=== PATIENT | female | born 1940 | race Caucasian/White ===

== ENCOUNTER 2022-04-24 11:23 | Outpatient (CLI) | payer MEDICARE, OTHER, SELFPAY ==
[2022-04-24 11:30] VITALS: BP 161/64; PULSE 61; RESP 16; O2SAT 99
[2022-04-24] MEDS: TETRACAINE 0.5% OPHTH 1 DROP EYE-RIGHT ×3 (11:34→12:15)
[2022-04-24] MEDS: BRIMONIDINE TARTRATE 0.2% OPHTH 1 DROP EYE-RIGHT ×2 (11:35→12:22)
--- NOTE | 2022-04-24 13:02 | W.PM.OPTPROC ---
Procedure Note Date of procedure: 04/24/22 Will [facility] bill your pro fee for this procedure?: Yes Procedure Description: SURGEON: Kimberly Macario MD PREOPERATIVE DIAGNOSIS: Posterior capsular opacity, right eye POSTOPERATIVE DIAGNOSIS: Posterior capsular opacity, right eye PROCEDURE: YAG laser capsulotomy, right eye ANESTHESIA: Topical. ESTIMATED BLOOD LOSS: None PATHOLOGY SPECIMEN: None COMPLICATIONS: None INDICATIONS: See consult note for details. The risks, benefits and alternatives of the procedure were explained to the patient, who elected to proceed and signed informed consent to do so. PROCEDURE: The patient was brought to the pre-holding area where the right eye was identified as the operative eye. I placed my initials above this eye. The patient received 2 sets of 1 drop of 0.5% tetracaine and 1 drop of 1% tropicamide. They also received 1 drop of 0.2% brimonidine. They received 1 drop of 0.5% tetracaine immediately prior to bringing them back for the procedure. The patient was then brought to the procedure room where the right eye was again identified as the operative eye. A YAG Sander capsulotomy lens was placed on the eye. The laser was administered using a total number of 12 shots with an energy of 2.4 mJ per shot for a total energy of 29 mJ. The patient tolerated the procedure well. DISPOSITION: The patient was taken back to the pre-holding area and given 1 drop of 0.2% brimonidine in the right eye. They were discharged to home in stable condition. The patient was instructed to call me or go to the emergency department with any sudden change, including dramatic loss of vision, severe pain in the eye or eyebrow region, nausea, or vomiting. The patient was instructed to use the 0.2% brimonidine 1 drop 2 times a day in the right eye for 1 week. The patient will follow up in the clinic in 1-2 weeks. Surgeon: Kimberly Macario MD
== END 2022-04-24 12:24 | disposition home or self-care (01) ==
LOC: EYE PRC 11:25
PROVIDERS: PCP Family Medicine; Visit Provider Ophthalmology
DX: H26.9 Unspecified cataract (principal)
CPT/HCPCS: 66821; A9270

== ENCOUNTER 2022-07-25 14:06 | Emergency (ER) | payer MEDICARE, OTHER, SELFPAY ==
[2022-07-25 14:18] VITALS: BP 145/67; PULSE 65; RESP 14; TEMP 37.1; O2SAT 97; BMI 19.9
--- NOTE | 2022-07-25 14:43 | ED_ITS ---
HPI - Weakness General Chief complaint: Weakness Stated complaint: Low NA Time Seen by Provider: 07/25/22 14:18 History of Present Illness HPI Narrative: Pt is an 82 year old woman who comes in with a 2 month history of fatigue. She has really no specific areas of weakness. She has had no chest pain, shortness of breath, abd pain, rashes, dysruia, fevers or chills. She has been following along with her primary physician and had a sodium of 120 two days ago. It is unclear to me why she was contacted today and asked to come to the emergency department with a low sodium 2 days later but she is here and really has no new complaints. She is overall weak but has no otherr complaints and is able to ambulate without difficulty and is saturating at 97% on room air. Related Data Home Medications Medication Instructions Recorded Confirmed alendronate 70 mg tablet mg PO 07/25/22 amlodipine 5 mg tablet mg 07/25/22 latanoprost 0.005 % eye drops drp 07/25/22 lisinopril 40 mg tablet mg 07/25/22 metoprolol succinate 50 mg mg PO 07/25/22 tablet,extended release 24 hr torsemide 5 mg tablet mg 07/25/22 Allergies Allergy/AdvReac Type Severity Reaction Status Date / Time No Known Drug Allergies Allergy Verified 07/25/22 14:17 Review of Systems Status of ROS: Reports: 10 or more systems reviewed and unremarkable except as noted in History and below [facility] Medical History (Updated 07/25/22 @ 16:16 by Jb Hoffman MD) Anemia Aortic insufficiency Back pain Eczema Hypertension SHERIF (obstructive sleep apnea) Osteoarthritis Osteoporosis Peripheral neuropathy Thyroid nodule Ventricular tachycardia Surgical History (Updated 07/25/22 @ 14:51 by Jb Hoffman MD) H/O ileostomy Social History Smoking Status: Never smoker How often do you have a drink containing alcohol: never AUDIT-C Alcohol total score: 0 Non-prescribed substance use: denies use service: No Exam Narrative: Exam Narrative: EXAM GENERAL: Patient appears comfortable and well. EYES: No scleral icterus. ENT: Tympanic membranes and oropharynx normal. THYROID: no thyroid nodules or thyromegaly. LYMPH: No supraclavicular or cervical lymphadenopathy. SKIN: Visible skin seen during exam normal or with benign process only. EXT: No dependent lower extremity pedal edema. HEART: Regular rate with distant heart tones LUNGS: Clear to auscultation bilaterally with no crackles or wheezes. ABD: Soft, non tender, non distended. PSYCH: Good eye contact, speech is not pressured. Const: Vital Signs, click to edit/add: Vital Signs - 24 hr 07/25/22 14:18 07/25/22 15:17 Temperature 98.8 F 98.4 F Pulse Rate [Right Pulse Oximeter] 65 67 Respiratory Rate 14 16 Blood Pressure [Ri ght Upper Arm] 145/67 H 140/60 H Pulse Oximetry 97 95 Oxygen Delivery Me thod Room Air Room Air Course Course Hospital Course: Pt seen and examined cbc, bmp ordered. Reevaluation(s) Reevaluation #1: Sodium up to 125. Vital Signs Vital signs: Initial Vital Signs Temperature 98.8 F 07/25/22 14:18 Temperature Source Temporal Artery Scan 07/25/22 14:18 Pulse Rate 65 07/25/22 14:18 Respiratory Rate 14 07/25/22 14:18 Blood Pressure 145/67 H 07/25/22 14:18 Blood Pressure Mean 93 07/25/22 14:18 Blood Pressure Position Sitting 07/25/22 14:18 Pulse Oximetry 97 07/25/22 14:18 Oxygen Delivery Method 07/25/22 14:18 Vital Signs Temperature 98.8 F 07/25/22 14:18 Pulse Rate 65 07/25/22 14:18 Respiratory Rate 14 07/25/22 14:18 Blood Pressure 145/67 H 07/25/22 14:18 Pulse Oximetry 97 07/25/22 14:18 Oxygen Delivery Method 07/25/22 14:18 Temperature 98.4 F 07/25/22 15:17 Pulse Rate 67 07/25/22 15:17 Respiratory Rate 16 07/25/22 15:17 Blood Pressure 140/60 H 07/25/22 15:17 Pulse Oximetry 95 07/25/22 15:17 Oxygen Delivery Method 07/25/22 15:17 MDM - Weakness MDM Narrative Medical decision making narrative: Pt presents with chronic weakness and a sodium of 120 two days ago. Today sodium 125. Normal exam. Normal vital signs. No findings today. Will treat with 1-1.5 liter fluid restriction at home with PCP follow up in 3-4 days with repeat BMP. Differential Diagnosis Differential diagnosis: Likely anemia, hypoglycemia, sepsis and dehydration Medical Records Attestation: I reviewed the patient's medical records. Lab Data Labs: Lab Results 07/25/22 07/25/22 Range/Units 14:57 14:57 WBC 3.39 L (4.50-11.00) K/uL RBC 3.98 L (4.00-5.20) m/uL Hgb 12.7 (12.0-16.0) gm/dL Hct 36.9 (33.0-51.0) % MCV 93 (80-100) fL MCH 32 (26-34) pg MCHC 34 (32-36) gm/dL RDW Coeff of Helio 11.9 (11.5-15.5) % Plt Count 242 (140-440) K/uL Neut % (Auto) 56.3 (42.0-72.0) % Lymph % (Auto) 19.5 L (20-44) % [place] % (Auto) 23.0 H (0.0-11.0) % Eos % (Auto) 0.3 (0.0-7.0) % Baso % (Auto) 0.6 (0.0-3.0) % Neut # (Auto) 1.90 (1.7-7.0) K/uL Lymph # (Auto) 0.70 L (0.90-2.90) K/uL [place] # (Auto) 0.80 (0.00-0.90) K/UL Eos # (Auto) 0.00 (0.00-0.50) K/uL Baso # (Auto) 0.00 (0.00-0.30) K/uL Sodium 125 L (135-149) mmol/L Potassium 3.9 (3.6-5.1) mmol/L Chloride 88 L (96-114) mmol/L Carbon Dioxide 30 (20-32) mmol/L BUN 21 (7-30) mg/dL Creatinine 0.7 (0.5-1.5) mg/dL Estimated Creat Clear 36.03 Estimated GFR 86 ml/min Glucose 102 (60-115) mg/dL Calcium 8.6 (8.4-10.6) mg/dL Discharge Plan Discharge Clinical Impression: Chronic hyponatremia Condition: Stable Instructions: Hyponatremia (ED) Additional Instructions: 1-1.5 liter fluid restriction Repeat sodium in 3-4 days Activity Level: Other Discharge Diet: Other Prescriptions: No Action latanoprost 0.005 % drops Label Comments: INSTILL 1 DROP INTO LEFT EYE AT BEDTIME metoprolol succinate 50 mg tablet extended release 24 hr PO Label Comments: TAKE ONE TABLET BY MOUTH ONCE DAILY alendronate 70 mg tablet PO Label Comments: TAKE 1 TABLET (70 MG) BY MOUTH ONCE A WEEK IN THE MORNING. TAKE ON EMPTY STOMACH WITH FULL GLASS OF WATER. DO NOT LIE DOWN FOR 1 HOUR. amlodipine 5 mg tablet Label Comments: TAKE ONE TABLET BY MOUTH (5MG) ONCE DAILY torsemide 5 mg tablet Label Comments: TAKE ONE-HALF TABLET (2.5 MG) BY MOUTH ONCE DAILY. lisinopril 40 mg tablet Label Comments: TAKE 1 TABLET BY MOUTH ONCE DAILY. Follow Up/Referrals: Scout Allan MD [Primary Care Provider] - Stand Alone Forms: [facility] Info Instructions
[2022-07-25 15:17] VITALS: BP 140/60; PULSE 67; RESP 16; TEMP 36.9; O2SAT 95
[2022-07-25 15:35] LABS: Basophils Percent Auto 0.6 % (0.0-3.0); Eosinophils Percent Auto 0.3 % (0.0-7.0); Hematocrit 36.9 % (33.0-51.0); Hemoglobin* 12.7 gm/dL (12.0-16.0); Immature Granulocytes Pct Auto 0.3 %; Lymphocytes Percent Auto 19.5 % (20-44); Mean Corpuscular HGB Conc 34 gm/dL (32-36); Mean Corpuscular Hemoglobin 32 pg (26-34); Mean Corpuscular Volume 93 fL (80-100); Neutrophils Percent Auto 56.3 % (42.0-72.0); Platelet Count* 242 K/uL (140-440); RDW Coefficient of Variation % 11.9 % (11.5-15.5); Red Blood Count 3.98 m/uL (4.00-5.20); White Blood Count* 3.39 K/uL (4.50-11.00)
[2022-07-25 15:46] LABS: Slide Review Reflex No
[2022-07-25 15:50] LABS: Chloride* 88 mmol/L (96-114); Sodium* 125 mmol/L (135-149)
[2022-07-25 15:51] LABS: Potassium* 3.9 mmol/L (3.6-5.1)
[2022-07-25 15:53] LABS: Creatinine* 0.7 mg/dL (0.5-1.5); Est. Creatinine Clearance* 36.03; Estimated Glomerular Filt Rate 86 ml/min
[2022-07-25 15:54] LABS: Blood Urea Nitrogen* 21 mg/dL (7-30); Calcium* 8.6 mg/dL (8.4-10.6); Carbon Dioxide* 30 mmol/L (20-32); Glucose* 102 mg/dL (60-115)
[2022-07-25 16:28] VITALS: BP 159/80; PULSE 73; RESP 18; O2SAT 97
== END 2022-07-25 17:32 | disposition other institution (70) ==
PROVIDERS: Emergency Provider Internal Medicine; PCP Family Medicine
DX: U07.1 COVID-19 (principal)
CPT/HCPCS: 36415; 80048; 85025; 99283

== ENCOUNTER 2022-07-25 18:52 | Outpatient (CLI) | payer MEDICARE, OTHER, SELFPAY | END 2022-07-25 18:53 | disposition home or self-care (01) | LOC: AMB 07-28 02:35 | PROVIDERS: PCP Family Medicine; Visit Provider Family Medicine | DX: R55 Syncope and collapse (principal) | CPT/HCPCS: A0425; A0427 ==

== ENCOUNTER 2022-07-25 19:17 | Observation (INO) | payer MEDICARE, OTHER, SELFPAY ==
[2022-07-25] VITALS (8 sets, daily range): BP systolic 136–161; BP diastolic 63–76; PULSE 61–85; RESP 16–18; TEMP 36.7; O2SAT 97–100; BMI 18.0
[2022-07-25] MEDS: 0.9 % SODIUM CHLORIDE 1000 ml 1,000 ML 500 ML IV (19:42)
[2022-07-25 19:43] LABS: Basophils Absolute Auto 0.03 K/uL (0.00-0.30); Basophils Percent Auto 0.6 % (0.0-3.0); Eosinophils Absolute Auto 0.02 K/uL (0.00-0.50); Eosinophils Percent Auto 0.4 % (0.0-7.0); HCO3 VBG 29 mmol/L (21-28); Hematocrit 35.2 % (33.0-51.0); Hemoglobin* 12.1 gm/dL (12.0-16.0); Immature Granulocytes Abs Auto 0.02 K/uL (0.00-0.30); Immature Granulocytes Pct Auto 0.4 %; Lactate* 1.2 mmol/L (0.5-1.9); Lymphocytes Absolute Auto 1.31 K/uL (0.90-2.90); Lymphocytes Percent Auto 27.6 % (20-44); Mean Corpuscular HGB Conc 34 gm/dL (32-36); Mean Corpuscular Hemoglobin 32 pg (26-34); Mean Corpuscular Volume 93 fL (80-100); Monocytes Percent Auto 17.5 % (0.0-11.0); Neutrophils Absolute Auto 2.53 K/uL (1.7-7.0); Neutrophils Percent Auto 53.5 % (42.0-72.0); PCO2 VBG 47 mmHG (40-50); PO2 VBG 34.1 mmHG (25-47); Platelet Count* 238 K/uL (140-440); RDW Coefficient of Variation % 11.9 % (11.5-15.5); Red Blood Count 3.78 m/uL (4.00-5.20); White Blood Count* 4.74 K/uL (4.50-11.00); pH VBG 7.398 (7.32-7.43)
[2022-07-25 19:45] LABS: Slide Review Reflex No
--- NOTE | 2022-07-25 19:54 | ED.GENADULT ---
HPI - General Adult General Time Seen by Provider: 19:54 Date Seen: 07/25/22 Chief complaint: Syncope/Fainted Stated complaint: Syncope Time Seen by Provider: 07/25/22 19:25 Source: patient, family ( comes in to see her when I am in with her.), EMS, RN notes reviewed and old records reviewed Mode of arrival: EMS Limitations: no limitations History of Present Illness HPI narrative: This 82-year-old female was brought in from home reportedly for syncopal episode. She had been recently discharged out of the ER earlier a few hours ago, was sent in for hyponatremia. Her hyponatremia was reportedly at 1:22 a.m. a few days ago, today it was at 1:25 a.m.. In review of previous sodium value she has ran in the mid to upper 120s. She tells me that Dr. Allan is thinking that it is stemming from a excessive water drinking. I do see on her medication reconciliation that she is on lisinopril and torsemide. She states when she got home she went to go to the bathroom and had a diarrheal episode. She states the next thing she remembers is waking up in the ambulance. Her stated she did not fall off the toilet she was just slumped over towards the counter and the sink, no trauma happen. He states she was just limp. He noted nothing that was concerning for seizure-type activity. On arrival here she states she just felt jumpy. Nursing staff noted that she was moving her arms around in her legs around. They demonstrated jerky type limit activity. Due to the high volume and acuity in the ER, I did order normal saline 1 L over 2 hours but was not able to see her immediately. By the time I see her, her jerking is has resolved, she states she is feeling better. She is having no acute symptoms at this time. She is requesting a warm blanket. Per nursing staff, EMS did report that they obtained an initial blood pressure on scene at 60, this did rebound with out reported intervention. Related Data Home Medications Medication Instructions Recorded Confirmed alendronate 70 mg tablet mg PO 07/25/22 amlodipine 5 mg tablet mg 07/25/22 latanoprost 0.005 % eye drops drp 07/25/22 lisinopril 40 mg tablet mg 01/26/23 metoprolol succinate 50 mg mg PO 07/25/22 tablet,extended release 24 hr torsemide 5 mg tablet mg 07/25/22 Allergies Allergy/AdvReac Type Severity Reaction Status Date / Time No Known Drug Allergies Allergy Verified 07/25/22 14:17 Review of Systems Status of ROS: Reports: 10 or more systems reviewed and unremarkable except as noted in History and below [facility] Medical History Anemia Aortic insufficiency Back pain Eczema Hypertension SHERIF (obstructive sleep apnea) Osteoarthritis Osteoporosis Peripheral neuropathy Thyroid nodule Ventricular tachycardia Surgical History H/O ileostomy Social History Smoking Status: Never smoker How often do you have a drink containing alcohol: never AUDIT-C Alcohol total score: 0 Non-prescribed substance use: denies use service: No Exam Const: Vital Signs, click to edit/add: Vital Signs - 24 hr 07/25/22 19:39 Temperature 98.1 F Pulse Rate [Right] 61 Respiratory Rate 16 Blood Pressure [Le ft Upper Arm] 161/72 H Pulse Oximetry 100 Oxygen Delivery Me thod Room Air Documenting provider has reviewed patient's vital signs: yes Common normals: no apparent distress, oriented x3, no limitations, healthy appearing and alert General appearance: cooperative, comfortable, well kempt and well developed HENMT: Common normals: normocephalic, head/scalp atraumatic, hearing grossly normal bilaterally, external ears normal, external nose normal, nasal mucous membranes and turbinates normal, moist oral mucous membranes, oropharynx normal, dentition normal and gingiva normal Head and scalp: normocephalic and atraumatic Nose: external nose normal and nasal mucous membranes and turbinates normal External ear: external ears normal Eye: Common normals: PERRL, EOMs intact bilaterally, conjunctivae normal and no scleral icterus Conjunctiva: conjunctiva(e) normal Pupil: PERRL Neck & C-Spine: Common normals: full ROM, no lymphadenopathy, supple, no meningeal signs, no JVD and thyroid normal Thyroid: thyroid normal Chest: Common normals: inspection of chest normal and palpation of chest normal Resp: Common normals: normal respiratory effort, no retractions, no use of accessory muscles and clear to auscultation bilaterally Auscultation: clear to auscultation bilaterally Cardio: Common normals: no JVD, regular rate, regular rhythm, S1 normal heart sound, S2 normal heart sound, no gallops, no clicks and no murmurs Rate: regular rate Rhythm: regular rhythm Heart sounds: S1 normal and S2 normal GI: Common normals: Normal to inspection, nondistended, normoactive bowel sounds present, soft to palpation, non-tender, no hepatosplenomegaly and no masses Palpation: soft and no hepatosplenomegaly Extremity: Other: No lower extremity edema noted, calves nontender. Neuro: Common normals: oriented x3, CN's II-XII intact bilaterally, moves all extremities, no focal motor deficits and no sensory deficits noted Sensorium/orientation: alert Meningeal signs: no meningeal signs Speech: speech normal Motor exam: no tremor noted, no asterixis and no fasciculations Psych: Appearance: well kempt Course Course Hospital Course: IV fluids with a L of normal saline over 2 hours was initiated on arrival, did order full complement of labs and requested that she be on cardiac monitoring and pulse oximetry. Up to this point, she show no arrhythmia, no hypoxia. She is feeling better. She is currently receiving her IV fluids. Will await lab results. Given that she is completely feeling better back to baseline, no seizure activity, no trauma, feel a head CT noncontrast is really to be minimally beneficial. Will continue to observe here. Will have EKG done and again monitored on cardiac monitoring while here, consider arrhythmia but does not sound consistent with that either. The jerky type movements that she was experiencing that nursing demonstrated to me does make me consider psychogenic possibilities as well. Will consider metabolic derangements and am certainly giving her a mild but slow correction of her sodium at this time. Reevaluation(s) Reevaluation #1: Reviewed with patient that her COVID is positive. She is up-to-date on all of her immunizations. She and her reside independently, are not aware of any ill contacts but we did review that the current viruses are very contagious. It is possible the diarrhea is a finding of initial COVID for her, it is very difficult to say for sure. We have seen no arrhythmia, do not think that this was neurologic that would require a head CT as she is completely back to baseline without any focal deficits. I a have subsequently called her hospitalists, he does agree with admission for observation. Time: 21:14 Vital Signs Vital signs: Initial Vital Signs Temperature 98.1 F 07/25/22 19:39 Temperature Source Temporal Artery Scan 07/25/22 19:39 Pulse Rate 61 07/25/22 19:39 Respiratory Rate 16 07/25/22 19:39 Blood Pressure 161/72 H 07/25/22 19:39 Blood Pressure Mean 101 07/25/22 19:39 Blood Pressure Position Sitting 07/25/22 19:39 Pulse Oximetry 100 07/25/22 19:39 Oxygen Delivery Method 07/25/22 19:39 Vital Signs Temperature 98.1 F 07/25/22 19:39 Pulse Rate 61 07/25/22 19:39 Respiratory Rate 16 07/25/22 19:39 Blood Pressure 161/72 H 07/25/22 19:39 Pulse Oximetry 100 07/25/22 19:39 Oxygen Delivery Method 07/25/22 19:39 Temperature 98.1 F 07/25/22 19:39 Pulse Rate 61 07/25/22 19:39 Respiratory Rate 16 07/25/22 19:39 Blood Pressure 161/72 H 07/25/22 19:39 Pulse Oximetry 100 07/25/22 19:39 Oxygen Delivery Method 07/25/22 19:39 Medical Decision Making Lab Data Lab results reviewed: Yes I reviewed the patient's lab results Labs: Lab Results 07/25/22 07/25/22 07/25/22 Range/Units 19:26 19:36 19:36 WBC 4.74 (4.50-11.00) K/uL RBC 3.78 L (4.00-5.20) m/uL Hgb 12.1 (12.0-16.0) gm/dL Hct 35.2 (33.0-51.0) % MCV 93 (80-100) fL MCH 32 (26-34) pg MCHC 34 (32-36) gm/dL RDW Coeff of Helio 11.9 (11.5-15.5) % Plt Count 238 (140-440) K/uL Neut % (Auto) 53.5 (42.0-72.0) % Lymph % (Auto) 27.6 (20-44) % [place] % (Auto) 17.5 H (0.0-11.0) % Eos % (Auto) 0.4 (0.0-7.0) % Baso % (Auto) 0.6 (0.0-3.0) % Neut # (Auto) 2.53 (1.7-7.0) K/uL Lymph # (Auto) 1.31 (0.90-2.90) K/uL [place] # (Auto) 0.80 (0.00-0.90) K/UL Eos # (Auto) 0.02 (0.00-0.50) K/uL Baso # (Auto) 0.03 (0.00-0.30) K/uL VBG pH (7.32-7.43) VBG pCO2 (40-50) mmHG VBG pO2 (25-47) mmHG VBG HCO3 (21-28) mmol/L Sodium 125 L (135-149) mmol/L Potassium 3.8 (3.6-5.1) mmol/L Chloride 91 L (96-114) mmol/L Carbon Dioxide 26 (20-32) mmol/L BUN 22 (7-30) mg/dL Creatinine 0.9 (0.5-1.5) mg/dL Estimated GFR 64 ml/min Glucose 158 H (60-115) mg/dL Lactate (0.5-1.9) mmol/L Calcium 8.5 (8.4-10.6) mg/dL Magnesium 1.9 (1.5-2.6) mg/dL NT-Pro-B Natriuret Pep 1180 pg/mL SARS-CoV-2 (PCR) (Negative) Influenza Type A (PCR) (Negative) Influenza Type B (PCR) (Negative) RSV (PCR) (Negative) POC Troponin I 0.01 (0.01-0.04) ng/ml 07/25/22 07/25/22 Range/Units 19:36 19:36 WBC (4.50-11.00) K/uL RBC (4.00-5.20) m/uL Hgb (12.0-16.0) gm/dL Hct (33.0-51.0) % MCV (80-100) fL MCH (26-34) pg MCHC (32-36) gm/dL RDW Coeff of Helio (11.5-15.5) % Plt Count (140-440) K/uL Neut % (Auto) (42.0-72.0) % Lymph % (Auto) (20-44) % [place] % (Auto) (0.0-11.0) % Eos % (Auto) (0.0-7.0) % Baso % (Auto) (0.0-3.0) % Neut # (Auto) (1.7-7.0) K/uL Lymph # (Auto) (0.90-2.90) K/uL [place] # (Auto) (0.00-0.90) K/UL Eos # (Auto) (0.00-0.50) K/uL Baso # (Auto) (0.00-0.30) K/uL VBG pH 7.398 (7.32-7.43) VBG pCO2 47 (40-50) mmHG VBG pO2 34.1 (25-47) mmHG VBG HCO3 29 H (21-28) mmol/L Sodium (135-149) mmol/L Potassium (3.6-5.1) mmol/L Chloride (96-114) mmol/L Carbon Dioxide (20-32) mmol/L BUN (7-30) mg/dL Creatinine (0.5-1.5) mg/dL Estimated GFR ml/min Glucose (60-115) mg/dL Lactate 1.2 (0.5-1.9) mmol/L Calcium (8.4-10.6) mg/dL Magnesium (1.5-2.6) mg/dL NT-Pro-B Natriuret Pep pg/mL SARS-CoV-2 (PCR) POSITIVE SARS-CoV-2 A (Negative) Influenza Type A (PCR) Negative PCR FLU A (Negative) Influenza Type B (PCR) Negative PCR FLU B (Negative) RSV (PCR) Negative PCR RSV (Negative) POC Troponin I (0.01-0.04) ng/ml ECG Data Attestation: I personally reviewed and interpreted this ECG as follows: (Normal sinus rhythm, 61 beats per minute. Voltage criteria for LVH met. QT corrected 448 milliseconds.) Critical Care Time Critical Care Time Critical Care Time: No Discharge Plan Discharge Clinical Impression: COVID-19, Hyponatremia, Syncope Patient Disposition: Admitted As Inpatient Condition: Improved Prescriptions: No Action latanoprost 0.005 % drops Label Comments: INSTILL 1 DROP INTO LEFT EYE AT BEDTIME metoprolol succinate 50 mg tablet extended release 24 hr PO Label Comments: TAKE ONE TABLET BY MOUTH ONCE DAILY alendronate 70 mg tablet PO Label Comments: TAKE 1 TABLET (70 MG) BY MOUTH ONCE A WEEK IN THE MORNING. TAKE ON EMPTY STOMACH WITH FULL GLASS OF WATER. DO NOT LIE DOWN FOR 1 HOUR. amlodipine 5 mg tablet Label Comments: TAKE ONE TABLET BY MOUTH (5MG) ONCE DAILY torsemide 5 mg tablet Label Comments: TAKE ONE-HALF TABLET (2.5 MG) BY MOUTH ONCE DAILY. lisinopril 40 mg tablet Label Comments: TAKE 1 TABLET BY MOUTH ONCE DAILY. Follow Up/Referrals: Scout Allan MD [Primary Care Provider] -
[2022-07-25 20:17] LABS: Troponin, Point-of-Care* 0.01 ng/ml (0.01-0.04)
[2022-07-25 20:21] LABS: NT Pro B Type NatriureticPept* 1180 pg/mL
[2022-07-25 20:23] LABS: Blood Urea Nitrogen* 22 mg/dL (7-30); Calcium* 8.5 mg/dL (8.4-10.6); Carbon Dioxide* 26 mmol/L (20-32); Chloride* 91 mmol/L (96-114); Creatinine* 0.9 mg/dL (0.5-1.5); Estimated Glomerular Filt Rate 64 ml/min; Glucose* 158 mg/dL (60-115); Magnesium* 1.9 mg/dL (1.5-2.6); Potassium* 3.8 mmol/L (3.6-5.1); Sodium* 125 mmol/L (135-149)
[2022-07-25 20:34] LABS: PCR FLU A Negative PCR FLU A (Negative); PCR FLU B Negative PCR FLU B (Negative); PCR RSV Negative PCR RSV (Negative)
[2022-07-25 20:36] LABS: SARS PCR* POSITIVE SARS-CoV-2 (Negative)
--- NOTE | 2022-07-25 23:39 | CRLHL7_ITS ---
For Patients: As a result of the Century Cures Act, medical imaging exams and procedure reports are released immediately into your electronic medical record. You may view this report before your referring provider. If you have questions, please contact your health care provider. INDICATION: COVID-19 positive TECHNIQUE: Chest radiograph 1 view COMPARISON: 10/22/2019 FINDINGS: Mediastinum: The mediastinum is normal in appearance. Mild cardiomegaly is noted without interval change. Lung: Both lungs are unremarkable in appearance. No sign of pleural effusion seen. No pneumothorax is identified. Bone and Soft tissue: Severe diffuse osteopenia is present. IMPRESSION: 1. Mild cardiomegaly is noted without interval change. Dictated by Nitish Banks MD @ 07/26/2022 12:44:59 AM Dictated by: Nitish Banks MD @ 07/26/2022 00:45:02 (Electronically Signed)
--- NOTE | 2022-07-25 23:49 | PM.IMCN1 ---
Date of Consult Consult date: 07/25/22 Primary Care Provider: Scout Allan MD Consult Narrative Narrative: Claudia Benitez is a 82 year old female [facility] Medical History Anemia Aortic insufficiency Back pain Eczema Hypertension SHERIF (obstructive sleep apnea) Osteoarthritis Osteoporosis Peripheral neuropathy Thyroid nodule Ventricular tachycardia Surgical History H/O ileostomy Social History Highest level of school completed/degree received: Bachelor's degree Smoking Status: Never smoker Do you use any of these nicotine containing products: None Second hand tobacco smoke exposure: No How often do you have a drink containing alcohol: never How often do you have six or more drinks on one occasion: Never AUDIT-C Alcohol total score: 0 Non-prescribed substance use: denies use Caffeine: Yes service: No Meds Home Medications and Allergies Home Medications Medication Instructions Recorded Confirmed Type alendronate 70 mg tablet mg PO 07/25/22 History amlodipine 5 mg tablet mg 07/25/22 History latanoprost 0.005 % eye drops drp 07/25/22 History lisinopril 40 mg tablet mg 07/25/22 History metoprolol succinate 50 mg mg PO 07/25/22 History tablet,extended release 24 hr torsemide 5 mg tablet mg 07/25/22 History Allergies Allergy/AdvReac Type Severity Reaction Status Date / Time No Known Drug Allergies Allergy Verified 07/25/22 14:17 Exam Const: Vital Signs, click to edit/add: Vital Signs - 24 hr 07/25/22 19:39 07/25/22 19:25 07/25/22 21:00 Temperature 98.1 F Pulse Rate [Pulse Oximeter] Pulse Rate [Right] 61 63 Respiratory Rate 16 16 Blood Pressure [Le ft Arm] Blood Pressure [Le ft Upper Arm] 161/72 H 136/63 Pulse Oximetry 100 100 100 Oxygen Delivery Me thod Room Air Room Air 07/25/22 22:00 07/25/22 20:00 07/25/22 19:45 Temperature Pulse Rate [Pulse Oximeter] Pulse Rate [Right] 67 70 63 Respiratory Rate 16 16 16 Blood Pressure [Le ft Arm] Blood Pressure [Le ft Upper Arm] 141/71 H 151/72 H 148/76 H Pulse Oximetry 100 99 99 Oxygen Delivery Me thod Room Air Room Air Room Air 07/25/22 22:33 07/25/22 22:33 Temperature 98.1 F Pulse Rate [Pulse Oximeter] 85 Pulse Rate [Right] Respiratory Rate 18 Blood Pressure [Le ft Arm] 150/69 H Blood Pressure [Le ft Upper Arm] Pulse Oximetry 97 Oxygen Delivery Me thod Room Air Room Air Labs Labs: Short CBC 07/25/22 Range/Units 19:36 WBC 4.74 (4.50-11.00) K/uL Hgb 12.1 (12.0-16.0) gm/dL Hct 35.2 (33.0-51.0) % Plt Count 238 (140-440) K/uL BMP 07/25/22 19:36 Sodium 125 L Potassium 3.8 Chloride 91 L Carbon Dioxide 26 BUN 22 Creatinine 0.9 Glucose 158 H Calcium 8.5 Assessment and Plan Assessment and plan (1) Chronic hyponatremia: Status: Acute (2) Syncope: Status: Acute (3) COVID-19: Status: Acute Plan [facility] Hospitalist CONSULTATION NOTE: Reason for consult: COVID infection HPI: Patient is a pleasant 82-year-old female who had a syncopal episode while having bowel movement earlier this evening. She was brought in by her when found unconscious. Likely out the toilet is set up she did not fall but just leaned against the cabinet. EMS reportedly noted patient to be hypotensive on arrival. In the ER she is found to be COVID-positive. Patient has been dealing with fatigue, general malaise, and some orthopnea for several months. She does report this has been worse over the last several days. She does not have a headache and has not felt lightheaded. She was not feeling symptomatic. For her syncopal episode she just had to go the bathroom. She denies any recent chest pains. He has not been short of breath but she does have to sleep with 2-3 pillows as she is unable to sleep flat from shortness of breath. She denies abdominal pain, nausea, vomiting. She has had some loose stools over the last several days. She denies any fevers or chills. Patient is a non-smoker. She does not drink alcohol. She does not use recreational drugs. We did discuss CODE STATUS and she wishes to be full code. Exam (performed via interactive video with assistance of bedside nurse): General: Alert, cooperative, no acute distress HEENT: Pupils reported ERRL, oral mucosa pink and moist without erythema Lungs: Clear to auscultation bilaterally without crackle or wheeze CV: Regular rate and rhythm without loud murmur rub or gallop Abd: Denies tenderness and does not exhibit signs of pain with palpation done by bedside nurse Ext: No pitting edema noted Skin: No rashes, bruises or lesions appreciated on gross visualization of exposed skin Past medical, surgical and social history reviewd in EMR. Assessment and Plan: 1. COVID infection 2. Orthopnea, concern for heart failure Patient is a pleasant 82-year-old female admitted for COVID infection. She is not requiring oxygen so will not initiate any COVID-specific therapies. She is vaccinated which should also help her clinical course. For her orthopnea she should have an echocardiogram if available. She was scheduled to have one in August as she gets them yearly for some valvular disease. She denies any diagnosis of heart failure at this point in time, but her orthopnea is concerning. Her proBNP also appears mildly elevated which would fit with heart failure. We will get a chest x-ray this evening to evaluate for any pulmonary edema. Patient's chronic outpatient medications will need to be continued as appropriate when fully verified. PRNs have been placed for pain and nausea. Enoxaparin is ordered for DVT prophylaxis. Patient is a full code. Thank you for including Flo John in the patients care. This service is available for further assistance as requested by your care team by calling [phone].
[2022-07-26] MEDS: ENOXAPARIN 30 MG/0.3ML INJ SUBCUT (01:38)
--- NOTE | 2022-07-26 07:33 | PC.NURSE ---
VSS on RA. Patient is alert and oriented x3, able to make needs known to staff. Pt denies pain on assessment. Independent with transfers, continent bowel, urostomy in place and draining adequately. Pt on precaution for Covid-19, no s/s of SOB noted. Patient appears stable, call light within reach.
[2022-07-26 07:54] LABS: Chloride* 95 mmol/L (96-114); Sodium* 130 mmol/L (135-149)
[2022-07-26 07:55] LABS: Potassium* 3.6 mmol/L (3.6-5.1)
[2022-07-26 07:57] LABS: Creatinine* 0.5 mg/dL (0.5-1.5); Est. Creatinine Clearance* 32.55; Estimated Glomerular Filt Rate 94 ml/min
[2022-07-26 07:58] LABS: Blood Urea Nitrogen* 14 mg/dL (7-30); Calcium* 8.2 mg/dL (8.4-10.6); Carbon Dioxide* 29 mmol/L (20-32); Glucose* 91 mg/dL (60-115)
[2022-07-26] MEDS: SODIUM CHLORIDE 0.9 % (FLUSH) 10 ML SYRINGE 5 ML IVF ×2 (08:40→21:31)
[2022-07-26 11:35] VITALS: BP 141/90; PULSE 91; RESP 18; TEMP 36.8; O2SAT 100
--- NOTE | 2022-07-26 14:19 | PC.NURSE ---
Pt stable through out shift. Pt on 1500cc fluid restriction.
[2022-07-26] MEDS: METOPROLOL SUCCINATE (XL) 50 MG TAB PO (14:31)
[2022-07-26 15:00] VITALS: BP 181/78; PULSE 80; RESP 18; TEMP 36.8; O2SAT 100
[2022-07-26 15:42] LABS: Chloride* 96 mmol/L (96-114); Sodium* 130 mmol/L (135-149)
[2022-07-26 15:43] LABS: Potassium* 3.6 mmol/L (3.6-5.1)
[2022-07-26 15:45] LABS: Creatinine* 0.6 mg/dL (0.5-1.5); Est. Creatinine Clearance* 32.55; Estimated Glomerular Filt Rate 90 ml/min
[2022-07-26 15:46] LABS: Blood Urea Nitrogen* 26 mg/dL (7-30); Calcium* 8.4 mg/dL (8.4-10.6); Carbon Dioxide* 27 mmol/L (20-32); Glucose* 117 mg/dL (60-115)
[2022-07-26 15:54] LABS: C Reactive Protein* < 0.5 mg/dL (0.5-1.0)
--- NOTE | 2022-07-26 16:35 | PM.IMHP1 ---
Hospitalist- H&P: HANNA History of Present Illness Date Seen: 07/26/22 Chief complaint: Syncope Narrative: Claudia Benitez is a 82 year old female admitted to the hospital after syncopal episode at home. She was sitting on the toilet having a bowel movement when she called out to her that she was feeling dizzy. He came to check on her and found her unresponsive sitting on the toilet. She was falling over so he held her up. He was able to call 911. Paramedics came. When they arrive she was still unresponsive sitting on the toilet. She awoke when they were transfer her on the gurney into the ambulance. She reports no history of syncope. She does not recall feeling lightheaded beforehand but her recalls hearing her call out saying she was feeling dizzy and calling for his help before she became unconscious. There was no seizure activity noted. She does not have any significant heart disease. She reports no obvious illness though she does note that she has had some recent loose stools. There has been no blood in her stool and no melena. She has not had a fever or cough, chest pain or shortness of breath. No cold symptoms. She tested positive for COVID in the emergency department but was unaware of her having any obvious COVID symptoms though she notes her chronic weakness is much worse this week. Patient has multiple concerns she would like me to address as follows: She has reported longstanding weakness, myalgias, fatigue for at least the last couple years. She reports feeling quite a bit worse especially with weakness this week. I see in the clinic that she has had some evaluation for this with thyroid testing and electrolyte testing. I do see that she has chronic hyponatremia with sodiums commonly in the upper 120s. Three days ago in clinic her sodium was 120. She reports she has been eating food in a normal way. She does acknowledge that she drinks a lot of water. She has problems with sleeping. She has trouble falling asleep at night and even more importantly she wakes up in the middle on a night and can not fall asleep again. She does wear CPAP but often takes it off in the middle of the night because she feels like it is choking her. During the day she reports that she gets sleepy and recently almost fell asleep while eating dinner. She reports generalized aching. She is not aware of inflamed red or tender joints but more generalized muscle aching. This is been going on for a couple years as well. She does have arthritis with joint deformities in her fingers particularly at the D IP joints. She has never been diagnosed with and other inflammatory arthritic conditions such as rheumatoid arthritis. She reports on off chronic problems with loose stools. She has taken herself off of gluten and dairy hoping that this would help. Unsure if she is benefiting from that. She has had no formal diagnosis of this as a gluten enteropathy or a formal diagnosis of lactose intolerance. She has not had blood in her stool. Review of Systems Narrative: See above [facility] Medical History (Updated 07/26/22 @ 16:54 by Salvador Tony MD) Anemia Aortic insufficiency Back pain Breast cancer, BRCA1 positive Daytime sleepiness Eczema Fatigue Hypertension Insomnia Myalgia SHERIF (obstructive sleep apnea) Osteoarthritis Osteoporosis Peripheral neuropathy Thyroid nodule Ventricular tachycardia Weakness generalized Surgical History (Updated 07/26/22 @ 16:46 by Salvador Tony MD) H/O ileostomy History of arthroplasty of right hip History of bilateral mastectomy History of cataract surgery History of hysterectomy Family History (Updated 07/26/22 @ 16:47 by Salvador Tony MD) Mother Ovarian cancer High blood pressure Sister Ovarian cancer High blood pressure Father Heart disease High blood pressure Social History (Updated 07/26/22 @ 16:48 by Salvador Tony MD) Narrative: She is and here with her . They live independently. They see Dr. Allan for primary care. She does not smoke. She does not drink alcohol. She has had her COVID vaccines. Code status is full. 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 Highest level of school completed/degree received: Bachelor's degree Smoking Status: Never smoker Do you use any of these nicotine containing products: None Second hand tobacco smoke exposure: No How often do you have a drink containing alcohol: never How often do you have six or more drinks on one occasion: Never AUDIT-C Alcohol total score: 0 Non-prescribed substance use: denies use Caffeine: Yes service: No Meds Home Medications and Allergies Home Medications Medication Instructions Recorded Confirmed Type alendronate 70 mg tablet 70 mg PO QWEEK 07/25/22 07/26/22 History amlodipine 5 mg tablet 5 mg PO DAILY 07/25/22 07/26/22 History latanoprost 0.005 % eye drops 1 drp ophthalmic (eye) HS 07/25/22 07/26/22 History lisinopril 40 mg tablet 40 mg PO DAILY 07/25/22 07/26/22 History metoprolol succinate 50 mg 50 mg PO DAILY 07/25/22 07/26/22 History tablet,extended release 24 hr torsemide 5 mg tablet 2.5 mg PO DAILY 07/25/22 07/26/22 History Allergies Allergy/AdvReac Type Severity Reaction Status Date / Time No Known Drug Allergies Allergy Verified 07/25/22 14:17 Exam Narrative: Exam Narrative: She is alert and appears in no distress. She is somewhat anxious. Eyes are normal. Oropharynx normal. Neck is supple without mass or adenopathy. Respirations are clear to auscultation. Cardiovascular: S1, S2, regular rate and rhythm. No murmur gallop or rub. Abdomen: Bowel sounds active. Abdomen is soft without tenderness or mass. Extremities without edema. She moves all 4 extremities well. There is no rash. Good peripheral pulses. Inspection of her joints shows some deformity primarily of the D IP but to a lesser extent her right MCP joints no obvious of joint effusion no erythema or warmth. Hips, ankles, elbows, shoulders and knees without obvious inflammatory changes Const: Vital Signs, click to edit/add: Vital Signs - 24 hr 07/25/22 19:39 07/25/22 19:25 07/25/22 21:00 Temperature 98.1 F Pulse Rate [Pulse Oximeter] Pulse Rate [Right] 61 63 Respiratory Rate 16 16 Blood Pressure [Le ft Arm] Blood Pressure [Le ft Upper Arm] 161/72 H 136/63 Pulse Oximetry 100 100 100 Oxygen Delivery Me thod Room Air Room Air 07/25/22 22:00 07/25/22 20:00 07/25/22 19:45 Temperature Pulse Rate [Pulse Oximeter] Pulse Rate [Right] 67 70 63 Respiratory Rate 16 16 16 Blood Pressure [Le ft Arm] Blood Pressure [Le ft Upper Arm] 141/71 H 151/72 H 148/76 H Pulse Oximetry 100 99 99 Oxygen Delivery Me thod Room Air Room Air Room Air 07/25/22 22:33 07/25/22 22:33 07/25/22 23:00 Temperature 98.1 F Pulse Rate [Pulse Oximeter] 85 85 Pulse Rate [Right] Respiratory Rate 18 18 Blood Pressure [Le ft Arm] 150/69 H Blood Pressure [Le ft Upper Arm] Pulse Oximetry 97 Oxygen Delivery Me thod Room Air Room Air 07/26/22 11:35 Temperature 98.2 F Pulse Rate [Pulse Oximeter] 91 Pulse Rate [Right] Respiratory Rate 18 Blood Pressure [Le ft Arm] 141/90 H Blood Pressure [Le ft Upper Arm] Pulse Oximetry 100 Oxygen Delivery Me thod Room Air Documenting provider has reviewed patient's vital signs: yes Hospitalist - H&P: Result Labs Labs: Short CBC 07/25/22 Range/Units 19:36 WBC 4.74 (4.50-11.00) K/uL Hgb 12.1 (12.0-16.0) gm/dL Hct 35.2 (33.0-51.0) % Plt Count 238 (140-440) K/uL BMP 07/25/22 07/25/22 07/26/22 06:52 19:36 15:20 Sodium 130 L 125 L 130 L Potassium 3.6 3.8 3.6 Chloride 95 L 91 L 96 Carbon Dioxide 29 26 27 BUN 14 22 26 Creatinine 0.5 0.9 0.6 Glucose 91 158 H 117 H Calcium 8.2 L 8.5 8.4 Assessment and Plan Assessment and plan (1) Syncope: Problem comment: Likely vasovagal. Likely combination of factors. She was identified with low blood pressure by the paramedics. May be getting too much antihypertensive medicines. She has had some recent increase in diarrhea which may be contributing. Her COVID illness may also be contributing. Will monitor her vital signs here. Hold on some blood pressure medicines and consider further outpatient evaluation if symptomatic after her COVID illness resolves Status: Acute (2) Hyponatremia: Problem comment: Chronic, improved just with being placed on a fluid restriction and holding blood pressure medicines. I did obtain urine and serum sodium and osmolality. Results pending Status: Acute (3) COVID-19: Problem comment: The only obvious acute change in her symptoms is that her weakness is much worse this week, probably COVID weakness. Status: Acute (4) Weakness generalized: Problem comment: Chronic Status: Acute (5) Myalgia: Problem comment: Chronic. Cause is not obvious. Will check a sed rate with screening for polymyalgia rheumatica. With her COVID infection this may be difficult to assess Status: Acute (6) Fatigue: Problem comment: Chronic Status: Acute (7) Insomnia: Problem comment: Chronic problem. Not sleeping well at night but sleepy during the day. Uncertain whether her sleep apnea and CPAP or playing a role Status: Acute (8) Daytime sleepiness: Problem comment: Likely due to poor sleep at night. Status: Acute (9) Chronic hyponatremia: Problem comment: Uncertain cause. For now fluid restriction seems to work. Status: Acute Plan Monitor in hospital for recurrent syncope, COVID symptoms, hyponatremia. Probably discharge to home tomorrow if clinically improved. She has a number of concerns that would be best evaluated in the outpatient setting Total time spent today is 80 minutes, 60 minutes in coordinate of care and discussing with patient and ongoing evaluation and management of her multiple concerns noted above
[2022-07-26 16:37] VITALS: BP 180/82; BP 188/93; BP 189/78; PULSE 76; PULSE 82; PULSE 94
[2022-07-26 17:07] LABS: Erythrocyte SedimentationRate* 12 mm/hr (2-20)
[2022-07-26 17:56] VITALS: O2SAT 100
--- NOTE | 2022-07-26 18:22 | PC.NURSE ---
Shift note: Pt alert and oriented. Ambulate with A1 with walker and GB. Pt was angry for her food was cold before it get to her room. No SOB, pain, n/v.
[2022-07-26 19:00] VITALS: BP 174/73; PULSE 70; RESP 16; TEMP 36.8; O2SAT 100
[2022-07-26] MEDS: lisinopriL 20 MG TABLET PO (21:30)
[2022-07-26] MEDS: LATANOPROST 0.005% OPHTH 1 DROP EYE-BOTH (21:30)
[2022-07-26 23:00] VITALS: BP 193/88; PULSE 70; PULSE 73; RESP 16; TEMP 36.8; O2SAT 100
[2022-07-27] MEDS: ENOXAPARIN 30 MG/0.3ML INJ SUBCUT (00:04)
[2022-07-27 03:00] VITALS: BP 178/85; PULSE 68; RESP 16; TEMP 36.9; O2SAT 100
--- NOTE | 2022-07-27 06:32 | PC.NURSE ---
Systolic PB is slightly elevated, all other vitals are stable. Patient is alert and oriented x3. Pt denies pain, n/v, and SOB related to Covid-19. Pt continues on isolation precautions. Continent of bowel and bladder, assist of one with transfers. Pt appears stable, call light within reach. Will call appropriately.
[2022-07-27 06:52] LABS: Chloride* 96 mmol/L (96-114); Sodium* 130 mmol/L (135-149)
[2022-07-27 06:55] LABS: Carbon Dioxide* 29 mmol/L (20-32); Creatinine* 0.6 mg/dL (0.5-1.5); Est. Creatinine Clearance* 32.55; Estimated Glomerular Filt Rate 90 ml/min
[2022-07-27 06:56] LABS: Blood Urea Nitrogen* 23 mg/dL (7-30); Calcium* 8.4 mg/dL (8.4-10.6); Glucose* 97 mg/dL (60-115)
[2022-07-27 08:17] VITALS: BP 185/87; PULSE 80; RESP 18; TEMP 36.6; O2SAT 100
[2022-07-27] MEDS: SODIUM CHLORIDE 0.9 % (FLUSH) 10 ML SYRINGE 5 ML IVF (08:37)
[2022-07-27] MEDS: lisinopriL 20 MG TABLET PO (08:37)
[2022-07-27] MEDS: METOPROLOL SUCCINATE (XL) 50 MG TAB PO (08:37)
--- NOTE | 2022-07-27 09:10 | PM.DS1 ---
DS: Providers Provider Date Seen: 07/27/22 Date of admission: 07/25/22 22:17 Primary care physician: Scout Allan MD Admitting Clinician: Adrian Riley MD Attending Physician on discharge: Adrian Riley MD Date of Discharge: 07/27/22 DS: Diagnosis Discharge Diagnosis (1) Syncope: Status: Acute Problem details: Likely vasovagal. Likely combination of factors. She was identified with low blood pressure by the paramedics. May be getting too much antihypertensive medicines. She has had some recent increase in diarrhea which may be contributing. Her COVID illness may also be contributing. Will monitor her vital signs here. Hold on some blood pressure medicines and consider further outpatient evaluation if symptomatic after her COVID illness resolves. (2) Hyponatremia: Status: Acute Problem details: Chronic, improved just with being placed on a fluid restriction and holding blood pressure medicines. I did obtain urine and serum sodium and osmolality. Results pending. Patient reports she has frequent episodes where she feels weak and manages at home by drinking lots of water. I have put her on a modest fluid restriction of 64 oz or 8 cups per day of fluid. (3) COVID-19: Status: Acute Problem details: The only obvious acute change in her symptoms is that her weakness is much worse this week, probably COVID weakness. Her lymphocytes and inflammatory markers are normal today so she is likely recovered from her recent COVID infection. (4) Chronic hyponatremia: Status: Acute Problem details: Excessive free water intake is a big contributor. Probably some other underlying issues. Urine sodium and osmolality and serum osmolality are pending (5) Weakness generalized: Status: Acute Problem details: Chronic. Patient interprets her generalized weakness as being dehydration and drinks water to treat it. I am concerned that anxiety may be a important contribute to her feeling of weakness. (6) Myalgia: Status: Acute Problem details: Chronic. Cause is not obvious. She has a normal sed rate and CRP suggesting she does not have polymyalgia rheumatica or any inflammatory rheumatologic condition (7) Fatigue: Status: Acute Problem details: Chronic. Likely related to the multiple other issues noted on this admission (8) Insomnia: Status: Acute Problem details: Chronic problem. Not sleeping well at night but sleepy during the day. Uncertain whether her sleep apnea and CPAP or playing a role. (9) Daytime sleepiness: Status: Acute Problem details: Likely due to poor sleep at night. (10) Anxiety: Status: Acute Problem details: During this hospital stay the patient was noted to be quite anxious. I think this may be contributing significantly to many of her other constitutional symptoms. With her hyponatremia she may not be a good candidate for SSRI treatment (11) Bowel trouble: Status: Acute Problem details: Patient has concerns about her bowel both loose stools and constipation. She has not had a bowel movement in a day and a half. I recommend use of stool softeners or laxatives cautiously as she also has a tendency towards loose stools. (12) Dizziness: Status: Acute Problem details: Possibly related to anxiety. If this continues, reassess vital signs and initiate further cardiovascular workup if abnormal vitals or recurrent syncope. (13) Polydipsia: Status: Acute Problem details: Self treatment for feeling of weakness. She was worried that I was prohibiting her from treating her weakness with fluids. I do not think her weakness is due to dehydration and did allow that she could have some fluid if she was feeling weak but it she be limited to 64 oz or 8 cups of fluid total per day (14) Edema: Status: Acute Problem details: Patient has intermittent ankle edema for which he takes torsemide. I have recommended that she stop using torsemide for this and use compression stockings if she sees some swelling in her ankles. DS: Summary Hospital Course Hospital Course: 82-year-old female admitted to the hospital after a syncopal episode at home. This occurred while she was on the toilet having a loose stool. noted that she was unconscious when he found her. He kept her upright on the stool. No seizure activity. Reportedly paramedics found her to be unresponsive with low blood pressure. She awoke when she was lying on the gurney being loaded into the ambulance. On admission evaluation showed no significant abnormality except she had a positive COVID test and low sodium. Initial cardiovascular assessment showed no other significant problems. She was monitored in the hospital for approximately 1 and half days. During that time her torsemide and amlodipine were held. Her blood pressure was mostly elevated through her hospital stay. Her sodium improved from 120 in the clinic to 125 on admission to 130 today. This was on a fluid restriction of 1500 mL per day. Patient continued to report episodes of feeling dizzy and weak with normal vitals. No recurrent syncope. Status at Discharge Cognitive/behavioral status at discharge: Back to baseline Functional status at discharge: independent ambulation Overall status at discharge: patient is back to baseline Time Spent with Patient Time attestation: Total time spent providing and/or coordinating discharge services: Time spent: Greater than 30 minutes Exam Narrative: Exam Narrative: She is alert and appears in no distress. Speech is normal. She is anxious. Respirations are unlabored. Clear to auscultation. Cardiovascular: S1, S2, regular rate and rhythm without tenderness. No ankle edema. Good peripheral perfusion.. No gallop or rub. Abdomen is soft Const: Vital Signs, click to edit/add: Vital Signs - 24 hr 07/26/22 11:35 07/26/22 15:00 07/26/22 17:56 Temperature 98.2 F 98.3 F Pulse Rate [Pulse Oximeter] 91 80 Pulse Rate [orthos tatic lying Pulse Oximeter] Pulse Rate [orthos tatic sitting Righ t Pulse Oximeter] Pulse Rate [orthos tatic standing Rig ht Pulse Oximeter] Respiratory Rate 18 18 Blood Pressure [Le ft Arm] 141/90 H 181/78 H Blood Pressure [or thostatic lying Ri ght Arm] Blood Pressure [or thostatic sitting Right Arm] Blood Pressure [or thostatic standing Right Arm] Pulse Oximetry 100 100 100 Oxygen Delivery Me thod Room Air Room Air 07/26/22 16:37 07/26/22 19:00 07/26/22 23:00 Temperature 98.3 F Pulse Rate [Pulse Oximeter] 70 70 Pulse Rate [orthos tatic lying Pulse Oximeter] 76 Pulse Rate [orthos tatic sitting Righ t Pulse Oximeter] 82 Pulse Rate [orthos tatic standing Rig ht Pulse Oximeter] 94 Respiratory Rate 16 16 Blood Pressure [Le ft Arm] 174/73 H Blood Pressure [or thostatic lying Ri ght Arm] 189/78 H Blood Pressure [or thostatic sitting Right Arm] 180/82 H Blood Pressure [or thostatic standing Right Arm] 188/93 H Pulse Oximetry 100 Oxygen Delivery Me thod Room Air 07/26/22 23:00 07/27/22 03:00 07/27/22 08:17 Temperature 98.2 F 98.4 F 97.9 F Pulse Rate [Pulse Oximeter] 73 68 80 Pulse Rate [orthos tatic lying Pulse Oximeter] Pulse Rate [orthos tatic sitting Righ t Pulse Oximeter] Pulse Rate [orthos tatic standing Rig ht Pulse Oximeter] Respiratory Rate 16 16 18 Blood Pressure [Le ft Arm] 193/88 H 178/85 H 185/87 H Blood Pressure [or thostatic lying Ri ght Arm] Blood Pressure [or thostatic sitting Right Arm] Blood Pressure [or thostatic standing Right Arm] Pulse Oximetry 100 100 100 Oxygen Delivery Me thod Room Air Room Air Room Air Documenting provider has reviewed patient's vital signs: yes DS: Data Data Completed and Pending Labs on day of discharge: Labs from last 24 hours 07/27/22 07/26/22 07/26/22 05:50 15:20 15:20 ESR Sodium 130 L 130 L Potassium 4.0 3.6 Chloride 96 96 Carbon Dioxide 29 27 BUN 23 26 Creatinine 0.6 0.6 Estimated Creat Clear 32.55 32.55 Estimated GFR 90 90 Glucose 97 117 H Serum Osmolality Calcium 8.4 8.4 C-Reactive Protein < 0.5 L Ur Random Osmolality Ur Creatinine per Vol Ur Creatinine 24 Hour U Collection Duration Urine Total Volume Ur Sodium per Vol Ur Sodium mmol/Day 07/26/22 07/26/22 07/26/22 15:20 15:04 15:04 ESR 12 Sodium Potassium Chloride Carbon Dioxide BUN Creatinine Estimated Creat Clear Estimated GFR Glucose Serum Osmolality Pending Calcium C-Reactive Protein Ur Random Osmolality Pending Ur Creatinine per Vol Pending Ur Creatinine 24 Hour Pending U Collection Duration Pending Urine Total Volume Pending Ur Sodium per Vol Pending Ur Sodium mmol/Day Pending Discharge Plan Discharge Disposition: Home, Self-Care Date of Admission: 07/25/22 22:17 Attending Provider on Discharge: Salvador Tony Primary Care Provider: Scout Allan Condition: Improved Anticipated Discharge Date/Time: 07/27/22 09:30 Discharge Medications: Continued latanoprost 0.005 % drops 1 drp ophthalmic (eye) HS Label Comments: INSTILL 1 DROP INTO LEFT EYE AT BEDTIME metoprolol succinate 50 mg tablet extended release 24 hr 50 mg PO DAILY Label Comments: TAKE ONE TABLET BY MOUTH ONCE DAILY alendronate 70 mg tablet 70 mg PO QWEEK Label Comments: TAKE 1 TABLET (70 MG) BY MOUTH ONCE A WEEK IN THE MORNING. TAKE ON EMPTY STOMACH WITH FULL GLASS OF WATER. DO NOT LIE DOWN FOR 1 HOUR. amlodipine 5 mg tablet 5 mg PO DAILY Label Comments: TAKE ONE TABLET BY MOUTH (5MG) ONCE DAILY lisinopril 40 mg tablet 40 mg PO DAILY Label Comments: TAKE 1 TABLET BY MOUTH ONCE DAILY. Discontinued torsemide 5 mg tablet 2.5 mg PO DAILY Label Comments: TAKE ONE-HALF TABLET (2.5 MG) BY MOUTH ONCE DAILY. Discharge Orders: Discharge Order (Routine); Ordered 07/27/22 Ordered By: Salvador Tony Activity Level: No Restrictions Discharge Diet: Regular Follow Up Appointments: Scout Allan MD [Primary Care Provider] - (1-2 weeks. Check basic metabolic panel in 1-2 weeks) Forms: [employer] Info Instructions
[2022-07-27 11:06] VITALS: RESP 18; TEMP 36.6
--- NOTE | 2022-07-27 11:07 | PC.NURSE ---
Discharge: Patient ambulating well, SBA with walker, able to ambulate well even without walker. IV removed from left wrist. o2 sats >90% on RA. Denies pain or SOB. Able to manage ADLs per self. Discharge instructions and follow up reviewed. Discharged from 274 via wheelchair @ 1050.
[2022-07-28 18:33] LABS: Hours Collected Not Provided hr; Total Volume Not Provided mL
[2022-07-28 19:55] LABS: Urine Osmolality 414 mOsm/kg (50-800)
== END 2022-07-27 10:50 | disposition home or self-care (01) ==
LOC: ED 21:18 → MEDSURG 22:18
PROVIDERS: Family Medicine; Hospitalist; Admitting Provider Internal Medicine; Emergency Provider Family Medicine; PCP Family Medicine; Visit Provider Internal Medicine
DX: U07.1 COVID-19 (principal); E87.1 Hypo-osmolality and hyponatremia; M79.10 Myalgia, unspecified site; R53.1 Weakness; R53.83 Other fatigue; G47.00 Insomnia, unspecified; R40.0 Somnolence; F41.9 Anxiety disorder, unspecified; K63.9 Disease of intestine, unspecified; R42 Dizziness and giddiness; R63.1 Polydipsia; R60.9 Edema, unspecified; G47.30 Sleep apnea, unspecified; Z99.89 Dependence on other enabling machines and devices; K59.00 Constipation, unspecified; R60.0 Localized edema; R19.7 Diarrhea, unspecified; I10 Essential (primary) hypertension; I95.9 Hypotension, unspecified; R06.01 Orthopnea; R79.89 Other specified abnormal findings of blood chemistry; R52 Pain, unspecified; M19.049 Primary osteoarthritis, unspecified hand; M81.0 Age-related osteoporosis without current pathological fracture; Z98.49 Cataract extraction status, unspecified eye; Z90.710 Acquired absence of both cervix and uterus; Z90.10 Acquired absence of unspecified breast and nipple; Z98.890 Other specified postprocedural states; R55 Syncope and collapse
CPT/HCPCS: 36415; 71045; 80048; 81001; 82803; 83605; 83735; 83880; 83930; 83935; 84300; 84484; 85025; 85651; 86140; 87502; 87634; 87635; 93005; 94761; 96360; 96361; 96372; 97116; 97162; 97165; 97530; 97535; 99283; 99284; 99285; A9270; G0378; J1650; J7030

== ENCOUNTER 2023-04-29 17:27 | Emergency (ER) | payer MEDICARE, OTHER, SELFPAY ==
[2023-04-29 17:38] VITALS: BP 157/93; BP 202/90; PULSE 88; RESP 20; TEMP 36.9; O2SAT 99
--- NOTE | 2023-04-29 18:14 | ED_ITS ---
HPI - General Adult General Chief complaint: Hypertension Stated complaint: High BP Time Seen by Provider: 04/29/23 17:40 History of Present Illness HPI narrative: This 82-year-old female comes in with concern that her blood pressure is elevated. She does take 3 antihypertensive medicines, amlodipine, metoprolol, and lisinopril, at night before bed. Today she states that she felt a little bit unsteady earlier but no longer feels this way. She does not report any lightheadedness or vertigo symptoms. She states that she checks her blood pressure at home and has noted that often it is around 170 for systolic value. Today it was at 200 so she comes in stating that she feels normal but has concern about her blood pressure. She does not report any chest pain, nausea, vomiting, lightheadedness, short of breath, or diaphoresis. She has good exercise tolerance. Related Data Home Medications Medication Instructions Recorded Confirmed alendronate 70 mg tablet 70 mg PO QWEEK 07/25/22 11/29/22 amlodipine 5 mg tablet 5 mg PO DAILY 07/25/22 04/29/23 latanoprost 0.005 % eye drops 1 drp ophthalmic (eye) HS 07/25/22 11/29/22 lisinopril 40 mg tablet 40 mg PO DAILY 07/25/22 04/29/23 labetalol 300 mg tablet mg PO BID 11/29/22 11/29/22 Allergies Allergy/AdvReac Type Severity Reaction Status Date / Time chlorthalidone Allergy Verified 11/29/22 10:17 hydrochlorothiazide Allergy Verified 11/29/22 10:17 nifedipine Allergy Verified 11/29/22 10:17 simvastatin Allergy Verified 11/29/22 10:17 Review of Systems Status of ROS: Reports: 10 or more systems reviewed and unremarkable except as noted in History and below Narrative: Constitutional: No fevers, no weight gain or loss. Eyes: No discharge. No vision changes. HENT: No congestion, no sore throat, no ear pain. Cardiovascular: No chest pain, no palpitations. Respiratory: No shortness of breath, no wheezes, no cough. Gastrointestinal: No abdominal pain, no vomiting, no diarrhea. Genitourinary: No dysuria, no hematuria. Musculoskeletal: Normal range of motion. Skin: No rashes, no pruritis. Neurological: No dizziness, weakness, sensory change, speech change. Endo/Heme/Allergies: No bruising or bleeding. No polydipsia. Pysch: no suicidality, no anxiety, no insomnia. All other systems reviewed and are negative. [facility] Medical History (Updated 04/29/23 @ 19:29 by Diego Campbell MD) Bladder cancer ?C67.9 - Malignant neoplasm of bladder, unspecified (ICD-10) Rotator cuff tear, left ?M75.102 - Unspecified rotator cuff tear or rupture of left shoulder, not specified as traumatic (ICD-10) Edema ?R60.9 - Edema, unspecified (ICD-10) Polydipsia ?R63.1 - Polydipsia (ICD-10) Dizziness ?R42 - Dizziness and giddiness (ICD-10) Bowel trouble ?K63.9 - Disease of intestine, unspecified (ICD-10) Anxiety ?F41.9 - Anxiety disorder, unspecified (ICD-10) Breast cancer, BRCA1 positive ?C50.919 - Malignant neoplasm of unspecified site of unspecified female breast (ICD-10) ?Z15.01 - Genetic susceptibility to malignant neoplasm of breast (ICD-10) Daytime sleepiness ?R40.0 - Somnolence (ICD-10) Insomnia ?G47.00 - Insomnia, unspecified (ICD-10) Fatigue ?R53.83 - Other fatigue (ICD-10) Myalgia ?M79.10 - Myalgia, unspecified site (ICD-10) Weakness generalized ?R53.1 - Weakness (ICD-10) Hypertension ?I10 - Essential (primary) hypertension (ICD-10) Aortic insufficiency ?I35.1 - Nonrheumatic aortic (valve) insufficiency (ICD-10) Osteoarthritis ?M19.90 - Unspecified osteoarthritis, unspecified site (ICD-10) Anemia ?D64.9 - Anemia, unspecified (ICD-10) Back pain ?M54.9 - Dorsalgia, unspecified (ICD-10) Thyroid nodule ?E04.1 - Nontoxic single thyroid nodule (ICD-10) Eczema ?L30.9 - Dermatitis, unspecified (ICD-10) SHERIF (obstructive sleep apnea) ?G47.33 - Obstructive sleep apnea (adult) (pediatric) (ICD-10) Ventricular tachycardia ?I47.20 - Ventricular tachycardia, unspecified (ICD-10) Osteoporosis ?M81.0 - Age-related osteoporosis without current pathological fracture (ICD- 10) Peripheral neuropathy ?G62.9 - Polyneuropathy, unspecified (ICD-10) Surgical History 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/19) ?Z96.641 - Presence of right artificial hip joint (ICD-10) History of bilateral mastectomy ?Z90.13 - Acquired absence of bilateral breasts and nipples (ICD-10) History of cataract surgery ?Z98.49 - Cataract extraction status, unspecified eye (ICD-10) History of hysterectomy ?Z90.710 - Acquired absence of both cervix and uterus (ICD-10) H/O ileostomy ?Z98.890 - Other specified postprocedural states (ICD-10) Family History (Updated 07/26/22 @ 16:47 by Salvador Tony MD) Mother Ovarian cancer High blood pressure Sister Ovarian cancer High blood pressure Father Heart disease High blood pressure Social History (Updated 07/26/22 @ 16:48 by Salvador Tony MD) Narrative: She is and here with her . They live independently. They see Dr. Allan for primary care. She does not smoke. She does not drink alcohol. She has had her COVID vaccines. Code status is full. 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 Highest level of school completed/degree received: Bachelor's degree Smoking Status: Never smoker Do you use any of these nicotine containing products: None Second hand tobacco smoke exposure: No How often do you have a drink containing alcohol: never How often do you have six or more drinks on one occasion: Never AUDIT-C Alcohol total score: 0 Non-prescribed substance use: denies use Caffeine: Yes service: No Exam Narrative: Exam Narrative: Constitutional: Well-developed, well-nourished, no acute distress. HEENT: Normocephalic, atraumatic. Neck: Normal range of motion. Nontender. Supple. Heart: Intact distal pulses. Lungs: No chest discomfort. No wheezes, rhonchi, or rales. Abdomen: Nontender. Back: Normal range of motion. Extremities: Normal range of motion. No injury. Skin: Intact. No rash. Warm. No erythema or pallor. Neurologic: No altered sensation. No weakness. Alert and oriented. Psychiatric: No suicidality. No anxiety or depression. No insomnia. Nursing notes and vitals signs are reviewed. Const: Vital Signs, click to edit/add: Vital Signs - 24 hr 04/29/23 17:38 04/29/23 19:10 Temperature 98.5 F Pulse Rate [Pulse Oximeter] 88 69 Respiratory Rate 20 20 Blood Pressure [Le ft Upper Arm] 157/93 H Blood Pressure [Ri ght Upper Arm] 202/90 H 176/84 H Pulse Oximetry 99 97 Oxygen Delivery Me thod Room Air Room Air Course Vital Signs Vital signs: Initial Vital Signs Temperature 98.5 F 04/29/23 17:38 Temperature Source Temporal Artery Scan 04/29/23 17:38 Pulse Rate 88 04/29/23 17:38 Pulse Rhythm Regular 04/29/23 17:38 Pulse Strength 3+ Normal 04/29/23 17:38 Respiratory Rate 20 04/29/23 17:38 Blood Pressure 157/93 H 04/29/23 17:38 Blood Pressure Mean 114 H 04/29/23 17:38 Pulse Oximetry 99 04/29/23 17:38 Oxygen Delivery Method Room Air 04/29/23 17:38 Vital Signs Temperature 98.5 F 04/29/23 17:38 Pulse Rate 88 04/29/23 17:38 Respiratory Rate 20 04/29/23 17:38 Blood Pressure 157/93 H 04/29/23 17:38 Pulse Oximetry 99 04/29/23 17:38 Oxygen Delivery Method Room Air 04/29/23 17:38 Temperature 98.5 F 04/29/23 17:38 Pulse Rate 69 04/29/23 19:10 Respiratory Rate 20 04/29/23 19:10 Blood Pressure 176/84 H 04/29/23 19:10 Pulse Oximetry 97 04/29/23 19:10 Oxygen Delivery Method Room Air 04/29/23 19:10 Medical Decision Making MDM Narrative Medical decision making narrative: This patient comes in with concern that her blood pressure is elevated. She felt unsteady earlier today and then measured her blood pressure and like many people believe that she was feeling her blood pressure. She is on 3 antihypertensive medications and takes all 3 of these at bedtime. Her blood pressure here was checked several times and is however ring around a systolic value of 170. She states that this is what she often measures at home. She may need to have an adjustment in her medications and I advised her to follow-up with her primary physician regarding this. She did request that I check her blood and this returns with essentially normal findings except for her sodium is a bit low at 131. She states that her sodium has been low in the past and believes that this may be due to drinking too much water. She is not on any diuretic type medication. At the time of discharge the patient appears safe for outpatient management. The treatment plan is reviewed along with written and verbal return precautions. Reasons to return and the importance of close followup were also reviewed. Lab Data Labs: Lab Results 04/29/23 Range/Units 18:28 WBC 6.89 (4.50-11.00) K/uL RBC 3.79 L (4.00-5.20) m/uL Hgb 12.1 (12.0-16.0) gm/dL Hct 36.4 (33.0-51.0) % MCV 96 (80-100) fL MCH 32 (26-34) pg MCHC 33 (32-36) gm/dL RDW Coeff of Helio 11.7 (11.5-15.5) % Plt Count 278 (140-440) K/uL Neut % (Auto) 73.7 H (42.0-72.0) % Lymph % (Auto) 14.7 L (20-44) % [place] % (Auto) 7.8 (0.0-11.0) % Eos % (Auto) 3.0 (0.0-7.0) % Baso % (Auto) 0.7 (0.0-3.0) % Neut # (Auto) 5.10 (1.7-7.0) K/uL Lymph # (Auto) 1.00 (0.90-2.90) K/uL [place] # (Auto) 0.50 (0.00-0.90) K/UL Eos # (Auto) 0.21 (0.00-0.50) K/uL Baso # (Auto) 0.05 (0.00-0.30) K/uL Abs Immat Gran (auto) 0.01 (0.00-0.30) K/uL Imm/Tot Granulo (auto) 0.1 % Sodium 131 L (135-149) mmol/L Potassium 3.8 (3.6-5.1) mmol/L Chloride 90 L (96-114) mmol/L Carbon Dioxide 27 (20-32) mmol/L Anion Gap 14 (7-15) mEq/L BUN 21 (7-30) mg/dL Creatinine 0.6 (0.5-1.5) mg/dL Estimated GFR 90 ml/min Glucose 100 (60-115) mg/dL Calcium 8.9 (8.4-10.6) mg/dL Discharge Plan Discharge Clinical Impression: Elevated blood pressure reading Additional Instructions: Follow-up with primary physician to review medications. Is helpful if you record blood pressures and bring these readings in. Return if worsening. Prescriptions: No Action labetalol 300 mg tablet PO BID latanoprost 0.005 % drops 1 drp ophthalmic (eye) HS Patient Comments: INSTILL 1 DROP INTO LEFT EYE AT BEDTIME alendronate 70 mg tablet 70 mg PO QWEEK Patient Comments: TAKE 1 TABLET (70 MG) BY MOUTH ONCE A WEEK IN THE MORNING. TAKE ON EMPTY STOMACH WITH FULL GLASS OF WATER. DO NOT LIE DOWN FOR 1 HOUR. amlodipine 5 mg tablet 5 mg PO DAILY Patient Comments: TAKE ONE TABLET BY MOUTH (5MG) ONCE DAILY lisinopril 40 mg tablet 40 mg PO DAILY Patient Comments: TAKE 1 TABLET BY MOUTH ONCE DAILY. Follow Up/Referrals: Scout Allan MD [Primary Care Provider] -
[2023-04-29 18:35] LABS: Basophils Absolute Auto 0.05 K/uL (0.00-0.30); Basophils Percent Auto 0.7 % (0.0-3.0); Eosinophils Absolute Auto 0.21 K/uL (0.00-0.50); Hematocrit 36.4 % (33.0-51.0); Hemoglobin* 12.1 gm/dL (12.0-16.0); Immature Granulocytes Abs Auto 0.01 K/uL (0.00-0.30); Immature Granulocytes Pct Auto 0.1 %; Lymphocytes Percent Auto 14.7 % (20-44); Mean Corpuscular HGB Conc 33 gm/dL (32-36); Mean Corpuscular Hemoglobin 32 pg (26-34); Mean Corpuscular Volume 96 fL (80-100); Monocytes Percent Auto 7.8 % (0.0-11.0); Neutrophils Percent Auto 73.7 % (42.0-72.0); Platelet Count* 278 K/uL (140-440); RDW Coefficient of Variation % 11.7 % (11.5-15.5); Red Blood Count 3.79 m/uL (4.00-5.20); White Blood Count* 6.89 K/uL (4.50-11.00)
[2023-04-29 18:46] LABS: Chloride* 90 mmol/L (96-114); Slide Review Reflex No
[2023-04-29 18:47] LABS: Potassium* 3.8 mmol/L (3.6-5.1); Sodium* 131 mmol/L (135-149)
[2023-04-29 18:49] LABS: Creatinine* 0.6 mg/dL (0.5-1.5); Estimated Glomerular Filt Rate 90 ml/min
[2023-04-29 18:50] LABS: Anion Gap 14 mEq/L (7-15); Blood Urea Nitrogen* 21 mg/dL (7-30); Calcium* 8.9 mg/dL (8.4-10.6); Carbon Dioxide* 27 mmol/L (20-32); Glucose* 100 mg/dL (60-115)
[2023-04-29 19:10] VITALS: BP 176/84; PULSE 69; RESP 20; O2SAT 97
== END 2023-04-29 19:36 | disposition home or self-care (01) ==
LOC: ED 18:33
PROVIDERS: Emergency Provider Emergency Medicine Emergency Medical Services; PCP Family Medicine
DX: I10 Essential (primary) hypertension (principal)
CPT/HCPCS: 36415; 80048; 85025; 99283; 99284

== ENCOUNTER 2023-09-25 09:40 | Emergency (ER) | payer MEDICARE, OTHER, SELFPAY ==
[2023-09-25 09:43] VITALS: BP 183/85; PULSE 81; RESP 16; TEMP 36.7; O2SAT 99; BMI 19.0
--- NOTE | 2023-09-25 09:47 | ED_ITS ---
HPI - General Adult General Date Seen: 09/25/23 Chief complaint: Urogenital Problems, Female Stated complaint: blood in urine Time Seen by Provider: 09/25/23 09:46 History of Present Illness HPI narrative: Pleasant 83-year-old female with a past medical history of bladder cancer with cystectomy and ileal conduit, breast cancer with mastectomies, hypertension, arthritis, dizziness, aortic insufficiency, history of nonsustained V-tach, repeat AP bilateral mastectomy, right hip replacement, hysterectomy. She presents to the ER today with her from home for evaluation of hematuria. She has been noticing intermittent episodes of sometimes pink tinged and sometimes frankly bloody urine off and on since last Friday, 6 days ago. She saw her primary care doctor (at [facility]) on the day of the blood started and was diagnosed with a UTI. She is on cephalexin for that. She has been noticing intermittent blood ever since then really is not getting better. No other symptoms. No fever or chills. No weakness. No new or unusual body aches (she does have chronic arthritis so has joint aches every day). No nausea or vomiting. No abdominal pain. No flank pain or back pain. No clots in her urine or urinary obstruction. Bowel movements normal. No abdominal pain. She is not feeling weak or dizzy. Because the blood was not going away she called the [facility] triage line a couple of days ago and was told to come straight to the ER. She was not feeling that sick so did not come in. Her urine overnight was clear but this morning it became frankly bloody again so she decided to come to the ER. She says that her doctor called her up, possibly on Friday, and said that there was bacteria in her urine and that she should stay on the antibiotics. Labs from [facility] through [facility] 09/23 Sodium 133, potassium 4.5, chloride 94, bicarb 29, glucose 98, BUN 20, creatinine 0.61 09/18 urinalysis 11-25 RBC, 11-25 WBC, many bacteria, positive nitrite Urine culture resulted back > 100,000 CFU/mL Klebsiella pneumonia [id number] CFU/mL Pseudomonas aeruginosa > 100,000 CFU/mL aerococcus urinae No sensitivity analysis was done because with multiple isolates, labs thought the specimen was contaminated Related Data Home Medications Medication Instructions Recorded Confirmed alendronate 70 mg tablet 70 mg PO QWEEK 07/25/22 09/25/23 amlodipine 5 mg tablet 5 mg PO DAILY 07/25/22 09/25/23 latanoprost 0.005 % eye drops 1 drp ophthalmic (eye) HS 07/25/22 09/25/23 lisinopril 40 mg tablet 40 mg PO DAILY 07/25/22 09/25/23 labetalol 300 mg tablet mg PO BID 11/29/22 11/29/22 carvedilol 12.5 mg tablet 12.5 mg PO BID 09/25/23 09/25/23 cephalexin 500 mg capsule 500 mg PO BID 09/25/23 09/25/23 Previous Rx's Medication Instructions Recorded levofloxacin 500 mg tablet 500 mg PO DAILY #5 tabs 09/25/23 Allergies Allergy/AdvReac Type Severity Reaction Status Date / Time chlorthalidone Allergy Verified 09/25/23 09:51 hydrochlorothiazide Allergy Verified 09/25/23 09:51 nifedipine Allergy Verified 09/25/23 09:51 simvastatin Allergy Verified 09/25/23 09:51 [facility] Medical History (Updated 09/25/23 @ 12:11 by Petros Reagan MD) Bladder cancer ?C67.9 - Malignant neoplasm of bladder, unspecified (ICD-10) Rotator cuff tear, left ?M75.102 - Unspecified rotator cuff tear or rupture of left shoulder, not specified as traumatic (ICD-10) Edema ?R60.9 - Edema, unspecified (ICD-10) Polydipsia ?R63.1 - Polydipsia (ICD-10) Dizziness ?R42 - Dizziness and giddiness (ICD-10) Bowel trouble ?K63.9 - Disease of intestine, unspecified (ICD-10) Anxiety ?F41.9 - Anxiety disorder, unspecified (ICD-10) Breast cancer, BRCA1 positive ?C50.919 - Malignant neoplasm of unspecified site of unspecified female breast (ICD-10) ?Z15.01 - Genetic susceptibility to malignant neoplasm of breast (ICD-10) Daytime sleepiness ?R40.0 - Somnolence (ICD-10) Insomnia ?G47.00 - Insomnia, unspecified (ICD-10) Fatigue ?R53.83 - Other fatigue (ICD-10) Myalgia ?M79.10 - Myalgia, unspecified site (ICD-10) Weakness generalized ?R53.1 - Weakness (ICD-10) Hypertension ?I10 - Essential (primary) hypertension (ICD-10) Aortic insufficiency ?I35.1 - Nonrheumatic aortic (valve) insufficiency (ICD-10) Osteoarthritis ?M19.90 - Unspecified osteoarthritis, unspecified site (ICD-10) Anemia ?D64.9 - Anemia, unspecified (ICD-10) Back pain ?M54.9 - Dorsalgia, unspecified (ICD-10) Thyroid nodule ?E04.1 - Nontoxic single thyroid nodule (ICD-10) Eczema ?L30.9 - Dermatitis, unspecified (ICD-10) SHERIF (obstructive sleep apnea) ?G47.33 - Obstructive sleep apnea (adult) (pediatric) (ICD-10) Ventricular tachycardia ?I47.20 - Ventricular tachycardia, unspecified (ICD-10) Osteoporosis ?M81.0 - Age-related osteoporosis without current pathological fracture (ICD- 10) Peripheral neuropathy ?G62.9 - Polyneuropathy, unspecified (ICD-10) Surgical History 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/19) ?Z96.641 - Presence of right artificial hip joint (ICD-10) History of bilateral mastectomy ?Z90.13 - Acquired absence of bilateral breasts and nipples (ICD-10) History of cataract surgery ?Z98.49 - Cataract extraction status, unspecified eye (ICD-10) History of hysterectomy ?Z90.710 - Acquired absence of both cervix and uterus (ICD-10) H/O ileostomy ?Z98.890 - Other specified postprocedural states (ICD-10) Family History (Updated 07/26/22 @ 16:47 by Salvador Tony MD) Mother Ovarian cancer High blood pressure Sister Ovarian cancer High blood pressure Father Heart disease High blood pressure Social History (Updated 07/26/22 @ 16:48 by Salvaodr Tony MD) Narrative: She is and here with her . They live independently. They see Dr. Allan for primary care. She does not smoke. She does not drink alcohol. She has had her COVID vaccines. Code status is full. is healthcare power of estate attorney. Highest level of school completed/degree received: Bachelor's degree Smoking Status: Never smoker Do you use any of these nicotine containing products: None Second hand tobacco smoke exposure: No How often do you have a drink containing alcohol: never How often do you have six or more drinks on one occasion: Never AUDIT-C Alcohol total score: 0 Non-prescribed substance use: denies use Caffeine: Yes service: No Exam Const: Vital Signs, click to edit/add: Vital Signs - 24 hr 09/25/23 09:43 09/25/23 12:20 09/25/23 12:21 Temperature 98.1 F 98.1 F Pulse Rate 84 Pulse Rate [Pulse Oximeter] 81 84 Respiratory Rate 16 16 16 Blood Pressure 169/74 H Blood Pressure [Ri ght Upper Arm] 183/85 H 169/74 H Pulse Oximetry 99 98 Oxygen Delivery Me thod Room Air Course Vital Signs Vital signs: Initial Vital Signs Temperature 98.1 F 09/25/23 09:43 Temperature Source Temporal Artery Scan 09/25/23 09:43 Pulse Rate 81 09/25/23 09:43 Respiratory Rate 16 09/25/23 09:43 Blood Pressure 183/85 H 09/25/23 09:43 Blood Pressure Mean 117 H 09/25/23 09:43 Blood Pressure Position Sitting 09/25/23 09:43 Pulse Oximetry 99 09/25/23 09:43 Oxygen Delivery Method Room Air 09/25/23 09:43 Vital Signs Temperature 98.1 F 09/25/23 09:43 Pulse Rate 81 09/25/23 09:43 Respiratory Rate 16 09/25/23 09:43 Blood Pressure 183/85 H 09/25/23 09:43 Pulse Oximetry 99 09/25/23 09:43 Oxygen Delivery Method Room Air 09/25/23 09:43 Temperature 98.1 F 09/25/23 12:20 Pulse Rate 84 09/25/23 12:21 Respiratory Rate 16 09/25/23 12:21 Blood Pressure 169/74 H 09/25/23 12:21 Pulse Oximetry 98 09/25/23 12:21 Oxygen Delivery Method Room Air 09/25/23 09:43 Medical Decision Making MDM Narrative Medical decision making narrative: This is a very pleasant 83-year-old female with a distant history of bladder cancer and cystectomy with ileal conduit formation. She has been draining urine through her ileostomy for years. She developed intermittent episodes of visible hematuria beginning last Friday and persisting through until today. No other symptoms such as abdominal pain, flank pain, fever or chills, nausea vomiting, weakness, or systemic illness. She already saw her primary care provider last [place] was put on empiric course of cephalexin for probable UTI. Urine culture from [facility] grew 3 isolates including Pseudomonas, Klebsiella, aerococcus. No sensitivity analysis was done on these because they were thought to represent a contaminated specimen. She came to the ER today simply because she has had ongoing hematuria. Symptoms are not worse. She is hemodynamically stable. No other symptoms of systemic illness or pyelonephritis. Laboratory workup is reassuring today. White count normal. Hemoglobin mildly anemic. Kidney function normal. At this point she is not displaying sepsis physiology. No symptoms to suggest pyelonephritis or kidney stone. Would hold off on advanced imaging. We were able to get results from her urine culture from [facility]. Since there is Pseudomonas on the culture, I am concerned that she may have a complex UTI that is resistant to cephalexin, which she is already on. Discussed with pharmacy. At this point they would recommend addition of level floxacillin which would cover Pseudomonas. Level floxacillin would also cover Klebsiella, if it is resistant to cephalexin. Pharmacy believes that the aerococcus would be sensitive to cephalexin Discussed with the patient and her . They are in agreement. She does have a history of biceps tendon rupture and there is definitely a risk of tendinopathy with fluoroquinolones. However at this point the benefit to cover her Pseudomonas in her urine would outweigh the risk. Weak all an alternative to discharged on levofloxacin would be to do daily IV antibiotics such as imipenem once daily for 5 days. However the risk of hospitalization and or daily outpatient IV antibiotics would be greater than the risk of tendinopathy with level floxacillin. Therefore will put her on 5 days of Levaquin. Discussed precautions for return to the ER and need for follow-up with her primary care. If hematuria not resolved within 2-3 days of this additional antibiotic would need further workup with CT imaging and or cystoscopy. Lab Data Labs: Lab Results 09/25/23 09/25/23 Range/Units 10:40 10:45 WBC 6.19 (4.50-11.00) K/uL RBC 3.73 L (4.00-5.20) m/uL Hgb 11.7 L (12.0-16.0) gm/dL Hct 35.3 (33.0-51.0) % MCV 95 (80-100) fL MCH 31 (26-34) pg MCHC 33 (32-36) gm/dL RDW Coeff of Helio 12.9 (11.5-15.5) % Plt Count 263 (140-440) K/uL Neut % (Auto) 80.4 H (42.0-72.0) % Lymph % (Auto) 11.5 L (20-44) % [place] % (Auto) 6.3 (0.0-11.0) % Eos % (Auto) 1.5 (0.0-7.0) % Baso % (Auto) 0.3 (0.0-3.0) % Neut # (Auto) 5.00 (1.7-7.0) K/uL Lymph # (Auto) 0.70 L (0.90-2.90) K/uL [place] # (Auto) 0.40 (0.00-0.90) K/UL Eos # (Auto) 0.09 (0.00-0.50) K/uL Baso # (Auto) 0.02 (0.00-0.30) K/uL Abs Immat Gran (auto) 0.00 (0.00-0.30) K/uL Imm/Tot Granulo (auto) 0.0 % Sodium 129 L (135-149) mmol/L Potassium 3.7 (3.6-5.1) mmol/L Chloride 96 (96-114) mmol/L Carbon Dioxide 29 (20-32) mmol/L Anion Gap 4 L (7-15) mEq/L BUN 22 (7-30) mg/dL Creatinine 0.5 (0.5-1.5) mg/dL Estimated Creat Clear 32.66 Estimated GFR 93 ml/min Glucose 103 (60-115) mg/dL Calcium 9.1 (8.4-10.6) mg/dL Urine Color [place] A (Yellow) Urine Appearance Cloudy A (Clear) Urine pH 8.0 (5.0-8.5) Ur Specific [place] 1.015 (1.000-1.030) Urine Protein Trace A (Negative) Urine Glucose (UA) Negative (Negative) Urine Ketones Negative (Negative) Urine Blood 3+ A (Negative) Urine Nitrite Positive A (Negative) Urine Bilirubin Negative (Negative) Urine Urobilinogen 0.2 (0.2-1.0) Ur Leukocyte Esterase Trace A (Negative) Urine RBC 50-100 A (0-2) Urine WBC 2-5 (0-5) Ur Squamous Epith Cells Few (None-Few) Urine Bacteria Few A (None) Discharge Plan Discharge Clinical Impression: Hematuria, Acute UTI Patient Disposition: Home, Self-Care Condition: Stable Instructions: Urinary Tract Infection in Women (DC), Hematuria (ED) Additional Instructions: Please keep your appointment for your checkup this afternoon with your doctor at the [facility]. You can let them know that your in the ER today and that we put you on extra antibiotics-levofloxacin. At this point we suspect that the bloody been noticing urine is probably due to an ongoing infection. Urine culture grew 3 different kinds of bacteria and it is impossible to know for sure which of these 3 is causing your infection. One of the bacteria from your urine culture, Pseudomonas, is resistant to your current antibiotic. We can treat Pseudomonas with the extra antibiotic (levofloxacin). Come back to the ER right away if you have any worsening symptoms such as fever, chills, vomiting, weakness, flank pain, abdominal pain, or if you have any concerns. We suspect that the blood in your urine should resolve within the next 2-3 days. If you have blood in the urine beyond that, please see your doctor or come back to the ER for a recheck. Prescriptions: New levofloxacin 500 mg tablet 500 mg PO DAILY Qty: 5 0RF No Action labetalol 300 mg tablet PO BID latanoprost 0.005 % drops 1 drp ophthalmic (eye) HS Patient Comments: INSTILL 1 DROP INTO LEFT EYE AT BEDTIME alendronate 70 mg tablet 70 mg PO QWEEK Patient Comments: TAKE 1 TABLET (70 MG) BY MOUTH ONCE A WEEK IN THE MORNING. TAKE ON EMPTY STOMACH WITH FULL GLASS OF WATER. DO NOT LIE DOWN FOR 1 HOUR. amlodipine 5 mg tablet 5 mg PO DAILY Patient Comments: TAKE ONE TABLET BY MOUTH (5MG) ONCE DAILY lisinopril 40 mg tablet 40 mg PO DAILY Patient Comments: TAKE 1 TABLET BY MOUTH ONCE DAILY. carvedilol 12.5 mg tablet 12.5 mg PO BID cephalexin 500 mg capsule 500 mg PO BID Follow Up/Referrals: Scout Allan MD [Primary Care Provider] - Stand Alone Forms: [employer] Info Instructions
[2023-09-25 10:46] LABS: Basophils Absolute Auto 0.02 K/uL (0.00-0.30); Basophils Percent Auto 0.3 % (0.0-3.0); Eosinophils Absolute Auto 0.09 K/uL (0.00-0.50); Eosinophils Percent Auto 1.5 % (0.0-7.0); Hematocrit 35.3 % (33.0-51.0); Hemoglobin* 11.7 gm/dL (12.0-16.0); Lymphocytes Percent Auto 11.5 % (20-44); Mean Corpuscular HGB Conc 33 gm/dL (32-36); Mean Corpuscular Hemoglobin 31 pg (26-34); Mean Corpuscular Volume 95 fL (80-100); Monocytes Percent Auto 6.3 % (0.0-11.0); Neutrophils Percent Auto 80.4 % (42.0-72.0); Platelet Count* 263 K/uL (140-440); RDW Coefficient of Variation % 12.9 % (11.5-15.5); Red Blood Count 3.73 m/uL (4.00-5.20); White Blood Count* 6.19 K/uL (4.50-11.00)
[2023-09-25 10:49] LABS: Appearance Urine Cloudy (Clear); Bilirubin Urine Negative (Negative); Blood Urine 3+ (Negative); Color Urine Orange (Yellow); Glucose Urine Negative (Negative); Ketones Urine Negative (Negative); Leukocyte Esterase Urine Trace (Negative); Nitrite Urine Positive (Negative); Protein Urine Trace (Negative); Specific Gravity Urine 1.015 (1.000-1.030); Urobilinogen Urine 0.2 (0.2-1.0)
[2023-09-25 10:51] LABS: Slide Review Reflex No
[2023-09-25 11:01] LABS: Chloride* 96 mmol/L (96-114); Sodium* 129 mmol/L (135-149)
[2023-09-25 11:02] LABS: Potassium* 3.7 mmol/L (3.6-5.1)
[2023-09-25 11:04] LABS: Anion Gap 4 mEq/L (7-15); Carbon Dioxide* 29 mmol/L (20-32); Creatinine* 0.5 mg/dL (0.5-1.5); Est. Creatinine Clearance* 32.66; Estimated Glomerular Filt Rate 93 ml/min
[2023-09-25 11:05] LABS: Blood Urea Nitrogen* 22 mg/dL (7-30); Calcium* 9.1 mg/dL (8.4-10.6); Glucose* 103 mg/dL (60-115)
[2023-09-25 11:13] LABS: Bacteria Urine Few; RBC Urine 50-100 (0-2); Squamous Epithelial Cell Urine Few (None-Few)
[2023-09-25 12:20] VITALS: BP 169/74; PULSE 84; RESP 16; TEMP 36.7
[2023-09-25 12:21] VITALS: BP 169/74; PULSE 84; RESP 16; O2SAT 98
--- NOTE | 2023-10-01 00:52 | ED.GENADULT ---
HPI - General Adult General Chief complaint: Urogenital Problems, Female Stated complaint: blood in urine Time Seen by Provider: 09/25/23 09:46 History of Present Illness HPI narrative: Patient was in the ER on 09/24 for hematuria with UTI. Was already on cephalexin for a few days prescribed by PCP Discharged home on Levaquin Culture grew pansensitive Pseudomonas. Sensitive to Levaquin. No change in antibiotics indicated. Related Data Home Medications Medication Instructions Recorded Confirmed alendronate 70 mg tablet 70 mg PO QWEEK 07/25/22 09/26/23 latanoprost 0.005 % eye drops 1 drp ophthalmic (eye) HS 07/25/22 09/26/23 lisinopril 40 mg tablet 40 mg PO DAILY 07/25/22 09/26/23 carvedilol 12.5 mg tablet 12.5 mg PO BID 09/25/23 09/26/23 acetaminophen 500 mg tablet 1,000 mg PO TID 09/26/23 09/26/23 amlodipine 2.5 mg tablet 2.5 mg PO DAILY 09/26/23 09/26/23 ascorbic acid (vitamin C) 1,000 mg 1 g PO DAILY 09/26/23 09/26/23 tablet (Vitamin C) calcium carbonate 500 mg calcium 500 mg PO BID 09/26/23 09/26/23 (1,250 mg) tablet (Oyster Shell Calcium) cholecalciferol (vitamin D3) 25 25 mcg PO DAILY 09/26/23 09/26/23 mcg (1,000 unit) capsule mirtazapine 7.5 mg tablet 3.75 - 7.5 mg PO HS PRN 09/26/23 09/26/23 multivitamin (Daily Multi-Vitamin 1 tab PO DAILY 09/26/23 09/26/23 tablet) triamcinolone acetonide 0.1 % 1 applic topical BID PRN 09/26/23 09/26/23 topical cream Previous Rx's Medication Instructions Recorded levofloxacin 500 mg tablet 250 mg (1/2 x 500 mg) PO DAILY #5 09/27/23 tabs sodium chloride 1,000 mg soluble 1,000 mg PO TIDWM #100 tabs 09/27/23 tablet Allergies Allergy/AdvReac Type Severity Reaction Status Date / Time chlorthalidone Allergy Verified 09/26/23 14:15 hydrochlorothiazide Allergy Verified 09/26/23 14:15 nifedipine Allergy Verified 09/26/23 14:15 simvastatin Allergy Verified 09/26/23 14:15 [facility] Medical History Bladder cancer ?C67.9 - Malignant neoplasm of bladder, unspecified (ICD-10) Rotator cuff tear, left ?M75.102 - Unspecified rotator cuff tear or rupture of left shoulder, not specified as traumatic (ICD-10) Edema ?R60.9 - Edema, unspecified (ICD-10) Polydipsia ?R63.1 - Polydipsia (ICD-10) Dizziness ?R42 - Dizziness and giddiness (ICD-10) Bowel trouble ?K63.9 - Disease of intestine, unspecified (ICD-10) Anxiety ?F41.9 - Anxiety disorder, unspecified (ICD-10) Breast cancer, BRCA1 positive ?C50.919 - Malignant neoplasm of unspecified site of unspecified female breast (ICD-10) ?Z15.01 - Genetic susceptibility to malignant neoplasm of breast (ICD-10) Daytime sleepiness ?R40.0 - Somnolence (ICD-10) Insomnia ?G47.00 - Insomnia, unspecified (ICD-10) Fatigue ?R53.83 - Other fatigue (ICD-10) Myalgia ?M79.10 - Myalgia, unspecified site (ICD-10) Weakness generalized ?R53.1 - Weakness (ICD-10) Hypertension ?I10 - Essential (primary) hypertension (ICD-10) Aortic insufficiency ?I35.1 - Nonrheumatic aortic (valve) insufficiency (ICD-10) Osteoarthritis ?M19.90 - Unspecified osteoarthritis, unspecified site (ICD-10) Anemia ?D64.9 - Anemia, unspecified (ICD-10) Back pain ?M54.9 - Dorsalgia, unspecified (ICD-10) Thyroid nodule ?E04.1 - Nontoxic single thyroid nodule (ICD-10) Eczema ?L30.9 - Dermatitis, unspecified (ICD-10) SHERIF (obstructive sleep apnea) ?G47.33 - Obstructive sleep apnea (adult) (pediatric) (ICD-10) Ventricular tachycardia ?I47.20 - Ventricular tachycardia, unspecified (ICD-10) Osteoporosis ?M81.0 - Age-related osteoporosis without current pathological fracture (ICD-10) Peripheral neuropathy ?G62.9 - Polyneuropathy, unspecified (ICD-10) Surgical History 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/19) ?Z96.641 - Presence of right artificial hip joint (ICD-10) History of bilateral mastectomy ?Z90.13 - Acquired absence of bilateral breasts and nipples (ICD-10) History of cataract surgery ?Z98.49 - Cataract extraction status, unspecified eye (ICD-10) History of hysterectomy ?Z90.710 - Acquired absence of both cervix and uterus (ICD-10) H/O ileostomy ?Z98.890 - Other specified postprocedural states (ICD-10) Family History Mother Ovarian cancer High blood pressure Sister Ovarian cancer High blood pressure Father Heart disease High blood pressure Social History Narrative: She is and here with her . They live independently. They see Dr. Allan for primary care. She does not smoke. She does not drink alcohol. She has had her COVID vaccines. Code status is full. is healthcare power of employment law attorney. What is your current living situation?: I presently have a place to live Problems where you live: no known problems Problems where you live details: N/A In the past 12 months, utilities in danger of being shut off: no In past 12 months, lack of transportation kept you from medical appts, meetings, work, or getting things needed for daily living: no In the past 12 mos, have been you worried that your food would run out before you had money to buy more?: never true In the past 12 mos, the food you bought just didn't last and you didn't have money to buy more?: never true Highest level of school completed/degree received: Bachelor's degree Smoking Status: Never smoker Do you use any of these nicotine containing products: None Second hand tobacco smoke exposure: No How often do you have a drink containing alcohol: never How often do you have six or more drinks on one occasion: Never AUDIT-C Alcohol total score: 0 Non-prescribed substance use: denies use Caffeine: Yes (1-2 cups daily) How often does anyone, including family, friends and others, physically hurt you: never How often does anyone, including family, friends and others, insult or talk down to you: never How often does anyone, including family, friends and others, threaten you with harm: never How often does anyone, including family, friends and others, scream or curse at you: never service: No Course Vital Signs Vital signs: Initial Vital Signs Temperature 98.1 F 09/25/23 09:43 Temperature Source Temporal Artery Scan 09/25/23 09:43 Pulse Rate 81 09/25/23 09:43 Respiratory Rate 16 09/25/23 09:43 Blood Pressure 183/85 H 09/25/23 09:43 Blood Pressure Mean 117 H 09/25/23 09:43 Blood Pressure Position Sitting 09/25/23 09:43 Pulse Oximetry 99 09/25/23 09:43 Oxygen Delivery Method Room Air 09/25/23 09:43 Vital Signs Temperature 98.1 F 09/25/23 09:43 Pulse Rate 81 09/25/23 09:43 Respiratory Rate 16 09/25/23 09:43 Blood Pressure 183/85 H 09/25/23 09:43 Pulse Oximetry 99 09/25/23 09:43 Oxygen Delivery Method Room Air 09/25/23 09:43 Temperature 98.1 F 09/25/23 12:20 Pulse Rate 84 09/25/23 12:21 Respiratory Rate 16 09/25/23 12:21 Blood Pressure 169/74 H 09/25/23 12:21 Pulse Oximetry 98 09/25/23 12:21 Oxygen Delivery Method Room Air 09/25/23 09:43 Medical Decision Making Lab Data Labs: Lab Results 09/25/23 09/25/23 Range/Units 10:40 10:45 WBC 6.19 (4.50-11.00) K/uL RBC 3.73 L (4.00-5.20) m/uL Hgb 11.7 L (12.0-16.0) gm/dL Hct 35.3 (33.0-51.0) % MCV 95 (80-100) fL MCH 31 (26-34) pg MCHC 33 (32-36) gm/dL RDW Coeff of Helio 12.9 (11.5-15.5) % Plt Count 263 (140-440) K/uL Neut % (Auto) 80.4 H (42.0-72.0) % Lymph % (Auto) 11.5 L (20-44) % [place] % (Auto) 6.3 (0.0-11.0) % Eos % (Auto) 1.5 (0.0-7.0) % Baso % (Auto) 0.3 (0.0-3.0) % Neut # (Auto) 5.00 (1.7-7.0) K/uL Lymph # (Auto) 0.70 L (0.90-2.90) K/uL [place] # (Auto) 0.40 (0.00-0.90) K/UL Eos # (Auto) 0.09 (0.00-0.50) K/uL Baso # (Auto) 0.02 (0.00-0.30) K/uL Abs Immat Gran (auto) 0.00 (0.00-0.30) K/uL Imm/Tot Granulo (auto) 0.0 % Sodium 129 L (135-149) mmol/L Potassium 3.7 (3.6-5.1) mmol/L Chloride 96 (96-114) mmol/L Carbon Dioxide 29 (20-32) mmol/L Anion Gap 4 L (7-15) mEq/L BUN 22 (7-30) mg/dL Creatinine 0.5 (0.5-1.5) mg/dL Estimated Creat Clear 32.66 Estimated GFR 93 ml/min Glucose 103 (60-115) mg/dL Calcium 9.1 (8.4-10.6) mg/dL Urine Color [place] A (Yellow) Urine Appearance Cloudy A (Clear) Urine pH 8.0 (5.0-8.5) Ur Specific [place] 1.015 (1.000-1.030) Urine Protein Trace A (Negative) Urine Glucose (UA) Negative (Negative) Urine Ketones Negative (Negative) Urine Blood 3+ A (Negative) Urine Nitrite Positive A (Negative) Urine Bilirubin Negative (Negative) Urine Urobilinogen 0.2 (0.2-1.0) Ur Leukocyte Esterase Trace A (Negative) Urine RBC 50-100 A (0-2) Urine WBC 2-5 (0-5) Ur Squamous Epith Cells Few (None-Few) Urine Bacteria Few A (None) Discharge Plan Discharge Clinical Impression: Hematuria, Acute UTI Patient Disposition: Home, Self-Care Condition: Stable Instructions: Urinary Tract Infection in Women (DC), Hematuria (ED) Additional Instructions: Please keep your appointment for your checkup this afternoon with your doctor at the [facility]. You can let them know that your in the ER today and that we put you on extra antibiotics-levofloxacin. At this point we suspect that the bloody been noticing urine is probably due to an ongoing infection. Urine culture grew 3 different kinds of bacteria and it is impossible to know for sure which of these 3 is causing your infection. One of the bacteria from your urine culture, Pseudomonas, is resistant to your current antibiotic. We can treat Pseudomonas with the extra antibiotic (levofloxacin). Come back to the ER right away if you have any worsening symptoms such as fever, chills, vomiting, weakness, flank pain, abdominal pain, or if you have any concerns. We suspect that the blood in your urine should resolve within the next 2-3 days. If you have blood in the urine beyond that, please see your doctor or come back to the ER for a recheck. Prescriptions: No Action latanoprost 0.005 % drops 1 drp ophthalmic (eye) HS Patient Comments: left eye alendronate 70 mg tablet 70 mg PO QWEEK Patient Comments: friday lisinopril 40 mg tablet 40 mg PO DAILY amlodipine 2.5 mg tablet 2.5 mg PO DAILY mirtazapine 7.5 mg tablet 3.75 - 7.5 mg PO HS PRN calcium carbonate [Oyster Shell Calcium] 500 mg calcium (1,250 mg) tablet 500 mg PO BID ascorbic acid (vitamin C) [Vitamin C] 1,000 mg tablet 1 g PO DAILY triamcinolone acetonide 0.1 % cream 1 applic topical BID PRN acetaminophen 500 mg tablet 1,000 mg PO TID multivitamin [Daily Multi-Vitamin] Tablet 1 tab PO DAILY cholecalciferol (vitamin D3) 25 mcg (1,000 unit) capsule 25 mcg PO DAILY levofloxacin 500 mg tablet 250 mg PO DAILY Qty: 5 0RF sodium chloride 1,000 mg Tablet,Soluble 1,000 mg PO TIDWM Qty: 100 0RF carvedilol 12.5 mg tablet 12.5 mg PO BID Follow Up/Referrals: Scout Allan MD [Primary Care Provider] - Stand Alone Forms: [employer] Info Instructions
== END 2023-09-25 12:21 | disposition home or self-care (01) ==
PROVIDERS: Emergency Provider Emergency Medicine; PCP Family Medicine
DX: N39.0 Urinary tract infection, site not specified (principal); R31.9 Hematuria, unspecified
CPT/HCPCS: 36415; 80048; 81001; 85025; 87086; 87186; 99283; 99284

== ENCOUNTER 2023-09-26 13:43 | Observation (INO) | payer MEDICARE, OTHER, SELFPAY ==
[2023-09-26] VITALS (27 sets, daily range): BP systolic 136–193; BP diastolic 64–108; PULSE 78–102; RESP 18–20; TEMP 36.9–37.2; O2SAT 95–99; BMI 19.0; BMI 19.7
--- NOTE | 2023-09-26 15:21 | ED_ITS ---
HPI - General Adult General Chief complaint: Weakness Stated complaint: abdominal pain, weak Time Seen by Provider: 09/26/23 14:18 Source: patient Mode of arrival: ambulatory Limitations: no limitations History of Present Illness HPI narrative: 83-year-old female coming in today concerned about decreased urine output. Please see yesterday's note for full detail. Patient states that she has had 2 doses of Levaquin, 1 last night and 1 early this afternoon. She has not had any bleeding into her bag this morning. But she is concerned because she feels that her urine output is not adequate. She has not measured it but states that it is less than usual. She denies any nausea or vomiting. No fevers or chills. She does feel weaker than normal. She states that the weakness started yesterday and got worse today. She is able to ambulate but she states that she has had to lean on her to walk around today. She denies any chest pain or abdominal pain. Related Data Home Medications Medication Instructions Recorded Confirmed alendronate 70 mg tablet 70 mg PO QWEEK 07/25/22 09/26/23 amlodipine 5 mg tablet 5 mg PO DAILY 07/25/22 09/26/23 latanoprost 0.005 % eye drops 1 drp ophthalmic (eye) HS 07/25/22 09/26/23 lisinopril 40 mg tablet 40 mg PO DAILY 07/25/22 09/26/23 labetalol 300 mg tablet mg PO BID 11/29/22 11/29/22 carvedilol 12.5 mg tablet 12.5 mg PO BID 09/25/23 09/26/23 Previous Rx's Medication Instructions Recorded levofloxacin 500 mg tablet 500 mg PO DAILY #5 tabs 09/25/23 Allergies Allergy/AdvReac Type Severity Reaction Status Date / Time chlorthalidone Allergy Verified 09/26/23 14:15 hydrochlorothiazide Allergy Verified 09/26/23 14:15 nifedipine Allergy Verified 09/26/23 14:15 simvastatin Allergy Verified 09/26/23 14:15 Review of Systems Status of ROS: Reports: 10 or more systems reviewed and unremarkable except as noted in History and below [facility] Medical History Bladder cancer ?C67.9 - Malignant neoplasm of bladder, unspecified (ICD-10) Rotator cuff tear, left ?M75.102 - Unspecified rotator cuff tear or rupture of left shoulder, not specified as traumatic (ICD-10) Edema ?R60.9 - Edema, unspecified (ICD-10) Polydipsia ?R63.1 - Polydipsia (ICD-10) Dizziness ?R42 - Dizziness and giddiness (ICD-10) Bowel trouble ?K63.9 - Disease of intestine, unspecified (ICD-10) Anxiety ?F41.9 - Anxiety disorder, unspecified (ICD-10) Breast cancer, BRCA1 positive ?C50.919 - Malignant neoplasm of unspecified site of unspecified female breast (ICD-10) ?Z15.01 - Genetic susceptibility to malignant neoplasm of breast (ICD-10) Daytime sleepiness ?R40.0 - Somnolence (ICD-10) Insomnia ?G47.00 - Insomnia, unspecified (ICD-10) Fatigue ?R53.83 - Other fatigue (ICD-10) Myalgia ?M79.10 - Myalgia, unspecified site (ICD-10) Weakness generalized ?R53.1 - Weakness (ICD-10) Hypertension ?I10 - Essential (primary) hypertension (ICD-10) Aortic insufficiency ?I35.1 - Nonrheumatic aortic (valve) insufficiency (ICD-10) Osteoarthritis ?M19.90 - Unspecified osteoarthritis, unspecified site (ICD-10) Anemia ?D64.9 - Anemia, unspecified (ICD-10) Back pain ?M54.9 - Dorsalgia, unspecified (ICD-10) Thyroid nodule ?E04.1 - Nontoxic single thyroid nodule (ICD-10) Eczema ?L30.9 - Dermatitis, unspecified (ICD-10) SHERIF (obstructive sleep apnea) ?G47.33 - Obstructive sleep apnea (adult) (pediatric) (ICD-10) Ventricular tachycardia ?I47.20 - Ventricular tachycardia, unspecified (ICD-10) Osteoporosis ?M81.0 - Age-related osteoporosis without current pathological fracture (ICD- 10) Peripheral neuropathy ?G62.9 - Polyneuropathy, unspecified (ICD-10) Surgical History 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/19) ?Z96.641 - Presence of right artificial hip joint (ICD-10) History of bilateral mastectomy ?Z90.13 - Acquired absence of bilateral breasts and nipples (ICD-10) History of cataract surgery ?Z98.49 - Cataract extraction status, unspecified eye (ICD-10) History of hysterectomy ?Z90.710 - Acquired absence of both cervix and uterus (ICD-10) H/O ileostomy ?Z98.890 - Other specified postprocedural states (ICD-10) Family History Mother Ovarian cancer High blood pressure Sister Ovarian cancer High blood pressure Father Heart disease High blood pressure Social History Narrative: She is and here with her . They live independently. They see Dr. Allan for primary care. She does not smoke. She does not drink alcohol. She has had her COVID vaccines. Code status is full. 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 Highest level of school completed/degree received: Bachelor's degree Smoking Status: Never smoker Do you use any of these nicotine containing products: None Second hand tobacco smoke exposure: No How often do you have a drink containing alcohol: never How often do you have six or more drinks on one occasion: Never AUDIT-C Alcohol total score: 0 Non-prescribed substance use: denies use Caffeine: Yes service: No Exam Narrative: Exam Narrative: Elderly, thin patient in no acute distress. Alert and oriented. Answers questions appropriately. Mood and affect are appropriate. Thoughts are goal oriented and rational. No tangential or magical thinking noted. Patient speaks in full sentences without needing to catch her breath. HEENT: Normocephalic atraumatic. Pupils are equally round reactive to light. Extraocular muscles are intact. Conjunctivae are moist without any icterus not ed. Moist mucous membranes. Neck is soft. Cardiovascular: Heart is regular rate and rhythm S1 and S2 are present without any murmurs. Lungs: Clear to auscultation bilaterally no wheezes rhonchi or rales are appreciated. Patient takes deep breaths without any discomfort. Abdomen: Soft and nontender nondistended with normal bowel sounds. No guarding or rebound. Ileal conduit open and draining. Bag is in place with clear light jero colored urine, no blood noted. Bag is almost full. Extremities: Bilateral lower extremities are without edema. Skin: Well perfused without any obvious rashes. Const: Vital Signs, click to edit/add: Vital Signs - 24 hr 09/26/23 14:08 Temperature 98.7 F Pulse Rate [Pulse Oximeter] 93 Respiratory Rate 20 Blood Pressure [Ri ght Upper Arm] 174/73 H Pulse Oximetry 98 Oxygen Delivery Me thod Room Air Course Course ED Course: We discussed that the patient's ileal conduit bag it is almost fall, she states that this has just been recently filling up and that she has emptied her bag twice earlier in the day but with significantly last urine. At this time we established an IV patient received 500 mL of normal saline. Blood work was done: CBC shows mild anemia with a hemoglobin today of 11, it was 11.7 yesterday. Patient does have a history of chronic hyponatremia, however, her sodium had a low today at 121. Went to discuss results with the patient. Her bag had been drained and was almost full again with clear yellow urine. Patient will be admitted for further management. Vital Signs Vital signs: Initial Vital Signs Temperature 98.7 F 09/26/23 14:08 Temperature Source Temporal Artery Scan 09/26/23 14:08 Pulse Rate 93 09/26/23 14:08 Pulse Strength 0+ Absent 09/26/23 14:08 Respiratory Rate 20 09/26/23 14:08 Blood Pressure 174/73 H 09/26/23 14:08 Blood Pressure Mean 106 H 09/26/23 14:08 Blood Pressure Position Sitting 09/26/23 14:08 Pulse Oximetry 98 09/26/23 14:08 Oxygen Delivery Method Room Air 09/26/23 14:08 Vital Signs Temperature 98.7 F 09/26/23 14:08 Pulse Rate 93 09/26/23 14:08 Respiratory Rate 20 09/26/23 14:08 Blood Pressure 174/73 H 09/26/23 14:08 Pulse Oximetry 98 09/26/23 14:08 Oxygen Delivery Method Room Air 09/26/23 14:08 Temperature 98.7 F 09/26/23 14:08 Pulse Rate 93 09/26/23 14:08 Respiratory Rate 20 09/26/23 14:08 Blood Pressure 174/73 H 09/26/23 14:08 Pulse Oximetry 98 09/26/23 14:08 Oxygen Delivery Method Room Air 09/26/23 14:08 Medications Administered Medications: Discontinued Medications Generic Name Dose Route Start Last Admin Trade Name Laura PRN Reason Stop Dose Admin Sodium Chloride 500 mls @ 500 mls/hr 09/26/23 14:51 09/26/23 15:38 0.9 % Sodium Chloride 500 Ml IV 09/26/23 15:50 500 mls/hr .Q1H ONE Administration Medical Decision Making MDM Narrative Medical decision making narrative: 83-year-old female with chronic hyponatremia, presenting with increased weakness and hyponatremia lower than her baseline. Patient will be admitted for further management. Lab Data Lab results reviewed: Yes I reviewed the patient's lab results Labs: Lab Results 09/26/23 Range/Units 15:25 WBC 7.68 (4.50-11.00) K/uL RBC 3.47 L (4.00-5.20) m/uL Hgb 11.0 L (12.0-16.0) gm/dL Hct 32.3 L (33.0-51.0) % MCV 93 (80-100) fL MCH 32 (26-34) pg MCHC 34 (32-36) gm/dL RDW Coeff of Helio 12.6 (11.5-15.5) % Plt Count 251 (140-440) K/uL Neut % (Auto) 82.0 H (42.0-72.0) % Lymph % (Auto) 9.1 L (20-44) % [place] % (Auto) 8.2 (0.0-11.0) % Eos % (Auto) 0.3 (0.0-7.0) % Baso % (Auto) 0.3 (0.0-3.0) % Neut # (Auto) 6.30 (1.7-7.0) K/uL Lymph # (Auto) 0.70 L (0.90-2.90) K/uL [place] # (Auto) 0.60 (0.00-0.90) K/UL Eos # (Auto) 0.02 (0.00-0.50) K/uL Baso # (Auto) 0.02 (0.00-0.30) K/uL Abs Immat Gran (auto) 0.01 (0.00-0.30) K/uL Imm/Tot Granulo (auto) 0.1 % Sodium 121 L* (135-149) mmol/L Potassium 3.8 (3.6-5.1) mmol/L Chloride 88 L (96-114) mmol/L Carbon Dioxide 25 (20-32) mmol/L Anion Gap 8 (7-15) mEq/L BUN 19 (7-30) mg/dL Creatinine 0.6 (0.5-1.5) mg/dL Estimated Creat Clear 32.66 Estimated GFR 89 ml/min Glucose 100 (60-115) mg/dL Calcium 8.7 (8.4-10.6) mg/dL Discharge Plan Discharge Clinical Impression: Hyponatremia Patient Disposition: Admitted As Observation Condition: Stable Prescriptions: No Action labetalol 300 mg tablet PO BID latanoprost 0.005 % drops 1 drp ophthalmic (eye) HS Patient Comments: INSTILL 1 DROP INTO LEFT EYE AT BEDTIME alendronate 70 mg tablet 70 mg PO QWEEK Patient Comments: TAKE 1 TABLET (70 MG) BY MOUTH ONCE A WEEK IN THE MORNING. TAKE ON EMPTY STOMACH WITH FULL GLASS OF WATER. DO NOT LIE DOWN FOR 1 HOUR. amlodipine 5 mg tablet 5 mg PO DAILY Patient Comments: TAKE ONE TABLET BY MOUTH (5MG) ONCE DAILY lisinopril 40 mg tablet 40 mg PO DAILY Patient Comments: TAKE 1 TABLET BY MOUTH ONCE DAILY. carvedilol 12.5 mg tablet 12.5 mg PO BID levofloxacin 500 mg tablet 500 mg PO DAILY Qty: 5 0RF Follow Up/Referrals: Scout Allan MD [Primary Care Provider] -
[2023-09-26 15:33] LABS: Basophils Absolute Auto 0.02 K/uL (0.00-0.30); Basophils Percent Auto 0.3 % (0.0-3.0); Eosinophils Absolute Auto 0.02 K/uL (0.00-0.50); Eosinophils Percent Auto 0.3 % (0.0-7.0); Hematocrit 32.3 % (33.0-51.0); Immature Granulocytes Abs Auto 0.01 K/uL (0.00-0.30); Immature Granulocytes Pct Auto 0.1 %; Lymphocytes Percent Auto 9.1 % (20-44); Mean Corpuscular HGB Conc 34 gm/dL (32-36); Mean Corpuscular Hemoglobin 32 pg (26-34); Mean Corpuscular Volume 93 fL (80-100); Monocytes Percent Auto 8.2 % (0.0-11.0); Platelet Count* 251 K/uL (140-440); RDW Coefficient of Variation % 12.6 % (11.5-15.5); Red Blood Count 3.47 m/uL (4.00-5.20); White Blood Count* 7.68 K/uL (4.50-11.00)
[2023-09-26] MEDS: 0.9 % SODIUM CHLORIDE 500 ML 500 ML IV (15:38)
[2023-09-26 15:39] LABS: Slide Review Reflex No
[2023-09-26 15:45] LABS: Chloride* 88 mmol/L (96-114); Potassium* 3.8 mmol/L (3.6-5.1)
[2023-09-26 15:48] LABS: Anion Gap 8 mEq/L (7-15); Blood Urea Nitrogen* 19 mg/dL (7-30); Carbon Dioxide* 25 mmol/L (20-32); Creatinine* 0.6 mg/dL (0.5-1.5); Est. Creatinine Clearance* 32.66; Estimated Glomerular Filt Rate 89 ml/min
[2023-09-26 15:49] LABS: Calcium* 8.7 mg/dL (8.4-10.6); Glucose* 100 mg/dL (60-115)
[2023-09-26 15:56] LABS: Sodium* 121 mmol/L (135-149)
--- NOTE | 2023-09-26 17:41 | P.IMHP_ITS ---
Hospitalist- H&P: HPI History of Present Illness Date Seen: 09/26/23 Chief complaint: abdominal pain Narrative: Claudia Benitez is a 83 year old female with remote history of bladder cancer leading to a ileal loop diversion and ileostomy presents with 1 week history of hematuria. She was seen in clinic for this 1 week ago. At that time she was having gross hematuria. She was otherwise well. She had a urine culture obtained and was started on cephalexin 500 mg twice daily. She had a follow-up visit yesterday in clinic where she was still having some hematuria. Cultures from that original evaluation 1 week ago grew greater than 100,000 colonies of Klebsiella pneumonia, [phone] colonies of Pseudomonas aeruginosa and greater than 100,000 colonies of aerococcus urinae. She was started on Levaquin 500 mg twice daily yesterday. Today she is feeling shaky and weak and presents to the emergency room for evaluation. She is not having abdominal pain, fever ,, back pain, nausea, vomiting, diarrhea. She does note that she has been drinking more fluid in the last day because she thought it was necessary for her antibiotic. In the emergency room now she is found to have a sodium of 121. Notably she has had longstanding history of hyponatremia. Her sodium 2 days ago in clinic was 133. Longstanding history of problems with hyponatremia previously attributed to chlorthalidone and hydrochlorothiazide. She has been off of those for a long time. She is hospitalized here June of 2022 with hyponatremia. At that time she had a serum osmolality of 274 and a urine sodium of 58. As an outpatient her sodium levels have been 132 and 133 since that time. Other than her gross hematuria in her urostomy bag she reports feeling shaky and weak today. She is not having any pain. No shortness of breath. She has had no cough. No recent illness. She has had a normal diet. Other than the last day she has not had an unusual amount of fluid intake. She does not avoid sodium in her diet Review of Systems Narrative: She reports doing well other than the issues above. 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 and some possible peripheral neuropathy [facility] Medical History Bladder cancer ?C67.9 - Malignant neoplasm of bladder, unspecified (ICD-10) Rotator cuff tear, left ?M75.102 - Unspecified rotator cuff tear or rupture of left shoulder, not specified as traumatic (ICD-10) Edema ?R60.9 - Edema, unspecified (ICD-10) Polydipsia ?R63.1 - Polydipsia (ICD-10) Dizziness ?R42 - Dizziness and giddiness (ICD-10) Bowel trouble ?K63.9 - Disease of intestine, unspecified (ICD-10) Anxiety ?F41.9 - Anxiety disorder, unspecified (ICD-10) Breast cancer, BRCA1 positive ?C50.919 - Malignant neoplasm of unspecified site of unspecified female jas st (ICD-10) ?Z15.01 - Genetic susceptibility to malignant neoplasm of breast (ICD-10) Daytime sleepiness ?R40.0 - Somnolence (ICD-10) Insomnia ?G47.00 - Insomnia, unspecified (ICD-10) Fatigue ?R53.83 - Other fatigue (ICD-10) Myalgia ?M79.10 - Myalgia, unspecified site (ICD-10) Weakness generalized ?R53.1 - Weakness (ICD-10) Hypertension ?I10 - Essential (primary) hypertension (ICD-10) Aortic insufficiency ?I35.1 - Nonrheumatic aortic (valve) insufficiency (ICD-10) Osteoarthritis ?M19.90 - Unspecified osteoarthritis, unspecified site (ICD-10) Anemia ?D64.9 - Anemia, unspecified (ICD-10) Back pain ?M54.9 - Dorsalgia, unspecified (ICD-10) Thyroid nodule ?E04.1 - Nontoxic single thyroid nodule (ICD-10) Eczema ?L30.9 - Dermatitis, unspecified (ICD-10) SHERIF (obstructive sleep apnea) ?G47.33 - Obstructive sleep apnea (adult) (pediatric) (ICD-10) Ventricular tachycardia ?I47.20 - Ventricular tachycardia, unspecified (ICD-10) Osteoporosis ?M81.0 - Age-related osteoporosis without current pathological fracture (ICD- 10) Peripheral neuropathy ?G62.9 - Polyneuropathy, unspecified (ICD-10) Surgical History 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/19) ?Z96.641 - Presence of right artificial hip joint (ICD-10) History of bilateral mastectomy ?Z90.13 - Acquired absence of bilateral breasts and nipples (ICD-10) History of cataract surgery ?Z98.49 - Cataract extraction status, unspecified eye (ICD-10) History of hysterectomy ?Z90.710 - Acquired absence of both cervix and uterus (ICD-10) H/O ileostomy ?Z98.890 - Other specified postprocedural states (ICD-10) Family History Mother Ovarian cancer High blood pressure Sister Ovarian cancer High blood pressure Father Heart disease High blood pressure Social History Narrative: She is and here with her . They live independently. They see Dr. Allan for primary care. She does not smoke. She does not drink alcohol. She has had her COVID vaccines. Code status is full. 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 Highest level of school completed/degree received: Bachelor's degree Smoking Status: Never smoker Do you use any of these nicotine containing products: None Second hand tobacco smoke exposure: No How often do you have a drink containing alcohol: never How often do you have six or more drinks on one occasion: Never AUDIT-C Alcohol total score: 0 Non-prescribed substance use: denies use Caffeine: Yes service: No Meds Home Medications and Allergies Home Medications Medication Instructions Recorded Confirmed Type alendronate 70 mg tablet 70 mg PO QWEEK 07/25/22 09/26/23 History latanoprost 0.005 % eye drops 1 drp ophthalmic (eye) HS 07/25/22 09/26/23 History lisinopril 40 mg tablet 40 mg PO DAILY 07/25/22 09/26/23 History carvedilol 12.5 mg tablet 12.5 mg PO BID 09/25/23 09/26/23 History acetaminophen 500 mg tablet 1,000 mg PO TID 09/26/23 09/26/23 History amlodipine 2.5 mg tablet 2.5 mg PO DAILY 09/26/23 09/26/23 History ascorbic acid (vitamin C) 1,000 mg 1 g PO DAILY 09/26/23 09/26/23 History tablet (Vitamin C) calcium carbonate 500 mg calcium 500 mg PO BID 09/26/23 09/26/23 History (1,250 mg) tablet (Oyster Shell Calcium) cholecalciferol (vitamin D3) 25 25 mcg PO DAILY 09/26/23 09/26/23 History mcg (1,000 unit) capsule mirtazapine 7.5 mg tablet 3.75 - 7.5 mg PO HS PRN 09/26/23 09/26/23 History multivitamin (Daily Multi-Vitamin 1 tab PO DAILY 09/26/23 09/26/23 History tablet) triamcinolone acetonide 0.1 % 1 applic topical BID PRN 09/26/23 09/26/23 History topical cream Allergies Allergy/AdvReac Type Severity Reaction Status Date / Time chlorthalidone Allergy Verified 09/26/23 14:15 hydrochlorothiazide Allergy Verified 09/26/23 14:15 nifedipine Allergy Verified 09/26/23 14:15 simvastatin Allergy Verified 09/26/23 14:15 Exam Narrative: Exam Narrative: She is alert and appears in no distress. Head is without trauma. Eyes are normal. Extraocular movements are full. Pupils are equal round reactive to light. No facial asymmetry. Oropharynx is normal. Moist mucous membranes. Neck is supple without mass or adenopathy. Respirations are clear to auscultation. Cardiovascular: S1, S2, 1/6 systolic murmur. Regular rate and rhythm. No gallop or rub. Abdomen: Bowel sounds active. Abdomen is soft without tenderness or mass. She has a right lower quadrant urostomy bag which has pimentel colored urine. Trace edema in her right lower extremity. None in her left. She moves all 4 extremities well. No rash. Const: Vital Signs, click to edit/add: Vital Signs - 24 hr 09/26/23 14:08 09/26/23 14:22 09/26/23 14:24 Temperature 98.7 F Pulse Rate 102 H 90 Pulse Rate [Pulse Oximeter] 93 Respiratory Rate 20 Blood Pressure 181/108 H Blood Pressure [Ri ght Upper Arm] 174/73 H Pulse Oximetry 98 97 97 Oxygen Delivery Me thod Room Air 09/26/23 14:27 09/26/23 14:30 09/26/23 14:32 Temperature Pulse Rate 90 93 88 Pulse Rate [Pulse Oximeter] Respiratory Rate Blood Pressure 168/82 H 185/85 H Blood Pressure [Ri ght Upper Arm] Pulse Oximetry 97 97 97 Oxygen Delivery Me thod 09/26/23 14:45 09/26/23 15:00 09/26/23 15:02 Temperature Pulse Rate 86 84 84 Pulse Rate [Pulse Oximeter] Respiratory Rate Blood Pressure 157/78 H Blood Pressure [Ri ght Upper Arm] Pulse Oximetry 97 97 96 Oxygen Delivery Me thod 09/26/23 15:15 09/26/23 15:30 09/26/23 15:31 Temperature Pulse Rate 82 88 85 Pulse Rate [Pulse Oximeter] Respiratory Rate Blood Pressure 167/82 H Blood Pressure [Ri ght Upper Arm] Pulse Oximetry 98 97 97 Oxygen Delivery Me thod 09/26/23 15:45 09/26/23 16:00 09/26/23 16:02 Temperature Pulse Rate 84 91 93 Pulse Rate [Pulse Oximeter] Respiratory Rate Blood Pressure 193/96 H Blood Pressure [Ri ght Upper Arm] Pulse Oximetry 97 97 97 Oxygen Delivery Me thod 09/26/23 16:28 09/26/23 16:30 09/26/23 16:32 Temperature Pulse Rate 87 86 93 Pulse Rate [Pulse Oximeter] Respiratory Rate Blood Pressure 184/92 H Blood Pressure [Ri ght Upper Arm] Pulse Oximetry 98 96 99 Oxygen Delivery Me thod 09/26/23 16:33 09/26/23 17:02 09/26/23 17:15 Temperature Pulse Rate 94 93 Pulse Rate [Pulse Oximeter] Respiratory Rate Blood Pressure 184/90 H Blood Pressure [Ri ght Upper Arm] Pulse Oximetry 99 96 Oxygen Delivery Me thod 09/26/23 17:30 09/26/23 17:31 Temperature Pulse Rate 85 82 Pulse Rate [Pulse Oximeter] Respiratory Rate Blood Pressure 168/82 H Blood Pressure [Ri ght Upper Arm] Pulse Oximetry 96 95 Oxygen Delivery Me thod Documenting provider has reviewed patient's vital signs: yes Hospitalist - H&P: Result Labs Labs: Short CBC 09/26/23 Range/Units 15:25 WBC 7.68 (4.50-11.00) K/uL Hgb 11.0 L (12.0-16.0) gm/dL Hct 32.3 L (33.0-51.0) % Plt Count 251 (140-440) K/uL BMP 09/26/23 15:25 Sodium 121 L* Potassium 3.8 Chloride 88 L Carbon Dioxide 25 BUN 19 Creatinine 0.6 Glucose 100 Calcium 8.7 Assessment and Plan Assessment and plan (1) Hyponatremia: Problem comment: Chronic recurrent problem. I did obtain urine and serum sodium and osmolality again. Check adrenal function and thyroid function. Fluid restriction and oral sodium. Results pending. Status: Acute (2) Acute UTI: Problem comment: Continue Levaquin at a lower dose. Culture and sensitivities not available from previous urinalysis. She has had 6 day treatment with Keflex so 5 more days of low-dose Levaquin. Possibly the Levaquin is contributing to her hyponatremia so will cut the dose down since she is clinically not particularly ill Status: Acute (3) Hematuria: Problem comment: Probably due to UTI. If persistent after appropriate treatment for UTI may need urology follow-up Status: Acute Plan 83-year-old female admitted to the hospital with gross hematuria, UTI, hyponatremia with sodium of 121 and feeling weak and shaky. At this point will address the hyponatremia as the more likely cause of her symptoms but also treat her UTI. Continue to evaluate causes for hyponatremia. Total time spent today is 60 minutes, 45 minutes in coordination of care and discussing with patient, and other providers ongoing plan of care
[2023-09-26] MEDS: SODIUM CHLORIDE 1 GM TABLET PO (18:40)
--- NOTE | 2023-09-26 19:21 | PC.NURSE ---
Admission-- Pleasant and cooperative, alert and oriented patient was admitted to Med-surg from ED via wheelchair. at bedside. Hypertensive wth B/P 190s/80 and pt is afebrile. SPO2 >94% on RA and pt denied any pain. Report to oncoming shift and all questions were answered.
[2023-09-26] MEDS: carvediloL 6.25 MG TABLET 12.5 MG PO (21:22)
[2023-09-26] MEDS: ACETAMINOPHEN 500 MG TABLET 1000 MG PO (21:22)
[2023-09-26 22:46] LABS: Sodium* 125 mmol/L (135-149)
[2023-09-26] MEDS: ZOLPIDEM 5 MG TABLET 2.5 MG PO (22:46)
[2023-09-27 02:00] VITALS: BP 158/74; PULSE 83; RESP 20; TEMP 36.8; O2SAT 96
[2023-09-27] MEDS: COSYNTROPIN 0.25 MG VIAL IVP (06:59)
[2023-09-27 07:20] LABS: Chloride* 93 mmol/L (96-114); Sodium* 127 mmol/L (135-149)
[2023-09-27 07:21] LABS: Potassium* 3.9 mmol/L (3.6-5.1)
[2023-09-27 07:23] LABS: Anion Gap 7 mEq/L (7-15); Carbon Dioxide* 27 mmol/L (20-32); Creatinine* 0.5 mg/dL (0.5-1.5); Est. Creatinine Clearance* 32.66; Estimated Glomerular Filt Rate 93 ml/min
[2023-09-27 07:24] LABS: Blood Urea Nitrogen* 15 mg/dL (7-30); Calcium* 8.7 mg/dL (8.4-10.6); Glucose* 103 mg/dL (60-115)
--- NOTE | 2023-09-27 07:36 | PC.NURSE ---
Patient pleasant, alert and oriented. Stand by assist with walker. Continues on a 1500mL fluid restriction. Urostomy bag patent with good output. Urine clear yellow with scattered sediment. Denies discomfort.?
[2023-09-27 08:00] VITALS: BP 140/67; RESP 18; TEMP 37.1; O2SAT 95
[2023-09-27] MEDS: SODIUM CHLORIDE 1 GM TABLET PO ×2 (08:41→13:50)
[2023-09-27] MEDS: ACETAMINOPHEN 500 MG TABLET 1000 MG PO ×2 (08:42→13:53)
[2023-09-27] MEDS: ASCORBIC ACID 500 MG TABLET 1000 MG PO (08:42)
[2023-09-27] MEDS: carvediloL 6.25 MG TABLET 12.5 MG PO (08:42)
[2023-09-27] MEDS: lisinopriL 20 MG TABLET 40 MG PO (08:42)
[2023-09-27] MEDS: AMLODIPINE 5 MG TABLET 2.5 MG PO (08:42)
[2023-09-27] MEDS: levoFLOXacin 250 MG TABLET PO (08:43)
[2023-09-27 11:00] VITALS: BP 153/77; PULSE 79; RESP 16; TEMP 36.8; O2SAT 97
[2023-09-27] MEDS: CALCIUM CARBONATE 500 MG TABLET PO (13:50)
[2023-09-27] MEDS: MULTIVITAMIN/MINERALS 1 TABLET 1 TAB PO (13:50)
[2023-09-27 14:54] LABS: Sodium* 128 mmol/L (135-149)
--- NOTE | 2023-09-27 15:11 | P.DS_ITS ---
DS: Providers Provider Date Seen: 09/27/23 Date of admission: 09/26/23 17:37 Primary care physician: Scout Allan MD Attending Physician on discharge: Lewis Tony MD Date of Discharge: 09/27/23 DS: Diagnosis Discharge Diagnosis (1) Hematuria: Status: Acute Problem details: Probably due to UTI. If persistent after appropriate treatment for UTI may need urology follow-up (2) Acute UTI: Status: Acute Problem details: Continue Levaquin at a lower dose. Culture and sensitivities not available from previous urinalysis. She has had 6 day treatment with Keflex so 5 more days of low-dose Levaquin. Possibly the Levaquin is contributing to her hyponatremia so will cut the dose down since she is clinically not particularly ill (3) Hyponatremia: Status: Acute Problem details: Chronic recurrent problem. I did obtain urine and serum sodium and osmolality again. Check adrenal function and thyroid function. Fluid restriction and oral sodium. Results pending. DS: Summary Hospital Course Hospital Course: Patient was treated with oral sodium chloride and fluid restriction. Hers sodium level went from 121 prior to admission to 128 at the time of admission. She returned to baseline functioning. Patient be discharged on sodium chloride tablets and a reduced dose of levofloxacin 250 mg daily for her UTI. If ongoing hematuria may need further urology evaluation. If ongoing problems with hyponatremia consider Nephrology evaluation. If having problems with volume control or edema consider adding a loop diuretic with potassium. Status at Discharge Overall status at discharge: patient is progressing back to baseline Time Spent with Patient Time attestation: Total time spent providing and/or coordinating discharge services: Time spent: Greater than 30 minutes Exam Narrative: Exam Narrative: She is alert and appears in no distress. Speech is normal. Respirations are clear to auscultation. Cardiovascular: S1, S2, regular rate and rhythm. Abdomen is soft without tenderness. Urostomy bag without blood. Const: Vital Signs, click to edit/add: Vital Signs - 24 hr 09/26/23 15:15 09/26/23 15:30 09/26/23 15:31 Temperature Pulse Rate 82 88 85 Pulse Rate [Pulse Oximeter] Respiratory Rate Blood Pressure 167/82 H Blood Pressure [Ri ght Arm] Pulse Oximetry 98 97 97 Oxygen Delivery La thod 09/26/23 15:45 09/26/23 16:00 09/26/23 16:02 Temperature Pulse Rate 84 91 93 Pulse Rate [Pulse Oximeter] Respiratory Rate Blood Pressure 193/96 H Blood Pressure [Ri ght Arm] Pulse Oximetry 97 97 97 Oxygen Delivery Me thod 09/26/23 16:28 09/26/23 16:30 09/26/23 16:32 Temperature Pulse Rate 87 86 93 Pulse Rate [Pulse Oximeter] Respiratory Rate Blood Pressure 184/92 H Blood Pressure [Ri ght Arm] Pulse Oximetry 98 96 99 Oxygen Delivery Me thod 09/26/23 16:33 09/26/23 17:02 09/26/23 17:15 Temperature Pulse Rate 94 93 Pulse Rate [Pulse Oximeter] Respiratory Rate Blood Pressure 184/90 H Blood Pressure [Ri ght Arm] Pulse Oximetry 99 96 Oxygen Delivery Me thod 09/26/23 17:30 09/26/23 17:31 09/26/23 17:51 Temperature 98.9 F Pulse Rate 85 82 Pulse Rate [Pulse Oximeter] 89 Respiratory Rate 20 Blood Pressure 168/82 H Blood Pressure [Ri ght Arm] 192/87 H Pulse Oximetry 96 95 96 Oxygen Delivery Me thod Room Air 09/26/23 19:41 09/26/23 22:04 09/26/23 23:30 Temperature 98.7 F 98.5 F Pulse Rate Pulse Rate [Pulse Oximeter] 85 78 Respiratory Rate 18 18 20 Blood Pressure Blood Pressure [Ri ght Arm] 136/64 147/70 H Pulse Oximetry 95 95 Oxygen Delivery Me thod Room Air Room Air 09/27/23 02:00 09/27/23 08:00 09/27/23 11:00 Temperature 98.3 F 98.8 F 98.3 F Pulse Rate Pulse Rate [Pulse Oximeter] 83 79 Respiratory Rate 20 18 16 Blood Pressure Blood Pressure [Ri ght Arm] 158/74 H 140/67 H 153/77 H Pulse Oximetry 96 95 97 Oxygen Delivery Me thod Room Air Room Air Room Air Documenting provider has reviewed patient's vital signs: yes DS: Data Data Completed and Pending Labs on day of discharge: Labs from last 24 hours 09/27/23 09/27/23 09/27/23 14:22 08:50 08:06 WBC RBC Hgb Hct MCV MCH MCHC RDW Coeff of Helio Plt Count Neut % (Auto) Lymph % (Auto) [place] % (Auto) Eos % (Auto) Baso % (Auto) Neut # (Auto) Lymph # (Auto) [place] # (Auto) Eos # (Auto) Baso # (Auto) Abs Immat Gran (auto) Imm/Tot Granulo (auto) Sodium 128 L Potassium Chloride Carbon Dioxide Anion Gap BUN Creatinine Estimated Creat Clear Estimated GFR Glucose Serum Osmolality Calcium TSH Cortisol Cortisol 30 Minute Cortisol 60 Minute Pending Ur Random Osmolality Pending Ur Creatinine per Vol Pending Ur Creatinine 24 Hour Pending U Collection Duration Pending Urine Total Volume Pending Ur Sodium per Vol Pending Ur Sodium mmol/Day Pending 09/27/23 09/27/23 09/26/23 07:35 06:48 21:28 WBC RBC Hgb Hct MCV MCH MCHC RDW Coeff of Helio Plt Count Neut % (Auto) Lymph % (Auto) [place] % (Auto) Eos % (Auto) Baso % (Auto) Neut # (Auto) Lymph # (Auto) [place] # (Auto) Eos # (Auto) Baso # (Auto) Abs Immat Gran (auto) Imm/Tot Granulo (auto) Sodium 127 L 125 L Potassium 3.9 Chloride 93 L Carbon Dioxide 27 Anion Gap 7 BUN 15 Creatinine 0.5 Estimated Creat Clear 32.66 Estimated GFR 93 Glucose 103 Serum Osmolality Pending Calcium 8.7 TSH 1.600 Cortisol Pending Cortisol 30 Minute Pending Cortisol 60 Minute Ur Random Osmolality Ur Creatinine per Vol Ur Creatinine 24 Hour U Collection Duration Urine Total Volume Ur Sodium per Vol Ur Sodium mmol/Day 09/26/23 15:25 WBC 7.68 RBC 3.47 L Hgb 11.0 L Hct 32.3 L MCV 93 MCH 32 MCHC 34 RDW Coeff of Helio 12.6 Plt Count 251 Neut % (Auto) 82.0 H Lymph % (Auto) 9.1 L [place] % (Auto) 8.2 Eos % (Auto) 0.3 Baso % (Auto) 0.3 Neut # (Auto) 6.30 Lymph # (Auto) 0.70 L [place] # (Auto) 0.60 Eos # (Auto) 0.02 Baso # (Auto) 0.02 Abs Immat Gran (auto) 0.01 Imm/Tot Granulo (auto) 0.1 Sodium 121 L* Potassium 3.8 Chloride 88 L Carbon Dioxide 25 Anion Gap 8 BUN 19 Creatinine 0.6 Estimated Creat Clear 32.66 Estimated GFR 89 Glucose 100 Serum Osmolality Calcium 8.7 TSH Cortisol Cortisol 30 Minute Cortisol 60 Minute Ur Random Osmolality Ur Creatinine per Vol Ur Creatinine 24 Hour U Collection Duration Urine Total Volume Ur Sodium per Vol Ur Sodium mmol/Day Discharge Plan Discharge Disposition: Home, Self-Care Date of Admission: 09/26/23 17:37 Attending Provider on Discharge: Salvador Tony Primary Care Provider: Scout Allan Condition: Stable Anticipated Discharge Date/Time: 09/27/23 15:16 Discharge Medications: New sodium chloride 1,000 mg Tablet,Soluble 1,000 mg PO TIDWM Qty: 100 0RF Continued latanoprost 0.005 % drops 1 drp ophthalmic (eye) HS Patient Comments: left eye alendronate 70 mg tablet 70 mg PO QWEEK Patient Comments: friday lisinopril 40 mg tablet 40 mg PO DAILY amlodipine 2.5 mg tablet 2.5 mg PO DAILY mirtazapine 7.5 mg tablet 3.75 - 7.5 mg PO HS PRN calcium carbonate [Oyster Shell Calcium] 500 mg calcium (1,250 mg) tablet 500 mg PO BID ascorbic acid (vitamin C) [Vitamin C] 1,000 mg tablet 1 g PO DAILY triamcinolone acetonide 0.1 % cream 1 applic topical BID PRN acetaminophen 500 mg tablet 1,000 mg PO TID multivitamin [Daily Multi-Vitamin] Tablet 1 tab PO DAILY cholecalciferol (vitamin D3) 25 mcg (1,000 unit) capsule 25 mcg PO DAILY carvedilol 12.5 mg tablet 12.5 mg PO BID Changed levofloxacin 500 mg tablet 250 mg PO DAILY Qty: 5 0RF Discharge Orders: Discharge Order (Routine); Ordered 09/27/23 Ordered By: Salvador Tony Additional Instructions: Drink enough fluid to quench your thirst. Activity Level: No Restrictions Discharge Diet: Regular Follow Up Appointments: Scout Allan MD [Primary Care Provider] - (Follow-up in 1 week. Check basic metabolic panel in 1 week) Forms: [employer] Info Instructions
[2023-09-27 15:27] VITALS: BP 138/71; PULSE 77; RESP 16; TEMP 36.6; O2SAT 95
--- NOTE | 2023-09-27 17:22 | PC.NURSE ---
Discharge: Patient pleasant and cooperative. Up walking in halls frequently. Had small BM prior to discharge. Vitals stable and WNL. Denies pain or SOB. IV removed. Discharge instructions given, reviewed new medication orders, Discussed follow up and need for lab check at different clinic prior to appointment with primary. Questions answered. Patient ambulated to car with . Discharged @ 1500.
--- NOTE | 2023-09-27 17:48 | PC.NURSE ---
Patient's pharmacy was closed, voicemail left to cancel Rx for sodium chloride. RX called to [facility] in [place] per patient request.
[2023-09-28 09:43] LABS: Urine Osmolality 268 mOsm/kg (50-800)
[2023-09-28 21:03] LABS: Cortisol 0 Min 19.1 ug/dL
[2023-09-29 04:06] LABS: Hours Collected Not Provided hr; Total Volume Not Provided mL
== END 2023-09-27 17:00 | disposition home or self-care (01) ==
LOC: ED 16:55 → MEDSURG 17:37
PROVIDERS: Family Medicine; Admitting Provider Orthopaedic Surgery; Emergency Provider Family Medicine; PCP Family Medicine; Visit Provider Orthopaedic Surgery
DX: E87.1 Hypo-osmolality and hyponatremia (principal); N39.0 Urinary tract infection, site not specified; R31.9 Hematuria, unspecified; R53.1 Weakness; D64.9 Anemia, unspecified; I10 Essential (primary) hypertension; R60.0 Localized edema; G47.33 Obstructive sleep apnea (adult) (pediatric); F41.9 Anxiety disorder, unspecified; G47.00 Insomnia, unspecified; M81.0 Age-related osteoporosis without current pathological fracture; Z15.01 Genetic susceptibility to malignant neoplasm of breast; Z85.51 Personal history of malignant neoplasm of bladder; Z96.641 Presence of right artificial hip joint; Z98.49 Cataract extraction status, unspecified eye; Z90.13 Acquired absence of bilateral breasts and nipples; Z90.710 Acquired absence of both cervix and uterus; Z98.890 Other specified postprocedural states
CPT/HCPCS: 36415; 80048; 82533; 83930; 83935; 84295; 84300; 84443; 85025; 96361; 96374; 99284; 99285; A9153; A9270; G0378; J0834; J7030

== ENCOUNTER 2024-01-20 04:04 | Outpatient (CLI) | payer MEDICARE, OTHER, SELFPAY | END 2024-01-20 04:05 | disposition home or self-care (01) | LOC: AMB 01-21 04:10 | PROVIDERS: PCP Family Medicine; Visit Provider Family Medicine | DX: R06.09 Other forms of dyspnea (principal) | CPT/HCPCS: A0425; A0429 ==

== ENCOUNTER 2024-01-20 04:30 | Emergency (ER) | payer MEDICARE, OTHER, SELFPAY ==
[2024-01-20] VITALS (10 sets, daily range): BP systolic 194–198; BP diastolic 76–90; PULSE 59–79; RESP 16–18; TEMP 36.1; O2SAT 96–100; BMI 17.7
--- NOTE | 2024-01-20 04:43 | ED_ITS ---
HPI - SOB/Dyspnea General Time Seen by Provider: 04:44 Date Seen: 01/20/24 Chief Complaint: Shortness of Breath/Dyspnea Stated Complaint: shortness of breath Time Seen by Provider: 01/20/24 04:43 Source: patient, EMS, RN notes reviewed and old records reviewed Mode of arrival: EMS Limitations: no limitations History of Present Illness HPI Narrative: 83-year-old female who presents today with shortness of breath that woke up from sleep tonight. Denies fever, chills, cough . Spouse is recovering from COVID. Patient denies palpitations, says that she sits with multiple pillows that she has difficulty lying down flat sleep and that is not a longstanding problem for years. Related Data Home Medications ?Medication ?Instructions ?Recorded ?Confirmed alendronate 70 mg tablet 70 mg PO QWEEK 07/25/22 09/26/23 latanoprost 0.005 % eye drops 1 drp ophthalmic (eye) HS 07/25/22 09/26/23 lisinopril 40 mg tablet 40 mg PO DAILY 07/25/22 09/26/23 carvedilol 12.5 mg tablet 12.5 mg PO BID 09/25/23 09/26/23 acetaminophen 500 mg tablet 1,000 mg PO TID 09/26/23 09/26/23 amlodipine 2.5 mg tablet 2.5 mg PO DAILY 09/26/23 09/26/23 ascorbic acid (vitamin C) 1,000 mg 1 g PO DAILY 09/26/23 09/26/23 tablet (Vitamin C) calcium carbonate (Oyster Shell 500 mg PO BID 09/26/23 09/26/23 Calcium) cholecalciferol (vitamin D3) 25 25 mcg PO DAILY 09/26/23 09/26/23 mcg (1,000 unit) capsule mirtazapine 7.5 mg tablet 3.75 - 7.5 mg PO HS PRN 09/26/23 09/26/23 multivitamin (Daily Multi-Vitamin 1 tab PO DAILY 09/26/23 09/26/23 tablet) triamcinolone acetonide 0.1 % 1 applic topical BID PRN 09/26/23 09/26/23 topical cream Previous Rx's ?Medication ?Instructions ?Recorded levofloxacin 500 mg tablet 250 mg (1/2 x 500 mg) PO DAILY #5 09/27/23 tabs sodium chloride 1,000 mg soluble 1,000 mg PO TIDWM #100 tabs 09/27/23 tablet Allergies Allergy/AdvReac Type Severity Reaction Status Date / Time chlorthalidone Allergy Verified 09/26/23 14:15 hydrochlorothiazide Allergy Verified 09/26/23 14:15 nifedipine Allergy Verified 09/26/23 14:15 simvastatin Allergy Verified 09/26/23 14:15 PFSH PFS Medical History Bladder cancer ?C67.9 - Malignant neoplasm of bladder, unspecified (ICD-10) Rotator cuff tear, left ?M75.102 - Unspecified rotator cuff tear or rupture of left shoulder, not specified as traumatic (ICD-10) Edema ?R60.9 - Edema, unspecified (ICD-10) Polydipsia ?R63.1 - Polydipsia (ICD-10) Dizziness ?R42 - Dizziness and giddiness (ICD-10) Bowel trouble ?K63.9 - Disease of intestine, unspecified (ICD-10) Anxiety ?F41.9 - Anxiety disorder, unspecified (ICD-10) Breast cancer, BRCA1 positive ?C50.919 - Malignant neoplasm of unspecified site of unspecified female breast (ICD-10) ?Z15.01 - Genetic susceptibility to malignant neoplasm of breast (ICD-10) Daytime sleepiness ?R40.0 - Somnolence (ICD-10) Insomnia ?G47.00 - Insomnia, unspecified (ICD-10) Fatigue ?R53.83 - Other fatigue (ICD-10) Myalgia ?M79.10 - Myalgia, unspecified site (ICD-10) Weakness generalized ?R53.1 - Weakness (ICD-10) Hypertension ?I10 - Essential (primary) hypertension (ICD-10) Aortic insufficiency ?I35.1 - Nonrheumatic aortic (valve) insufficiency (ICD-10) Osteoarthritis ?M19.90 - Unspecified osteoarthritis, unspecified site (ICD-10) Anemia ?D64.9 - Anemia, unspecified (ICD-10) Back pain ?M54.9 - Dorsalgia, unspecified (ICD-10) Thyroid nodule ?E04.1 - Nontoxic single thyroid nodule (ICD-10) Eczema ?L30.9 - Dermatitis, unspecified (ICD-10) SHERIF (obstructive sleep apnea) ?G47.33 - Obstructive sleep apnea (adult) (pediatric) (ICD-10) Ventricular tachycardia ?I47.20 - Ventricular tachycardia, unspecified (ICD-10) Osteoporosis ?M81.0 - Age-related osteoporosis without current pathological fracture (ICD- 10) Peripheral neuropathy ?G62.9 - Polyneuropathy, unspecified (ICD-10) Surgical History 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/19) ?Z96.641 - Presence of right artificial hip joint (ICD-10) History of bilateral mastectomy ?Z90.13 - Acquired absence of bilateral breasts and nipples (ICD-10) History of cataract surgery ?Z98.49 - Cataract extraction status, unspecified eye (ICD-10) History of hysterectomy ?Z90.710 - Acquired absence of both cervix and uterus (ICD-10) H/O ileostomy ?Z98.890 - Other specified postprocedural states (ICD-10) Family History Mother Ovarian cancer High blood pressure Sister Ovarian cancer High blood pressure Father Heart disease High blood pressure Social History Narrative: She is and here with her . They live independently. They see Dr. Allan for primary care. She does not smoke. She does not drink alcohol. She has had her COVID vaccines. Code status is full. is healthcare power of erisa attorney. What is your current living situation?: I presently have a place to live Problems where you live: no known problems Problems where you live details: N/A In the past 12 months, utilities in danger of being shut off: no In past 12 months, lack of transportation kept you from medical appts, meetings, work, or getting things needed for daily living: no In the past 12 mos, have been you worried that your food would run out before you had money to buy more?: never true In the past 12 mos, the food you bought just didn't last and you didn't have money to buy more?: never true Highest level of school completed/degree received: Bachelor's degree Smoking Status: Never smoker Do you use any of these nicotine containing products: None Second hand tobacco smoke exposure: No How often do you have a drink containing alcohol: never How often do you have six or more drinks on one occasion: Never AUDIT-C Alcohol total score: 0 Non-prescribed substance use: denies use Caffeine: Yes (1-2 cups daily) How often does anyone, including family, friends and others, physically hurt you : never How often does anyone, including family, friends and others, insult or talk down to you: never How often does anyone, including family, friends and others, threaten you with harm: never How often does anyone, including family, friends and others, scream or curse at you: never service: No Exam Narrative: Exam Narrative: General: Well-developed and well-nourished, no acute distress Head: Atraumatic and normocephalic Eyes: Pupils are equal reactive, extraocular motions intact, conjunctiva clear ENT: External nose and ears are normal, posterior pharynx without erythema or exudate Neck: No midline cervical tenderness, full spontaneous range of motion the neck, trachea midline, no adenopathy Heart: Regular rate and rhythm no murmurs or thrills Lungs: Clear to auscultation bilaterally without wheezes or crackles Abdomen: Soft, nontender, nondistended with active bowel sounds Musculoskeletal: No tenderness, deformity, or edema Neurologic: Awake, alert, and oriented x3, no gross focal neurologic deficits, cranial nerves intact as tested Psych: Mood and affect are appropriate Skin: No rashes Const: Vital Signs, click to edit/add: Vital Signs - 24 hr 01/20/24 04:39 01/20/24 06:02 Temperature 97.0 F L Pulse Rate [Pulse Oximeter] 78 66 Respiratory Rate 18 16 Blood Pressure [Le ft Upper Arm] 198/90 H 194/80 H Pulse Oximetry 99 99 Oxygen Delivery Me thod Room Air Room Air Course Course ED Course: Patient seen and examined, reviewed prior admission from August 2023 when patient is seen with hyponatremia and urinary tract infection, patient does have history of sleep apnea. Exam here, no tachycardia, hypoxia, or dyspnea, no respiratory distress. Lungs are clear, oxygen saturation 100% on room air, no tachycardia. Labs are ordered along with chest x-ray. EKG independently interpreted by me performed at 4:41 a.m. demonstrates sinus rhythm rate 70, no acute ST elevations or depressions, normal intervals, normal axis, KS 196, QTC 453, no prior for comparison. Reevaluation(s) Time of Reevaluation #1: 05:41 Reevaluation #1: Chest x-ray ordered and independently interpreted by me negative for acute findings. Labs ordered and independently interpreted by me with slightly low hemoglobin 11.3 which is stable with the patient, sodium 129 which is about usual for the patient, negative respiratory panel, normal troponin. No evidence for acute pulmonary disease this time, no findings for heart failure, electrolyte disturbance, pneumonia, COPD. Patient remained stable in the emergency department, and is being discharged with outpatient follow-up. Patient has known history of orthopnea and it may be that this is got a little worse although no evidence for heart failure on imaging. Time of Reevaluation #2: 06:56 Reevaluation #2: Labs ordered and independently interpreted by me of the elevated D-dimer, CT scan of chest independently interpreted by me does not demonstrate any pulmonary embolism, no acute infiltrate or effusion. Radiology interpretation is pending Time of Reevaluation #3: 07:10 Reevaluation #3: Radiology interpretation agrees with my initial interpretation, negative CT scan. No definite etiology for patient's transient shortness of breath found, she remained stable in the emergency department and feels better. So she can be discharged with outpatient follow-up with primary care. Vital Signs Vital signs: Initial Vital Signs Temperature 97.0 F L 01/20/24 04:39 Temperature Source Temporal Artery Scan 01/20/24 04:39 Pulse Rate 78 01/20/24 04:39 Pulse Rhythm Regular 01/20/24 04:39 Respiratory Rate 18 01/20/24 04:39 Blood Pressure 198/90 H 01/20/24 04:39 Blood Pressure Mean 126 H 01/20/24 04:39 Blood Pressure Position Supine 01/20/24 04:39 Pulse Oximetry 99 01/20/24 04:39 Oxygen Delivery Method Room Air 01/20/24 04:39 Vital Signs Temperature 97.0 F L 01/20/24 04:39 Pulse Rate 78 01/20/24 04:39 Respiratory Rate 18 01/20/24 04:39 Blood Pressure 198/90 H 01/20/24 04:39 Pulse Oximetry 99 01/20/24 04:39 Oxygen Delivery Method Room Air 01/20/24 04:39 Temperature 97.0 F L 01/20/24 04:39 Pulse Rate 66 01/20/24 06:02 Respiratory Rate 16 01/20/24 06:02 Blood Pressure 194/80 H 01/20/24 06:02 Pulse Oximetry 99 01/20/24 06:02 Oxygen Delivery Method Room Air 01/20/24 06:02 MDM - SOB/Dyspnea Lab Data Labs: Lab Results 01/20/24 01/20/24 01/20/24 Range/Units 04:40 05:01 05:09 WBC 7.56 (4.50-11.00) K/uL RBC 3.55 L (4.00-5.20) m/uL Hgb 11.3 L (12.0-16.0) gm/dL Hct 34.0 (33.0-51.0) % MCV 96 (80-100) fL MCH 32 (26-34) pg MCHC 33 (32-36) gm/dL RDW Coeff of Helio 12.5 (11.5-15.5) % Plt Count 256 (140-440) K/uL Neut % (Auto) 73.8 H (42.0-72.0) % Lymph % (Auto) 13.0 L (20-44) % [place] % (Auto) 8.7 (0.0-11.0) % Eos % (Auto) 2.8 (0.0-7.0) % Baso % (Auto) 0.8 (0.0-3.0) % Neut # (Auto) 5.60 (1.7-7.0) K/uL Lymph # (Auto) 1.00 (0.90-2.90) K/uL [place] # (Auto) 0.70 (0.00-0.90) K/UL Eos # (Auto) 0.21 (0.00-0.50) K/uL Baso # (Auto) 0.06 (0.00-0.30) K/uL Abs Immat Gran (auto) 0.07 (0.00-0.30) K/uL Imm/Tot Granulo (auto) 0.9 % D-Dimer Quant (PE/DVT) 2.34 H (0.00-0.50) ug/ml Sodium 129 L (135-149) mmol/L Potassium 4.2 (3.6-5.1) mmol/L Chloride 94 L (96-114) mmol/L Carbon Dioxide 30 (20-32) mmol/L Anion Gap 5 L (7-15) mEq/L BUN 21 (7-30) mg/dL Creatinine 0.5 (0.5-1.5) mg/dL Estimated Creat Clear 30.52 Estimated GFR 93 ml/min Glucose 99 (60-115) mg/dL Calcium 8.7 (8.4-10.6) mg/dL Magnesium 2.1 (1.5-2.6) mg/dL NT-Pro-B Natriuret Pep 1540 pg/mL SARS-CoV-2 (PCR) Negative SARS-CoV-2 (Negative) Influenza Type A (PCR) Negative PCR FLU A (Negative) Influenza Type B (PCR) Negative PCR FLU B (Negative) RSV (PCR) Negative PCR RSV (Negative) POC Troponin I 0.00 L (0.01-0.04) ng/ml Discharge Plan Discharge Clinical Impression: Acute dyspnea Patient Disposition: Home, Self-Care Condition: Stable Instructions: Dyspnea (ED) Additional Instructions: No definite cause for your shortness of breath was found today. This could be from a plug of mucus in one of the airways, or temporary fast heart rate. No new medications today, follow-up with your regular doctor. Activity Level: No Restrictions Discharge Diet: Regular Prescriptions: No Action latanoprost 0.005 % drops 1 drp ophthalmic (eye) HS Patient Comments: left eye alendronate 70 mg tablet 70 mg PO QWEEK Patient Comments: friday lisinopril 40 mg tablet 40 mg PO DAILY amlodipine 2.5 mg tablet 2.5 mg PO DAILY mirtazapine 7.5 mg tablet 3.75 - 7.5 mg PO HS PRN calcium carbonate [Oyster Shell Calcium] 500 mg calcium (1,250 mg) tablet 500 mg PO BID ascorbic acid (vitamin C) [Vitamin C] 1,000 mg tablet 1 g PO DAILY triamcinolone acetonide 0.1 % cream 1 applic topical BID PRN acetaminophen 500 mg tablet 1,000 mg PO TID multivitamin [Daily Multi-Vitamin] Tablet 1 tab PO DAILY cholecalciferol (vitamin D3) 25 mcg (1,000 unit) capsule 25 mcg PO DAILY levofloxacin 500 mg tablet 250 mg PO DAILY Qty: 5 0RF sodium chloride 1,000 mg Tablet,Soluble 1,000 mg PO TIDWM Qty: 100 0RF carvedilol 12.5 mg tablet 12.5 mg PO BID Follow Up/Referrals: Scout Allan MD [Primary Care Provider] - Stand Alone Forms: [employer] Info Instructions
--- NOTE | 2024-01-20 04:53 | CRLHL7_ITS ---
For Patients: As a result of the Cures Act, medical imaging exams and procedure reports are released immediately into your electronic medical record. You may view this report before your referring provider. If you have questions, please contact your health care provider. INDICATION: Dyspnea COMPARISON: None TECHNIQUE: Single-view study as an AP portable exam FINDINGS: TUBES AND LINES: None. HEART AND MEDIASTINUM: The heart size is normal. The mediastinal contour appears normal for patient age. LUNGS AND PLEURAL SPACES: The lungs appear normal.The pleural spaces are unremarkable. OSSEOUS STRUCTURES: Age-appropriate appearance. No acute focal finding. IMPRESSION: No evidence of active pulmonary disease. Dictated by Abdi Cisse MD @ 01/20/2024 5:15:22 AM (Electronically Signed)
[2024-01-20 05:23] LABS: Basophils Absolute Auto 0.06 K/uL (0.00-0.30); Basophils Percent Auto 0.8 % (0.0-3.0); Eosinophils Absolute Auto 0.21 K/uL (0.00-0.50); Eosinophils Percent Auto 2.8 % (0.0-7.0); Hemoglobin* 11.3 gm/dL (12.0-16.0); Immature Granulocytes Abs Auto 0.07 K/uL (0.00-0.30); Immature Granulocytes Pct Auto 0.9 %; Mean Corpuscular HGB Conc 33 gm/dL (32-36); Mean Corpuscular Hemoglobin 32 pg (26-34); Mean Corpuscular Volume 96 fL (80-100); Monocytes Percent Auto 8.7 % (0.0-11.0); Neutrophils Percent Auto 73.8 % (42.0-72.0); Platelet Count* 256 K/uL (140-440); RDW Coefficient of Variation % 12.5 % (11.5-15.5); Red Blood Count 3.55 m/uL (4.00-5.20); White Blood Count* 7.56 K/uL (4.50-11.00)
[2024-01-20 05:25] LABS: Slide Review Reflex No
[2024-01-20 05:26] LABS: PCR FLU A Negative PCR FLU A (Negative); PCR FLU B Negative PCR FLU B (Negative); PCR RSV Negative PCR RSV (Negative); SARS PCR* Negative SARS-CoV-2 (Negative)
[2024-01-20 05:33] LABS: Chloride* 94 mmol/L (96-114); Potassium* 4.2 mmol/L (3.6-5.1); Sodium* 129 mmol/L (135-149)
[2024-01-20 05:35] LABS: Creatinine* 0.5 mg/dL (0.5-1.5); Est. Creatinine Clearance* 30.52; Estimated Glomerular Filt Rate 93 ml/min
[2024-01-20 05:36] LABS: Anion Gap 5 mEq/L (7-15); Blood Urea Nitrogen* 21 mg/dL (7-30); Calcium* 8.7 mg/dL (8.4-10.6); Carbon Dioxide* 30 mmol/L (20-32); Glucose* 99 mg/dL (60-115); Magnesium* 2.1 mg/dL (1.5-2.6)
[2024-01-20 05:46] LABS: NT Pro B Type NatriureticPept* 1540 pg/mL
[2024-01-20 05:47] LABS: D Dimer Quantitative* 2.34 ug/ml (0.00-0.50)
--- NOTE | 2024-01-20 06:13 | CRLHL7_ITS ---
For Patients: As a result of the Century Cures Act, medical imaging exams and procedure reports are released immediately into your electronic medical record. You may view this report before your referring provider. If you have questions, please contact your health care provider. INDICATION: Dyspnea and elevated D-dimer. COMPARISON: CT chest 01/12/2024 TECHNIQUE: CT angiogram chest with contrast, pulmonary embolism protocol. Multiplanar axial, coronal, and sagittal reformats are included. MIP images to improve detection of pulmonary emboli are included. Intravenous contrast: 95 mL Isovue 370. FINDINGS: PE: Well-timed contrast bolus. No pulmonary emboli. Normal caliber main pulmonary artery. Normal sized right heart chambers. No reflux of contrast below the diaphragm. Airway: Normal tracheobronchial tree. Lungs: Good lung volumes. No worrisome nodules or masses. No consolidations. Normal appearance of the pulmonary interstitium. Pleura: No pleural effusion. No pneumothorax. Lymph nodes: No thoracic adenopathy. Mediastinum: No pneumomediastinum. Small right thyroid nodule. Heart and great vessels: No pericardial effusion. Dilated left atrium and left ventricle. Scattered atherosclerotic plaques. No aortic aneurysm. Chest wall: Normal. No masses. Upper abdomen: Mildly dilated left renal collecting system. There is some hyperdense contrast excreted into the collecting systems. The appearance is similar to the previous exam. Bones: Healing left 8th rib fracture. T6 superior endplate compression fracture with about 30 percent loss of height. No acute fractures. Bilateral shoulder osteoarthritis. There is a moderate right glenohumeral joint effusion. No focal bone lesions. IMPRESSION: 1. No pulmonary embolism. 2. No acute pulmonary findings. Please note that all CT scans at this facility use dose modulation, iterative reconstruction, and/or weight-based dosing when appropriate to reduce radiation dose to as low as reasonably achievable. Dictated by Kandice Bragg MD @ 01/20/2024 7:07:01 AM (Electronically Signed)
== END 2024-01-20 08:22 | disposition home or self-care (01) ==
PROVIDERS: Emergency Provider Family Medicine; PCP Family Medicine
DX: R06.00 Dyspnea, unspecified (principal)
CPT/HCPCS: 36415; 71045; 71275; 80048; 83735; 83880; 84484; 85025; 85379; 87631; 93005; 99284; 99285; Q9967

== ENCOUNTER 2024-02-16 13:00 | Outpatient (RCR) | payer MEDICARE, OTHER, SELFPAY | END 2024-06-15 23:59 | disposition home or self-care (01) | PROVIDERS: PCP Family Medicine; Visit Provider Family Medicine | DX: M51.36 Other intervertebral disc degeneration, lumbar region (principal); M54.16 Radiculopathy, lumbar region; G60.8 Other hereditary and idiopathic neuropathies; R26.81 Unsteadiness on feet; R53.1 Weakness; M19.011 Primary osteoarthritis, right shoulder; M19.012 Primary osteoarthritis, left shoulder; M17.11 Unilateral primary osteoarthritis, right knee; M71.21 Synovial cyst of popliteal space [Baker], right knee; R29.3 Abnormal posture; R26.9 Unspecified abnormalities of gait and mobility; M25.69 Stiffness of other specified joint, not elsewhere classified; Z51.89 Encounter for other specified aftercare | CPT/HCPCS: 97110; 97140; 97162; 97164; 97535 ==

== ENCOUNTER 2024-04-09 12:47 | Outpatient (CLI) | payer MEDICARE, OTHER, SELFPAY ==
--- NOTE | 2024-04-09 12:51 | W.ANESCHARGE ---
Anesthesia Charges Start Date/Time Anesthesia Start Date: 04/09/24 Anesthesia Start Time: 13:40 Stop Date/Time Anesthesia Stop Date: 04/09/24 Anesthesia Stop Time: 14:00 Summary Extremes of Age - Over 70 or under 1: MDA
--- NOTE | 2024-04-09 14:02 | W.ANESCHARGE ---
Anesthesia Charges Start Date/Time Anesthesia Start Date: 04/09/24 Anesthesia Start Time: 13:40 Stop Date/Time Anesthesia Stop Date: 04/09/24 Anesthesia Stop Time: 14:00
== END 2024-04-09 12:48 | disposition home or self-care (01) ==
LOC: OP CLINIC 12:49
PROVIDERS: PCP Family Medicine; Visit Provider Internal Medicine Gastroenterology
DX: R19.8 Other specified symptoms and signs involving the digestive system and abdomen (principal); K31.89 Other diseases of stomach and duodenum; R63.4 Abnormal weight loss
CPT/HCPCS: 00731; 43239; 88305; 99100; J2704

== ENCOUNTER 2024-04-20 06:58 | Day surgery (SDC) | payer MEDICARE, OTHER, SELFPAY ==
[2024-04-20] VITALS (21 sets, daily range): BP systolic 87–184; BP diastolic 48–91; PULSE 52–81; RESP 12–18; TEMP 35.9–36.8; O2SAT 93–99; BMI 19.0
[2024-04-20] MEDS: ACETAMINOPHEN 500 MG TABLET 1000 MG PO ×3 (08:15→20:51)
[2024-04-20] MEDS: OXYCODONE (CR) 10 MG TAB.ER.12H PO (08:15)
[2024-04-20] MEDS: CELECOXIB 200 MG CAPSULE PO (08:15)
[2024-04-20] MEDS: SODIUM CHLORIDE 0.9 % (FLUSH) 10 ML SYRINGE IVF (08:36)
[2024-04-20] MEDS: LACTATED RINGERS 1000 ML 1,000 ML 100 ML IV (08:37)
[2024-04-20] MEDS: MIDAZOLAM HCL 1 MG/ML inj IVP (08:49)
[2024-04-20] MEDS: fentaNYL 100 MCG/2 ML inj IVP (08:49)
--- NOTE | 2024-04-20 09:44 | SUR.PREOP ---
TIME?OUT:?0849 PT/RN/MDA?VERIFICATION?OF?SURGICAL?SITE,?PROCEDURE,?AND?CONSENT OBTAINED?PRIOR?TO?INVASIVE?PROCEDURE.
--- NOTE | 2024-04-20 10:03 | P.NB_ITS ---
Nerve Block Nerve Block Time Seen by Provider: 08:53 Date Seen: 04/20/24 Type of block requested by surgeon for post-operative analgesia: femoral Side: right Time out performed: Yes Verification of patient name: Yes Verification of date of : Yes Site marking: site marked Name of person performing procedure: Casey Continuous monitoring Was continuous monitoring of O2 sat, B/P, airfield operations specialist, recorded every 15 minutes?: Yes Procedure Checklist: sterile prep, needles and gloves Ultrasound guided. Images saved: Yes Medications given in 5ml increments after negative aspiration: Marcaine %: 0.25 mL: 15 Needle gauge: 20 Precedex (mcg): 25 Patient tolerated procedure well: Yes Block Charges Block Charge (with Pro Fee): Femoral Nerve Use of Ultrasound Machine for Block: Yes- US Guidance/pain block
--- NOTE | 2024-04-20 10:03 | P.NB_ITS ---
Nerve Block Nerve Block Time Seen by Provider: 08:53 Date Seen: 04/20/24 Type of block requested by surgeon for post-operative analgesia: geniculars Side: right Time out performed: Yes Verification of patient name: Yes Verification of date of : Yes Site marking: site marked Name of person performing procedure: Casey Continuous monitoring Was continuous monitoring of O2 sat, B/P, cardiac monitor technician, recorded every 15 minutes?: Yes Procedure Checklist: sterile prep, needles and gloves Ultrasound guided. Images saved: Yes Medications given in 5ml increments after negative aspiration: Marcaine %: 0.25 mL: 9 Needle gauge: 25 Patient tolerated procedure well: Yes Block Charges Block Charge (with Pro Fee): Genicular Nerve Block
--- NOTE | 2024-04-20 10:04 | W.ANESCHARGE ---
Anesthesia Charges Start Date/Time Anesthesia Start Date: 04/20/24 Anesthesia Start Time: 08:59 Stop Date/Time Anesthesia Stop Date: 04/20/24 Anesthesia Stop Time: 11:03 Summary Extremes of Age - Over 70 or under 1: MDA
--- NOTE | 2024-04-20 10:26 | CRLHL7_ITS ---
For Patients: As a result of the Cures Act, medical imaging exams and procedure reports are released immediately into your electronic medical record. You may view this report before your referring provider. If you have questions, please contact your health care provider. Indication: Postop knee replacement Technique: Two views right knee Findings/Impression: Hardware from a right total knee arthroplasty is in satisfactory position. Bone alignment is normal. No sign of acute fracture. Postop changes are within normal limits. Dictated by Isaac Bello MD @ 04/20/2024 1:08:58 PM (Electronically Signed)
--- NOTE | 2024-04-20 10:30 | P.ORPRC_ITS ---
Procedure Note Date of procedure: 04/20/24 Procedure: PREOPERATIVE DIAGNOSIS: Right knee osteoarthritis POSTOPERATIVE DIAGNOSIS: Right knee osteoarthritis NAME OF OPERATION: Right total knee arthroplasty SURGEON: Kun Macario MD SWEEPING COMPOUND BLENDER: LUIS FERNANDO Pierre ANESTHESIA: Spinal ESTIMATED BLOOD LOSS: 0 mL COMPLICATIONS: None SPECIMENS: None DRAINS: None PREOPERATIVE ANTIBIOTICS: Ancef 1 g IMPLANTS: 1. J[employer]J Attune revision CRS # 5 posterior stabilized femur, 14 mm x 50 mm cemented stem 2. # 5 revision CRS fixed-bearing tibia, 14 mm x 50 mm cemented stem 3. # 5 posterior stabilized, 6 mm fixed-bearing polyethylene 4. 35 patella INDICATIONS: The patient is a 83-year-old with a longstanding history of severe, unrelenting right knee pain secondary to end-stage (grade IV) right knee osteoarthritis. Despite appropriate nonoperative management, including activity modification, anti-inflammatories, [id number] pain medication, bracing, physical therapy, and injections they continue to have pain and disability. Operative intervention was offered. The risks, benefits and expected outcomes were discussed in detail. These included but were not limited to: Infection, bleeding, injury to blood vessel or nerve, venous thromboembolism. All questions were answered to their satisfaction. Use of an accounting assistant was necessary throughout the case for patient positioning and safety, soft tissue retraction, and closure. A modifier 22 should be added to this case. With the extreme valgus deformity, stemmed and constrained components were used to restore stability. This added time and cost to complete the case. PROCEDURE: Spinal anesthesia was administered. The patient was placed supine on the operating table. The accounting assistant made sure the patient was positioned appropriately. The lower extremity was prepped and draped in the usual sterile fashion. The limb was exsanguinated with the Juan bandage. The pneumatic tourniquet was inflated to 300 mmHg. A standard anterior incision was made with the knee in flexion. Subcutaneous dissection was sharply taken through fascial layer #1. Full-thickness medial and lateral flaps were elevated. The accounting assistant retracted the soft tissues and protected them throughout the case. A standard subvastus approach was made. The patella was subluxed. The infrapatellar fat pad was debrided. The menisci and cruciate ligaments were sharply d?brided. Marginal osteophytes were d?brided with the rongeur. The drill was used to penetrate the femoral canal. The canal was aspirated and irrigated with pulse lavage. The intramedullary femoral guide was placed for a 5-degree valgus cut, removing 10 mm off the distal femur. The saw was used to make the cut. Whitesides line and the trans epicondylar axis were marked. The femoral sizing guide was pinned onto the distal femur. Three degrees of e xternal rotation nicely parallels the transepicondylar axis. Pins were placed for posterior referencing. The four-in-one cutting guide was pinned onto the distal femur. The anterior, posterior, and chamfer cuts were made. The accounting assistant protected the collateral ligaments. The revision trial was placed. The box cuts were made. The drill was used x2. The stemmed, boxed trial was placed and was an excellent fit. Attention was then turned to the proximal tibia. The extramedullary tibial guide was placed for a neutral varus/valgus cut with 5 degrees of posterior slope, removing 2 mm based off the medial tibial surface. The accounting assistant protected the collateral ligaments and the neurovascular bundle. The saw was used to make the cut. Trial components were placed. The knee was nicely ba lanced in both flexion and extension. The trial components were removed. The tray was placed in appropriate rotation, parallel to our tibial cutting pins. It was pinned by the accounting assistant and the d rill x2 was used. The stemmed tibial trial was placed. The punch was used. The tray was removed. The punch was used again. Attention was then turned to the patella. Koi patellar thickness was 21 mm. The lobster claw resection guide was used with the 7.5 mm adeline. The saw was used to make the cut. Drill holes were made by the accounting assistant. The trial was placed and was an excellent fit. Cancellous surfaces were irrigated with pulse lavage and thoroughly dried by the accounting assistant. We cemented the tibial component, then the femoral component. We impacted the 6 mm polyethylene onto the tibial tray. The knee was brought into full extension. We then cemented the patellar component. Excessive cement was removed. The cement was allowed to harden. The knee was taken through a range of motion and was found to be nicely balanced in both flexion and extension. The patella tracks centrally. The accounting assistant did a three minute dilute Betadine solution soak. The accounting assistant irrigated the wound with 3 liters of normal saline via pulse lavage. The accounting assistant reapproximated the extensor mechanism with #1 Vicryl in an interrupted [id number] fashion. The accounting assistant then ran the extensor mechanism with a #1 PDO Stratafix. The accounting assistant closed the subcutaneous tissues with a 3-0 Stratafix and the skin with a running 3-0 Stratafix in a subcuticular fashion. Glue was used to seal the skin. The accounting assistant placed a dry dressing. Sponge and needle counts were correct x2. The patient tolerated the procedure well. There were no apparent complications. They were carefully transferred to the hospital bed and taken to the postanesthesia care unit in satisfactory condition. PLAN: The patient will be mobilized with physical therapy. Aspirin will be used for DVT prophylaxis. They will be discharged to home once medically appropriate.
--- NOTE | 2024-04-20 11:03 | W.ANESCHARGE ---
Anesthesia Charges Start Date/Time Anesthesia Start Date: 04/20/24 Anesthesia Start Time: 08:59 Stop Date/Time Anesthesia Stop Date: 04/20/24 Anesthesia Stop Time: 11:03
--- NOTE | 2024-04-20 11:21 | SUR.PHASEI ---
Patient awake and removed her oral airway. She then went back to sleep and her oxygen concentration drop to 85. Oxygen applied per mask until more awake.
--- NOTE | 2024-04-20 11:39 | SUR.PHASEI ---
Patient given warm blankets, HOB elevated after x-ray of knee completed. Oxygen removed and O2 sat at 96%. Patient awake and no pain. Slight movement and thinks she can feel touch to her toes now. Patient meets anesthesia discharge criteria from PACU
[2024-04-20] MEDS: LACTATED RINGERS 1000 ML 1,000 ML 75 ML IV ×2 (11:49→13:04)
--- NOTE | 2024-04-20 14:50 | P.IMCN_ITS ---
Date of Consult Consult date: 04/20/24 Requesting Physician: Orthopedics Primary Care Provider: Scout Allan MD Consult Narrative Narrative: HOSPITALIST CONSULT Procedure: Right total knee arthroplasty SURGEON: Kun Macario MD ANESTHESIA: Spinal ESTIMATED BLOOD LOSS: 0 mL COMPLICATIONS: None The hospital medicine team was asked by the orthopedic surgery team to manage the patient's hypertension, chronic hyponatremia, anxiety. There have been no perioperative complications. I have updated and reviewed the active medical problems, past medical history, past surgical history, social history, allergies and medications in our electronic EMR. This includes a cross reference to care everywhere in [facility] and with [facility] databases. PHYSICAL EXAM: CODE STATUS: FULL CODE CONSTITUTIONAL: Conversive, good historian. A/O. Knows setting and context. VITAL SIGNS: see record. HEENT: Normocephalic, atraumatic. PERRL, EOMI, conjunctivae pink, no scleral icterus. Ears and nose externally normal. Pharynx normal. NECK: No JVD. No carotid bruit, no thyromegaly, no adenopathy. CHEST: Clear to auscultation bilaterally HEART: S1 and S2 normal. ABDOMEN: Flat, soft, nontender. Normal bowel sounds. Moderately obese. EXTREMITIES: No edema. MUSCULOSKELETAL: Right knee, surgical dressing intact. No seepage. No obvious hematoma. NEURO: Cranial nerves intact. Mentation normal. Normal affect. SKIN: No rashes, petechiae, concerning changes PSYCHIATRIC: Mentation normal. INVESTIGATIONS: EMR Reviewed; Pre-OP Reviewed DISPOSITION: DVT: Agree with Ortho team decision (asp 81mg BID) GI: PO intake PFSH PFS Medical History (Updated 04/20/24 @ 14:54 by Kimberly Birch MD) Chronic hyponatremia ?E87.1 - Hypo-osmolality and hyponatremia (ICD-10) Osteoarthritis of right knee ?M17.11 - Unilateral primary osteoarthritis, right knee (ICD-10) Hx of breast cancer ?Z85.3 - Personal history of malignant neoplasm of breast (ICD-10) COVID-19 ?U07.1 - COVID-19 (ICD-10) Hyponatremia ?E87.1 - Hypo-osmolality and hyponatremia (ICD-10) Osteoarthritis of left shoulder ?M19.012 - Primary osteoarthritis, left shoulder (ICD-10) Rotator cuff tear, right ?M75.101 - Unspecified rotator cuff tear or rupture of right shoulder, not specified as traumatic (ICD-10) Osteoarthritis of right shoulder ?M19.011 - Primary osteoarthritis, right shoulder (ICD-10) Rupture of right biceps tendon ?S46.211A - Strain of muscle, fascia and tendon of other parts of biceps, right arm, initial encounter (ICD-10) Acute UTI ?N39.0 - Urinary tract infection, site not specified (ICD-10) Bladder cancer ?C67.9 - Malignant neoplasm of bladder, unspecified (ICD-10) Rotator cuff tear, left ?M75.102 - Unspecified rotator cuff tear or rupture of left shoulder, not specified as traumatic (ICD-10) Edema ?R60.9 - Edema, unspecified (ICD-10) Polydipsia ?R63.1 - Polydipsia (ICD-10) Dizziness ?R42 - Dizziness and giddiness (ICD-10) Anxiety ?F41.9 - Anxiety disorder, unspecified (ICD-10) Breast cancer, BRCA1 positive ?C50.919 - Malignant neoplasm of unspecified site of unspecified female breast (ICD-10) ?Z15.01 - Genetic susceptibility to malignant neoplasm of breast (ICD-10) Daytime sleepiness ?R40.0 - Somnolence (ICD-10) Insomnia ?G47.00 - Insomnia, unspecified (ICD-10) Fatigue ?R53.83 - Other fatigue (ICD-10) Myalgia ?M79.10 - Myalgia, unspecified site (ICD-10) Weakness generalized ?R53.1 - Weakness (ICD-10) Hypertension ?I10 - Essential (primary) hypertension (ICD-10) Aortic insufficiency ?I35.1 - Nonrheumatic aortic (valve) insufficiency (ICD-10) Osteoarthritis ?M19.90 - Unspecified osteoarthritis, unspecified site (ICD-10) Anemia ?D64.9 - Anemia, unspecified (ICD-10) Back pain ?M54.9 - Dorsalgia, unspecified (ICD-10) Thyroid nodule ?E04.1 - Nontoxic single thyroid nodule (ICD-10) Eczema ?L30.9 - Dermatitis, unspecified (ICD-10) SHERIF (obstructive sleep apnea) ?G47.33 - Obstructive sleep apnea (adult) (pediatric) (ICD-10) Ventricular tachycardia ?I47.20 - Ventricular tachycardia, unspecified (ICD-10) Osteoporosis ?M81.0 - Age-related osteoporosis without current pathological fracture (ICD- 10) Peripheral neuropathy ?G62.9 - Polyneuropathy, unspecified (ICD-10) Surgical History (Updated 04/20/24 @ 18:47 by Kimberly Birch MD) S/P total knee arthroplasty ?Z96.659 - Presence of unspecified artificial knee joint (ICD-10) 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/19) ?Z96.641 - Presence of right artificial hip joint (ICD-10) History of bilateral mastectomy ?Z90.13 - Acquired absence of bilateral breasts and nipples (ICD-10) History of cataract surgery ?Z98.49 - Cataract extraction status, unspecified eye (ICD-10) History of hysterectomy ?Z90.710 - Acquired absence of both cervix and uterus (ICD-10) H/O ileostomy ?Z98.890 - Other specified postprocedural states (ICD-10) Family History Mother Ovarian cancer High blood pressure Sister Ovarian cancer High blood pressure Father Heart disease High blood pressure Social History Narrative: She is and here with her . They live independently. They see Dr. Allan for primary care. She does not smoke. She does not drink alcohol. She has had her COVID vaccines. Code status is full. 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 What is your current living situation?: I presently have a place to live Problems where you live: no known problems Problems where you live details: N/A In the past 12 months, utilities in danger of being shut off: no In past 12 months, lack of transportation kept you from medical appts, meetings, work, or getting things needed for daily living: no In the past 12 mos, have been you worried that your food would run out before you had money to buy more?: never true In the past 12 mos, the food you bought just didn't last and you didn't have money to buy more?: never true Highest level of school completed/degree received: Bachelor's degree Smoking Status: Never smoker Do you use any of these nicotine containing products: None Second hand tobacco smoke exposure: No How often do you have a drink containing alcohol: never How often do you have six or more drinks on one occasion: Never AUDIT-C Alcohol total score: 0 Non-prescribed substance use: denies use Caffeine: Yes (COFFEE) How often does anyone, including family, friends and others, physically hurt you : never How often does anyone, including family, friends and others, insult or talk down to you: never How often does anyone, including family, friends and others, threaten you with harm: never How often does anyone, including family, friends and others, scream or curse at you: never service: No Meds Home Medications and Allergies Home Medications ?Medication ?Instructions ?Recorded ?Confirmed ?Type alendronate 70 mg tablet 70 mg PO QWEEK 07/25/22 04/20/24 History latanoprost 0.005 % eye drops 1 drp ophthalmic (eye) HS 07/25/22 04/20/24 History lisinopril 40 mg tablet 40 mg PO DAILY 07/25/22 04/20/24 History carvedilol 12.5 mg tablet 12.5 mg PO BID 09/25/23 04/20/24 History acetaminophen 500 mg tablet 1,000 mg PO TID 09/26/23 04/20/24 History amlodipine 2.5 mg tablet 2.5 mg PO DAILY 09/26/23 04/20/24 History ascorbic acid (vitamin C) 1,000 mg 1 g PO DAILY 09/26/23 04/20/24 History tablet (Vitamin C) calcium carbonate (Oyster Shell 500 mg PO BID 09/26/23 04/20/24 History Calcium) cholecalciferol (vitamin D3) 25 25 mcg PO DAILY 09/26/23 04/20/24 History mcg (1,000 unit) capsule mirtazapine 7.5 mg tablet 7.5 mg PO HS 09/26/23 04/20/24 History multivitamin (Daily Multi-Vitamin 1 tab PO DAILY 09/26/23 04/20/24 History tablet) triamcinolone acetonide 0.1 % 1 applic topical BID PRN 09/26/23 04/20/24 History topical cream torsemide 10 mg tablet 10 mg PO DAILY 03/03/24 04/20/24 History Allergies Allergy/AdvReac Type Severity Reaction Status Date / Time chlorthalidone Allergy Verified 04/20/24 08:46 hydrochlorothiazide Allergy Verified 04/20/24 08:46 nifedipine Allergy Verified 04/20/24 08:46 simvastatin Allergy Verified 04/20/24 08:46 Exam Const: Vital Signs, click to edit/add: Vital Signs - 24 hr 04/20/24 08:39 04/20/24 08:49 04/20/24 10:59 Temperature 98.2 F 97.0 F L Pulse Rate 75 67 52 L Respiratory Rate 16 16 12 Blood Pressure 184/81 H 149/62 H 87/49 L Pulse Oximetry 97 99 95 Oxygen Delivery Me thod Room Air Nasal Cannula Room Air Oxygen Flow Rate 2 04/20/24 11:05 04/20/24 11:10 04/20/24 11:15 Temperature Pulse Rate 52 L 61 63 Respiratory Rate 16 12 12 Blood Pressure 94/48 L 107/56 L 137/78 Pulse Oximetry 93 95 97 Oxygen Delivery Me thod Room Air Room Air Aerosol Mask Oxygen Flow Rate 6 04/20/24 11:20 04/20/24 11:25 04/20/24 11:30 Temperature 97.2 F L Pulse Rate 61 63 55 L Respiratory Rate 12 12 14 Blood Pressure 161/81 H 167/79 H 167/86 H Pulse Oximetry 99 99 98 Oxygen Delivery Me thod Aerosol Mask Aerosol Mask Room Air Oxygen Flow Rate 6 6 04/20/24 11:50 04/20/24 11:50 04/20/24 12:00 Temperature 97.0 F L 97.0 F L 96.8 F L Pulse Rate 63 63 65 Respiratory Rate 14 14 14 Blood Pressure 126/83 126/83 163/73 H Pulse Oximetry 97 97 96 Oxygen Delivery Me thod Room Air Room Air Room Air Oxygen Flow Rate Assessment and Plan Assessment and plan (1) S/P total knee arthroplasty: Problem comment: 04/20/24, Dr. Macario [facility] medicine team is happy to follow this patient through to discharge. Agree with aspirin b.i.d. for DVT/VTE prophylaxis. Status: Acute (2) Hypertension: Problem comment: amlodipine; coreg, lisinopril, torsemide. Will cautiously add back home medications tonight and tomorrow to keep her normotensive. Status: Acute (3) Chronic hyponatremia: Problem comment: 135 last check which was 04/02/2024. On salt tabs. Will continue to follow. Status: Acute (4) Anxiety: Problem comment: -continue to monitor Status: Acute (5) SHERIF (obstructive sleep apnea): Problem comment: -home CPAP Status: Acute
--- NOTE | 2024-04-20 15:30 | PC.NURSE ---
End of Shift: Patient pleasant and cooperative, A&O. VSS, afebrile. Patient worked with PT this shift and is up in the chair currently. Patient denies pain. Reports feeling queezy but says it is not nausea, and does not want any medication for it. Dressing on knee C/D/I. Tolerating fluid and ice chips, was not ready to try to eat anything. Patient has a urostomy.
[2024-04-20] MEDS: CEFAZOLIN 1 GM in 0.9 % SODIUM CHLORIDE Mini-bag 100 ML IVPB ×2 (16:15→23:52)
[2024-04-20] MEDS: SODIUM CHLORIDE 1 GM TABLET PO (19:09)
[2024-04-20] MEDS: carvediloL 6.25 MG TABLET 12.5 MG PO (20:51)
[2024-04-20] MEDS: MIRTAZAPINE 15 MG TABLET 7.5 MG PO (20:52)
[2024-04-20] MEDS: ASPIRIN 81 MG TABLET EC PO (20:53)
[2024-04-20] MEDS: SENNOSIDES 1 TAB TABLET 2 TAB PO (20:53)
[2024-04-20] MEDS: OXYCODONE 5 MG TABLET PO (23:43)
[2024-04-21 01:30] VITALS: BP 169/62; PULSE 78; RESP 16; TEMP 37.1; O2SAT 96
[2024-04-21] MEDS: ACETAMINOPHEN 500 MG TABLET 1000 MG PO ×2 (01:35→08:26)
--- NOTE | 2024-04-21 06:35 | PC.NURSE ---
Addendum entered by Gaviota Navarro 04/21/24 06:44: Scheduled Expanse down time from 0025-2210 during shift ([id number]) Original Note: Pt alert and oriented x3, with some forgetfulness. Pt rates pain 2-8/10 pain in right knee, pain managed with scheduled and PRN medications. Pt's right knee dressing is CDI. Pt is up SBA with walker and gait belt and tolerating a regular diet. Pt's urostomy is patent and draining into weston.
[2024-04-21 07:01] LABS: Basophils Absolute Auto 0.01 K/uL (0.00-0.30); Basophils Percent Auto 0.1 % (0.0-3.0); Eosinophils Absolute Auto 0.01 K/uL (0.00-0.50); Eosinophils Percent Auto 0.1 % (0.0-7.0); Hematocrit 30.4 % (33.0-51.0); Immature Granulocytes Abs Auto 0.01 K/uL (0.00-0.30); Immature Granulocytes Pct Auto 0.1 %; Lymphocytes Percent Auto 11.1 % (20-44); Mean Corpuscular HGB Conc 33 gm/dL (32-36); Mean Corpuscular Hemoglobin 32 pg (26-34); Mean Corpuscular Volume 96 fL (80-100); Monocytes Percent Auto 11.1 % (0.0-11.0); Neutrophils Percent Auto 77.5 % (42.0-72.0); Platelet Count* 254 K/uL (140-440); RDW Coefficient of Variation % 12.4 % (11.5-15.5); Red Blood Count 3.17 m/uL (4.00-5.20); White Blood Count* 8.26 K/uL (4.50-11.00)
[2024-04-21 07:05] LABS: Slide Review Reflex No
[2024-04-21 07:20] LABS: Sodium* 129 mmol/L (135-149)
[2024-04-21 07:23] LABS: Blood Urea Nitrogen* 27 mg/dL (7-30); Creatinine* 0.8 mg/dL (0.5-1.5); Est. Creatinine Clearance* 30.69; Estimated Glomerular Filt Rate 73 ml/min
[2024-04-21 07:24] LABS: INR 1.01 (0.91-1.10); Prothrombin Time 13.9 Seconds
[2024-04-21 07:41] VITALS: BP 186/86; PULSE 93; RESP 18; TEMP 36.7; O2SAT 98
[2024-04-21] MEDS: SODIUM CHLORIDE 1 GM TABLET PO (08:26)
[2024-04-21] MEDS: AMLODIPINE 5 MG TABLET 2.5 MG PO (08:26)
[2024-04-21] MEDS: OXYCODONE 5 MG TABLET PO (08:26)
[2024-04-21] MEDS: carvediloL 6.25 MG TABLET 12.5 MG PO (08:27)
[2024-04-21] MEDS: SENNOSIDES 1 TAB TABLET 2 TAB PO (08:27)
[2024-04-21] MEDS: ASPIRIN 81 MG TABLET EC PO (08:27)
--- NOTE | 2024-04-21 09:03 | PM.ORPN ---
Subjective Subjective Time Seen by Provider: 08:00 Date Seen: 04/21/24 Principal diagnosis: Status post right total knee arthroplasty Interval history: Claudia is comfortable. She ambulated well from the restroom to her recliner. She has a good support system at home including her children and . Ortho Exam Narrative Exam Narrative: Alert and oriented x3. Patient is in no acute distress. Converses without labored breathing. Hearing is grossly intact. Ambulates with a walker. Examination of the right knee shows the dressing is in place. Mild subcutaneous hematoma anteriorly. Mild soft tissue edema. No edema of the lower extremities. Calves are soft and nontender. No erythema or warmth or sign of infection. CMS intact right lower extremity. She is able to straight leg raise. Const Vital Signs, click to edit/add: Vital Signs - 24 hr 04/20/24 10:59 04/20/24 11:05 04/20/24 11:10 Temperature 97.0 F L Pulse Rate 52 L 52 L 61 Pulse Rate [Right Pulse Oximeter] Respiratory Rate 12 16 12 Blood Pressure 87/49 L 94/48 L 107/56 L Blood Pressure [Right Arm] Pulse Oximetry 95 93 95 Oxygen Delivery Method Room Air Room Air Room Air Oxygen Flow Rate 04/20/24 11:15 04/20/24 11:20 04/20/24 11:25 Temperature Pulse Rate 63 61 63 Pulse Rate [Right Pulse Oximeter] Respiratory Rate 12 12 12 Blood Pressure 137/78 161/81 H 167/79 H Blood Pressure [Right Arm] Pulse Oximetry 97 99 99 Oxygen Delivery Method Aerosol Mask Aerosol Mask Aerosol Mask Oxygen Flow Rate 6 6 6 04/20/24 11:30 04/20/24 11:49 04/20/24 11:50 Temperature 97.2 F L 97.0 F L 97.0 F L Pulse Rate 55 L 63 Pulse Rate [Right Pulse Oximeter] 63 Respiratory Rate 14 14 14 Blood Pressure 167/86 H 126/83 Blood Pressure [Right Arm] 126/83 Pulse Oximetry 98 97 97 Oxygen Delivery Method Room Air Room Air Room Air Oxygen Flow Rate 04/20/24 11:50 04/20/24 12:00 04/20/24 12:15 Temperature 97.0 F L 96.8 F L 96.6 F L Pulse Rate 63 65 63 Pulse Rate [Right Pulse Oximeter] Respiratory Rate 14 14 14 Blood Pressure 126/83 163/73 H 178/68 H Blood Pressure [Right Arm] Pulse Oximetry 97 96 96 Oxygen Delivery Method Room Air Room Air Room Air Oxygen Flow Rate 04/20/24 12:30 04/20/24 12:45 04/20/24 13:15 Temperature 97.0 F L Pulse Rate 64 65 80 Pulse Rate [Right Pulse Oximeter] Respiratory Rate 16 16 Blood Pressure 177/77 H 169/67 H 175/75 H Blood Pressure [Right Arm] Pulse Oximetry 96 95 96 Oxygen Delivery Method Room Air Room Air Room Air Oxygen Flow Rate 04/20/24 13:45 04/20/24 14:45 04/20/24 15:00 Temperature 97.9 F Pulse Rate 77 75 Pulse Rate [Right Pulse Oximeter] Respiratory Rate 16 Blood Pressure 178/74 H 181/83 H Blood Pressure [Right Arm] Pulse Oximetry 95 97 Oxygen Delivery Method Room Air Room Air Room Air Oxygen Flow Rate 04/20/24 15:00 04/20/24 19:00 04/20/24 23:00 Temperature 97.8 F 97.9 F Pulse Rate Pulse Rate [Right Pulse Oximeter] 81 80 Respiratory Rate 18 16 Blood Pressure Blood Pressure [Right Arm] 161/91 H 123/74 Pulse Oximetry 97 97 98 Oxygen Delivery Method Room Air Room Air Room Air Oxygen Flow Rate 04/20/24 23:00 04/21/24 01:30 04/21/24 07:41 Temperature 98.7 F 98.0 F Pulse Rate Pulse Rate [Right Pulse Oximeter] 79 78 93 Respiratory Rate 16 16 18 Blood Pressure Blood Pressure [Right Arm] 162/82 H 169/62 H 186/86 H Pulse Oximetry 98 96 98 Oxygen Delivery Method Room Air Room Air Room Air Oxygen Flow Rate Assessment and Plan Assessment and plan (1) S/P total knee arthroplasty: Problem details: 04/20/24, Dr. Macario [facility] medicine team is happy to follow this patient through to discharge. Agree with aspirin b.i.d. for DVT/VTE prophylaxis. Status: Acute Assessment and Plan: Plan for discharge is today to home if they meet discharge criteria. DVT prophylaxis includes aspirin 81 mg twice daily x1 month, Compression stockings as needed for swelling. Frequent ambulation, every hour throughout the day. Remove dressing in 1 week. Observe wound and phone Orthopedics with any questions or concerns Return to clinic in 1 week for a wound check Return to clinic in 6 weeks with surgeon Minimize narcotic use. Wean off and discontinue soon as possible. Activities as tolerated. No strenuous activity. Outpatient physical therapy as scheduled. Ice and elevate the operative extremity. No restriction on ice.
[2024-04-21 11:06] VITALS: BP 137/106; PULSE 64; RESP 16; TEMP 36.5; O2SAT 96
--- NOTE | 2024-04-21 11:44 | PC.NURSE ---
Pt alert and oriented. Pt had complaints of pain ranging 0-4; see EMAR for intervention. Pt is a SBA with walker and gait belt. Pt's dressing is dry and intact. Pt's IV removed; catheter intact.Pt discharged home with and daughter.
== END 2024-04-21 11:45 | disposition home or self-care (01) ==
LOC: OR 07:03 → MEDSURG 07:07
PROVIDERS: PCP Family Medicine; Visit Provider Orthopaedic Surgery
PROC: (CPT 27447; principal; 2024-04-20 09:15)
DX: M17.11 Unilateral primary osteoarthritis, right knee (principal); G89.18 Other acute postprocedural pain; M21.061 Valgus deformity, not elsewhere classified, right knee; E87.1 Hypo-osmolality and hyponatremia; I10 Essential (primary) hypertension; F41.9 Anxiety disorder, unspecified; Z85.3 Personal history of malignant neoplasm of breast; G47.33 Obstructive sleep apnea (adult) (pediatric); G62.9 Polyneuropathy, unspecified; I35.1 Nonrheumatic aortic (valve) insufficiency
CPT/HCPCS: 27447; 01402; 36415; 64447; 64454; 73560; 76942; 82565; 84132; 84295; 84520; 85025; 85610; 97110; 97116; 97162; 97165; 97530; 97535; 99100; A9270; C1776; J0665; J0690; J1100; J2250; J2405; J2704; J3010; J7120

== ENCOUNTER 2024-04-20 08:39 | Outpatient (RCR) | payer SELFPAY | END 2025-03-30 08:14 | disposition home or self-care (01) | LOC: MOW 08:39 | PROVIDERS: PCP Family Medicine; Visit Provider Orthopaedic Surgery | DX: Z76.0 Encounter for issue of repeat prescription (principal) | CPT/HCPCS: S5170 ==

== ENCOUNTER 2024-04-24 09:00 | Observation (INO) | payer MEDICARE, OTHER, SELFPAY ==
[2024-04-24 09:12] VITALS: BP 187/79; PULSE 91; RESP 18; TEMP 36.8; O2SAT 98; BMI 18.9
--- NOTE | 2024-04-24 09:25 | CRLHL7_ITS ---
For Patients: As a result of the Century Cures Act, medical imaging exams and procedure reports are released immediately into your electronic medical record. You may view this report before your referring provider. If you have questions, please contact your health care provider. Indication: COUGH, SOB, HX BREAST CANCER Technique: CT Chest Angio PE PROTOCOL W/95CC ISOVUE 370 Please note that all CT scans at this facility use dose modulation, iterative reconstruction, and/or weight-based dosing when appropriate to reduce radiation dose to as low as reasonably achievable. Comparison: 01/20/2024, 01/12/2024 Findings: In the chest, stable morphology and size of low-density right thyroid lobe nodule. No pulmonary embolism is present. Prominent right hilar lymph node is present measuring 1.2 cm. Soft tissue density within several of the right lower lobe bronchi noted along with patchy consolidative densities within the right lower lobe. Mild scarring present elsewhere. No pneumothorax or pleural effusion. Degenerative changes are present in both shoulders. Mildly displaced fractures of the left lower ribcage, some of which are new since the prior study. Multilevel degenerative changes. Similar mild compression deformity midthoracic spine. Impression: No pulmonary embolism in the main, lobar or segmental pulmonary arteries. Interval development patchy consolidative densities within the right lower lobe with associated soft tissue densities in the right lower lobe airways most consistent with mucous plugging with associated infiltrates. Mildly prominent right hilar lymph node, probably reactive. Left-sided rib fractures, some of which are old and some of which are new, including new fractures of the left 12th, 11th and 10th ribs. Please note that all CT scans at this facility use dose modulation, iterative reconstruction, and/or weight-based dosing when appropriate to reduce radiation dose to as low as reasonably achievable. Dictated by Isaac Bello MD @ 04/24/2024 10:57:23 AM (Electronically Signed)
--- NOTE | 2024-04-24 09:26 | ED_ITS ---
HPI - General Adult General Chief complaint: Cough Stated complaint: Deep cough Time Seen by Provider: 04/24/24 09:19 History of Present Illness HPI narrative: Patient is an 83-year-old woman who had a right total knee arthroplasty 4 days ago. She recovered well is on aspirin for DVT prophylaxis. She was discharged home the following day after surgery and is been doing reasonably well with exception of inability to take a deep breath and a nonproductive cough. She has had no hemoptysis no overt chest pain. She has bruising and swelling around the right knee but no calf tenderness or swelling. She has been able to do her home activities of rehabilitation but no other recent increased activity. She describes no hemoptysis. She has had no history of any clotting disorder a pulmonary emboli in the past. No fevers no chills. Related Data Home Medications ?Medication ?Instructions ?Recorded ?Confirmed alendronate 70 mg tablet 70 mg PO QWEEK 07/25/22 04/24/24 latanoprost 0.005 % eye drops 1 drp ophthalmic (eye) HS 07/25/22 04/24/24 lisinopril 40 mg tablet 40 mg PO DAILY 07/25/22 04/24/24 carvedilol 12.5 mg tablet 12.5 mg PO BID 09/25/23 04/24/24 acetaminophen 500 mg tablet 1,000 mg PO TID 09/26/23 04/20/24 amlodipine 2.5 mg tablet 2.5 mg PO DAILY 09/26/23 04/24/24 ascorbic acid (vitamin C) 1,000 mg 1 g PO DAILY 09/26/23 04/24/24 tablet (Vitamin C) calcium carbonate (Oyster Shell 500 mg PO BID 09/26/23 04/24/24 Calcium) cholecalciferol (vitamin D3) 25 25 mcg PO DAILY 09/26/23 04/24/24 mcg (1,000 unit) capsule mirtazapine 7.5 mg tablet 7.5 mg PO HS 09/26/23 04/24/24 multivitamin (Daily Multi-Vitamin 1 tab PO DAILY 09/26/23 04/24/24 tablet) triamcinolone acetonide 0.1 % 1 applic topical BID PRN 09/26/23 04/24/24 topical cream torsemide 10 mg tablet 10 mg PO DAILY 03/03/24 04/20/24 Previous Rx's ?Medication ?Instructions ?Recorded sodium chloride 1,000 mg soluble 1,000 mg PO TIDWM #100 tabs 09/27/23 tablet aspirin 81 mg chewable tablet 81 mg PO BID for DVT prophylaxis 04/20/24 (Aspirin Childrens) 30 days #60 tabs oxycodone 5 mg tablet 2.5 - 5 mg (0.5 - 1 x 5 mg) PO 04/20/24 Q4-6H PRN Pain #42 tabs sennosides 8.6 mg tablet (Senna 17.2 mg (2 x 8.6 mg) PO BID PRN 04/20/24 Lax) constipation #100 tabs Allergies Allergy/AdvReac Type Severity Reaction Status Date / Time carvedilol Allergy Unknown Verified 04/24/24 10:27 nifedipine Allergy Verified 04/24/24 10:27 simvastatin Allergy Target Verified 04/24/24 10:27 lesions arms/trunk amlodipine AdvReac Severe edema Verified 04/24/24 10:27 chlorthalidone AdvReac hyponatremi Verified 04/24/24 10:27 a hydrochlorothiazide AdvReac hyponatremi Verified 04/24/24 10:27 a Review of Systems Status of ROS: Reports: 10 or more systems reviewed and unremarkable except as noted in History and below [facility] Medical History Chronic hyponatremia ?E87.1 - Hypo-osmolality and hyponatremia (ICD-10) Osteoarthritis of right knee ?M17.11 - Unilateral primary osteoarthritis, right knee (ICD-10) Hx of breast cancer ?Z85.3 - Personal history of malignant neoplasm of breast (ICD-10) COVID-19 ?U07.1 - COVID-19 (ICD-10) Hyponatremia ?E87.1 - Hypo-osmolality and hyponatremia (ICD-10) Osteoarthritis of left shoulder ?M19.012 - Primary osteoarthritis, left shoulder (ICD-10) Rotator cuff tear, right ?M75.101 - Unspecified rotator cuff tear or rupture of right shoulder, not specified as traumatic (ICD-10) Osteoarthritis of right shoulder ?M19.011 - Primary osteoarthritis, right shoulder (ICD-10) Rupture of right biceps tendon ?S46.211A - Strain of muscle, fascia and tendon of other parts of biceps, right arm, initial encounter (ICD-10) Acute UTI ?N39.0 - Urinary tract infection, site not specified (ICD-10) Bladder cancer ?C67.9 - Malignant neoplasm of bladder, unspecified (ICD-10) Rotator cuff tear, left ?M75.102 - Unspecified rotator cuff tear or rupture of left shoulder, not specified as traumatic (ICD-10) Edema ?R60.9 - Edema, unspecified (ICD-10) Polydipsia ?R63.1 - Polydipsia (ICD-10) Dizziness ?R42 - Dizziness and giddiness (ICD-10) Anxiety ?F41.9 - Anxiety disorder, unspecified (ICD-10) Breast cancer, BRCA1 positive ?C50.919 - Malignant neoplasm of unspecified site of unspecified female breast (ICD-10) ?Z15.01 - Genetic susceptibility to malignant neoplasm of breast (ICD-10) Daytime sleepiness ?R40.0 - Somnolence (ICD-10) Insomnia ?G47.00 - Insomnia, unspecified (ICD-10) Fatigue ?R53.83 - Other fatigue (ICD-10) Myalgia ?M79.10 - Myalgia, unspecified site (ICD-10) Weakness generalized ?R53.1 - Weakness (ICD-10) Hypertension ?I10 - Essential (primary) hypertension (ICD-10) Aortic insufficiency ?I35.1 - Nonrheumatic aortic (valve) insufficiency (ICD-10) Osteoarthritis ?M19.90 - Unspecified osteoarthritis, unspecified site (ICD-10) Anemia ?D64.9 - Anemia, unspecified (ICD-10) Back pain ?M54.9 - Dorsalgia, unspecified (ICD-10) Thyroid nodule ?E04.1 - Nontoxic single thyroid nodule (ICD-10) Eczema ?L30.9 - Dermatitis, unspecified (ICD-10) SHERIF (obstructive sleep apnea) ?G47.33 - Obstructive sleep apnea (adult) (pediatric) (ICD-10) Ventricular tachycardia ?I47.20 - Ventricular tachycardia, unspecified (ICD-10) Osteoporosis ?M81.0 - Age-related osteoporosis without current pathological fracture (ICD-10) Peripheral neuropathy ?G62.9 - Polyneuropathy, unspecified (ICD-10) Surgical History S/P total knee arthroplasty (04/20/24) ?Z96.659 - Presence of unspecified artificial knee joint (ICD-10) 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/19) ?Z96.641 - Presence of right artificial hip joint (ICD-10) History of bilateral mastectomy ?Z90.13 - Acquired absence of bilateral breasts and nipples (ICD-10) History of cataract surgery ?Z98.49 - Cataract extraction status, unspecified eye (ICD-10) History of hysterectomy ?Z90.710 - Acquired absence of both cervix and uterus (ICD-10) H/O ileostomy ?Z98.890 - Other specified postprocedural states (ICD-10) Family History Mother Ovarian cancer High blood pressure Sister Ovarian cancer High blood pressure Father Heart disease High blood pressure Social History Narrative: She is and here with her . They live independently. They see Dr. Allan for primary care. She does not smoke. She does not drink alcohol. She has had her COVID vaccines. Code status is full. is healthcare power of business attorney. What is your current living situation?: I presently have a place to live Problems where you live: no known problems Problems where you live details: N/A In the past 12 months, utilities in danger of being shut off: no In past 12 months, lack of transportation kept you from medical appts, meetings, work, or getting things needed for daily living: no In the past 12 mos, have been you worried that your food would run out before you had money to buy more?: never true In the past 12 mos, the food you bought just didn't last and you didn't have money to buy more?: never true Highest level of school completed/degree received: Bachelor's degree Smoking Status: Never smoker Do you use any of these nicotine containing products: None Second hand tobacco smoke exposure: No How often do you have a drink containing alcohol: never How often do you have six or more drinks on one occasion: Never AUDIT-C Alcohol total score: 0 Non-prescribed substance use: denies use Caffeine: Yes (COFFEE) How often does anyone, including family, friends and others, physically hurt you : never How often does anyone, including family, friends and others, insult or talk down to you: never How often does anyone, including family, friends and others, threaten you with harm: never How often does anyone, including family, friends and others, scream or curse at you: never service: No Exam Narrative: Exam Narrative: EXAM GENERAL: Patient appears comfortable and well. EYES: No scleral icterus. ENT: Tympanic membranes and oropharynx normal. THYROID: no thyroid nodules or thyromegaly. LYMPH: No supraclavicular or cervical lymphadenopathy. SKIN: Visible skin seen during exam normal or with benign process only. EXT: Typical postoperative bruising surrounding the right knee. HEART: Regular rate and rhythm with no murmurs, rubs, or gallops. LUNGS: Clear to auscultation bilaterally with no crackles or wheezes. ABD: Soft, non tender, non distended. PSYCH: Good eye contact, speech is not pressured. Const: Vital Signs, click to edit/add: Vital Signs - 24 hr 04/24/24 09:12 04/24/24 09:30 Temperature 98.3 F Pulse Rate [Pulse Oximeter] 91 84 Respiratory Rate 18 14 Blood Pressure [Ri ght Upper Arm] 187/79 H 148/82 H Pulse Oximetry 98 98 Oxygen Delivery Me thod Room Air Room Air Course Course ED Course: Patient seen examined. Will begin with a CT PE protocol CBC comprehensive metabolic panel EKG. Vital Signs Vital signs: Initial Vital Signs Temperature 98.3 F 04/24/24 09:12 Temperature Source Temporal Artery Scan 04/24/24 09:12 Pulse Rate 91 04/24/24 09:12 Respiratory Rate 18 04/24/24 09:12 Blood Pressure 187/79 H 04/24/24 09:12 Blood Pressure Mean 115 H 04/24/24 09:12 Blood Pressure Position Sitting 04/24/24 09:12 Pulse Oximetry 98 04/24/24 09:12 Oxygen Delivery Method Room Air 04/24/24 09:12 Vital Signs Temperature 98.3 F 04/24/24 09:12 Pulse Rate 91 04/24/24 09:12 Respiratory Rate 18 04/24/24 09:12 Blood Pressure 187/79 H 04/24/24 09:12 Pulse Oximetry 98 04/24/24 09:12 Oxygen Delivery Method Room Air 04/24/24 09:12 Temperature 98.3 F 04/24/24 09:12 Pulse Rate 84 04/24/24 09:30 Respiratory Rate 14 04/24/24 09:30 Blood Pressure 148/82 H 04/24/24 09:30 Pulse Oximetry 98 04/24/24 09:30 Oxygen Delivery Method Room Air 04/24/24 09:30 Medications Administered Medications: Discontinued Medications Generic Name Dose Route Start Last Admin Trade Name Laura PRN Reason Stop Dose Admin Acetaminophen 1,000 mg 04/24/24 10:42 04/24/24 10:54 Acetaminophen 500 Mg Tablet PO 04/24/24 10:43 1,000 mg ONCE ONE Administration Medical Decision Making MDM Narrative Medical decision making narrative: Patient presents with cough and malaise following total knee replacement 4 days ago. I was concerned about pulmonary embolism however there is no pulmonary embolism. With her is is a number of rib fractures and likely an early pneumonia. Patient is unable to care for herself at home due to the increased work of coughing and fatigue and will be admitted for further evaluation and treatment. I did obtain blood culture x1 and did start Rocephin and Zithromax. Case discussed with hospitalist patient will be admitted for further evaluation and treatment. Lab Data Labs: Lab Results 04/24/24 Range/Units 09:35 WBC 8.55 (4.50-11.00) K/uL RBC 2.87 L (4.00-5.20) m/uL Hgb 9.0 L (12.0-16.0) gm/dL Hct 27.9 L (33.0-51.0) % MCV 97 (80-100) fL MCH 31 (26-34) pg MCHC 32 (32-36) gm/dL RDW Coeff of Helio 12.8 (11.5-15.5) % Plt Count 253 (140-440) K/uL Neut % (Auto) 83.2 H (42.0-72.0) % Lymph % (Auto) 7.1 L (20-44) % [place] % (Auto) 7.4 (0.0-11.0) % Eos % (Auto) 1.4 (0.0-7.0) % Baso % (Auto) 0.5 (0.0-3.0) % Neut # (Auto) 7.10 H (1.7-7.0) K/uL Lymph # (Auto) 0.60 L (0.90-2.90) K/uL [place] # (Auto) 0.60 (0.00-0.90) K/UL Eos # (Auto) 0.12 (0.00-0.50) K/uL Baso # (Auto) 0.04 (0.00-0.30) K/uL Abs Immat Gran (auto) 0.03 (0.00-0.30) K/uL Imm/Tot Granulo (auto) 0.4 % Sodium 130 L (135-149) mmol/L Potassium 3.7 (3.6-5.1) mmol/L Chloride 94 L (96-114) mmol/L Carbon Dioxide 31 (20-32) mmol/L Anion Gap 5 L (7-15) mEq/L BUN 19 (7-30) mg/dL Creatinine 0.6 (0.5-1.5) mg/dL Estimated Creat Clear 30.52 Estimated GFR 89 ml/min Glucose 116 H (60-115) mg/dL Calcium 8.6 (8.4-10.6) mg/dL Total Bilirubin 0.6 (0.1-1.5) mg/dL AST 40 H (12-35) U/L ALT 20 (4-35) U/L Alkaline Phosphatase 75 (40-150) U/L Total Protein 6.9 (6.0-8.3) g/dL Albumin 3.8 (3.3-5.0) g/dL Discharge Plan Discharge Clinical Impression: Pneumonia, Fracture of rib Patient Disposition: Admitted As Observation Condition: Stable Activity Level: Other Discharge Diet: Other Prescriptions: No Action torsemide 10 mg tablet 10 mg PO DAILY latanoprost 0.005 % drops 1 drp ophthalmic (eye) HS Patient Comments: left eye alendronate 70 mg tablet 70 mg PO QWEEK Patient Comments: friday lisinopril 40 mg tablet 40 mg PO DAILY amlodipine 2.5 mg tablet 2.5 mg PO DAILY mirtazapine 7.5 mg tablet 7.5 mg PO HS calcium carbonate [Oyster Shell Calcium] 500 mg calcium (1,250 mg) tablet 500 mg PO BID ascorbic acid (vitamin C) [Vitamin C] 1,000 mg tablet 1 g PO DAILY triamcinolone acetonide 0.1 % cream 1 applic topical BID PRN acetaminophen 500 mg tablet 1,000 mg PO TID multivitamin [Daily Multi-Vitamin] Tablet 1 tab PO DAILY cholecalciferol (vitamin D3) 25 mcg (1,000 unit) capsule 25 mcg PO DAILY sodium chloride 1,000 mg Tablet,Soluble 1,000 mg PO TIDWM Qty: 100 0RF carvedilol 12.5 mg tablet 12.5 mg PO BID sennosides [Senna Lax] 8.6 mg Tablet 17.2 mg PO BID PRN (Reason: constipation) Qty: 100 0RF aspirin [Aspirin Childrens] 81 mg tablet,chewable 81 mg PO BID 30 Days Qty: 60 0RF oxycodone 5 mg Tablet 2.5 - 5 mg PO Q4-6H MDD 6 tabs per day PRN (Reason: Pain) Qty: 42 0RF Rx Instructions: Minimize. Discontinue as soon as possible Follow Up/Referrals: Scout Allan MD [Primary Care Provider] -
[2024-04-24 09:30] VITALS: BP 148/82; PULSE 84; RESP 14; O2SAT 98
[2024-04-24 09:45] LABS: Basophils Absolute Auto 0.04 K/uL (0.00-0.30); Basophils Percent Auto 0.5 % (0.0-3.0); Eosinophils Absolute Auto 0.12 K/uL (0.00-0.50); Eosinophils Percent Auto 1.4 % (0.0-7.0); Hematocrit 27.9 % (33.0-51.0); Immature Granulocytes Abs Auto 0.03 K/uL (0.00-0.30); Immature Granulocytes Pct Auto 0.4 %; Lymphocytes Percent Auto 7.1 % (20-44); Mean Corpuscular HGB Conc 32 gm/dL (32-36); Mean Corpuscular Hemoglobin 31 pg (26-34); Mean Corpuscular Volume 97 fL (80-100); Monocytes Percent Auto 7.4 % (0.0-11.0); Neutrophils Percent Auto 83.2 % (42.0-72.0); Platelet Count* 253 K/uL (140-440); RDW Coefficient of Variation % 12.8 % (11.5-15.5); Red Blood Count 2.87 m/uL (4.00-5.20); White Blood Count* 8.55 K/uL (4.50-11.00)
--- OUTSIDE RECORDS SUMMARY | 2024-04-24 09:49 | XMS_ITS | Encounter Summary ---
Author Organization [facility] Address [address] [facility] [address] [place] [address] Care Team Providers Care Copy Director Name Role Phone Scout Allan MD Primary Care Provider [phone] Encounter Details Date Type Department Care Team (Late st Contact Info) Description 02/28/2024 Documentation Only [facility] [address] [place] [address] Petros Aquino MD [address] [place] [address] Social History Tobacco Use Types Packs/Day Years Used Date Smoking Tobacco: Never Smokeless Tobacco: Never Alcohol Use Standard Drinks/Week Comments Never 0 (1 standard drink = 0.6 oz pur e alcohol) Comments Unknown Sex and Gender Information Value Date Recorded Sex Assigned at Not on file Legal Sex Female 4:58 PM EDT Gender Identity Not on file Sexual Orientation Not on file documented as of this encounter Progress Notes * Petros Aquino MD - 02/28/2024 2:32 PM CDT Patient called complaining of fatigue. States she talked to PCP and had sodium drawn 02/26 and it returned at 128[facility] reviewed, dx SIADH. She is on a fluid restriction. Has had edema with sodium tabs. He recommended sodium tabs + loop diuretic if sodium falls below 130. Plan: Rx sent to [facility] Torsemide 10 mg daily, #30 R0 NaCl 1 gm BID, #60 R0 BMP on 03/03/24 Decide whether to continue/adjust based on lab response Petros Aquino MD documented in this encounter Plan of Treatment Not on file documented as of this encounter Results * (ABNORMAL) Basic Metabolic Panel (03/05/2024) Sodium 134(L) mEq/L [facility] Potassium 4.4 mEq/L [facility] Chloride 95(L) [facility] Carbon Dioxide 28 mmol/L [facility] Calcium 8.9 mg/dL [facility] BUN 20 mg/dL [facility] Creatinine 0.75 mg/dL [facility] Glucose 103(H) mg/dL [facility] eGFR 79(L) [facility] Blood (Blood, Venous) 03/05/2024 us Petros Aquino MD LAB BLOOD ORDERABLES Final Res ult [facility] documented in this encounter Visit Diagnoses Diagnosis Hypo-osmolality and hyponatremia- Primary documented in this encounter Care Teams Copy Director Relationship Specialty Start Date End Date Scout Allan MD [address] [place] [address] PCP - General Family Medicine 10/07/23 documented as of this encounter
--- OUTSIDE RECORDS SUMMARY | 2024-04-24 09:49 | XMS_ITS | Encounter Summary ---
Author Organization [facility] Address [address] [facility] [address] [place] [address] Care Team Providers Care Dairy Farm Worker Name Role Phone Scout Allan MD Primary Care Provider [phone] Encounter Details Date Type Department Care Team (Late st Contact Info) Description 02/28/2024 Documentation Only [facility] [place] [address] [place] [id number] Irvin Stein MD [address] [place] [address] Social History Tobacco Use Types Packs/Day Years [...] as of this encounter Progress Notes * Irvin Stein MD - 02/28/2024 2:30 PM CDT I returned a page from the patient regarding her low sodium concentration. Unfortunately the patient did not answer the call. Her sodium value was 128 mmol/L on the most recent check yesterday. On mymessage I recommended continuing with a fluid restriction. She also asked for a refill of an unknown medication which I asked her to leave a message as to which medication she needs. documented in this encounter Plan of Treatment Not on file documented as of this encounter Visit Diagnoses Not on filedocumented in this encounter Care Teams Dairy Farm Worker Relationship Specialty Start Date End Date Scout Allan MD [address] [place] [address] PCP - General Family Medicine 10/07/23 documented as of this encounter
--- OUTSIDE RECORDS SUMMARY | 2024-04-24 09:49 | XMS_ITS | Encounter Summary ---
Author Organization [facility] Address [address] [place] [address] Care Team Providers Care Technician Chemical Cleaning Name Role Phone Scout Allan MD Primary Care Provider [phone] Encounter Details Date Type Department Care Team (Late st Contact Info) Description 04/06/2024 Telephone [facility] [place] [address] [place] [address] Ivanna Oliveira RN [address] [place] [address] Social History Tobacco Use Types Packs/Day Years [...] on file documented as of this encounter Miscellaneous Notes * Telephone Encounter - Ivanna Oliveira RN - 04/06/2024 10:59 AM CDT Pt notified and voiced understanding. * Telephone Encounter - Ivanna Oliveira RN - 04/06/2024 9:10 AM CDT ----- Message from Manish Palma sent at 04/06/2024 8:56 AM CDT ----- Please notify patient that her sodium level is in the normal and desired range. She should continuecurrent fluid restriction and medications. Let me know if she has any concerns. Thank you. -Darwin Palma MD documented in this encounter Plan of Treatment Not on file documented as of this encounter Visit Diagnoses Not on filedocumented in this encounter Care Teams Technician Chemical Cleaning Relationship Specialty Start Date End Date Scout Allan MD [address] [place] [address] PCP - General Family Medicine 10/07/23 documented as of this encounter
--- OUTSIDE RECORDS SUMMARY | 2024-04-24 09:49 | XMS_ITS | Clinical Summary ---
Author Organization [facility] [place] Address [address] [place] [address] Phone Care Team Providers Care Coordinator Hotels Name Role Phone Scout Allan MD Primary Care Provider [phone] Allergies Active Allergy Reactions Criticality Noted Date Comments Amlodipine Swelling 12/05/2023 Edema on 5mg, ok on 2.5mg Carvedilol Other (see comments) 12/11/2022 Chlorthalidone Other (see comments) 02/01/2014 Hyponatremia Hydrochlorothiazide Other (see comments) 2014 Low sodium. Nifedipine Swelling 10/18/2006 Simvastatin Rash Low 10/21/2007 [facility] alendronate (FOSAMAX) 70 MG tablet Take 70 mg by mouth 1 (one) time per week 09/25/2023 Active amLODIPine (NORVASC) 2.5 MG tablet Take 2.5 mg by mouth in the morning. 12/05/2023 Active carvedilol (COREG) 12.5 MG tablet Take 12.5 mg by mouth in the morning and 12.5 mg in the evening. Take with meals. Active lisinopril 40 MG tablet Take 40 mg by mouth in the morning. 09/25/2023 Active LYCOPENE PO Take 1 tablet by mouth in the morning. Active ascorbic acid (VITAMIN C) 1000 MG tablet Take 1,000 mg by mouth 1 (one) time each day Active mirtazapine (REMERON) 7.5 MG tablet Take 7.5 mg by mouth every night Varies, mostly 1 tablet at nightly every few days. Active torsemide (DEMADEX) 10 MG tablet Take 1 tablet (10 mg total) by mouth 1 (one) time each day 90 tablet 3 03/10/2024 Active sodium chloride 1 g tablet Take 1 tablet (1 g total) by mouth in the morning and 1 tablet (1 g total) in the evening. Take with meals. 180 tablet 3 03/10/2024 Active Active Problems Problem Noted Date Diagnosed Date History of malignant neoplasm of breast 01/06/20 Bilateral lower limb edema 12/05/2023 H/O: malignant neoplasm 09/19/2023 Hypo-osmolality and hyponatremia 11/11/2022 Peripheral sensory neuropathy 05/31/2022 Ileostomy present 11/02/2019 Obstructive sleep apnea syndrome 04/04/2019 Chronic eczema 10/30/2018 Multinodular goiter 08/07/2016 Overview (01/07/2024): Multinodular Goiter (Right 2.1, 0.6, left 1.3): Not otherwise specified, stable, benign imaging characteristics. Differential diagnosis includes: benign (95%) vs malignant (5%) Last FNA: None. Last US (05-27-16): Right 2.1, 0.6, left 1.3 (10-15-16): right 2.1, 0.6, left 1.3 (no change, no suspicious findings.) (03-14-16): TSH 2.43, tpo negative. Options discussed: monitoring vs other (surgery, FNA). Plan: periodic (q 3-5 year) monitoring in 76 y.o female., with a focal fna or surgery considered as needed. A) www.[email or web address].org B) next US: 2019 or later as needed. Prolapsed lumbar intervertebral disc 08/16/2015 BRCA1 gene mutation detected 08/23/2009 Overview (01/07/2024): At increased risk Breast and Ovarian Cancer - per Dr Astudillo 2009: Letter on file. Aortic valve regurgitation 03/08/2008 Overview (01/07/2024): Echo: 11/2007: Recheck Yearly Essential hypertension 11/21/2006 Encounters Date Type Department Care Team Description 04/06/2024 Telephone [facility] [id number] Ivanna Oliveira RN 04/02/2024 Orders Only [facility] [phone] Ivanna Oliveira RN Hypo-osmolality and hyponatremia 03/11/2024 Telephone [facility] [phone] Ivanna Oliveira RN 03/03/2024 Orders Only [facility] [phone] Petros Aquino MD Hypo-osmolality and hyponatremia 02/28/2024 Office Communication [facility] [place] [id number] Petros Aquino MD 02/28/2024 Documentation [place] [facility] [place] [phone] Petros Aquino MD 02/28/2024 Documentation Only [facility] Ezio [facility] [phone] Irvin Stein MD from Last 3 Months Immunizations Name Administration Dates Next Due Pfizer SARS-COV-2 08/29/2020,08/08/2020 Family History Medical History Relation Comments Heart failure Brother 1 Hypertension Brother 1 Depression Brother 2 Depression Father Heart disease Father Hypertension Father Cancer Mother Hypertension Mother Diabetes Other Mental illness Sibling Cancer Sister Relation Status Comments Brother 1 Alive Brother 2 Alive Brother 3 Alive Brother 4 Alive Father Mother Other Alive Sibling Alive Sister Social History Tobacco Use Types Packs/Day Years Used Date Smoking Tobacco: Never Smokeless Tobacco: Never Alcohol Use Standard Drinks/Week Comments Never 0 (1 standard drink = 0.6 oz pur e alcohol) Comments Unknown Sex and Gender Information Value Date Recorded Sex Assigned at Not on file Legal Sex Female 4:58 PM EDT Gender Identity Not on file Sexual Orientation Not on file Last Filed Vital Signs Vital Sign Reading Time Taken Comments Blood Pressure 142/62 01/07/2024 1:19 PM CDT Pulse 66 01/07/2024 1:19 PM CDT Temperature - - Respiratory Rate - - Oxygen Saturation - - Inhaled Oxygen Concentration - - Weight 47.6 kg (105 lb) 01/07/2024 1:19 PM CDT Height 157.5 cm (5' 2) 01/07/2024 1:19 PM CDT Body Mass Index 19.2 01/07/2024 1:19 PM CDT Plan of Treatment Health Maintenance Due Date Last Done Comments Influenza Vaccine (#1) 2024 , 03/21/2020, 03/29/2019, Additional history exists Pneumococcal Vaccine: 65+ Years Completed 03/21/2016, 03/10/2015 Hepatitis B Vaccine Aged Out No longe r eligible based on patient's age to complete this topic Procedures Procedure Name Priority Date/Time Associated Diagnosis Comments BASIC METABOLIC PANEL Routine 04/01/2024 Hypo-osmolality and hyponatremia BASIC METABOLIC PANEL Routine 03/05/2024 Hypo-osmolality and hyponatremia from Last 3 Months Results * (ABNORMAL) Basic Metabolic Panel (04/01/2024) Only the most recent of2 resultswithin the time period is included. Sodium 135 mEq/L [facility] Potassium 4.9 mEq/L [facility] Chloride 97(L) [facility] Carbon Dioxide 29 mmol/L [facility] Calcium 9.2 mg/dL [facility] BUN 23 mg/dL [facility] Creatinine 0.74 mg/dL [facility] Glucose 97 mg/dL [facility] eGFR 80 [facility] Anion Gap 9 [facility] Blood (Blood, Venous) 04/01/2024 us Manish Palma MD LAB BLOOD ORDERABLES Final Re sult [facility] from Last 3 Months Insurance MEDICARE HEALTH [employer] Care Teams Coordinator Hotels Relationship Specialty Start Date End Date Scout Allan MD [address] [place] [address] PCP - General Family Medicine 10/07/23
--- OUTSIDE RECORDS SUMMARY | 2024-04-24 09:49 | XMS_ITS | Encounter Summary ---
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 * Telephone Encounter - Manish Palma MD - 03/11/2024 5:18 PM CDT Yes, she should continue with fluid restriction. If she wants to keep it closer to 60 ounces this is ok. She can drink a little extra if she has any episodes like this. Thank you. -Darwin Palma MD * Telephone Encounter - Ivanna Oliveira RN - 03/11/2024 10:20 AM CDT Pt notified and voiced understanding. Lab order faxed to Pauline Webb. Pt questions if she needs to continue fluid restriction of 40-60 ounce? States she woke up last night with dry mouth and felt very weak. Improved with water and Gatorade. * Telephone Encounter - Ivanna Oliveira RN - 03/11/2024 10:20 AM CDT ----- Message from Manish Palma sent at 03/10/2024 3:08 PM CDT ----- Please notify patient that her sodium level is 134, which is at our goal of >130. She should continue the torsemide and NaCl tabs 1 gm bid. I have provided refills. She should continue monthly labs. Thank you. -Darwin Palma MD documented in this encounter Plan of Treatment Scheduled Orders Name Type Priority Associated Diagnoses Orde r Schedule Basic Metabolic Panel Lab Routine Hypo-osmolality and hyponatremia Every 4 Weeks for 6 Occurrences starting 03/11/2024 until 04/10/2025, 1 completed documented as of this encounter Results * (ABNORMAL) Basic Metabolic Panel (04/01/2024) Sodium 135 mEq/L [facility] Potassium 4.9 mEq/L [facility] Chloride 97(L) [facility] Carbon Dioxide 29 mmol/L [facility] Calcium 9.2 mg/dL [facility] BUN 23 mg/dL [facility] Creatinine 0.74 mg/dL [facility] Glucose 97 mg/dL [facility] eGFR 80 [facility] Anion Gap 9 [facility] Blood (Blood, Venous) 04/01/2024 us Manish Palma MD LAB BLOOD ORDERABLES Final Re sult [facility] documented in this encounter Visit Diagnoses Diagnosis Hypo-osmolality and hyponatremia- Primary documented in this encounter Care Teams Coordinate Measuring Machine Programmer Relationship Specialty Start Date End Date Scout Allan MD [address] [place] [address] PCP - General Family Medicine 10/07/23 documented as of this encounter
--- OUTSIDE RECORDS SUMMARY | 2024-04-24 09:49 | XMS_ITS | Clinical Summary ---
Author Organization [facility] Address [place], [place] [address] Care Team Providers Care Spa Experience Coordinator Name Role Phone Petros Triplett MD Unavailable Unavailable Scout Allan MD Primary Care Provider Allergies Active Allergy Reactions Criticality Noted Date Comments Amlodipine Edema 12/05/2023 Edema on 5mg, ok on 2.5mg Carvedilol Other - Describe In Comment Field 12/11/2022 Chlorthalidone Other - Describe In Comment Field 02/01/2014 Hyponatremia Hydrochlorothiazide Other - Describe In Comment Field 10/07/2014 Low sodium. Nifedipine Edema 10/18/2006 Simvastatin Rash 10/21/2007 [facility] Medications Medication Sig Dispensed Refills Start Date End Date Status VITAMIN C 1,000 MG TAB Once daily Active cholecalciferol (VITAMIN D) 1,000 unit tablet Take 1 tablet by mouth once daily. 0 01/05/2010 Active Blood Pressure Monitor For home use. Lifetime. Diagnosis is hypertension. 1 Device 0 08/22/2013 Active eucalyptus-peppermin t oil (PONARIS) solnIndications:Recu rrent epistaxis,Nonallergi c rhinitis Use 2-3 drops in each nostril in the morning and at bedtime. 15 mL 6 11/22/2015 Active DMEIndications:Ileos cheryle in place (HC) 2 Each. pink tape for ostomy supplies, dispense 2 Rolls per month. 2 Each 12 07/09/2017 Active triamcinolone (ARISTOCORT; KENALOG) 0.1 % cream APPLY TO AFFECTED AREA OF SKIN TWICE A DAY NEEDED FOR ITCH 2 09/01/2018 Active Post Mastectomy BraIndications:Statu s post mastectomy, bilateral Bilateral prosthesis and two bras. For personal use. 2 Packet 2 01/15/2022 Active Gaweowm-Jjximuwim-Qk nc tab Take 2 Tablets by mouth. Active latanoprost (XALATAN) 0.005 % ophthalmic solution INSTILL 1 DROP INTO LEFT EYE AT BEDTIME 03/12/2022 Active multivitamins-minera ls-lutein (CENTRUM SILVER) 0.4 mg-300 mcg- 250 mcg tab Take 1 Tablet by mouth once daily. Active medication order composerIndications: Ileostomy in place (HC) 1 bedside drain BTL w/wo tube 1 unit 1 09/02/2022 Active CPAPIndications:SHERIF on CPAP CPAP machine for home use at pressure 5 cmw, nasal mask x1/3month with nasal pillows x 2/mo 1 Each 11 03/20/2023 Active carvediloL (COREG) 12.5 mg tabletIndications:Es sential hypertension Take 1 Tablet (12.5 mg) by mouth two times daily. 180 Tablet 3 08/12/2023 Active alendronate (FOSAMAX) 70 mg tabletIndications:Os teoporosis, unspecified osteoporosis type, unspecified pathological fracture presence Take 1 Tablet (70 mg) by mouth once a week in the morning. Take on empty stomach with full glass of water. Do not lie down for 1 hr. 12 Tablet 3 09/25/2023 Active lisinopriL (PRINIVIL; ZESTRIL) 40 mg tabletIndications:Es sential hypertension Take 1 Tablet (40 mg) by mouth once daily. 90 Tablet 3 09/25/2023 Active mirtazapine (REMERON) 7.5 mg tabletIndications:In somnia, idiopathic Take 1 Tablet (7.5 mg) by mouth at bedtime. 90 Tablet 3 09/25/2023 Active amLODIPine (NORVASC) 2.5 mg tabletIndications:Be nign essential HTN TAKE 1 TABLET (2.5 MG) BY MOUTH ONCE DAILY. 90 Tablet 3 02/03/2024 Active Active Problems Problem Noted Date Diagnosed Date History of breast cancer 01/06/2024 Bilateral lower extremity edema 12/05/2023 History of bladder cancer: C ystectomy/ileal loop diversion 1998 09/19/2023 Insomnia, idiopathic 11/11/2022 Hyponatremia 11/11/2022 Peripheral sensory neuropathy 05/31/2022 Osteoporosis 10/09/2021 Nonsustained ventricular tachycardia 08/23/[address] 11/02/2019 SHERIF 03/16/2019 AHI-26 Pillows heated 04/04/2019 Chronic eczema 10/30/2018 Multiple thyroid nodules 08/07/2016 Overview (10/23/2016): Multinodular Goiter (Right 2.1, 0.6, left 1.3): [...] next US: 2019 or later as needed. Lumbar disc herniation 08/16/2015 Iron deficiency anemia 04/13/2015 ACP (advance care planning) 05/20/2011 Overview (08/20/2012): Discussed 05/20/2011 Referred 05/20/2011 Her plan submitted 08/19/2012 Osteoarthritis, knee 05/20/2011 Overview (05/20/2011): Right knee BRCA1 positive 08/23/2009 Overview (08/23/2009): At increased risk Breast and Ovarian Cancer - per Dr Astudillo 2009: Letter on file. Aortic Valve Insufficiency; moderate 03/08/2008 Overview (04/13/2008): Echo: 11/2007: Recheck Yearly Unspecified essential hypertension 11/21/2006 Mitral valve disorders 06/30/2003 Overview (04/13/2008): no need for antibiotics 06/10/2007 Echo: 11/2007: Recheck Yearly Resolved Problems Problem Noted Date Diagnosed Date Resolved Date Chronic arthralgias of knees and hips 09/24/2022 09/24/2022 Ganglion cyst of volar aspect of left wrist 10/30/2018 11/16/2020 Weight loss 08/07/2016 05/21/2019 Hyponatremia 03/15/2013 02/01/2014 Overview (03/15/2013): Due to Chlorthalidone; improved off medication for a week 03/15/2013 Eczema 08/21/2012 11/16/2020 Osteopenia 08/23/2009 10/09/2021 Overview (12/19/2011): Recommend Calcium 2000 mg and Vit D 1000 International Units per day. Bone mineral density stable 04/2011; recheck 2 yrs Routine general medical exam ination at a health care facility 04/13/2008 07/06/2020 Overview (04/09/2010): Bar Enema 11/28/2006: Diverticulosis, Redundannt Sig & Trans Colon. PLAN: repeat in 2011. 04/09/2010 Contact dermatitis and other eczema, due to unspecified cause 11/11/2007 11/16/2020 Mixed hyperlipidemia 11/21/2006 016 Diverticulitis of colon (wit hout mention of hemorrhage) 02/28/2002 11/16/2020 Malignant neoplasm of bladde r, part unspecified 07/31/1997 12/28/2019 Malignant neoplasm of breast (female), unspecified site 06/30/1979 05/31/[address] 07/06/2020 Encounters Date Type Department Care Team Description 04/20/2024 Orders Only [facility] Scanner 1 scan: (1-Ord) [facility], XR KNEE RT 2V, 04/20/2024 04/09/2024 1:00 PM CDT Office Visit [facility] [address] [facility] [place] [address] Juan Cunha MD 04/09/2024 Orders Only [facility] Scanner 1 scan: (1-Ord) [facility], UPPER GI ENDOSCOPY, 04/09/2024 04/09/2024 Lab Requisition [facility] [phone] Juan Cunha MD 04/02/2024 Telephone [facility] [address] [place] [address] Scout Allan MD Results (Lab) 04/01/2024 11:00 AM CDT Office Visit [facility] [address] [place] [address] Scout Allan MD Preoperative Exam (DOS: 04/09/2024, [facility], EGD, Dr. Cunha/DOS: 04/20/2024, [facility], right knee replacement, Dr. Macario) 04/01/2024 Travel 03/11/2024 Orders Only [facility] [address] [place] [address] Scout Allan MD Outside Order (Ordered by Manish Palma ) 03/08/2024 Telephone [facility] [address] [place] [address] Scout Allan MD Health Maintenance Update 03/05/2024 1:45 PM CDT Orders Only [facility] [address] [place] [address] Lab, [place] Outside Order (Ordered by Petros Aquino);... 03/05/2024 Travel 03/04/2024 Telephone [facility] [address] [place] [address] Juan Cunha MD Questions (on scheduling upper endoscopy) 02/27/2024 3:00 PM CDT Orders Only [facility] [address] [place] [address] Lab, [place] Lab 02/27/2024 Telephone [facility] [address] [place] [address] Scout Allan MD Appointment Request (Fatigue/Fall) 02/26/2024 2:00 PM CDT Office Visit [facility] [address] [place] [address] Juan Cunha MD Consult (Weight loss, fatigue) 02/26/2024 Travel 02/19/2024 Telephone [facility] [address] [place] [address] Moises Hargrove MD Appointment Request (Knee/) 02/11/2024 Orders Only [facility] [address] [place] [address] Manish Palma MD <No scans attached> 02/10/2024 Telephone [facility] [address] [place] [address] Manish Palma MD Appointment Request (LABS) 02/05/2024 10:30 AM CDT Orders Only [facility] [address] [place] [address] Lab, [place] Lab 02/05/2024 Travel 01/31/2024 Refill [facility] [address] [place] [address] Scout Allan MD Refill Request (Amlodipine) 01/28/2024 2:05 PM CDT Office Visit [facility] [address] [place] [address] Scout Allan MD ER Follow up ([facility], 01/20/2024, SOB) 01/27/2024 Telephone [facility] Providers [address] [phone] Manish Palma MD Questions 01/27/2024 Travel 01/26/2024 Orders Only [facility] [address] [place] [address] Manish Palma MD <No scans attached> 01/24/2024 10:00 AM CDT Orders Only [facility] [address] [place] [address] Lab[facility] [place] Lab 01/24/2024 Refill [facility] [address] [place] [address] Scout Allan MD Refill Request (Sodium Chloride) 01/23/2024 Telephone [facility] [address] [place] [address] Moises Hargrove MD Questions from Last 3 Months Immunizations Name Administration Dates Next Due AMB Influenza, IIV4 PF (=>6 mos Flulaval,Fluzone Fluarix)(Flu Clinic Only) 03/29/2019,04/18/2014 Amb Influenza, Inactivated A IIV4 (Age 65+ Years) Preserv Free 03/21/2020 COVID-19 VACCINE SPIKEVAX (M ODERNA 50MCG/0.5ML) 12YO+ PFS 09/25/2023 COVID-19 vaccine (mySchoolNotebook-Bio NTech 30mcg/0.3mL) 12YO+ BIVALENT PF, MDV 03/18/2022 COVID-19 vaccine (mySchoolNotebook-BioNTech 30mcg/0.3mL) P F, MDV 08/29/2020,08/08/2020 Influenza, High-dose Inactivated 03/21/2016,02/28 Influenza, High-dose Quadrivalent Inactivated ,04/02/2022 Influenza, IIV3 (Age >=3 years) 05/31/2003 Influenza, IIV4 04/18/2014 Influenza, Inactivated AIIV4 (Age 65+ Years) Preserv Free 04/11/2021 Influenza, Inactivated IIV3 (Age 65+ Years) Preserv Free 04/27/2018,05/01/2017 Pneumococcal Conj 20-valent (Prevnar 20) 023 Pneumococcal Poly,23-Valent (Pneumovax) 03/21/20 16 Pneumococcal conj 13-Valent (Prevnar 13) 015 RSV, Recombinant ADJ Reconst ituted (Arexvy 120MCG/0.5mL) 05/19/2023 Td (Age >=7 Years) 08/30/2004 Tdap 05/18/2015 Zoster (Shingrix-RZV, recombinant) 01/09/2021, Zoster (Zostavax-ZVL, live) 06/29/2015 Family History Medical History Relation Name Comments Hypertension Brother 1 Marlane CHF Psychiatric illness Brother 1 Marcayden Depressi on Heart Disease Father Lefty Hypertension Father Lefty Psychiatric illness Father Lefty depressi on Cancer Mother Luther ovarian Hypertension Mother Luther Psychiatric illness Other 1 sibling Diabetes Other 2 grandparent Cancer Sister Em ovarian/breast Anesthesia Problem No Family History Relation Name Status Comments Brother 1 Marlane Alive Brother 2 Jose Manuel Alive Brother 3 Pete Alive foster brother Father Lefty (Age 63) Mother Nancy (Age 83) Other 1 Other 2 Sister Em (Age 65) Social History Tobacco Use Types Packs/Day Years Used Date Smoking Tobacco: Never Smokeless Tobacco: Never Tobacco Cessation:Counseling Given: No Alcohol Use Standard Drinks/Week Comments No 0 (1 standard drink = 0.6 oz pur e alcohol) PHQ-2 Answer Date Recorded PHQ-2 TOTAL SCORE 0 09/25/2023 Social Connections Answer Date Recorded Frequency of Communication with Friends and Fami ly 0 12/05/2023 Financial Resource Strain Answer Date R ecorded Difficulty of Paying Living Expenses 3 12/05/2023 Difficulty of Paying Living Expenses Not on file 12/05/2023 Food Insecurity Answer Date Recorded Do you worry your food will run out before you are able to buy more? 1 12/05/2023 Transportation Needs Answer Date Record ed Lack of Transportation (Medical) 1 12/05/2023 Housing Stability Answer Date Recorded What is your housing situation today? 1 12/05/2023 Sex and Gender Information Value Date Recorded Sex Assigned at Not on file Gender Identity Not on file Sexual Orientation Not on file Obstetrics History Para Term AB IAB SAB Ectopic Multiple Livin g Live Births 2 2 2 Date Outcome GA Total Labor Labor/2nd/3rd Weight Sex Type Anes PTL Sade A1 A5 Name Clin Term Term Last Filed Vital Signs Vital Sign Reading Time Taken Comments Blood Pressure 155/66 04/01/2024 11:10 AM CDT Pulse 76 04/01/2024 11:10 AM CDT Temperature 36.8 ??C (98.2 ??F) 01/02/2024 11:30 AM C DT Respiratory Rate 14 05/13/2023 10:50 AM NEONATAL CRITICAL CARE NURSE Oxygen Saturation 97% 04/01/2024 11:10 AM CDT Inhaled Oxygen Concentration - - Weight 45.6 kg (100 lb 9.6 oz) 04/01/2024 11:10 AM CDT Height 154 cm (5' 0.63) 04/01/2024 11:10 AM CDT Body Mass Index 19.24 04/01/2024 11:10 AM CDT Plan of Treatment Upcoming Encounters Date Type Department Care Team (Late st Contact Info) Description 05/20/2024 11:00 AM NEONATAL CRITICAL CARE NURSE Office Visit [facility] [address] [place] [address] Moises Hargrove MD [address] [place] [address] Health Maintenance Due Date Last Done Comments COVID-19 vaccine series ( season) 2024 09/25/2023, 05/26/2023, 03/18/2022, Additional history exists Influenza for age 65+ 02/29/2024 03/18/2023 , 04/02/2022, 04/11/2021, Additional history exists Depression screening for age 12+ 09/24/2024 09/25/2023, 09/06/2022, 08/23/2021, Additional history exists Medicare Wellness for age 65+ 09/25/2024, 09/06/2022, 08/23/2021, Additional history exists BMI (ht and wt on same day) for age 18+ 04/01/2025 04/01/2024, 09/25/2023, 03/20/2023, Additional history exists Tetanus booster 05/18/2025 05/18/2015, 08/30/2004 Tdap Completed 05/18/2015 Zoster (shingles) series for age 50+ Completed 01/09/2021, 10/30/2020, 06/29/2015 DEXA/DXA scan for age 65+ Completed 2021, 05/14/2018, 04/04/2016, Additional history exists Pneumococcal series for age 65+ Completed 09/06/2022, 03/21/2016, 03/10/2015 RSV vaccine for adults or Completed 05/19/2023 Procedures Procedure Name Priority Date/Time Associated Diagnosis Comments SCAN-RADIOLOGY REPORT 04/20/2024 12:00 AM CDT LAB TRACKING EVENT Routine 04/09/2024 1:50 PM CDT PATH TISSUE EXAM Routine 04/09/2024 1:50 PM CDT SCAN-ENDOSCOPY 04/09/2024 12:00 AM CDT ESOPHAGOGASTRODUODENOSCOPY Routine 04/09 12:00 AM CDT Weight loss EKG 12 LEAD Routine 04/02/2024 10:21 AM CDT Screening for heart disease [place] READING EKG - NO CHARGE, COMP ONLY Routine 04/02/2024 10:20 AM CDT Screening for heart disease HEMOGLOBIN Routine 04/01/2024 11:59 AM CDT Preop examination BASIC METABOLIC PANEL Routine 04/01/2024 11:59 AM CDT Preop examination BASIC METABOLIC PANEL Routine 03/05/2024 1:56 PM CDT Hyposmolality syndrome HEMOGLOBIN Routine 02/27/2024 2:59 PM CDT Anemia of unknown etiology SODIUM Routine 02/27/2024 2:59 PM CDT Hyponatremia OSMOLALITY,URINE Routine 02/05/2024 1:00 PM CDT Hyponatremia SODIUM,RANDOM URINE Routine 02/05/2024 1:00 PM CDT Hyponatremia PRO-BNP Routine 02/05/2024 10:50 AM CDT Hyponatremia SODIUM Routine 02/05/2024 10:50 AM CDT Hyponatremia SODIUM,RANDOM URINE Routine 01/24/2024 12:30 PM CDT Hyponatremia OSMOLALITY,URINE Routine 01/24/2024 12:30 PM CDT Hyponatremia XR DXA BONE DENSITY 2 SITES AXIAL Routine 09/26/2021 11:42 AM CDT Asymptomatic postmenopausal state from Last 3 Months or Most Recently Relevant to Health Maintenance Results * SCAN-RADIOLOGY REPORT (04/20/2024 12:00 AM CDT) Anatomical Region Laterality Modality Other Scanner OTHER * LAB TRACKING EVENT (04/09/2024 1:50 PM CDT) Other (Other) Client Collect / Unknown 04/09/2024 1:50 PM CDT 04/09/2024 9:57 PM CDT Juan Cunha MD LAB BILL ONLY [facility] [address] [place] [address], * PATH TISSUE EXAM (04/09/2024 1:50 PM CDT) Case Report Pathology Report ?Case: [id number] ? Authorizing Provider: ??Juan Cunha MD ?? Collected: ? 04/09/2024 1350 ? Ordering Location: ? [facility] ?Received: ?04/10/2024 0549 ? Pathologist: ? Gino Gore MD ? Specimens: ?? A) - Duodenum Biopsy ? B) - Stomach ? 04/12/2024 10:28 AM [facility] Final Diagnosis A) DUODENUM, BIOPSY: 1. Normal duodenal mucosa 2. Negative for celiac disease and other enteropathy B) STOMACH, BIOPSY: 1. Normal gastric antral and body mucosae 2. Negative for Helicobacter 04/12/2024 10:28 AM [facility] Clinical Information Ms. Benitez is a 83 y.o. who undergoes upper GI endoscopy. 04/12/2024 10:28 AM [facility] Gross Description A) Received in formalin, labeled with the patient's name and duodenum, are 7 soft hunter tissues averaging 0.3 cm which are submitted toto in 1 cassette. B) Received in formalin, labeled with the patient's name and stomach, random, are 8 soft, friable hunter tissues ranging 0.3-0.6 cm which are submitted total in 1 cassette. LDW 04/10/2024 04/12/2024 10:28 AM [facility] Microscopic Description The final diagnosis is based on microscopic examination of appropriate sections of all specimens. 04/12/2024 10:28 AM [facility] Additional Information Interpreted at [facility], Central Laboratory - [address], [place] [address] 04/12/2024 10:28 AM CDT [facility] Other SPECIMEN FROM STOMACH / Unknown 04/09/2024 1:50 PM CDT 04/10/2024 5:49 AM CDT Specimen (specimen) SPECIMEN FROM STOMACH / Unknown 04/09/2024 1:50 PM CDT 04/10/2024 5:49 AM CDT Juan Cunha MD PATHOLOGY/CYTOLOG Y Performing Organization Address City/[facility]/ZIP Co de Phone Number [facility] [address] [place] [address], * SCAN-ENDOSCOPY (04/09/2024 12:00 AM CDT) Scanner OTHER * ESOPHAGOGASTRODUODENOSCOPY (04/09/2024 12:00 AM CDT) Juan Cunha MD GI PROCEDURE ORD * EKG 12 LEAD (04/02/2024 10:21 AM CDT) Scout Allan MD EKG ORD * [place] READING EKG - NO CHARGE, COMP ONLY (04/02/2024 10:20 AM CDT) Scout Allan MD PB - PROVIDER READINGS * HEMOGLOBIN (04/01/2024 11:59 AM CDT) Only the most recent of2 resultswithin the time period is included. HEMOGLOBIN 12.1 11.7 - 15.5 g/dL [facility] Blood BLOOD SPECIMEN / Unknown 04/01/2024 11:59 AM CDT 04/01/2024 11:59 AM CDT Scout Allan MD HEMATOLOGY [facility] [address], [place] [phone] [address] [place] [address] * (ABNORMAL) BASIC METABOLIC PANEL (04/01/2024 11:59 AM CDT) Only the most recent of2 resultswithin the time period is included. Pathologist [facility] GLUCOSE 97 65 - 99 mg/dL [facility] Comment: ? Fasting reference interval UREA NITROGEN (BUN) 23 7 - 25 mg/dL [facility] CREATININE 0.74 0.60 - 0.95 mg/dL [facility] EGFR 80 > OR = 60 mL/min/1. 73m2 [facility] BUN/CREATININE RATIO SEE NOTE: 6 - 22 (calc) [facility] Comment: ?? Not Reported: BUN and Creatinine are within ?? reference range. ? SODIUM 135 135 - 146 mmol/L [facility] POTASSIUM 4.9 3.5 - 5.3 mmol/L [facility] CHLORIDE 97(L) 98 - 110 mmol/L [facility] CARBON DIOXIDE 29 20 - 32 mmol/L [facility] ELECTROLYTE BALANCE 9 7 - 17 mmol/L (calc) [facility] CALCIUM 9.2 8.6 - 10.4 mg/dL [facility] Blood BLOOD SPECIMEN / Unknown 04/01/2024 11:59 AM CDT 04/01/2024 11:59 AM CDT Scout Allan MD CHEMISTRY [facility] [address] [place] [address], [place] [phone] [facility] [address] [place] [address] * (ABNORMAL) SODIUM (02/27/2024 2:59 PM CDT) Only the most recent of2 resultswithin the time period is included. Pathologist [facility] SODIUM 128(L) 136 - 145 mmol/L 02/27/2024 10:53 PM CDT [facility] Blood BLOOD SPECIMEN / Unknown Venipuncture / Unknown 02/27/2024 2:59 PM CDT 02/27/2024 3:00 PM CDT Manish Palma MD CHEMISTRY Performing Organization Address City/[facility]/ZIP Co de Phone Number [facility] [address] [address], [place] * SODIUM,RANDOM URINE (02/05/2024 1:00 PM CDT) Only the most recent of2 resultswithin the time period is included. SODIUM,RANDOM URINE 53 mmol/L 02/06/2024 2:37 AM CDT [facility] Comment:No Reference Range D efined. Urine URINE SPECIMEN / Unknown Non-Blood / Unknown 02/05/2024 1:00 PM CDT 02/05/2024 2:13 PM CDT Manish Palma MD URINE Performing Organization Address [facility] [[email or web address]] Co de Phone Number [facility] [address] [address], [place] * OSMOLALITY,URINE (02/05/2024 1:00 PM CDT) Only the most recent of2 resultswithin the time period is included. OSMOLALITY,URI NE 488 50 - 1,400 mOsmol/kg 02/06/2024 11:39 AM CDT [facility] Urine URINE SPECIMEN / Unknown Non-Blood / Unknown 02/05/2024 1:00 PM CDT 02/05/2024 2:13 PM CDT Manish Palma MD URINE [facility] INTERNAL ZIP [phone] [address] [place] [address] * (ABNORMAL) PRO-BNP (02/05/2024 10:50 AM CDT) [facility] PRO-BNP 1,416(H) <450 pg/mL 02/06/2024 1:16 AM CDT [facility] [place] [facility] Blood BLOOD SPECIMEN / Unknown Venipuncture / Unknown 02/05/2024 10:50 AM CDT 02/05/2024 10:50 AM CDT Narrative [facility] - 02/06/2024 1:16 AM CDT The following cut-points have been suggested for the use of proBNP for the diagnostic evaluation of heart failure (HF) in patient with acute dyspnea. Patients with eGFR >= 60 Diagnosis (rule in CHF) ? <50 Years Old ?450 pg/mL 50 - 75 Years Old ?900 pg/mL >75 Years Old ? 1800 pg/mL Exclusion (rule out CHF) Age Independent ?300 pg/mL A cutoff of 1200 pg/mL for patients with an eGFR <60 yields a diagnostic sensitivity of 89% and specificity of 72% for acute congestive heart failure. ? Manish Palma MD SEND OUTS [facility] [address] [place] [address], * (ABNORMAL) XR DXA BONE DENSITY 2 SITES AXIAL (09/26/2021 11:42 AM CDT) Anatomical Region Laterality Modality Spine, HIPS, HIPL, HIPR Other Impressions 10/04/2021 5:21 PM CDT Osteoporosis. RECOMMENDATIONS: The National Osteoporosis Foundation recommends pharmacologic treatment for patients with T-scores of -2.5 or less, patients with prior history of fragility fractures, or patients with 10-year probability of greater than 3% at hips or greater than 20% of suffering major osteoporotic fractures. Recommend continued optimization of calcium and vitamin D intake through dietary means and/or supplementation and regular exercise. Consider pharmacologic therapy for osteoporosis. Follow-up bone density reading in 2 years if therapy initiated to assess therapeutic efficacy. Daisha Payne PA-C [facility] 10/04/2021 Narrative 10/04/2021 5:21 PM CDT For Patients: Results are automatically released to your [facility] ([employer]) account once available, in compliance with federal regulations. This means that you may see your results before your provider has had a chance to review them. Please allow 2-3 business days for your provider to comment on the results. XR DXA Bone Mineral Density (BMD) EXAM LOCATION: [address] [address] PATIENT NAME: Claudia Benitez DATE OF : 1940 EXAM DATE: 09/26/2021 REQUESTING PROVIDER: Scout Allan MD GENDER AT : female HEIGHT: 5' 1.54 (08/23/2021) WEIGHT: ??119 lb 9.6 oz (08/23/2021) MENOPAUSAL STATUS: Postmenopausal RACE/ETHNICITY: White RISK FACTORS: Height Loss (2 inches or more), Weight < 127 lbs. and White Race CURRENT MEDICATION FOR BONE LOSS: NONE INDICATION: Post-Menopause COMPARISON DATE(S): 2017 DXA scans are compared to prior studies for a patient only when the two (or more) studies were performed on the same scanner. It is not possible to compare data generated on one scanner to data from another because there are not standards in DXA equipment. This applies even if the two scanners are made by the same dietary services director. PROCEDURE: Dual-energy x-ray absorptiometry performed with routine technique. Reporting is completed in the form of a T-score. The T-score represents the standard deviation from peak bone mass based on young healthy adult. A Z-score is used for diagnosis in premenopausal women, and for men under the age of 50. FINDINGS: RESULT LUMBAR SPINE L1 - L3 (L2) BMD: 0.861 g/cm2 T-Score: - 2.5 Z-Score: - 0.3 Change from prior in 2018: ??Decrease 17.5%. RESULTS FEMUR Left femoral neck BMD: 0.701 g/cm2 T-Score: - 2.4 Z-Score: + 0.0 Change from prior in 2018: Decrease 0.072 Left hip BMD: 0.701 g/cm2 T-Score: - 2.4 Z-Score: - 0.1 Change from prior in 2018: ??Decrease 8.2%. WHO criteria: Normal: T-score at or above -1 SD Osteopenia: T-score between -1.1 and -2.4 SD Osteoporosis: T-score at or below -2.5 SD Scout Allan MD DEXA from Last 3 Months or Most Recently Relevant to Health Maintenance Advance Directives Documents on File Type Date Recorded Patient Assistant Office Manager Expl anation Healthcare Directive 08/19/2012 1:53 PM NADYA ARZATE, 07/22/2012 Care Teams Spa Experience Coordinator Relationship Specialty Start Date End Date Scout Allan MD [address] [place] [address] LUDIN Rodriguez [id number] PCP - General Family Practice 03/15/13 Petros Triplett MD [address] [facility] [address] [place] [id number] Ophthalmology Surgery 08/19/12
--- OUTSIDE RECORDS SUMMARY | 2024-04-24 09:49 | XMS_ITS | Encounter Summary ---
Author Organization [facility] Address [address] [facility] [address] [place] [address] Care Team Providers Care Card Table Attendant Name Role Phone Scout Allan MD Primary Care Provider [phone] Encounter Details Date Type Department Care Team (Late st Contact Info) Description 02/28/2024 Office Communication [facility] [place] [address] [place] [address] Petros Aquino MD [address] [place] [address] Social History Tobacco Use Types [...] encounter Miscellaneous Notes * Telephone Encounter - Susan Calderon - 03/02/2024 12:06 PM CDT Pt. called back, reviewed information with her also * Telephone Encounter - Susan Calderon - 03/02/2024 11:35 AM CDT Kamryn/Daughter returned call. Reviewed information,states understanding. Lab order faxed to Pauline Webb. * Telephone Encounter - Sally Hackett - 03/02/2024 11:23 AM CDT Daughter, Kamryn, returned call to clinic. Routed to nursing. * Telephone Encounter - Manish Palma MD - 03/02/2024 10:29 AM CDT Thanks for taking care of this. -Darwin Palma * Telephone Encounter - Susan Calderon - 03/02/2024 10:18 AM CDT Patient called complaining of fatigue. States she talked to PCP and had sodium drawn 02/26 and [facility] at 128[facility] 12/2023 note reviewed, dx SIADH. She is on a fluid restriction. Has had edema with sodium tabs. He recommended sodium tabs + loop diuretic if sodium falls below 130. Plan: Rx sent to [facility] Torsemide 10 mg daily, #30 R0 NaCl 1 gm BID, #60 R0 BMP on 03/03/24 Decide whether to continue/adjust based on lab response Petros Aquino MD LM: LMTCB at pt.ph. and Daughter/Kamryn * Telephone Encounter - Petros Aquino MD - 02/28/2024 2:37 PM CDT Please see note and orders from 02/27 documented in this encounter Plan of Treatment Not on file documented as of this encounter Visit Diagnoses Not on filedocumented in this encounter Care Teams Card Table Attendant Relationship Specialty Start Date End Date Scout Allan MD [address] [place] [address] PCP - General Family Medicine 10/07/23 documented as of this encounter
--- OUTSIDE RECORDS SUMMARY | 2024-04-24 09:49 | XMS_ITS | Encounter Summary ---
Author Organization [facility] Address [address] [facility] [address] [place] [address] Care Team Providers Care Production Specialist Name Role Phone Scout Allan MD Primary Care Provider [phone] Encounter Details Date Type Department Care Team (Late st Contact Info) Description 03/03/2024 Orders Only [facility] [place] [address] [place] [address] Petros Aquino MD [address] [place] [address] Hypo-osmolality and hyponatremia Social History Tobacco Use Types Packs/Day Years [...] as of this encounter Progress Notes * Ivanna Oliveira RN - 03/03/2024 11:[address] Aquino started Torsemide 10 mg daily and NaCl 1 gm BID on 02/27 d/t 128 Na. She will need refills if you want to continue current doses. * Mainsh Palma MD - 03/03/2024 11:59 PM CDT Please notify patient that her sodium level is 134, which is at our goal of >130. She should continue the torsemide and NaCl tabs 1 gm bid. I have provided refills. She should continue monthly labs. Thank you. -Darwin Palma MD documented in this encounter Plan of Treatment Not on file documented as of this encounter Procedures Procedure Name Priority Date/Time Associated Diagnosis Comments BASIC METABOLIC PANEL Routine 03/05/2024 Hypo-osmolality and hyponatremia documented in this encounter Results * (ABNORMAL) Basic Metabolic [...] this encounter Visit Diagnoses Diagnosis Hypo-osmolality and hyponatremia documented in this encounter Care Teams Production Specialist Relationship Specialty Start Date End Date Scout Allan MD [address] [place] [address] PCP - General Family Medicine 10/07/23 documented as of this encounter
--- OUTSIDE RECORDS SUMMARY | 2024-04-24 09:49 | XMS_ITS | Encounter Summary ---
Author Organization [facility] Address [address] [place] [address] Care Team Providers Care Stove Tender Name Role Phone Scout Allan MD Primary Care Provider [phone] Encounter Details Date Type Department Care Team (Late st Contact Info) Description 04/02/2024 Orders Only [facility] [place] [address] [place] [address] Ivanna Oliveira RN [address] [place] [address] Hypo-osmolality and hyponatremia Social History Tobacco Use [...] as of this encounter Progress Notes * Manish Palma MD - 04/02/2024 2:14 AM CDT Please notify patient that her sodium [...] METABOLIC PANEL Routine 04/01/2024 Hypo-osmolality and hyponatremia documented in this encounter [...] hyponatremia documented in this encounter Care Teams Stove Tender Relationship Specialty Start Date End Date Scout Allan MD [address] [place] [address] PCP - General Family Medicine 10/07/23 documented as of this encounter
[2024-04-24 09:51] LABS: Slide Review Reflex No
[2024-04-24 09:58] LABS: Albumin* 3.8 g/dL (3.3-5.0); Chloride* 94 mmol/L (96-114); Sodium* 130 mmol/L (135-149)
[2024-04-24 09:59] LABS: Potassium* 3.7 mmol/L (3.6-5.1)
[2024-04-24 10:01] LABS: Alanine Aminotransferase* 20 U/L (4-35); Alkaline Phosphatase* 75 U/L (40-150); Anion Gap 5 mEq/L (7-15); Aspartate Amino Transferase* 40 U/L (12-35); Bilirubin Total* 0.6 mg/dL (0.1-1.5); Blood Urea Nitrogen* 19 mg/dL (7-30); Calcium* 8.6 mg/dL (8.4-10.6); Carbon Dioxide* 31 mmol/L (20-32); Creatinine* 0.6 mg/dL (0.5-1.5); Est. Creatinine Clearance* 30.52; Estimated Glomerular Filt Rate 89 ml/min; Glucose* 116 mg/dL (60-115); Total Protein* 6.9 g/dL (6.0-8.3)
[2024-04-24] MEDS: ACETAMINOPHEN 500 MG TABLET 1000 MG PO (10:54)
[2024-04-24 12:00] VITALS: BP 183/78; PULSE 79; RESP 16; TEMP 37.1; O2SAT 96; BMI 19.1
[2024-04-24 12:57] LABS: PCR FLU A Negative PCR FLU A (Negative); PCR FLU B Negative PCR FLU B (Negative); PCR RSV Negative PCR RSV (Negative); SARS PCR* Negative SARS-CoV-2 (Negative)
--- NOTE | 2024-04-24 13:23 | PM.IMHP1 ---
Hospitalist- H&P: HPI History of Present Illness Date Seen: 04/24/24 Chief complaint: Deep cough Narrative: Claudia Benitez is a 83 year old female status post right knee arthroplasty 4 days ago presents with a 4 day history of worsening cough. Patient reports she had right total knee arthroplasty done at this hospital 4 days ago. She thinks that she may have had a slight cough prior to her surgery. She was not otherwise significantly symptomatic over the next day or 2 before discharge. After she got home her cough got gradually worse. In the last day it is gotten quite severe and because that she came to the emergency room. She is not aware of a fever or chills. She is not dyspneic. She has not had upper respiratory symptoms. She does not have chest pain. No previous history of chronic lung disease, thromboembolism, heart disease. She reports she has been struggling at home with her current illness as well as recovering from her knee surgery. She still having knee pain but has been able to wean off opioids. Review of Systems Narrative: No new concerns. Symptoms as noted above [facility] Medical History (Updated 04/24/24 @ 13:35 by Salvador Tony MD) Chronic hyponatremia ?E87.1 - Hypo-osmolality and hyponatremia (ICD-10) Osteoarthritis of right knee ?M17.11 - Unilateral primary osteoarthritis, right knee (ICD-10) Hx of breast cancer ?Z85.3 - Personal history of malignant neoplasm of breast (ICD-10) COVID-19 ?U07.1 - COVID-19 (ICD-10) Hyponatremia ?E87.1 - Hypo-osmolality and hyponatremia (ICD-10) Osteoarthritis of left shoulder ?M19.012 - Primary osteoarthritis, left shoulder (ICD-10) Rotator cuff tear, right ?M75.101 - Unspecified rotator cuff tear or rupture of right shoulder, not specified as traumatic (ICD-10) Osteoarthritis of right shoulder ?M19.011 - Primary osteoarthritis, right shoulder (ICD-10) Rupture of right biceps tendon ?S46.211A - Strain of muscle, fascia and tendon of other parts of biceps, right arm, initial encounter (ICD-10) Acute UTI ?N39.0 - Urinary tract infection, site not specified (ICD-10) Bladder cancer ?C67.9 - Malignant neoplasm of bladder, unspecified (ICD-10) Rotator cuff tear, left ?M75.102 - Unspecified rotator cuff tear or rupture of left shoulder, not specified as traumatic (ICD-10) Edema ?R60.9 - Edema, unspecified (ICD-10) Polydipsia ?R63.1 - Polydipsia (ICD-10) Dizziness ?R42 - Dizziness and giddiness (ICD-10) Anxiety ?F41.9 - Anxiety disorder, unspecified (ICD-10) Breast cancer, BRCA1 positive ?C50.919 - Malignant neoplasm of unspecified site of unspecified female breast (ICD-10) ?Z15.01 - Genetic susceptibility to malignant neoplasm of breast (ICD-10) Daytime sleepiness ?R40.0 - Somnolence (ICD-10) Insomnia ?G47.00 - Insomnia, unspecified (ICD-10) Fatigue ?R53.83 - Other fatigue (ICD-10) Myalgia ?M79.10 - Myalgia, unspecified site (ICD-10) Weakness generalized ?R53.1 - Weakness (ICD-10) Hypertension ?I10 - Essential (primary) hypertension (ICD-10) Aortic insufficiency ?I35.1 - Nonrheumatic aortic (valve) insufficiency (ICD-10) Osteoarthritis ?M19.90 - Unspecified osteoarthritis, unspecified site (ICD-10) Anemia ?D64.9 - Anemia, unspecified (ICD-10) Back pain ?M54.9 - Dorsalgia, unspecified (ICD-10) Thyroid nodule ?E04.1 - Nontoxic single thyroid nodule (ICD-10) Eczema ?L30.9 - Dermatitis, unspecified (ICD-10) SHERIF (obstructive sleep apnea) ?G47.33 - Obstructive sleep apnea (adult) (pediatric) (ICD-10) Ventricular tachycardia ?I47.20 - Ventricular tachycardia, unspecified (ICD-10) Osteoporosis ?M81.0 - Age-related osteoporosis without current pathological fracture (ICD-10) Peripheral neuropathy ?G62.9 - Polyneuropathy, unspecified (ICD-10) Surgical History S/P total knee arthroplasty (04/20/24) ?Z96.659 - Presence of unspecified artificial knee joint (ICD-10) 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/19) ?Z96.641 - Presence of right artificial hip joint (ICD-10) History of bilateral mastectomy ?Z90.13 - Acquired absence of bilateral breasts and nipples (ICD-10) History of cataract surgery ?Z98.49 - Cataract extraction status, unspecified eye (ICD-10) History of hysterectomy ?Z90.710 - Acquired absence of both cervix and uterus (ICD-10) H/O ileostomy ?Z98.890 - Other specified postprocedural states (ICD-10) Family History Mother Ovarian cancer High blood pressure Sister Ovarian cancer High blood pressure Father Heart disease High blood pressure Social History Narrative: She is and here with her . They live independently. They see Dr. Allan for primary care. She does not smoke. She does not drink alcohol. She has had her COVID vaccines. Code status is full. 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 What is your current living situation?: I presently have a place to live Problems where you live: no known problems Problems where you live details: N/A In the past 12 months, utilities in danger of being shut off: no In past 12 months, lack of transportation kept you from medical appts, meetings, work, or getting things needed for daily living: no In the past 12 mos, have been you worried that your food would run out before you had money to buy more?: never true In the past 12 mos, the food you bought just didn't last and you didn't have money to buy more?: never true Highest level of school completed/degree received: Bachelor's degree Smoking Status: Never smoker Do you use any of these nicotine containing products: None Second hand tobacco smoke exposure: No How often do you have a drink containing alcohol: never How often do you have six or more drinks on one occasion: Never AUDIT-C Alcohol total score: 0 Non-prescribed substance use: denies use Caffeine: Yes (COFFEE) How often does anyone, including family, friends and others, physically hurt you: never How often does anyone, including family, friends and others, insult or talk down to you: never How often does anyone, including family, friends and others, threaten you with harm: never How often does anyone, including family, friends and others, scream or curse at you: never service: No Meds Home Medications and Allergies Home Medications ?Medication ?Instructions ?Recorded ?Confirmed ?Type alendronate 70 mg tablet 70 mg PO QWEEK 07/25/22 04/24/24 History latanoprost 0.005 % eye drops 1 drp ophthalmic (eye) HS 07/25/22 04/24/24 History lisinopril 40 mg tablet 40 mg PO DAILY 07/25/22 04/24/24 History carvedilol 12.5 mg tablet 12.5 mg PO BID 09/25/23 04/24/24 History acetaminophen 500 mg tablet 1,000 mg PO TID 09/26/23 04/20/24 History amlodipine 2.5 mg tablet 2.5 mg PO DAILY 09/26/23 04/24/24 History ascorbic acid (vitamin C) 1,000 mg 1 g PO DAILY 09/26/23 04/24/24 History tablet (Vitamin C) calcium carbonate (Oyster Shell 500 mg PO BID 09/26/23 04/24/24 History Calcium) cholecalciferol (vitamin D3) 25 25 mcg PO DAILY 09/26/23 04/24/24 History mcg (1,000 unit) capsule mirtazapine 7.5 mg tablet 7.5 mg PO HS 09/26/23 04/24/24 History multivitamin (Daily Multi-Vitamin 1 tab PO DAILY 09/26/23 04/24/24 History tablet) triamcinolone acetonide 0.1 % 1 applic topical BID PRN 09/26/23 04/24/24 History topical cream torsemide 10 mg tablet 10 mg PO DAILY 03/03/24 04/20/24 History Allergies Allergy/AdvReac Type Severity Reaction Status Date / Time carvedilol Allergy Unknown Verified 04/24/24 10:27 nifedipine Allergy Verified 04/24/24 10:27 simvastatin Allergy Target Verified 04/24/24 10:27 lesions arms/trunk amlodipine AdvReac Severe edema Verified 04/24/24 10:27 chlorthalidone AdvReac hyponatremi Verified 04/24/24 10:27 a hydrochlorothiazide AdvReac hyponatremi Verified 04/24/24 10:27 a Exam Narrative: Exam Narrative: She is alert and appears in no distress. She is breathing comfortably on room air. She gives her own history with good detail. Oropharynx is normal. Neck is supple out mass or adenopathy. Respirations are clear to auscultation without wheezing rales or rhonchi. No consolidation. Cardiovascular: S1, S2, regular rate and rhythm. Palpation over chest wall shows no tenderness on either side. There is no bruising. Abdomen: Bowel sounds active. Abdomen is soft she has any urostomy in her right lower quadrant. Draining clear yellow urine. Lower extremities notable for moderate bruising and swelling around the right knee consistent with her status post knee arthroplasty day 4. Feet and ankles without edema. Good pedal pulses and sensation and motion. Const: Vital Signs, click to edit/add: Vital Signs - 24 hr 04/24/24 09:12 04/24/24 09:30 Temperature 98.3 F Pulse Rate [Pulse Oximeter] 91 84 Respiratory Rate 18 14 Blood Pressure [Ri ght Upper Arm] 187/79 H 148/82 H Pulse Oximetry 98 98 Oxygen Delivery Me thod Room Air Room Air Documenting provider has reviewed patient's vital signs: yes Hospitalist - H&P: Result Labs Labs: Short CBC 04/24/24 Range/Units 09:35 WBC 8.55 (4.50-11.00) K/uL Hgb 9.0 L (12.0-16.0) gm/dL Hct 27.9 L (33.0-51.0) % Plt Count 253 (140-440) K/uL BMP 04/24/24 09:35 Sodium 130 L Potassium 3.7 Chloride 94 L Carbon Dioxide 31 BUN 19 Creatinine 0.6 Glucose 116 H Calcium 8.6 Liver Function 04/24/24 Range/Units 09:35 Total Bilirubin 0.6 (0.1-1.5) mg/dL AST 40 H (12-35) U/L ALT 20 (4-35) U/L Alkaline Phosphatase 75 (40-150) U/L Albumin 3.8 (3.3-5.0) g/dL Imaging CT scan - chest: Radiologist's impression: Indication: COUGH, SOB, HX BREAST CANCER Technique: CT Chest Angio PE PROTOCOL W/95CC ISOVUE 370 Please note that all CT scans at this facility use dose modulation, iterative reconstruction, and/or weight-based dosing when appropriate to reduce radiation dose to as low as reasonably achievable. Comparison: 01/20/2024, 01/12/2024 Findings: In the chest, stable morphology and size of low-density right thyroid lobe nodule. No pulmonary embolism is present. Prominent right hilar lymph node is present measuring 1.2 cm. Soft tissue density within several of the right lower lobe bronchi noted along with patchy consolidative densities within the right lower lobe. Mild scarring present elsewhere. No pneumothorax or pleural effusion. Degenerative changes are present in both shoulders. Mildly displaced fractures of the left lower ribcage, some of which are new since the prior study. Multilevel degenerative changes. Similar mild compression deformity midthoracic spine. Impression: No pulmonary embolism in the main, lobar or segmental pulmonary arteries. Interval development patchy consolidative densities within the right lower lobe with associated soft tissue densities in the right lower lobe airways most consistent with mucous plugging with associated infiltrates. Mildly prominent right hilar lymph node, probably reactive. Left-sided rib fractures, some of which are old and some of which are new, including new fractures of the left 12th, 11th and 10th ribs. Assessment and Plan Assessment and plan (1) Pneumonia: Problem comment: Right lower lobe. Treat with ceftriaxone and azithromycin as community-acquired pneumonia. Per patient symptoms may have begun before she was hospitalized for knee arthroplasty Status: Acute (2) S/P total knee arthroplasty: Problem comment: 04/20/24, Dr. Macario. Continue therapy and pain medication. No obvious operative complications Status: Acute (3) Chronic hyponatremia: Problem comment: Patient chronically has hyponatremia around 130. Continue to monitor. Chronically on sodium chloride tablets Status: Acute (4) Fracture of rib: Problem comment: Radiographically rib fractures possibly new but clinically with no pain or tenderness suggest a may be old Status: Acute Plan Patient is admitted to the hospital for IV antibiotics management of pain and assessment of recovery from surgery for disposition planning. Total Time Spent Total Time Spent: Total time spent today is 60 minutes in coordination of care and discussing with patient other providers management of postoperative care, pneumonia and rehab
[2024-04-24] MEDS: AZITHROMYCIN 250 MG TABLET 500 MG PO (14:01)
[2024-04-24] MEDS: ASPIRIN 81 MG TAB.CHEW PO ×2 (14:02→20:48)
[2024-04-24] MEDS: cefTRIAXone 1 GM in 0.9 % SODIUM CHLORIDE Mini-bag 100 ML IVPB (14:03)
[2024-04-24 15:00] VITALS: BP 133/67; PULSE 76; RESP 16; TEMP 36.9; O2SAT 96
[2024-04-24] MEDS: SODIUM CHLORIDE 1 GM TABLET PO (17:48)
[2024-04-24 19:00] VITALS: BP 197/98; PULSE 94; RESP 18; TEMP 36.5; O2SAT 95
[2024-04-24] MEDS: CALCIUM CARBONATE 500 MG TABLET PO (20:47)
[2024-04-24] MEDS: carvediloL 6.25 MG TABLET 12.5 MG PO (20:48)
[2024-04-24] MEDS: MIRTAZAPINE 15 MG TABLET 7.5 MG PO (20:48)
[2024-04-24] MEDS: ACETAMINOPHEN 325 MG TABLET 650 MG PO (20:48)
[2024-04-24] MEDS: SODIUM CHLORIDE 0.9 % (FLUSH) 10 ML SYRINGE 5 ML IVF (20:49)
[2024-04-24 23:00] VITALS: BP 173/80; PULSE 78; PULSE 94; RESP 16; RESP 18; TEMP 36.7; O2SAT 94
[2024-04-24] MEDS: OXYCODONE 5 MG TABLET PO (23:22)
[2024-04-25 03:00] VITALS: BP 186/85; PULSE 70; RESP 20; TEMP 36.8; O2SAT 95
--- NOTE | 2024-04-25 07:03 | PC.NURSE ---
End of shift report [id number]: Alert and oriented x 4. Pain to right knee well managed with current regimen. Denies any chest pain or dyspnea. Intermittent dry cough reported. Registered Dietetic Technician assisted patient with replacing urostomy bag. Bag to straight drainage into weston bag throughout the night, patient had clear, pale yellow urine. Ambulates and transfers with SBA with walker. Lung sounds clear but diminished in bases. Afebrile throughout the night and able to maintain O2 sats >92% on room air.
[2024-04-25 09:00] VITALS: BP 189/79; PULSE 90; RESP 20; TEMP 36.4; O2SAT 95
[2024-04-25] MEDS: lisinopriL 20 MG TABLET 40 MG PO (10:04)
[2024-04-25] MEDS: AMLODIPINE 5 MG TABLET 2.5 MG PO (10:04)
[2024-04-25] MEDS: ACETAMINOPHEN 325 MG TABLET 650 MG PO ×3 (10:04→21:04)
[2024-04-25] MEDS: CALCIUM CARBONATE 500 MG TABLET PO ×2 (10:04→21:05)
[2024-04-25] MEDS: SODIUM CHLORIDE 1 GM TABLET PO ×3 (10:04→17:51)
[2024-04-25] MEDS: MULTIVITAMIN/MINERALS 1 TABLET 1 TAB PO (10:04)
[2024-04-25] MEDS: ASCORBIC ACID 500 MG TABLET 1000 MG PO (10:05)
[2024-04-25] MEDS: ASPIRIN 81 MG TAB.CHEW PO ×2 (10:05→21:04)
[2024-04-25] MEDS: TORSEMIDE 5 MG TABLET 10 MG PO (10:05)
[2024-04-25] MEDS: carvediloL 6.25 MG TABLET 12.5 MG PO ×2 (10:05→21:04)
[2024-04-25] MEDS: SODIUM CHLORIDE 0.9 % (FLUSH) 10 ML SYRINGE 5 ML IVF ×2 (10:06→21:08)
[2024-04-25 11:00] VITALS: BP 167/76; PULSE 89; RESP 20; TEMP 36.7; O2SAT 98
[2024-04-25] MEDS: cefTRIAXone 1 GM in 0.9 % SODIUM CHLORIDE Mini-bag 100 ML IVPB (13:46)
[2024-04-25] MEDS: AZITHROMYCIN 250 MG TABLET 500 MG PO (13:46)
--- NOTE | 2024-04-25 14:55 | P.IMPN_ITS ---
Progress Note: A&P Assessment and plan (1) Pneumonia: Problem details: Right lower lobe. Treat with ceftriaxone and azithromycin as community-acquired pneumonia. Patient symptoms may have begun before she was hospitalized for knee arthroplasty Status: Acute (2) S/P total knee arthroplasty: Problem details: 04/20/24, Dr. Macario. Continue therapy and pain medication. No obvious operative complications Status: Acute (3) Chronic hyponatremia: Problem details: Patient chronically has hyponatremia around 130. Continue to monitor. Chronically on sodium chloride tablets Status: Acute (4) Fracture of rib: Problem details: Radiographically rib fractures possibly new but clinically with no pain or tenderness suggest a may be old Status: Acute (5) Unspecified arthropathy, shoulder region: Problem details: Bilateral shoulders with fairly severe synovitis with decreased range of motion Status: Acute Plan Continue in hospital for treatment of pneumonia and therapy. Possible discharge to [facility] facility for more therapy verses discharge to home tomorrow Time Spent With Patient Total time spent: Total time spent today is 40 minutes in evaluation management and discussing with patient her other providers ongoing plan of care for pneumonia and rehab for her knee surgery Subjective Date Seen: 04/25/24 Interval history: Claudia Benitez is a 83 year old female status post right knee arthroplasty 4 days ago presents with a 4 day history of worsening cough. Patient reports she had right total knee arthroplasty done at this hospital 4 days ago. She thinks that she may have had a slight cough prior to her surgery. She was not otherwise significantly symptomatic over the next day or 2 before discharge. After she got home her cough got gradually worse. In the last day it is gotten quite severe and because that she came to the emergency room. She is not aware of a fever or chills. She is not dyspneic. She has not had upper respiratory symptoms. She does not have chest pain. No previous history of chronic lung disease, thromboembolism, heart disease. She reports she has been struggling at home with her current illness as well as recovering from her knee surgery. She still having knee pain but has been able to wean off opioids. 04/25/2024: Reports generally doing well. Still having a significant cough. Not requiring oxygen. Did require oxycodone last night because her knee pain was keeping her awake. Otherwise has been managing. She has been up walking with therapy and a walker quite successfully. Exam Narrative: Exam Narrative: She is alert and appears in no distress. Breathing is unlabored. She is on room air. Respirations are clear to auscultation. Cardiovascular: S1, S2, regular rate and rhythm. Abdomen is soft without tenderness or mass. Right lower extremity as moderate amount of bruising consistent with recent knee surgery. Const: Vital Signs, click to edit/add: Vital Signs - 24 hr 04/24/24 15:00 04/24/24 19:00 04/24/24 23:00 Temperature 98.5 F 97.7 F Pulse Rate [Apical ] 76 94 94 Respiratory Rate 16 18 18 Blood Pressure [Le ft Arm] 133/67 197/98 H Pulse Oximetry 96 95 Oxygen Delivery Me thod Room Air Room Air 04/24/24 23:00 04/25/24 03:00 04/25/24 09:00 Temperature 98.0 F 98.2 F Pulse Rate [Apical ] 78 70 90 Respiratory Rate 16 20 20 Blood Pressure [Le ft Arm] 173/80 H 186/85 H Pulse Oximetry 94 95 Oxygen Delivery Me thod Room Air Room Air 04/25/24 09:00 04/25/24 11:00 Temperature 97.6 F 98.0 F Pulse Rate [Apical ] 90 89 Respiratory Rate 20 20 Blood Pressure [Le ft Arm] 189/79 H 167/76 H Pulse Oximetry 95 98 Oxygen Delivery Me thod Room Air Room Air Documenting provider has reviewed patient's vital signs: yes
[2024-04-25 15:00] VITALS: BP 160/69; PULSE 81; RESP 18; RESP 20; TEMP 36.1; O2SAT 97
--- NOTE | 2024-04-25 18:53 | PC.NURSE ---
End of shift [id number]: Pt has been A&O, afebrile and VSS this shift. Urostomy C/D/I and draining into Stuart bag- urine is clear & yellow. Pt denies pain overall but when asked about her right knee pain, she rates it at 6-7/10. PRN Tylenol given @ 1615 after her walk this afternoon. She is Ax1 with walker & gait belt. RLE is swollen & ecchymosis from surgery on 04/20 with the surgical dressing being C/D/I. PIV in right AC is SL and C/D/I. ?
[2024-04-25 19:00] VITALS: BP 157/72; PULSE 91; RESP 20; TEMP 36.2; O2SAT 96
[2024-04-25] MEDS: MIRTAZAPINE 15 MG TABLET 7.5 MG PO (21:04)
[2024-04-25 23:00] VITALS: PULSE 81; PULSE 91; RESP 18; RESP 20
[2024-04-26 03:00] VITALS: BP 167/78; PULSE 73; RESP 18; TEMP 35.8; O2SAT 96
--- NOTE | 2024-04-26 05:40 | PC.NURSE ---
End of shift report [id number]: Pleasant and cooperative with cares. Pain to right knee well managed with current regimen. Denies any shortness of breath or chest pain. Lung sounds clear, diminished in bases. O2 sats maintained >94% on room air. Urostomy pouch to RUQ drained to weston bag, urine clear and pale yellow in appearance. Ambulates with SBA with walker, ambulated x [address]
[2024-04-26 07:59] VITALS: BP 164/79; PULSE 84; RESP 18; TEMP 36; O2SAT 96
--- NOTE | 2024-04-26 09:23 | P.DS_ITS ---
DS: Providers Provider Date Seen: 04/26/24 Date of admission: 04/24/24 12:38 Primary care physician: Scout Allan MD Admitting Clinician: Salvador Tony MD Attending Physician on discharge: Salvador Tony MD Date of Discharge: 04/26/24 DS: Diagnosis Discharge Diagnosis (1) Discharge planning issues: Status: Acute Problem details: Patient is feeling a need for more assistance in the home. Will review options with psychiatric social worker supervisor. (2) Fracture of rib: Status: Acute Problem details: CT scan of the chest on admission suggested possibly new rib fractures but clinically patient is having no pain or tenderness suggesting these are likely old rib fractures. (3) Pneumonia: Status: Acute Problem details: Right lower lobe. Treat with ceftriaxone 1 g IV for 3 days and azithromycin 500 mg orally for 3 days as community-acquired pneumonia. Patient symptoms may have begun before she was hospitalized for knee arthroplasty. Has not required supplemental oxygen and is clinically improving (4) S/P total knee arthroplasty: Status: Acute Problem details: 04/20/24, Dr. Macario. Patient is doing well with physical therapy. Knee pain is well controlled. There were no apparent complications. (5) Unspecified arthropathy, shoulder region: Status: Acute Problem details: Bilateral shoulders with fairly severe synovitis with decreased range of motion DS: Summary Hospital Course Hospital Course: 83-year-old female admitted to the hospital for for worsening cough since knee arthroplasty performed 4 days prior to admission. She reports that the cough began prior to admission for knee arthroplasty but gradually got worse following surgery. On admission to the hospital she was found to have a right basilar pneumonia. She has not been hypoxic. At the time of admission CT scan of the chest showed no pulmonary embolism but did show possible rib fractures on the left. She had no pain or tenderness and these were clinically thought to be old rib fractures. She is admitted the hospital in treated with ceftriaxone and azithromycin. She received physical therapy. In therapy she was felt to be doing fairly well with mobility following her knee surgery. Daily discussions about need for more assistance in the home or possible assisted facility or assisted living facility was discussed as well. Patient elects to go home. Time Spent with Patient Time attestation: Total time spent providing and/or coordinating discharge services: 40 minutes Exam Narrative: Exam Narrative: She is alert and appears in no distress. She is observed to do therapy. She is walking well with a walker. Respirations are unlabored. Moderate bruising over her right lower extremity consistent with her status post knee arthroplasty day 6. Const: Vital Signs, click to edit/add: Vital Signs - 24 hr 04/25/24 11:00 04/25/24 15:00 04/25/24 15:00 Temperature 98.0 F 97 F L Pulse Rate [Apical ] 89 81 81 Pulse Rate [Pulse Oximeter] Respiratory Rate 20 20 18 Blood Pressure [Le ft Arm] 167/76 H 160/69 H Pulse Oximetry 98 97 Oxygen Delivery Me thod Room Air Room Air 04/25/24 19:00 04/25/24 23:00 04/25/24 23:00 Temperature 97.1 F L Pulse Rate [Apical ] 81 Pulse Rate [Pulse Oximeter] 91 91 Respiratory Rate 20 20 18 Blood Pressure [Le ft Arm] 157/72 H Pulse Oximetry 96 Oxygen Delivery Me thod Room Air 04/26/24 03:00 04/26/24 07:59 Temperature 96.4 F L 96.8 F L Pulse Rate [Apical ] Pulse Rate [Pulse Oximeter] 73 84 Respiratory Rate 18 18 Blood Pressure [Le ft Arm] 167/78 H 164/79 H Pulse Oximetry 96 96 Oxygen Delivery Me thod Room Air Room Air Documenting provider has reviewed patient's vital signs: yes DS: Data Data Completed and Pending Labs on day of discharge: Labs from last 24 hours 04/26/24 08:35 Stl C. diff Tox B Gene Pending Stl C. diff [id number] Pending Preliminary micro results at discharge 04/24/24 12:10 Blood Culture - Preliminary Blood NO GROWTH AFTER [address] scan - chest: Radiologist's impression: Indication: COUGH, SOB, HX BREAST CANCER Technique: CT Chest Angio PE PROTOCOL W/95CC ISOVUE 370 Please note that all CT scans at this facility use dose modulation, iterative reconstruction, and/or weight-based dosing when appropriate to reduce radiation dose to as low as reasonably achievable. Comparison: 01/20/2024, 01/12/2024 Findings: In the chest, stable morphology and size of low-density right thyroid lobe nodule. No pulmonary embolism is present. Prominent right hilar lymph node is present measuring 1.2 cm. Soft tissue density within several of the right lower lobe bronchi noted along with patchy consolidative densities within the right lower lobe. Mild scarring present elsewhere. No pneumothorax or pleural effusion. Degenerative changes are present in both shoulders. Mildly displaced fractures of the left lower ribcage, some of which are new since the prior study. Multilevel degenerative changes. Similar mild compression deformity midthoracic spine. Impression: No pulmonary embolism in the main, lobar or segmental pulmonary arteries. Interval development patchy consolidative densities within the right lower lobe with associated soft tissue densities in the right lower lobe airways most consistent with mucous plugging with associated infiltrates. Mildly prominent right hilar lymph node, probably reactive. Left-sided rib fractures, some of which are old and some of which are new, including new fractures of the left 12th, 11th and 10th ribs. Discharge Plan Discharge Disposition: Home, Self-Care Date of Admission: 04/24/24 12:38 Attending Provider on Discharge: Salvador Tony Primary Care Provider: Scout Allan Condition: Improved Anticipated Discharge Date/Time: 04/26/24 09:17 Discharge Medications: Continued torsemide 10 mg tablet 10 mg PO DAILY latanoprost 0.005 % drops 1 drp ophthalmic (eye) HS Patient Comments: left eye alendronate 70 mg tablet 70 mg PO QWEEK Patient Comments: friday lisinopril 40 mg tablet 40 mg PO DAILY amlodipine 2.5 mg tablet 2.5 mg PO DAILY mirtazapine 7.5 mg tablet 7.5 mg PO HS calcium carbonate [Oyster Shell Calcium] 500 mg calcium (1,250 mg) tablet 500 mg PO BID ascorbic acid (vitamin C) [Vitamin C] 1,000 mg tablet 1 g PO DAILY triamcinolone acetonide 0.1 % cream 1 applic topical BID PRN acetaminophen 500 mg tablet 1,000 mg PO TID multivitamin [Daily Multi-Vitamin] Tablet 1 tab PO DAILY cholecalciferol (vitamin D3) 25 mcg (1,000 unit) capsule 25 mcg PO DAILY carvedilol 12.5 mg tablet 12.5 mg PO BID sennosides [Senna Lax] 8.6 mg Tablet 17.2 mg PO BID PRN (Reason: constipation) Qty: 100 0RF aspirin [Aspirin Childrens] 81 mg tablet,chewable 81 mg PO BID 30 Days Qty: 60 0RF oxycodone 5 mg Tablet 2.5 - 5 mg PO Q4-6H MDD 6 tabs per day PRN (Reason: Pain) Qty: 42 0RF Rx Instructions: Minimize. Discontinue as soon as possible sodium chloride 1,000 mg Tablet,Soluble 1,000 mg PO BIDWM Discharge Orders: Discharge Order (Routine); Ordered 04/26/24 Ordered By: Salvador Tony Activity Level: Use Walker and Other Discharge Diet: Regular and Other Follow Up Appointments: Scout Allan MD [Primary Care Provider] - 04/30/24 11:20 am ([facility] for recheck pneumonia and reassess need for assistance.) Forms: [employer] Info Instructions
[2024-04-26 09:26] LABS: C.Difficile Negative (Negative); CDIFFEPI 027 PRESUMPTIVE NEGATIVE (Negative)
[2024-04-26] MEDS: AZITHROMYCIN 250 MG TABLET 500 MG PO (10:16)
[2024-04-26] MEDS: carvediloL 6.25 MG TABLET 12.5 MG PO (10:17)
[2024-04-26] MEDS: lisinopriL 20 MG TABLET 40 MG PO (10:20)
[2024-04-26] MEDS: TORSEMIDE 5 MG TABLET 10 MG PO (10:21)
[2024-04-26] MEDS: SODIUM CHLORIDE 1 GM TABLET PO (10:22)
[2024-04-26] MEDS: AMLODIPINE 5 MG TABLET 2.5 MG PO (10:22)
[2024-04-26] MEDS: cefTRIAXone 1 GM in 0.9 % SODIUM CHLORIDE Mini-bag 100 ML IVPB (10:23)
[2024-04-26] MEDS: ASPIRIN 81 MG TAB.CHEW PO (10:23)
[2024-04-26] MEDS: SODIUM CHLORIDE 0.9 % (FLUSH) 10 ML SYRINGE 5 ML IVF (10:24)
--- NOTE | 2024-04-26 12:04 | PC.SOCIAL ---
Discharge planning: home economics extension worker met with pt and her today in pt's hospital room. Pt reported over the weekend that she wanted a social secretary to meet with her before she discharged from the hospital. Pt stated that she has [id number] set-up through [facility] and they will be starting today. Pt and her live at [facility]. home economics extension worker offered pt a list of [facility] [employer] [facility] agencies. Pt stated that she already has someone hired and they will be coming to her apartment today after she returns home from the hospital; however, pt stated she may continue to look for additional [facility] [employer] Care agencies if the lady she has helping today does not work out. home economics extension worker also offered to put in a referral to [employer] [facility] for the pt, but she did not want this worker to do that and said that she would call [employer] [facility] on her own. Pt is aware of how to get a hold of the social work department if she has further questions after she returns home. Social work to follow-up as needed.
--- NOTE | 2024-04-26 13:15 | PC.NURSE ---
shift note: vss stable.pt afeb. IV dc'd intact RT FA. Instructed pt on IS. Reviewed dc instructions and copies sent with pt. Belongings reviewed and sent with pt at dc.
== END 2024-04-26 12:30 | disposition home or self-care (01) ==
LOC: ED 11:56 → MEDSURG 12:38
PROVIDERS: Admitting Provider Family Medicine; Emergency Provider Internal Medicine; PCP Family Medicine; Visit Provider Family Medicine
DX: J18.9 Pneumonia, unspecified organism (principal); S22.32XA Fracture of one rib, left side, initial encounter for closed fracture; Z75.8 Other problems related to medical facilities and other health care; M25.561 Pain in right knee; M65.812 Other synovitis and tenosynovitis, left shoulder; M65.811 Other synovitis and tenosynovitis, right shoulder; E87.1 Hypo-osmolality and hyponatremia; Z74.09 Other reduced mobility; M81.0 Age-related osteoporosis without current pathological fracture; F41.9 Anxiety disorder, unspecified; G47.33 Obstructive sleep apnea (adult) (pediatric); G47.00 Insomnia, unspecified; R53.83 Other fatigue; R60.9 Edema, unspecified; I10 Essential (primary) hypertension; M19.012 Primary osteoarthritis, left shoulder; M19.011 Primary osteoarthritis, right shoulder; Z79.82 Long term (current) use of aspirin; Z85.3 Personal history of malignant neoplasm of breast; Z96.651 Presence of right artificial knee joint; Z96.641 Presence of right artificial hip joint; Z90.13 Acquired absence of bilateral breasts and nipples; Z98.49 Cataract extraction status, unspecified eye; Z90.710 Acquired absence of both cervix and uterus; Z98.890 Other specified postprocedural states
CPT/HCPCS: 36415; 71275; 80053; 85025; 87040; 87493; 87631; 93005; 96365; 96366; 97110; 97116; 97161; 97165; 97530; 97535; 99283; 99285; A9153; A9270; G0378; J0696; Q9967

== ENCOUNTER 2024-06-03 14:30 | Outpatient (RCR) | payer MEDICARE, OTHER, SELFPAY ==
--- NOTE | 2024-04-13 17:44 | PT.OPEX ---
PT [place] Outpatient Eval PT [facility] Outpatient Eval Start: 04/13/24 09:31 Freq: Status: Active Protocol: Document 04/13/24 16:17 REYNA (Rec: 04/13/24 17:41 REYNA [id number]) E-signed By Gary Mcknight PT Physical Therapy Outpatient Evaluation Insurance Information Insurance Name [facility],Medicare B Medical Diagnosis Right knee OA Pre-op TKA Treating Diagnosis Right knee pain Decreased right knee ROM quad weakness Referring MD Macario Subjective Subjective Pt. reports having progressive right knee pain and dysfunction with increased valgus from worsening OA changes. She has been having a lot of difficulty walking and getting around as of late due to her knee pain, stiffness, instability and weakness. She lives with her at [facility] apartments. There is an elevator to their floor with everything on one level in apt. She has a walk in shower with grab bars and a bench, but she doesn't have a raised toilet seat or an external frame. PMH includes bladder and breast CA, shoulder/hand OA, rotator cuff tear, and knee OA. Pain Comments 10 Date of Surgery (If applicable) 04/20/24 Current Work Status Retired Objective Other/Pertinent Objective Posture: significant right knee valgus deformity ROM: 5-115 deg right knee ROM Strength; 3/5 right quad; 4/5 right hamstring and gluteals Gait: ambulation without assistive device with antalgic pattern and excessive valgus deformity with mod/high pain level noted. UE's: AROM WFL with limited mobility and cuff/scapular weakness Assessment Assessment/Impression Objectively, pt. demonstrates; significant right knee valgus with instability and high level pain during gait; 5-115 deg of right knee ROM; significant nava's cyst posterior right knee; moderate joint effusion right knee; right quad weakness; and core deconditioning. She would benefit from appropriate pre- op TKA exercise program leading to surgery with post- op therapy following surgery. Primary Functional Limitations walking, squatting, transfers Plan of Care Rehabilitation Potential Excellent Physical Therapy Goals 1. Pt. will be indep. with HEP for self maintenance in 8 weeks. 2. Pt. will be able to walk without assistive device with good stability in 8 weeks. 3. Pt. will demonstrate improved quad strength in 8 weeks. 4. Pt. will demonstrate functional knee AROM to allow regular ADL's in 8 weeks. Coordination/Communication With Referral Source Treatment Plan/Direct Interventions Joint Mobilization,Manual Therapy,Neuromuscular Re-ed, Self-Care/Home Management, Therapeutic Exercises Frequency/Duration Re-eval after surgery, then 2x /week for 8 weeks. Patient Will Be Discharged From Therapy Independent w/HEP, Independently Progressing Evaluation Billing Complexity Low Certification Information Initial Certification Date 04/13/24 Ending Certification Date 07/12/24 Provider Signature Required Yes Provider Signature Shows Agreement With POC & Medical Necessity Physician NPI Number Write NPI# Here Physician Comment/Change : Physician Signature & Date Requested Please Sign/Date Here
--- NOTE | 2024-04-27 11:38 | REH.OT ---
OT: Order for home safety assessment had been obtained for patient prior to discharge on 04/26/24 and patient in agreement at that time, it was scheduled for 04/28/24 at 1pm. This OT contacted the patient by phone today and she is declining to participate in OT assessment. She reports she and spouse have no concerns now that she is home and despite explaining rationale for home safety and cognitive assessments, the patient continues to decline. She agreed to call to reschedule this month and talk to PCP if she reconsiders.
== END 2024-10-01 23:59 | disposition home or self-care (01) ==
PROVIDERS: PCP Family Medicine; Visit Provider Orthopaedic Surgery
DX: M17.11 Unilateral primary osteoarthritis, right knee (principal); Z96.651 Presence of right artificial knee joint; M25.561 Pain in right knee; Z74.09 Other reduced mobility; R53.1 Weakness; Z51.89 Encounter for other specified aftercare
CPT/HCPCS: 97110; 97116; 97140; 97161; 97164

== ENCOUNTER 2024-06-17 20:45 | Day surgery (SDC) | payer MEDICARE, OTHER, SELFPAY ==
[2024-06-17 20:58] VITALS: BP 189/88; PULSE 88; RESP 18; TEMP 36.8; O2SAT 96
--- NOTE | 2024-06-17 21:45 | ED_ITS ---
HPI - Fall General Date Seen: 06/17/24 Chief Complaint: Fall/Minor Trauma Stated Complaint: scar on knee reopened Time Seen by Provider: 06/17/24 20:58 Source: patient Mode of arrival: ambulatory Limitations: no limitations History of Present Illness HPI Narrative: Patient is an 83-year-old female presenting to the emergency department after her surgical site open up. She had knee replacement surgery on 04/20/2024. States she tripped and fell and the area broke open. Denies any knee pain. Has not noticed any bleeding. No other concerns noted Related Data Home Medications ?Medication ?Instructions ?Recorded ?Confirmed alendronate 70 mg tablet 70 mg PO QWEEK 07/25/22 06/02/24 latanoprost 0.005 % eye drops 1 drp ophthalmic (eye) HS 07/25/22 06/02/24 lisinopril 40 mg tablet 40 mg PO DAILY 07/25/22 06/02/24 carvedilol 12.5 mg tablet 12.5 mg PO BID 09/25/23 06/02/24 acetaminophen 500 mg tablet 1,000 mg PO TID 09/26/23 06/02/24 amlodipine 2.5 mg tablet 2.5 mg PO DAILY 09/26/23 06/02/24 ascorbic acid (vitamin C) 1,000 mg 1 g PO DAILY 09/26/23 06/02/24 tablet (Vitamin C) calcium carbonate (Oyster Shell 500 mg PO BID 09/26/23 06/02/24 Calcium) cholecalciferol (vitamin D3) 25 25 mcg PO DAILY 09/26/23 06/02/24 mcg (1,000 unit) capsule mirtazapine 7.5 mg tablet 7.5 mg PO HS 09/26/23 06/02/24 multivitamin (Daily Multi-Vitamin 1 tab PO DAILY 09/26/23 06/02/24 tablet) triamcinolone acetonide 0.1 % 1 applic topical BID PRN 09/26/23 06/02/24 topical cream torsemide 10 mg tablet 10 mg PO DAILY 03/03/24 06/02/24 sodium chloride 1,000 mg soluble 1,000 mg PO BIDWM 04/26/24 06/02/24 tablet Allergies Allergy/AdvReac Type Severity Reaction Status Date / Time nifedipine Allergy Verified 04/28/24 10:16 simvastatin Allergy Target Verified 04/28/24 10:16 lesions arms/trunk amlodipine AdvReac Severe edema Verified 06/02/24 14:00 chlorthalidone AdvReac hyponatremi Verified 06/02/24 14:00 a hydrochlorothiazide AdvReac hyponatremi Verified 06/02/24 14:00 a Review of Systems Narrative: Pertinent systems reviewed and were negative unless stated in HPI PFSH PFS Medical History Aortic valve regurgitation (03/08/08) ?I35.1 - Nonrheumatic aortic (valve) insufficiency (ICD-10) Osteoarthritis, knee (05/20/11) ?M17.9 - Osteoarthritis of knee, unspecified (ICD-10) Multiple thyroid nodules (08/07/16) ?E04.2 - Nontoxic multinodular goiter (ICD-10) Multinodular goiter (08/07/16) ?E04.2 - Nontoxic multinodular goiter (ICD-10) Mitral valve disorder (06/30/03) ?I05.9 - Rheumatic mitral valve disease, unspecified (ICD-10) Lumbar disc herniation (08/16/15) ?M51.26 - Other intervertebral disc displacement, lumbar region (ICD-10) Ileostomy in place (11/02/19) ?Z93.2 - Ileostomy status (ICD-10) Hypo-osmolality and hyponatremia (11/11/22) ?E87.1 - Hypo-osmolality and hyponatremia (ICD-10) History of bladder cancer (09/19/23) ?Z85.51 - Personal history of malignant neoplasm of bladder (ICD-10) Chronic eczema (10/30/18) ?L30.9 - Dermatitis, unspecified (ICD-10) Bilateral lower extremity edema (12/05/23) ?R60.0 - Localized edema (ICD-10) ACP (advance care planning) (05/20/11) ?Z71.89 - Other specified counseling (ICD-10) Fracture of rib ?S22.39XA - Fracture of one rib, unspecified side, initial encounter for closed fracture (ICD-10) Discharge planning issues ?Z75.8 - Other problems related to medical facilities and other health care (ICD-10) Unspecified arthropathy, shoulder region ?M19.019 - Primary osteoarthritis, unspecified shoulder (ICD-10) Chronic hyponatremia ?E87.1 - Hypo-osmolality and hyponatremia (ICD-10) Hx of breast cancer ?Z85.3 - Personal history of malignant neoplasm of breast (ICD-10) COVID-19 ?U07.1 - COVID-19 (ICD-10) Hyponatremia ?E87.1 - Hypo-osmolality and hyponatremia (ICD-10) Osteoarthritis of left shoulder ?M19.012 - Primary osteoarthritis, left shoulder (ICD-10) Rotator cuff tear, right ?M75.101 - Unspecified rotator cuff tear or rupture of right shoulder, not specified as traumatic (ICD-10) Osteoarthritis of right shoulder ?M19.011 - Primary osteoarthritis, right shoulder (ICD-10) Rupture of right biceps tendon ?S46.211A - Strain of muscle, fascia and tendon of other parts of biceps, rig ht arm, initial encounter (ICD-10) Acute UTI ?N39.0 - Urinary tract infection, site not specified (ICD-10) Bladder cancer ?C67.9 - Malignant neoplasm of bladder, unspecified (ICD-10) Rotator cuff tear, left ?M75.102 - Unspecified rotator cuff tear or rupture of left shoulder, not specified as traumatic (ICD-10) Edema ?R60.9 - Edema, unspecified (ICD-10) Polydipsia ?R63.1 - Polydipsia (ICD-10) Dizziness ?R42 - Dizziness and giddiness (ICD-10) Anxiety ?F41.9 - Anxiety disorder, unspecified (ICD-10) Breast cancer, BRCA1 positive ?C50.919 - Malignant neoplasm of unspecified site of unspecified female breast (ICD-10) ?Z15.01 - Genetic susceptibility to malignant neoplasm of breast (ICD-10) Daytime sleepiness ?R40.0 - Somnolence (ICD-10) Insomnia ?G47.00 - Insomnia, unspecified (ICD-10) Fatigue ?R53.83 - Other fatigue (ICD-10) Myalgia ?M79.10 - Myalgia, unspecified site (ICD-10) Weakness generalized ?R53.1 - Weakness (ICD-10) Hypertension ?I10 - Essential (primary) hypertension (ICD-10) Aortic insufficiency ?I35.1 - Nonrheumatic aortic (valve) insufficiency (ICD-10) Osteoarthritis ?M19.90 - Unspecified osteoarthritis, unspecified site (ICD-10) Anemia ?D64.9 - Anemia, unspecified (ICD-10) Back pain ?M54.9 - Dorsalgia, unspecified (ICD-10) Eczema ?L30.9 - Dermatitis, unspecified (ICD-10) SHERIF (obstructive sleep apnea) ?G47.33 - Obstructive sleep apnea (adult) (pediatric) (ICD-10) Ventricular tachycardia ?I47.20 - Ventricular tachycardia, unspecified (ICD-10) Osteoporosis ?M81.0 - Age-related osteoporosis without current pathological fracture (ICD- 10) Peripheral neuropathy ?G62.9 - Polyneuropathy, unspecified (ICD-10) Surgical History 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) ?Z96.651 - Presence of right artificial knee joint (ICD-10) 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/19) ?Z96.641 - Presence of right artificial hip joint (ICD-10) History of bilateral mastectomy ?Z90.13 - Acquired absence of bilateral breasts and nipples (ICD-10) History of cataract surgery ?Z98.49 - Cataract extraction status, unspecified eye (ICD-10) History of hysterectomy ?Z90.710 - Acquired absence of both cervix and uterus (ICD-10) H/O ileostomy ?Z98.890 - Other specified postprocedural states (ICD-10) Family History Mother Ovarian cancer High blood pressure Sister Ovarian cancer High blood pressure Father Heart disease High blood pressure Social History Narrative: She is and here with her . They live independently. They see Dr. Allan for primary care. She does not smoke. She does not drink alcohol. She has had her COVID vaccines. Code status is full. is healthcare power of contract attorney. What is your current living situation?: I presently have a place to live Problems where you live: no known problems Problems where you live details: N/A In the past 12 months, utilities in danger of being shut off: no In past 12 months, lack of transportation kept you from medical appts, meetings, work, or getting things needed for daily living: no In the past 12 mos, have been you worried that your food would run out before you had money to buy more?: never true In the past 12 mos, the food you bought just didn't last and you didn't have money to buy more?: never true Highest level of school completed/degree received: Bachelor's degree Smoking Status: Never smoker Do you use any of these nicotine containing products: None Second hand tobacco smoke exposure: No How often do you have a drink containing alcohol: never How often do you have six or more drinks on one occasion: Never AUDIT-C Alcohol total score: 0 Non-prescribed substance use: denies use Caffeine: Yes How often does anyone, including family, friends and others, physically hurt you : never How often does anyone, including family, friends and others, insult or talk down to you: never How often does anyone, including family, friends and others, threaten you with harm: never How often does anyone, including family, friends and others, scream or curse at you: never service: No Exam Narrative: Exam Narrative: Const: Well-nourished, Well-developed, in mild distress Eyes: PERRL, no conjunctival injection, and symmetrical lids HENT: Atraumatic external nose and ears. Moist mucous membranes. MSK:Extremities w/o deformity, Normal Active ROM, surgical site incision open up. No bleeding. No signs of infection Skin: Warm, Dry. No rashes or lesions. Neuro: Normal Muscle tone, No focal neurological deficits. Psych: Awake, Alert, & Oriented x3. Appropriate mood and affect. Const: Vital Signs, click to edit/add: Vital Signs - 24 hr 06/17/24 20:58 Temperature 98.2 F Pulse Rate [Left P ulse Oximeter] 88 Respiratory Rate 18 Blood Pressure [Le ft Upper Arm] 189/88 H Pulse Oximetry 96 Oxygen Delivery Me thod Room Air Course Vital Signs Vital signs: Initial Vital Signs Temperature 98.2 F 06/17/24 20:58 Temperature Source Temporal Artery Scan 06/17/24 20:58 Pulse Rate 88 06/17/24 20:58 Pulse Rhythm Regular 06/17/24 20:58 Respiratory Rate 18 06/17/24 20:58 Blood Pressure 189/88 H 06/17/24 20:58 Blood Pressure Mean 121 H 06/17/24 20:58 Blood Pressure Position Sitting 06/17/24 20:58 Pulse Oximetry 96 06/17/24 20:58 Oxygen Delivery Method Room Air 06/17/24 20:58 Vital Signs Temperature 98.2 F 06/17/24 20:58 Pulse Rate 88 06/17/24 20:58 Respiratory Rate 18 06/17/24 20:58 Blood Pressure 189/88 H 06/17/24 20:58 Pulse Oximetry 96 06/17/24 20:58 Oxygen Delivery Method Room Air 06/17/24 20:58 Temperature 98.2 F 06/17/24 20:58 Pulse Rate 88 06/17/24 20:58 Respiratory Rate 18 06/17/24 20:58 Blood Pressure 189/88 H 06/17/24 20:58 Pulse Oximetry 96 06/17/24 20:58 Oxygen Delivery Method Room Air 06/17/24 20:58 MDM - Fall MDM Narrative Medical decision making narrative: Patient is an 83 a female presenting for opening up of her surgical site. I spoke to orthopedics who recommends admission for surgery tomorrow morning. Recommend cleaning out the wound and covering with bandages. Hospitalist will admit Discharge Plan Discharge Clinical Impression: Impaired skin integrity at surgical site Patient Disposition: Admitted As Observation Condition: Stable Prescriptions: No Action torsemide 10 mg tablet 10 mg PO DAILY latanoprost 0.005 % drops 1 drp ophthalmic (eye) HS Patient Comments: left eye alendronate 70 mg tablet 70 mg PO QWEEK Patient Comments: friday lisinopril 40 mg tablet 40 mg PO DAILY amlodipine 2.5 mg tablet 2.5 mg PO DAILY mirtazapine 7.5 mg tablet 7.5 mg PO HS calcium carbonate [Oyster Shell Calcium] 500 mg calcium (1,250 mg) tablet 500 mg PO BID ascorbic acid (vitamin C) [Vitamin C] 1,000 mg tablet 1 g PO DAILY triamcinolone acetonide 0.1 % cream 1 applic topical BID PRN acetaminophen 500 mg tablet 1,000 mg PO TID multivitamin [Daily Multi-Vitamin] Tablet 1 tab PO DAILY cholecalciferol (vitamin D3) 25 mcg (1,000 unit) capsule 25 mcg PO DAILY carvedilol 12.5 mg tablet 12.5 mg PO BID sodium chloride 1,000 mg Tablet,Soluble 1,000 mg PO BIDWM Follow Up/Referrals: Scout Allan MD [Primary Care Provider] -
--- NOTE | 2024-06-17 22:13 | P.IMHP_ITS ---
Hospitalist- H&P: HPI History of Present Illness Date Seen: 06/17/24 Chief complaint: scar on knee reopened Narrative: Claudia Benitez is a 83 year old female who presented to the emergency room this evening for a wound check. She had a mechanical fall this evening and fell onto her R knee, which was replaced here on 04/20/[address] Macario. The incision opened up (4-5cm), and she also has a small abrasion under her lip. No LOC or other injuries. XRay reassuring, Orthopedic Surgery consulted and requested admission for washout and closure tomorrow. No history of anesthetic or surgical complications in the past. Review of Systems Status of ROS: Reports: 10 or more systems reviewed and unremarkable except as noted in History and below [facility] Medical History (Updated 06/17/24 @ 23:09 by Jenna Cmapoverde MD) Aortic valve regurgitation (03/08/08) ?I35.1 - Nonrheumatic aortic (valve) insufficiency (ICD-10) Osteoarthritis, knee (05/20/11) ?M17.9 - Osteoarthritis of knee, unspecified (ICD-10) Multiple thyroid nodules (08/07/16) ?E04.2 - Nontoxic multinodular goiter (ICD-10) Multinodular goiter (08/07/16) ?E04.2 - Nontoxic multinodular goiter (ICD-10) Mitral valve disorder (06/30/03) ?I05.9 - Rheumatic mitral valve disease, unspecified (ICD-10) Lumbar disc herniation (08/16/15) ?M51.26 - Other intervertebral disc displacement, lumbar region (ICD-10) Ileostomy in place (11/02/19) ?Z93.2 - Ileostomy status (ICD-10) Hypo-osmolality and hyponatremia (11/11/22) ?E87.1 - Hypo-osmolality and hyponatremia (ICD-10) History of bladder cancer (09/19/23) ?Z85.51 - Personal history of malignant neoplasm of bladder (ICD-10) Chronic eczema (10/30/18) ?L30.9 - Dermatitis, unspecified (ICD-10) Bilateral lower extremity edema (12/05/23) ?R60.0 - Localized edema (ICD-10) ACP (advance care planning) (05/20/11) ?Z71.89 - Other specified counseling (ICD-10) Fracture of rib ?S22.39XA - Fracture of one rib, unspecified side, initial encounter for closed fracture (ICD-10) Unspecified arthropathy, shoulder region ?M19.019 - Primary osteoarthritis, unspecified shoulder (ICD-10) Chronic hyponatremia ?E87.1 - Hypo-osmolality and hyponatremia (ICD-10) Hx of breast cancer ?Z85.3 - Personal history of malignant neoplasm of breast (ICD-10) Hyponatremia ?E87.1 - Hypo-osmolality and hyponatremia (ICD-10) Osteoarthritis of left shoulder ?M19.012 - Primary osteoarthritis, left shoulder (ICD-10) Rotator cuff tear, right ?M75.101 - Unspecified rotator cuff tear or rupture of right shoulder, not specified as traumatic (ICD-10) Osteoarthritis of right shoulder ?M19.011 - Primary osteoarthritis, right shoulder (ICD-10) Rupture of right biceps tendon ?S46.211A - Strain of muscle, fascia and tendon of other parts of biceps, right arm, initial encounter (ICD-10) Bladder cancer ?C67.9 - Malignant neoplasm of bladder, unspecified (ICD-10) Rotator cuff tear, left ?M75.102 - Unspecified rotator cuff tear or rupture of left shoulder, not specified as traumatic (ICD-10) Edema ?R60.9 - Edema, unspecified (ICD-10) Polydipsia ?R63.1 - Polydipsia (ICD-10) Dizziness ?R42 - Dizziness and giddiness (ICD-10) Anxiety ?F41.9 - Anxiety disorder, unspecified (ICD-10) Breast cancer, BRCA1 positive ?C50.919 - Malignant neoplasm of unspecified site of unspecified female breast (ICD-10) ?Z15.01 - Genetic susceptibility to malignant neoplasm of breast (ICD-10) Daytime sleepiness ?R40.0 - Somnolence (ICD-10) Insomnia ?G47.00 - Insomnia, unspecified (ICD-10) Fatigue ?R53.83 - Other fatigue (ICD-10) Myalgia ?M79.10 - Myalgia, unspecified site (ICD-10) Weakness generalized ?R53.1 - Weakness (ICD-10) Hypertension ?I10 - Essential (primary) hypertension (ICD-10) Aortic insufficiency ?I35.1 - Nonrheumatic aortic (valve) insufficiency (ICD-10) Osteoarthritis ?M19.90 - Unspecified osteoarthritis, unspecified site (ICD-10) Anemia ?D64.9 - Anemia, unspecified (ICD-10) Back pain ?M54.9 - Dorsalgia, unspecified (ICD-10) Eczema ?L30.9 - Dermatitis, unspecified (ICD-10) SHERIF (obstructive sleep apnea) ?G47.33 - Obstructive sleep apnea (adult) (pediatric) (ICD-10) Ventricular tachycardia ?I47.20 - Ventricular tachycardia, unspecified (ICD-10) Osteoporosis ?M81.0 - Age-related osteoporosis without current pathological fracture (ICD- 10) Peripheral neuropathy ?G62.9 - Polyneuropathy, unspecified (ICD-10) Surgical History 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) ?Z96.651 - Presence of right artificial knee joint (ICD-10) 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/19) ?Z96.641 - Presence of right artificial hip joint (ICD-10) History of bilateral mastectomy ?Z90.13 - Acquired absence of bilateral breasts and nipples (ICD-10) History of cataract surgery ?Z98.49 - Cataract extraction status, unspecified eye (ICD-10) History of hysterectomy ?Z90.710 - Acquired absence of both cervix and uterus (ICD-10) H/O ileostomy ?Z98.890 - Other specified postprocedural states (ICD-10) Family History Mother Ovarian cancer High blood pressure Sister Ovarian cancer High blood pressure Father Heart disease High blood pressure Social History (Updated 06/17/24 @ 22:58 by Jenna Campoverde MD) Narrative: She is , lives with Rina in [facility]. They both see Dr. Allan for primary care. Nonsmoker, no ETOH. She has had her COVID vaccines. Code status is full. 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 What is your current living situation?: I presently have a place to live Problems where you live: no known problems Problems where you live details: N/A In the past 12 months, utilities in danger of being shut off: no In past 12 months, lack of transportation kept you from medical appts, meetings, work, or getting things needed for daily living: no In the past 12 mos, have been you worried that your food would run out before you had money to buy more?: never true In the past 12 mos, the food you bought just didn't last and you didn't have money to buy more?: never true Highest level of school completed/degree received: Bachelor's degree Smoking Status: Never smoker Do you use any of these nicotine containing products: None Second hand tobacco smoke exposure: No How often do you have a drink containing alcohol: never How often do you have six or more drinks on one occasion: Never AUDIT-C Alcohol total score: 0 Non-prescribed substance use: denies use Caffeine: Yes How often does anyone, including family, friends and others, physically hurt you : never How often does anyone, including family, friends and others, insult or talk down to you: never How often does anyone, including family, friends and others, threaten you with harm: never How often does anyone, including family, friends and others, scream or curse at you: never service: No Meds Home Medications and Allergies Home Medications ?Medication ?Instructions ?Recorded ?Confirmed ?Type alendronate 70 mg tablet 70 mg PO QWEEK 07/25/22 06/02/24 History latanoprost 0.005 % eye drops 1 drp ophthalmic (eye) HS 07/25/22 06/02/24 History lisinopril 40 mg tablet 40 mg PO DAILY 07/25/22 06/02/24 History carvedilol 12.5 mg tablet 12.5 mg PO BID 09/25/23 06/02/24 History acetaminophen 500 mg tablet 1,000 mg PO TID 09/26/23 06/02/24 History amlodipine 2.5 mg tablet 2.5 mg PO DAILY 09/26/23 06/02/24 History ascorbic acid (vitamin C) 1,000 mg 1 g PO DAILY 09/26/23 06/02/24 History tablet (Vitamin C) calcium carbonate (Oyster Shell 500 mg PO BID 09/26/23 06/02/24 History Calcium) cholecalciferol (vitamin D3) 25 25 mcg PO DAILY 09/26/23 06/02/24 History mcg (1,000 unit) capsule mirtazapine 7.5 mg tablet 7.5 mg PO HS 09/26/23 06/02/24 History multivitamin (Daily Multi-Vitamin 1 tab PO DAILY 09/26/23 06/02/24 History tablet) triamcinolone acetonide 0.1 % 1 applic topical BID PRN 09/26/23 06/02/24 History topical cream torsemide 10 mg tablet 10 mg PO DAILY 03/03/24 06/02/24 History sodium chloride 1,000 mg soluble 1,000 mg PO BIDWM 04/26/24 06/02/24 History tablet Allergies Allergy/AdvReac Type Severity Reaction Status Date / Time nifedipine Allergy Verified 04/28/24 10:16 simvastatin Allergy Target Verified 04/28/24 10:16 lesions arms/trunk amlodipine AdvReac Severe edema Verified 06/02/24 14:00 chlorthalidone AdvReac hyponatremi Verified 06/02/24 14:00 a hydrochlorothiazide AdvReac hyponatremi Verified 06/02/24 14:00 a Exam Narrative: Exam Narrative: GEN: Alert and oriented, sitting comfortably in bed HEENT: EOMIs bilaterally, no scleral icterus CV: RRR, No concerning murmurs R: LCTA bilaterally without concerning wheezing, air movement adequate Skin: Open skin over laceration, 5-6cm in length, no surrounding erythema, no drainage Neuro: Nonfocal Psych: Appropriate Const: Vital Signs, click to edit/add: Vital Signs - 24 hr 06/17/24 20:58 Temperature 98.2 F Pulse Rate [Left P ulse Oximeter] 88 Respiratory Rate 18 Blood Pressure [Le ft Upper Arm] 189/88 H Pulse Oximetry 96 Oxygen Delivery Me thod Room Air Assessment and Plan Assessment and plan (1) History of total right knee replacement: Problem comment: 04/20/2024, Dr. Macario. Status: Acute (2) Impaired skin integrity at surgical site: Status: Acute (3) Hypo-osmolality and hyponatremia: Problem comment: - chronic, baseline 128-130 per chart review - on supplemental sodium, sees Nephrology for management - will check BMP tomorrow morning given history Status: Acute (4) Hypertension: Problem comment: - on Amlodipine, Lisinopril, Torsemide, Carvedilol - will hold Lisinopril and Torsemide preoperatively, give Carvedilol and Amlodipine tomorrow morning Status: Acute Plan - per above
[2024-06-17 22:30] VITALS: BP 192/83; PULSE 83; RESP 18; TEMP 36.7; O2SAT 97
[2024-06-18] VITALS (15 sets, daily range): BP systolic 155–202; BP diastolic 73–99; PULSE 55–85; RESP 16–18; TEMP 36.4–36.9; O2SAT 95–100
[2024-06-18] MEDS: ACETAMINOPHEN 325 MG TABLET 650 MG PO (02:26)
--- NOTE | 2024-06-18 06:49 | PC.NURSE ---
Pt arrived to the floor at 2230, alert and oriented, hypertensive, otherwise vitally stable. Pt has no complaints of pain. Pt has dehiscence of a surgical scar on right knee from mid kneecap to the distal end of scar. Dessing placed onto wound consisting of saline irrigation, zeroform, telfa, abd pad and saul wrap. Pt tolerated well. Pt has urostomy bag, stoma red and beefy, draining appropriately. Pt appears to be resting, call light within reach?
[2024-06-18 06:56] LABS: Hemoglobin* 10.4 gm/dL (12.0-16.0)
[2024-06-18 07:17] LABS: Chloride* 104 mmol/L (96-114); Sodium* 135 mmol/L (135-149)
[2024-06-18 07:18] LABS: Potassium* 4.1 mmol/L (3.6-5.1)
[2024-06-18 07:20] LABS: Anion Gap 4 mEq/L (7-15); Blood Urea Nitrogen* 31 mg/dL (7-30); Carbon Dioxide* 27 mmol/L (20-32); Creatinine* 0.6 mg/dL (0.5-1.5); Est. Creatinine Clearance* 32.17; Estimated Glomerular Filt Rate 89 ml/min
[2024-06-18 07:21] LABS: Calcium* 8.5 mg/dL (8.4-10.6); Glucose* 96 mg/dL (60-115)
[2024-06-18] MEDS: SODIUM CHLORIDE 1 GM TABLET PO (07:43)
[2024-06-18] MEDS: AMLODIPINE 5 MG TABLET 2.5 MG PO (08:37)
[2024-06-18] MEDS: carvediloL 6.25 MG TABLET 12.5 MG PO (08:38)
--- NOTE | 2024-06-18 10:57 | PM.IMPN1 ---
Progress Note: A&P Assessment and plan (1) Impaired skin integrity at surgical site: Problem details: - planning washout (Renaldo) today at 1pm, probable discharge home afterward - ambulating well with KEVEN wrap. Anticipate she will be able to discharge home without need for PT/OT services Status: Acute (2) History of total right knee replacement: Problem details: 04/20/2024, Dr. Macario. Status: Inactive (3) Hypo-osmolality and hyponatremia: Problem details: - chronic, baseline 128-130 per chart review - on supplemental sodium, sees Nephrology for management - Na 135 today, f/u as outpatient per previous Nephrology recommendations Status: Acute (4) Hypertension: Problem details: - continue Amlodipine, Lisinopril, Carvedilol Status: Chronic (5) Anemia: Problem details: - Chronic known iron deficiency anemia, stable around Hgb 10 Status: Chronic Time Spent With Patient Total time spent: Today I spent 35 minutes seeing the patient, reviewing Expanse and EPIC notes/diagnostics, discussing the care plan with our care time that includes orthopedics, social work, PT/OT, pharmacy, half-way and documenting my impressions and plan in the medical record. Subjective Time Seen by Provider: 09:12 Date Seen: 06/18/24 Interval history: Claudia denies pain. She denies recent CP or SOB. She notes she fell onto her right knee yesterday at a constitution party and the wound from her TKA in March split open. Surgical washout and closer is planned for 1pm today. It is anticipated that she will be able to discharge home after that. Claudia's neurosurgery physician was visiting while I was in the room with Claudia, and Claudia gave permission for me to talk freely with her neurosurgery physician. Their questions were answered. Claudia noted that she has been able to ambulate to the bathroom and back today with SBA. She has not needed a walker. She feels steady on her feet. She feels comfortable with the plan of discharge after surgery today. We discussed that her had recently been here in the hospital and that he needs some help at home, which she has been providing. She feels able to continue to care for him. Their son is coming later today to visit. Her neurosurgery physician and I both encouraged her to utilize her extensive community support as well if needed. Exam Narrative: Exam Narrative: General: No acute distress. Awake, alert, oriented x3. No pallor. No jaundice. Oropharynx: Clear. Mucous membranes moist. Cardiovascular: Regular rate and rhythm. No murmurs, gallops, or rubs. Respiratory: Clear to auscultation bilaterally. No wheezes or crackles. Abdomen: Bowel sounds present. Soft, nondistended, nontender. Extremities: Left knee is bandaged with iodoform gauze, Telfa and an Keven wrap. I removed this enough to visualize the open surgical wound, approximately 5-6 cm in length. There is no surrounding erythema, no bleeding, no drainage, no purulence. No lower extremity edema. Const: Vital Signs, click to edit/add: Vital Signs - 24 hr 06/17/24 20:58 06/17/24 22:30 06/17/24 22:30 Temperature 98.2 F 98.1 F Pulse Rate [Left P ulse Oximeter] 88 Pulse Rate [Pulse Oximeter] 83 Respiratory Rate 18 18 18 Blood Pressure [Le ft Arm] 192/83 H Blood Pressure [Le ft Upper Arm] 189/88 H Pulse Oximetry 96 97 97 Oxygen Delivery Me thod Room Air Room Air Room Air 06/18/24 03:00 06/18/24 07:30 06/18/24 07:35 Temperature 97.6 F 98.2 F Pulse Rate [Left P ulse Oximeter] Pulse Rate [Pulse Oximeter] 83 69 69 Respiratory Rate 16 18 18 Blood Pressure [Le ft Arm] 183/75 H 169/77 H Blood Pressure [Le ft Upper Arm] Pulse Oximetry 95 96 Oxygen Delivery Me thod Room Air Room Air Labs Labs: Laboratory Results - last 24 hr 06/18/24 06:19 Hgb 10.4 L Sodium 135 Potassium 4.1 Chloride 104 Carbon Dioxide 27 Anion Gap 4 L BUN 31 H Creatinine 0.6 Estimated Creat Clear 32.17 Estimated GFR 89 Glucose 96 Calcium 8.5
[2024-06-18] MEDS: CEFAZOLIN 1 GM in 0.9 % SODIUM CHLORIDE Mini-bag 100 ML IVPB (13:42)
--- NOTE | 2024-06-18 14:13 | PM.ORCN ---
History of Present Illness HPI Date Seen: 06/18/24 Chief complaint: scar on knee reopened Narrative: Claudia fell yesterday onto the front of her right knee replacement. She split the skin open. She was admitted for treatment. Review of Systems Narrative: The patient denies: Fever, night sweats, shaking chills, nausea, vomiting, diarrhea, chest pain, chest pressure, shortness of breath, no rash, no change in hearing or vision, no issues with bleeding or clotting [facility] Medical History (Updated 06/18/24 @ 11:19 by Sangeetha Howard MD) Aortic valve regurgitation (03/08/08) ?I35.1 - Nonrheumatic aortic (valve) insufficiency (ICD-10) Osteoarthritis, knee (05/20/11) ?M17.9 - Osteoarthritis of knee, unspecified (ICD-10) Multiple thyroid nodules (08/07/16) ?E04.2 - Nontoxic multinodular goiter (ICD-10) Multinodular goiter (08/07/16) ?E04.2 - Nontoxic multinodular goiter (ICD-10) Mitral valve disorder (06/30/03) ?I05.9 - Rheumatic mitral valve disease, unspecified (ICD-10) Lumbar disc herniation (08/16/15) ?M51.26 - Other intervertebral disc displacement, lumbar region (ICD-10) Ileostomy in place (11/02/19) ?Z93.2 - Ileostomy status (ICD-10) Hypo-osmolality and hyponatremia (11/11/22) ?E87.1 - Hypo-osmolality and hyponatremia (ICD-10) History of bladder cancer (09/19/23) ?Z85.51 - Personal history of malignant neoplasm of bladder (ICD-10) Chronic eczema (10/30/18) ?L30.9 - Dermatitis, unspecified (ICD-10) Bilateral lower extremity edema (12/05/23) ?R60.0 - Localized edema (ICD-10) ACP (advance care planning) (05/20/11) ?Z71.89 - Other specified counseling (ICD-10) Fracture of rib ?S22.39XA - Fracture of one rib, unspecified side, initial encounter for closed fracture (ICD-10) Unspecified arthropathy, shoulder region ?M19.019 - Primary osteoarthritis, unspecified shoulder (ICD-10) Chronic hyponatremia ?E87.1 - Hypo-osmolality and hyponatremia (ICD-10) Hx of breast cancer ?Z85.3 - Personal history of malignant neoplasm of breast (ICD-10) Hyponatremia ?E87.1 - Hypo-osmolality and hyponatremia (ICD-10) Osteoarthritis of left shoulder ?M19.012 - Primary osteoarthritis, left shoulder (ICD-10) Rotator cuff tear, right ?M75.101 - Unspecified rotator cuff tear or rupture of right shoulder, not specified as traumatic (ICD-10) Osteoarthritis of right shoulder ?M19.011 - Primary osteoarthritis, right shoulder (ICD-10) Rupture of right biceps tendon ?S46.211A - Strain of muscle, fascia and tendon of other parts of biceps, right arm, initial encounter (ICD-10) Bladder cancer ?C67.9 - Malignant neoplasm of bladder, unspecified (ICD-10) Rotator cuff tear, left ?M75.102 - Unspecified rotator cuff tear or rupture of left shoulder, not specified as traumatic (ICD-10) Edema ?R60.9 - Edema, unspecified (ICD-10) Polydipsia ?R63.1 - Polydipsia (ICD-10) Dizziness ?R42 - Dizziness and giddiness (ICD-10) Anxiety ?F41.9 - Anxiety disorder, unspecified (ICD-10) Breast cancer, BRCA1 positive ?C50.919 - Malignant neoplasm of unspecified site of unspecified female breast (ICD-10) ?Z15.01 - Genetic susceptibility to malignant neoplasm of breast (ICD-10) Daytime sleepiness ?R40.0 - Somnolence (ICD-10) Insomnia ?G47.00 - Insomnia, unspecified (ICD-10) Fatigue ?R53.83 - Other fatigue (ICD-10) Myalgia ?M79.10 - Myalgia, unspecified site (ICD-10) Weakness generalized ?R53.1 - Weakness (ICD-10) Hypertension ?I10 - Essential (primary) hypertension (ICD-10) Aortic insufficiency ?I35.1 - Nonrheumatic aortic (valve) insufficiency (ICD-10) Osteoarthritis ?M19.90 - Unspecified osteoarthritis, unspecified site (ICD-10) Anemia ?D64.9 - Anemia, unspecified (ICD-10) Back pain ?M54.9 - Dorsalgia, unspecified (ICD-10) Eczema ?L30.9 - Dermatitis, unspecified (ICD-10) SHERIF (obstructive sleep apnea) ?G47.33 - Obstructive sleep apnea (adult) (pediatric) (ICD-10) Ventricular tachycardia ?I47.20 - Ventricular tachycardia, unspecified (ICD-10) Osteoporosis ?M81.0 - Age-related osteoporosis without current pathological fracture (ICD-10) Peripheral neuropathy ?G62.9 - Polyneuropathy, unspecified (ICD-10) Surgical History (Updated 06/18/24 @ 11:17 by Sangeetha Howard MD) 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) ?Z96.651 - Presence of right artificial knee joint (ICD-10) 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/19) ?Z96.641 - Presence of right artificial hip joint (ICD-10) History of bilateral mastectomy ?Z90.13 - Acquired absence of bilateral breasts and nipples (ICD-10) History of cataract surgery ?Z98.49 - Cataract extraction status, unspecified eye (ICD-10) History of hysterectomy ?Z90.710 - Acquired absence of both cervix and uterus (ICD-10) H/O ileostomy ?Z98.890 - Other specified postprocedural states (ICD-10) Family History Mother Ovarian cancer High blood pressure Sister Ovarian cancer High blood pressure Father Heart disease High blood pressure Social History (Updated 06/17/24 @ 22:58 by Jenna Campoverde MD) Narrative: She is , lives with Rina in [facility]. They both see Dr. Allan for primary care. Nonsmoker, no ETOH. She has had her COVID vaccines. Code status is full. is healthcare power of criminal attorney. What is your current living situation?: I presently have a place to live Problems where you live: no known problems Problems where you live details: N/A In the past 12 months, utilities in danger of being shut off: no In past 12 months, lack of transportation kept you from medical appts, meetings, work, or getting things needed for daily living: no In the past 12 mos, have been you worried that your food would run out before you had money to buy more?: never true In the past 12 mos, the food you bought just didn't last and you didn't have money to buy more?: never true Highest level of school completed/degree received: Bachelor's degree Smoking Status: Never smoker Do you use any of these nicotine containing products: None Second hand tobacco smoke exposure: No How often do you have a drink containing alcohol: never How often do you have six or more drinks on one occasion: Never AUDIT-C Alcohol total score: 0 Non-prescribed substance use: denies use Caffeine: Yes How often does anyone, including family, friends and others, physically hurt you: never How often does anyone, including family, friends and others, insult or talk down to you: never How often does anyone, including family, friends and others, threaten you with harm: never How often does anyone, including family, friends and others, scream or curse at you: never service: No Meds Home Medications and Allergies Home Medications ?Medication ?Instructions ?Recorded ?Confirmed ?Type alendronate 70 mg tablet 70 mg PO QWEEK 07/25/22 06/17/24 History latanoprost 0.005 % eye drops 1 drp ophthalmic (eye) HS 07/25/22 06/17/24 History lisinopril 40 mg tablet 40 mg PO DAILY 07/25/22 06/17/24 History carvedilol 12.5 mg tablet 12.5 mg PO BID 09/25/23 06/17/24 History acetaminophen 500 mg tablet 1,000 mg PO TID 09/26/23 06/17/24 History amlodipine 2.5 mg tablet 2.5 mg PO DAILY 09/26/23 06/17/24 History ascorbic acid (vitamin C) 1,000 mg 1 g PO DAILY 09/26/23 06/17/24 History tablet (Vitamin C) calcium carbonate (Oyster Shell 500 mg PO BID 09/26/23 06/17/24 History Calcium) cholecalciferol (vitamin D3) 25 25 mcg PO DAILY 09/26/23 06/17/24 History mcg (1,000 unit) capsule mirtazapine 7.5 mg tablet 7.5 mg PO HS 09/26/23 06/17/24 History multivitamin (Daily Multi-Vitamin 1 tab PO DAILY 09/26/23 06/17/24 History tablet) triamcinolone acetonide 0.1 % 1 applic topical BID PRN 09/26/23 06/17/24 History topical cream sodium chloride 1,000 mg soluble 1,000 mg PO BIDWM 04/26/24 06/17/24 History tablet Allergies Allergy/AdvReac Type Severity Reaction Status Date / Time nifedipine Allergy Verified 04/28/24 10:16 simvastatin Allergy Target Verified 04/28/24 10:16 lesions arms/trunk amlodipine AdvReac Severe edema Verified 06/02/24 14:00 chlorthalidone AdvReac hyponatremi Verified 06/02/24 14:00 a hydrochlorothiazide AdvReac hyponatremi Verified 06/02/24 14:00 a Ortho Exam Narrative Exam Narrative: The patient is alert and oriented x3, in no acute distress, they are able to converse in a normal speaking voice without obvious hearing loss and with nonlabored breathing. The right total knee arthroplasty incision is split open at and just distal to the distal pole of the patella over a length of approximately 50 mm. There is no effusion, no obvious defect in the quads tendon. She is able to straight leg raise without a lag. CMS is normal. Const Vital Signs, click to edit/add: Vital Signs - 24 hr 06/17/24 20:58 06/17/24 22:30 06/17/24 22:30 Temperature 98.2 F 98.1 F Pulse Rate [Left Pulse Oximeter] 88 Pulse Rate [Pulse Oximeter] 83 Respiratory Rate 18 18 18 Blood Pressure [Left Arm] 192/83 H Blood Pressure [Left Upper Arm] 189/88 H Pulse Oximetry 96 97 97 Oxygen Delivery Method Room Air Room Air Room Air 06/18/24 03:00 06/18/24 07:30 06/18/24 07:35 Temperature 97.6 F 98.2 F Pulse Rate [Left Pulse Oximeter] Pulse Rate [Pulse Oximeter] 83 69 69 Respiratory Rate 16 18 18 Blood Pressure [Left Arm] 183/75 H 169/77 H Blood Pressure [Left Upper Arm] Pulse Oximetry 95 96 Oxygen Delivery Method Room Air Room Air 06/18/24 11:05 Temperature 98.4 F Pulse Rate [Left Pulse Oximeter] Pulse Rate [Pulse Oximeter] 78 Respiratory Rate 18 Blood Pressure [Left Arm] 155/77 H Blood Pressure [Left Upper Arm] Pulse Oximetry 97 Oxygen Delivery Method Room Air Results Labs Labs: Laboratory Results - last 48 hr 06/18/24 06:19 Hgb 10.4 L Sodium 135 Potassium 4.1 Chloride 104 Carbon Dioxide 27 Anion Gap 4 L BUN 31 H Creatinine 0.6 Estimated Creat Clear 32.17 Estimated GFR 89 Glucose 96 Calcium 8.5 Assessment and Plan Assessment and plan (1) Impaired skin integrity at surgical site: Problem comment: - planning washout (Renaldo) today at 1pm, probable discharge home afterward - ambulating well with DOMINIC wrap. Anticipate she will be able to discharge home without need for PT/OT services Status: Acute Total time spent: Total time spent is greater than 50% in coordination of care (as documented) at patient's floor/unit and/or counseling patient: (2) History of total right knee replacement: Problem comment: 04/20/2024, Dr. Macario. Status: Inactive Total time spent: Total time spent is greater than 50% in coordination of care (as documented) at patient's floor/unit and/or counseling patient: (3) Hypo-osmolality and hyponatremia: Problem comment: - chronic, baseline 128-130 per chart review - on supplemental sodium, sees Nephrology for management - Na 135 today, f/u as outpatient per previous Nephrology recommendations Status: Acute Total time spent: Total time spent is greater than 50% in coordination of care (as documented) at patient's floor/unit and/or counseling patient: (4) Hypertension: Problem comment: - continue Amlodipine, Lisinopril, Carvedilol Status: Chronic Total time spent: Total time spent is greater than 50% in coordination of care (as documented) at patient's floor/unit and/or counseling patient: (5) Anemia: Problem comment: - Chronic known iron deficiency anemia, stable around Hgb 10 Status: Chronic Total time spent: Total time spent is greater than 50% in coordination of care (as documented) at patient's floor/unit and/or counseling patient: Plan Assessment: Traumatic wound dehiscence right total knee arthroplasty Plan: We will take her to the operating room today for irrigation and debridement with primary closure.
--- NOTE | 2024-06-18 14:15 | P.ORPRC_ITS ---
Procedure Note Date of procedure: 06/18/24 Procedure: PREOPERATIVE DIAGNOSIS: Right total knee arthroplasty traumatic wound dehiscence POSTOPERATIVE DIAGNOSIS: Right total knee arthroplasty traumatic wound dehiscence NAME OF OPERATION: Irrigation and debridement of deep soft tissue, with primary closure SURGEON: Kun Macario MD DIRECTOR OF FOOD AND NUTRITION: Lois Peres PA-C ANESTHESIA: Spinal ESTIMATED BLOOD LOSS: 0 mL COMPLICATIONS: None SPECIMENS: None DRAINS: None PREOPERATIVE ANTIBIOTICS: Ancef 1 g INDICATIONS: The patient is a 83-year-old with a history of right knee replacement done in March. She was doing well until she fell onto the front of her knee yesterday opening a portion of her wound. Given how busy the operating room schedule is today, she was admitted overnight to have her ready for surgery at any point during today's schedule. The risks, benefits and expected outcomes were discussed in detail. These included but were not limited to: Infection, bleeding, injury to blood vessel or nerve, venous thromboembolism. All questions were answered to their satisfaction. PROCEDURE: Spinal anesthesia was administered. The patient was placed supine on the operating room table. The right lower extremity was prepped and draped in the usual sterile fashion. Tourniquet was not utilized The wound is dehisced at the distal pole of the patella and just distal over course of approximately 50 mm. The underlying soft tissues are entirely intact. The wound was irrigated with 2 L of normal saline via pulse lavage. The deep soft tissues were debrided with the curette and rongeur. The wound was closed with a 2-0 Vicryl deep and a 3-0 Monocryl in the skin. Glue was used to seal the skin. A dressing was applied. The patient tolerated the procedure well. There were no apparent complications. They were carefully transferred to the hospital bed and taken to the postanesthesia care unit in satisfactory condition. PLAN: The patient will be discharged to home. They may weightbear as tolerates. Range of motion will be unrestricted. They will follow up in the office in 2 weeks for a wound check.
[2024-06-18] MEDS: BUPIVACAINE 0.5% 30 ML INJECTION (14:18)
--- NOTE | 2024-06-18 14:32 | W.ANESCHARGE ---
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
[2024-06-18] MEDS: 0.9 % SODIUM CHLORIDE 500 ML 500 ML 100 ML IV (15:12)
== END 2024-06-18 16:13 | disposition home or self-care (01) ==
LOC: ED 21:48 → SS 22:27 → MEDSURG 22:29
PROVIDERS: Family Medicine; Emergency Provider Student in an Organized Health Care Education/Training Program; PCP Family Medicine; Visit Provider Orthopaedic Surgery
PROC: (CPT 13100; principal; 2024-06-18 13:30)
DX: T81.31XA Disruption of external operation (surgical) wound, not elsewhere classified, initial encounter (principal); W01.0XXA Fall on same level from slipping, tripping and stumbling without subsequent striking against object, initial encounter; E87.1 Hypo-osmolality and hyponatremia; E86.0 Dehydration; G47.33 Obstructive sleep apnea (adult) (pediatric); I10 Essential (primary) hypertension; F41.9 Anxiety disorder, unspecified; Z93.2 Ileostomy status; D50.9 Iron deficiency anemia, unspecified; G62.9 Polyneuropathy, unspecified; Z96.641 Presence of right artificial hip joint; Z96.651 Presence of right artificial knee joint
CPT/HCPCS: 13100; 00400; 36415; 80048; 85018; 99100; 99283; 99285; A9270; J0665; J0690; J2405; J2704; J3010; J7030

== ENCOUNTER 2024-07-30 11:15 | Outpatient (RCR) | payer MEDICARE, OTHER, SELFPAY | END 2024-10-07 11:35 | disposition home or self-care (01) | PROVIDERS: PCP Family Medicine; Visit Provider Family Medicine | DX: M19.011 Primary osteoarthritis, right shoulder (principal); M19.012 Primary osteoarthritis, left shoulder; Z51.89 Encounter for other specified aftercare | CPT/HCPCS: 97110; 97162 ==

== ENCOUNTER 2024-12-02 16:15 | Outpatient (RCR) | payer MEDICARE, OTHER, SELFPAY | END 2025-01-17 13:43 | disposition home or self-care (01) | PROVIDERS: PCP Family Medicine; Visit Provider Family Medicine | DX: M62.81 Muscle weakness (generalized) (principal); R26.89 Other abnormalities of gait and mobility; Z51.89 Encounter for other specified aftercare | CPT/HCPCS: 97110; 97161 ==

== ENCOUNTER 2024-12-09 02:28 | Emergency (ER) | payer MEDICARE, OTHER, SELFPAY ==
--- OUTSIDE RECORDS SUMMARY | 2024-12-09 02:30 | XMS_ITS | Clinical Summary ---
Author Organization [email or web address] [facility] Address [address] [place] [address] Care Team Providers Care Wire Stitcher Operator Name Role Phone Petros Triplett MD Unavailable [...] 10/21/2007 [facility] Medications VITAMIN C 1,000 MG TAB Once daily Active cholecalciferol (VITAMIN D) 1,000 unit tablet Take 1 tablet by mouth once daily. 0 0 Active Blood Pressure Monitor For home use. Lifetime. Diagnosis is hypertension. 1 Device 0 4 Active eucalyptus-peppe rmint oil (PONARIS) solnIndications: Recurrent epistaxis,Nonall ergic rhinitis Use 2-3 drops in each nostril in the morning and at bedtime. 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 pink tape for ostomy supplies, dispense 2 Rolls per month. 2 Each 12 8 Active Post Mastectomy BraIndications:S tatus post mastectomy, bilateral Bilateral prosthesis and two bras. For personal use. 2 Packet 2 2 Active Calcium-Magnesiu m-Zinc tab Take 2 Tablets by mouth. Active latanoprost (XALATAN) 0.005 % ophthalmic solution INSTILL 1 DROP INTO LEFT EYE AT BEDTIME 2 Active multivitamins-mi nerals-lutein (CENTRUM SILVER) 0.4 mg-300 mcg- 250 mcg tab Take 1 Tablet by mouth once daily. 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 Take on empty stomach with full glass of water. Do not lie down for 1 hr. 12 Tablet 3 4 Active mirtazapine (REMERON) 7.5 mg tabletIndication s:Insomnia, idiopathic Take 1 Tablet (7.5 mg) by mouth at bedtime. 90 Tablet 3 4 Active amLODIPine (NORVASC) 2.5 mg tabletIndication s:Benign essential HTN TAKE 1 TABLET (2.5 MG) BY MOUTH ONCE DAILY. 90 Tablet 3 4 Active sodium chloride 1,000 mg soluble tablet Take 1 Tablet (1,000 mg) by mouth once daily. 5 Active triamcinolone 0.1 % creamIndications :Chronic eczema Apply topically to affected area(s) two times daily. Not to exceed 14 days in same location without interruption. 45 g 5 Active lisinopriL 40 mg tabletIndication s:Essential hypertension Take 1 Tablet (40 mg) by mouth once daily. 90 Tablet 3 5 Active carvediloL 6.25 mg tabletIndication s:Essential hypertension Take 1 Tablet (6.25 mg) by mouth two times daily with meals. 180 Tablet 3 5 Active CPAPIndications: SHERIF (obstructive sleep apnea) RESMED CPAP (E0601) machine for home use at pressure: 6 cmw, Choice of mask (A7030 or A7034) w/full face cushion (A7031) x1/mo, nasal cushion (A7032) x2/mo, or nasal pillows (A7033) x 2/mo; Length of Need: 99 months; Frequency of use: Daily 1 Each 5 Active CPAPIndications: SHERIF on CPAP CPAP machine for home use at pressure 5 cmw, nasal mask x1/3month with nasal pillows x 2/mo 1 Each 3 025 Discontin ued(*Med complete/ Regimen complete/ Level of care change) Active Problems Problem Noted Date Diagnosed Date Status post right knee replacement 04/20/2406/2023 History of breast cancer 01/06/2024 Bilateral lower [...] and Ovarian Cancer - per Dr Astudillo 2008: Letter on file. Aortic Valve Insufficiency; moderate [...] Encounters Date Type Department Care Team Description 12/07/2024 3:19 PM CDT - 12/07/2024 11:59 PM CDT Hospital Encounter [facility] [address] [place] [address] Claudia Lemus PA Severe aortic insufficiency 12/07/2024 Travel 11/29/2024 1:30 PM CDT Office Visit [facility] [address] [place] [address] Pranay Parks MD Sleep Follow-up 11/29/2024 Travel 11/26/2024 Orders Only [facility] [address] [place] [address] Scout Allan MD <No scans attached> 11/25/2024 9:00 AM CDT Orders Only [facility] [address] [place] [address] [place] [place] [facility] 11/25/2024 Travel 11/18/2024 10:00 AM CDT Office Visit [address] [place] [address] Claudia Lemus PA Follow Up (STAT F/U- Severe aortic insufficiency, Echo EDWARD done 11/12, records in chart, last seen Dr Gonzalez 01/05- Ref by Scout Allan MD /Pt wondering if she still should take Fosamax. ) 11/18/2024 Travel 11/12/2024 9:00 AM CDT Ancillary Procedure [facility] [address] [facility] [place] [address] 11/12/2024 Telephone [facility] [address] [place] [address] Scout Allan MD Results 11/12/2024 Travel 11/10/2024 2:05 PM CDT Office Visit [facility] [address] [place] [address] Scout Allan MD Fatigue 11/10/2024 Travel 10/27/2024 Travel 10/20/2024 2:05 PM CDT Office Visit [facility] [address] [place] [address] Scout Allan MD Follow Up (Medication change) 10/20/2024 Travel 09/30/2024 Orders Only [facility] [address] [place] [address] Scout Allan MD <No scans attached> 09/29/2024 Orders Only [facility] [address] [place] [address] Scout Allan MD <No scans attached> 09/28/2024 2:05 PM CDT Office Visit [facility] [address] [place] [address] Scout Allan MD Medicare ANNUAL (subsequent) Visit (84 year old); Fall (DOI: 09/23/2024, hit face on cement, bruising, bruising on bilateral arm); Derm Problem (Spots on skin) 09/28/2024 Travel 09/21/2024 1:30 PM CDT Orders Only [facility] [address] [place] [address] Lab[facility] [place] [facility] 09/21/2024 Travel 09/18/2024 Refill [facility] [address] [place] [address] Scout Allan MD Refill Request (Carvedilol) from Last 3 Months Immunizations Immunization Administration Dates Next Due AMB Influenza, IIV4 PF (=>6 mos Flulaval,Fluzone Fluarix)(Flu Clinic Only) 03/29/2019,04/18/2014 Amb Influenza, Inactivated A IIV4 (Age 65+ Years) Preserv Free 03/21/2020 COVID-19 VACCINE SPIKEVAX (M ODERNA 50MCG/0.5ML) 12YO+ PFS 10/20/2024,09/25/2023 COVID-19 vaccine ([employer]-Bio NTech 30mcg/0.3mL) 12YO+ BIVALENT PF, MDV 03/18/2022 COVID-19 vaccine (Pfizer-Bio NTech 30mcg/0.3mL) PF, MDV 08/29/2020,08/08/2020 Influenza, High-dose Inactivated 04/05/2024,03/01,03/10/2015 Influenza, High-dose Quadriv alent Inactivated 03/18/2023,04/02/2022 Influenza, IIV3 (Age >=3 years) 05/31/2003 Influenza, IIV4 04/18/2014 Influenza, Inactivated AIIV4 (Age 65+ Years) Preserv Free 04/11/2021 Influenza, Inactivated IIV3 (Age 65+ Years) Preserv Free 04/27/2018,05/01/2017 Pneumococcal Conj 20-valent (Prevnar 20) 023 Pneumococcal Poly,23-Valent (Pneumovax) 03/21/20 16 Pneumococcal conj 13-Valent (Prevnar 13) 015 RSV, Recombinant ADJ Reconst ituted (Arexvy 120MCG/0.5mL) 05/19/2023 Td (Age >=7 Years) 08/30/2004 Tdap 10/06/2024,05/18/2015 Zoster (Shingrix-RZV, recombinant) 01/09/2021, Zoster (Zostavax-ZVL, live) 06/29/2015 Family History Medical History Relation Name Comments Hypertension Brother 1 Marlane CHF Psychiatric illness Brother 1 Marlane Depressi on Heart Disease Father Lefty Hypertension Father Lefty Psychiatric illness Father Lefty depressi on Cancer Mother Walnut ovarian Hypertension Mother [place] Psychiatric illness Other 1 sibling Diabetes Other [...] Answer Date Recorded PHQ-2 TOTAL SCORE 0 09/28/2024 Social Connections Answer Date Recorded Do you often feel lonely or isolated from those around you? 0 12/05/2023 Financial Resource Strain Answer Date R ecorded Difficulty of Paying Living Expenses 3 12/05/2023 Difficulty of Paying Living Expenses Not on file 12/05/2023 Food Insecurity Answer Date Recorded Do you worry your food will run out before you are able to buy more? 1 12/05/2023 Transportation Needs Answer Date Record ed Does lack of transportation keep you from medica l appointments? 1 12/05/2023 Does lack of transportation keep you from work, meetings or getting things that you need? 1 12/05/2023 Housing Stability Answer Date Recorded What is your housing situation today? 1 12/05/2023 Utilities Answer Date Recorded Do you have trouble paying f or utilities (for example, heat, electricity, water, phone)? 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 Gender Identity Not on file Sexual Orientation Not on file Occupation Industry Job Start Date Job End Date Retired Not on file Not on file Not on file Obstetrics History Para Term AB IAB SAB Ectopic Multiple Livin g Live Births 2 2 2 Date Outcome GA Total Labor Labor/2nd/3rd Weight Sex Type Anes PTL Sade A1 A5 Name Clin Term Term Last Filed Vital Signs Vital Sign Reading Time Taken Comments Blood Pressure 161/61 11/29/2024 1:35 PM CDT Pulse 82 11/29/2024 1:35 PM CDT Temperature 36.4 C (97.5 F) 07/22/2024 11:10 AM 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 Respiratory Rate 14 05/13/2023 10:50 AM 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 [address] [place] [address] [place] [address] [place] [address] 03/24/2025 1:00 PM CDT Office Visit [facility] [address] [place] [address] Pranay Parks MD [address] [place] [address] Health Maintenance Due Date Last Done Comments Medicare Wellness for age 65+ 09/29/2025 09/28/2024, 09/25/2023, 09/06/2022, Additional history exists Depression screening for age 12+ 09/30/2025 09/30/2024, 09/29/2024, 09/28/2024, Additional history exists BMI (ht and wt on same day) for age 18+ 11/29/2025 11/29/2024, 11/18/2024, 09/28/2024, Additional history exists Tetanus booster 10/06/2034 10/06/2024, 04/30, 08/30/2004 Zoster (shingles) series for age 50+ Completed 01/09/2021, 10/30/2020, 06/29/2015 DEXA/DXA scan for age 65+ Completed 2021, 05/14/2018, 04/04/2016, Additional history exists Pneumococcal series for age 50+ Completed 09/06/2022, 03/21/2016, 03/10/2015 RSV vaccine for adults or Completed 05/19/2023 Influenza Vaccine Completed 04/05/2024, , 03/21/2020, Additional history exists Tdap Completed 10/06/2024, 05/18/2015 COVID-19 vaccine series Completed 10/21/19, 04/05/2024, 09/25/2023, Additional history exists Hepatitis B series for 19+ Aged Out N o longer eligible based on patient's age to complete this topic Procedures Procedure Name Priority Date/Time Associated Diagnosis Comments MR CARDIAC WWO Routine 12/07/2024 4:51 PM CDT Severe aortic insufficiency ISTAT CHEM 8 Routine 12/07/2024 3:49 PM CDT BASIC METABOLIC PANEL Routine 11/25/2024 9:41 AM CDT Hyposmolality syndrome IRON PLUS IRON BINDING CAP Routine 11/25/2024 9:41 AM CDT Iron deficiency anemia, unspecified iron deficiency anemia type HEMOGLOBIN Routine 11/25/2024 9:41 AM CDT Iron deficiency anemia, unspecified iron deficiency anemia type ECHO TTE COMPLETE WO CONTRAST Routine 11/12/2024 9:36 AM CDT Nonrheumatic aortic valve insufficiency FERRITIN Add On 09/28/2024 3:25 PM CDT Anemia of unknown etiology IRON PLUS IRON BINDING CAP Add On 09/28/2024 3:25 PM CDT Anemia of unknown etiology CBC WITH AUTO DIFFERENTIAL Routine 09/28/2024 3:25 PM CDT Fatigue, unspecified type TSH WITH REFLEX Routine 09/28/2024 3:25 PM CDT Fatigue, unspecified type BASIC METABOLIC PANEL Routine 09/21/2024 1:31 PM CDT VITAMIN D 25 (DEFICIENCY) Routine 09/21/2024 1:31 PM CDT Vitamin D deficiency VITAMIN B12 Routine 09/21/2024 1:31 PM CDT Vitamin B12 deficiency XR DXA BONE DENSITY 2 SITES AXIAL Routine 09/26/2021 11:42 AM CDT Asymptomatic postmenopausal state from Last 3 Months or Most Recently Relevant to Health Maintenance Results * MR CARDIAC WWO (12/07/2024 4:51 PM CDT) Anatomical Region Laterality Modality HEART, THORAX Magnetic Resonan ce 12/07/2024 3:50 PM CDT Narrative 12/07/2024 5:10 PM CDT [facility] CMR Report Name: CLAUDIA BENITEZ : Scan Date: Accession Number: [id number] Status: Final Electronically signed by Shelton Ashley 17:10:00 VITALS ===== HEIGHT: 61 in (155 cm) WEIGHT: 110 lbs (50 kgs) BSA: 1.47 m^2 BASELINE HR: 80 BPM HEART RHYTHM: Normal Sinus Rhythm FINAL IMPRESSION ===== 1. Trileaflet aortic valve with mild regurgitation. Calculated regurgitant fraction is 16%. 2. Left ventricle exhibits normal cavity size, normal wall thickness, and low- normal systolic function. Calculated LVEF is 53%. 3. Normal right ventricular size and systolic function. Calculated RVEF is 56%. 4. Mild bileaflet mitral valve prolapse with mild regurgitation. 5. Normal thoracic aorta size and morphology. 6. No myocardial infarction or significant myocardial fibrosis. SUMMARY ===== LEFT VENTRICLE: Quantitative LVEF 53 %. LV wall thickness is normal. LV cavity size is normal. LV systolic function is normal. VIABILITY: Hyperenhancement is normal. RIGHT VENTRICLE: Quantitative RVEF 56 %. RV wall thickness is normal. RV cavity size is normal. RV systolic function is normal. LV/RV SEPTUM: The LV/RV septum is normal. LEFT ATRIUM: LA cavity size is normal. RIGHT ATRIUM: RA cavity size is normal. PERICARDIUM: There is a trivial pericardial effusion. AORTIC VALVE: Aortic valve is trileaflet. There is no aortic stenosis. There is mild aortic regurgitation. Aortic regurgitant fraction 16 %. MITRAL VALVE: Mitral valve leaflets are normal. There is no mitral stenosis. No significant disjunction. There is bileaflet mitral valve prolapse. There is mild mitral regurgitation. Mitral regurgitant fraction 15 %. TRICUSPID VALVE: Tricuspid valve leaflets are normal. There is no tricuspid stenosis. PULMONIC VALVE: Pulmonic valve leaflets are normal. There is no pulmonic stenosis. There is trivial pulmonic regurgitation. AORTIC ROOT: The aortic root is normal. OTHER FINDINGS: Thoracic aorta Left sided arch, bovine great artery branching pattern Sinuses 31 mm maximum cusp-cusp Ascending 29 x 28 mm Descending 22 x 22 mm CORE EXAM ===== MEASUREMENTS ----- --- VOLUMETRIC ANALYSIS . . LV Reference RV Reference +------+ +------+ +------+ + EDV ml 154 124 ml/m^2 105 85 ESV ml 73 55 ml/m^2 50 38 CO L/min 6.48 5.52 L/min/m^2 4.42 3.77 MASS g 109 g/m^2 74 SV ml 81 69 ml/m^2 55 47 EF % 53 56 '------+ +------+ +------+ ' LV DIMENSIONS WALL THICKNESS - ANTEROSEPTAL: 1.1 cm WALL THICKNESS - INFEROLATERAL: 0.7 cm LA DIMENSIONS (LV SYSTOLE) VOLUME: 53 ml VOLUME NORMALIZED: 36.2 ml/m^2 EXTRACELLULAR VOLUME MEASUREMENT PRE-CONTRAST T1 MYOCARDIUM: 1001 msec ECV: 28 % 17 SEGMENT ----- --- . ----- ------. Segments Wall Motion Hyperenhancement Stress Perfusion Interpretation + + + + +----- ----- ------+ Base Anterior Normal/Hyper None Base Anteroseptal Normal/Hyper None Base Inferoseptal Normal/Hyper None Base Inferior Normal/Hyper None Base Inferolateral Normal/Hyper None Base Anterolateral Normal/Hyper None Mid Anterior Normal/Hyper None Mid Anteroseptal Normal/Hyper None Mid Inferoseptal Normal/Hyper None Mid Inferior Normal/Hyper None Mid Inferolateral Normal/Hyper None Mid Anterolateral Normal/Hyper None Apical Anterior Normal/Hyper None Apical Septal Normal/Hyper None Apical Inferior Normal/Hyper None Apical Lateral Normal/Hyper None [place] Normal/Hyper None + + + + +----- ----- ------+ RV Segments Wall Motion Hyperenhancement Interpretation + + + + +----- ----- ------+ RV Basal Anterior RV Basal Inferior RV Mid RV Apical ' + + + +----- ----- ------' FINDINGS LV SCAR SIZE (17 SEGMENT): 0 % SCAN INFO ===== GENERAL ----- --- SCANNER CHIEF FINANCIAL OFFICER: SIEMENS MODEL: Aera CONTRAST AGENT TYPE: Gadavist GD CONCENTRATION: 1.0 M SETUP REASON(S) FOR SCAN: Eval [place] valve(s) REFERRING PHYSICIAN: CLAUDIA LEMUS ATTENDING PHYSICIAN: CLAUDIA LEMUS BILLING ===== Patient Account [id number] ICD10 Codes I35.1 Report generated by [employer], a product of [employer] Procedure Note Shelton Ashley MD - 12/07/2024 [facility] CMR Report Name: CLAUDIA BENITEZ : Scan Date: Accession Number: [id number] Status: Final Electronically signed by Shelton Ashley 17:10:00 VITALS ===== HEIGHT: 61 in (155 cm) WEIGHT: 110 lbs (50 kgs) BSA: 1.47 m^2 BASELINE HR: 80 BPM HEART RHYTHM: Normal Sinus Rhythm FINAL IMPRESSION ===== 1. Trileaflet aortic valve with mild regurgitation. Calculated regurgitantfraction is 16%. 2. Left ventricle exhibits normal cavity size, normal wall thickness, andlow- normal systolic function. Calculated LVEF is 53%. 3. Normal right ventricular size and systolic function. Calculated RVEF is56%. 4. Mild bileaflet mitral valve prolapse with mild regurgitation. 5. Normal thoracic aorta size and morphology. 6. No myocardial infarction or significant myocardial fibrosis. SUMMARY ===== LEFT VENTRICLE: Quantitative LVEF 53 %. LV wall thickness is normal. LVcavity size is normal. LV systolic function is normal. VIABILITY: Hyperenhancement is normal. RIGHT VENTRICLE: Quantitative RVEF 56 %. RV wall thickness is normal. RVcavity size is normal. RV systolic function is normal. LV/RV SEPTUM: The LV/RV septum is normal. LEFT ATRIUM: LA cavity size is normal. RIGHT ATRIUM: RA cavity size is normal. PERICARDIUM: There is a trivial pericardial effusion. AORTIC VALVE: Aortic valve is trileaflet. There is no aortic stenosis.There is mild aortic regurgitation. Aortic regurgitant fraction 16 %. MITRAL VALVE: Mitral valve leaflets are normal. There is no mitralstenosis. No significant disjunction. There is bileaflet mitral valve prolapse. There is mild mitral regurgitation.Mitral regurgitant fraction 15 %. TRICUSPID VALVE: Tricuspid valve leaflets are normal. There is notricuspid stenosis. PULMONIC VALVE: Pulmonic valve leaflets are normal. There is no pulmonicstenosis. There is trivial pulmonic regurgitation. AORTIC ROOT: The aortic root is normal. OTHER FINDINGS: Thoracic aorta Left sided arch, bovine great artery branching pattern Sinuses 31 mm maximum cusp-cusp Ascending 29 x 28 mm Descending 22 x 22 mm CORE EXAM ===== MEASUREMENTS ----- --- VOLUMETRIC ANALYSIS . . LV Reference RV Reference +------+ +------+ +------+ + EDV ml 154 124 ml/m^2 105 85 ESV ml 73 55 ml/m^2 50 38 CO L/min 6.48 5.52 L/min/m^2 4.42 3.77 MASS g 109 g/m^2 74 SV ml 81 69 ml/m^2 55 47 EF % 53 56 '------+ +------+ +------+ ' LV DIMENSIONS WALL THICKNESS - ANTEROSEPTAL: 1.1 cm WALL THICKNESS - INFEROLATERAL: 0.7 cm LA DIMENSIONS (LV SYSTOLE) VOLUME: 53 ml VOLUME NORMALIZED: 36.2 ml/m^2 EXTRACELLULAR VOLUME MEASUREMENT PRE-CONTRAST T1 MYOCARDIUM: 1001 msec ECV: 28 % 17 SEGMENT ----- --- . ----- ------. Segments Wall Motion Hyperenhancement Stress Perfusion Interpretation + + + + +----- ----- ------+ Base Anterior Normal/Hyper None Base Anteroseptal Normal/Hyper None Base Inferoseptal Normal/Hyper None Base Inferior Normal/Hyper None Base Inferolateral Normal/Hyper None Base Anterolateral Normal/Hyper None Mid Anterior Normal/Hyper None Mid Anteroseptal Normal/Hyper None Mid Inferoseptal Normal/Hyper None Mid Inferior Normal/Hyper None Mid Inferolateral Normal/Hyper None Mid Anterolateral Normal/Hyper None Apical Anterior Normal/Hyper None Apical Septal Normal/Hyper None Apical Inferior Normal/Hyper None Apical Lateral Normal/Hyper None [place] Normal/Hyper None + + + + +----- ----- ------+ RV Segments Wall Motion Hyperenhancement Interpretation + + + + +----- ----- ------+ RV Basal Anterior RV Basal Inferior RV Mid RV Apical ' + + + +----- ----- ------' FINDINGS LV SCAR SIZE (17 SEGMENT): 0 % SCAN INFO ===== GENERAL ----- --- SCANNER CHIEF FINANCIAL OFFICER: SIEMENS MODEL: Aera CONTRAST AGENT TYPE: Gadavist GD CONCENTRATION: 1.0 M SETUP REASON(S) FOR SCAN: Eval [place] valve(s) REFERRING PHYSICIAN: CLAUDIA LEMUS ATTENDING PHYSICIAN: CLAUDIA LEMUS BILLING ===== Patient Account [id number] ICD10 Codes I35.1 Report generated by [employer], a product of [employer] Claudia Lemus PA MR Final Res ult * ISTAT CHEM 8 (12/07/2024 3:49 PM CDT) SODIUM, POCT 12/07/2024 3:58 PM CDT [facility] Comment:Unable to determine. POTASSIUM, POCT 12/07/2024 3:58 PM CDT [facility] Comment:Unable to determine. CHLORIDE, POCT 12/07/2024 3:58 PM CDT [facility] Comment:Unable to determine. CO2,TOTAL, POCT 12/07/2024 3:58 PM CDT [facility] Comment:Unable to determine. ANION GAP, POCT 12/07/2024 3:58 PM CDT [facility] Comment:Unable to calculate. GLUCOSE, POCT 12/07/2024 3:58 PM CDT [facility] Comment:Unable to determine. IONIZED CALCIUM, POCT 12/07/2024 3:58 PM CDT [facility] Comment:Unable to determine. BUN, POCT 12/07/2024 3:58 PM CDT [facility] Comment:Unable to determine. CREATININE, POCT 12/07/2024 3:58 PM CDT [facility] Comment:Unable to determine. BUN/CREAT RATIO, POCT 12/07/2024 3:58 PM CDT [facility] Comment:Unable to calculate. eGFR 12/07/2024 3:58 PM CDT [facility] Comment:Unable to calculate. HEMATOCRIT, POCT 38.0 33.0 - 51.0 % 12/07/2024 3:58 PM CDT [facility] HEMOGLOBIN, POCT 12.9 12.0 - 16.0 g/dL 12/07/2024 3:58 PM CDT [facility] Blood BLOOD SPECIMEN / Unknown 12/07/2024 3:49 PM CDT 12/07/2024 3:58 PM CDT Claudia KEN CHEMISTRY Final Res ult Performing Organization Address [facility]/State/[facility] Co de Phone Number [facility] [address] [place] [address], * IRON PLUS IRON BINDING CAP (11/25/2024 9:41 AM CDT) Only the most recent of2 resultswithin the time period is included. IRON, TOTAL 132 45 - 160 mcg/dL [facility] IRON BINDING CAPACITY 348 250 - 450 mcg/dL (calc) [facility] % SATURATION 38 16 - 45 % (calc) [facility] Blood BLOOD SPECIMEN / Unknown 11/25/2024 9:41 AM CDT 11/25/2024 9:41 AM CDT Scout Allan MD CHEMISTRY Final Result [facility] [address] [place] [address], [facility] [address] [place] [address] * (ABNORMAL) HEMOGLOBIN (11/25/2024 9:41 AM CDT) [facility] HEMOGLOBIN 10.7(L) 11.7 - 15.5 g/dL [facility] [place] Blood BLOOD SPECIMEN / Unknown 11/25/2024 9:41 AM CDT 11/25/2024 9:41 AM CDT Scout Allan MD HEMATOLOGY Final Result Performing Organization Address City/[facility]/ZIP Co de Phone Number [facility] [address] [address], [employer] [address] * (ABNORMAL) BASIC METABOLIC PANEL (11/25/2024 9:41 AM CDT) Only the most recent of2 resultswithin the time period is included. [facility] GLUCOSE 98 65 - 99 mg/dL [facility] Comment: Fasting reference interval UREA NITROGEN (BUN) 23 7 - 25 mg/dL [facility] CREATININE 0.74 0.60 - 0.95 mg/dL [facility] EGFR 80 > OR = 60 mL/min/1. 73m2 [facility] BUN/CREATININE RATIO SEE NOTE: 6 - 22 (calc) [facility] Comment: Not Reported: BUN and Creatinine are within reference range. SODIUM 134(L) 135 - 146 mmol/L [facility] POTASSIUM 4.6 3.5 - 5.3 mmol/L [facility] CHLORIDE 98 98 - 110 mmol/L [facility] CARBON DIOXIDE 28 20 - 32 mmol/L [facility] [facility] ELECTROLYTE BALANCE 8 7 - 17 mmol/L (calc) [facility] CALCIUM 9.0 8.6 - 10.4 mg/dL [facility] Blood BLOOD SPECIMEN / Unknown 11/25/2024 9:41 AM CDT 11/25/2024 9:41 AM CDT us Scout Allan MD CHEMISTRY Final Result [facility] [address] [place] [address], [facility] [address] [place] [address] * ECHO TTE COMPLETE WO CONTRAST (11/12/2024 9:36 AM CDT) AORTIC VALVE MEAN PG 6 mmHg EJECTION FRACTION 56 % LVEDD 4.6 cm EJECTION FRACTION 55 - 60% Anatomical Region Laterality Modality Ultrasound 11/12/2024 9:04 AM CDT Narrative 11/12/2024 9:51 AM CDT ECHOCARDIOGRAM CLAUDIA BENITEZ : 1940 84 years Study Date: 11/12/2024 9:04:08 AM Gender: F BP: 122/75 mmHg Height: 155.00 cm BSA: 1.47 m Weight: 50.00 kg Tech: YANIRA Referring MD: SCOUT ALLAN Site: [facility], [place] Reading Location: Mobile-OP Patient Location: Outpatient. Procedure: 2D, Color Doppler and Spectral Doppler. Indication for study: Nonrheumatic aortic valve insufficiency Cardiac Rhythm: Regular.Study quality: Good. Final Impressions: 1. Severe AI with diastolic reversal in the abdominal and descending aorta. Recommend timely cardiology consultation. 2. LVEF estimate 55-60%. Normal LV size and wall thickness. 3. Normal RV size and global function. 4. Moderate AI. 5. Normal RAP estimate. Chamber Sizes and Function No resting regional wall motion abnormality visualized. Left atrial size is mildly enlarged. Left atrial pressure is normal. Right ventricular cavity size is normal, global systolic RV function is normal. The right atrium is mildly enlarged. Right atrial volume index is 39 ml/m . Right atrial area is 18 cm . The pulmonary artery is not well visualized. The sinus of Valsalva is normal sized. The ascending aorta is normal sized. Valves, RV Pressures and Diastolic Function The aortic valve is normal in structure, trileaflet, calcified and sclerotic, no stenosis and severe regurgitation. The mitral valve is normal in structure, trace mitral regurgitation. Indeterminate pattern of LV diastolic filling. The tricuspid valve is normal in structure, trace tricuspid regurgitation. The pulmonic valve is not well visualized. No pulmonary regurgitation. Masses, Effusion, Shunts There is no pericardial effusion. The inferior vena cava is normal sized, respiratory size variation greater than 50%. No left to right shunting was detected by limited color flow Doppler interrogation of the interatrial septum. MEASUREMENTS AND CALCULATIONS 2-D Measurements and LV Function: LVID (d) 4.6 cm LV FS% (2D) 33 % LVID (s) 3.1 cm LVOT diameter 2.0 cm IVS (d) 0.8 cm HR 74 bpm LVPW (d) 0.9 cm LA Vol index 33 ml/m2 Ao Sinus 3.1 cm RA Vol index 39 ml/m2 Ao Sinus ULN 3.6 cm * RA area 18 cm Asc Ao 3.0 cm RV Basal Diam 3.4 cm Asc Ao ULN 3.9 cm * LA 3.6 cm * Input age outside of range, reported values correspond to Age = 80 Diastology: Mitral Tissue Doppler E Peak 0.4 m/s e', Septum 0.04 m/s A Peak 0.7 m/s e', Lateral 0.04 m/s E/A 0.5 E/e' Average 10.50 DT 184 msec Aortic Valve: Vmax 1.4 m/s RACHELE (V) 2.94 cm VTI 0.34 m RACHELE (I) 2.84 cm LVOT V max 1.4 m/s Max PG 8 mmHg LVOT VTI 0.32 m Mean PG 6 mmHg SV 98 ml Dim Index 0.93 SV index 67 ml/m CO 7.3 l/min CI 5.0 l/min/m Mitral Valve: MVA 4.1 cm MV P 1/2 53 msec Tricuspid Valve and estimated PA pressures: TAPSE 2.0 cm . This study was interpreted by an [facility] accredited facility. Final Procedure Note Monty Rey MD - 11/12/2024 ECHOCARDIOGRAM CLAUDIA BENITEZ : 1940 84 years Study Date: 11/12/2024 9:04:08 AM Gender: F BP: 122/75 mmHg Height: 155.00 cm BSA: 1.47 m Weight: 50.00 kg Tech: YANIRA Referring MD: SCOUT ALLAN Site: [facility], [place] Reading Location: Mobile-OP Patient Location: Outpatient. Procedure: 2D, Color Doppler and Spectral Doppler. Indication for study: Nonrheumatic aortic valve insufficiency Cardiac Rhythm: Regular.Study quality: Good. Final Impressions: 1. 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 Recommend timely cardiology consultation. 2. LVEF estimate 55-60%. Normal LV size and wall thickness. 3. Normal RV size and global function. 4. Moderate AI. 5. Normal RAP estimate. Chamber Sizes and Function No resting regional wall motion abnormality visualized. Left atrial sizeis mildly enlarged. Left atrial pressure is normal. Right ventricularcavity size is normal, global systolic RV function is normal. The rightatrium is mildly enlarged. Right atrial volume index is 39 ml/m . Rightatrial area is 18 cm . The pulmonary artery is not well visualized. Thesinus of Valsalva is normal sized. The ascending aorta is normal sized. Valves, RV Pressures and Diastolic Function The aortic valve is normal in structure, trileaflet, calcified andsclerotic, no stenosis and severe regurgitation. The mitral valve isnormal in structure, trace mitral regurgitation. Indeterminate pattern ofLV diastolic filling. The tricuspid valve is normal in structure, tracetricuspid regurgitation. The pulmonic valve is not well visualized. Nopulmonary regurgitation. Masses, Effusion, Shunts There is no pericardial effusion. The inferior vena cava is normal sized,respiratory size variation greater than 50%. No left to right shunting wasdetected by limited color flow Doppler interrogation of the interatrialseptum. MEASUREMENTS AND CALCULATIONS 2-D Measurements and LV Function: LVID (d) 4.6 cm LV FS% (2D) 33% LVID (s) 3.1 cm LVOT diameter2.0 cm IVS (d) 0.8 cm HR 74bpm LVPW (d) 0.9 cm LA Vol index 33ml/m2 Ao Sinus 3.1 cm RA Vol index 39ml/m2 Ao Sinus ULN 3.6 cm * RA area 18cm Asc Ao 3.0 cm RV Basal Diam3.4 cm Asc Ao ULN 3.9 cm * LA 3.6 cm * Input age outside of range, reported values correspond to Age = 80 Diastology: Mitral Tissue Doppler E Peak 0.4 m/s e', Septum 0.04 m/s A Peak 0.7 m/s e', Lateral 0.04 m/s E/A 0.5 E/e' Average 10.50 DT 184 msec Aortic Valve: Vmax 1.4 m/s RACHELE (V) 2.94 cm VTI 0.34 m RACHELE (I) 2.84 cm LVOT V max 1.4 m/s Max PG 8 mmHg LVOT VTI 0.32 m Mean PG 6 mmHg SV 98 ml Dim Index 0.93 SV index 67 ml/m CO 7.3 l/min CI 5.0 l/min/m Mitral Valve: MVA 4.1 cm MV P 1/2 53 msec Tricuspid Valve and estimated PA pressures: TAPSE 2.0 cm . This study was interpreted by an [facility] accredited facility. Final us Scout Allan MD ECHO ORD Final Result * TSH WITH REFLEX (09/28/2024 3:25 PM CDT) TSH W/REFLEX TO FT4 1.42 0.40 - 4.50 mIU/L [facility] Blood BLOOD SPECIMEN / Unknown 09/28/2024 3:25 PM CDT 09/28/2024 3:26 PM CDT us Scout Allan MD CHEMISTRY Final Result [facility] [address] [place] [address], [facility] [address] [place] [address] * (ABNORMAL) CBC AND DIFFERENTIAL (09/28/2024 3:25 PM CDT) [facility] WHITE BLOOD CELL COUNT 7.5 3.8 - 10.8 Thousand/u L [facility] RED BLOOD CELL COUNT 3.61(L) 3.80 - 5.10 Million/uL [facility] HEMOGLOBIN 10.9(L) 11.7 - 15.5 g/dL [facility] HEMATOCRIT 34.3(L) 35.0 - 45.0 % [facility] MCV 95.0 80.0 - 100.0 fL [facility] MCH 30.2 27.0 - 33.0 pg [facility] MCHC 31.8(L) 32.0 - 36.0 g/dL [facility] Comment: For adults, a slight decrease in the calculated MCHC value (in the range of 30 to 32 g/dL) is most likely not clinically significant; however, it should be interpreted with caution in correlation with other red cell parameters and the patient's clinical condition. RDW 12.7 11.0 - 15.0 % [facility] PLATELET COUNT 323 140 - 400 Thousand/u L [facility] MPV 9.9 7.5 - 12.5 fL [facility] ABSOLUTE NEUTROPHILS 5,370 1,500 - 7,800 cells/uL [facility] ABSOLUTE LYMPHOCYTES 1,230 850 - 3,900 cells/uL [facility] ABSOLUTE MONOCYTES 600 200 - 950 cells/uL [facility] ABSOLUTE EOSINOPHILS 248 15 - 500 cells/uL [facility] ABSOLUTE BASOPHILS 53 0 - 200 cells/uL [facility] NEUTROPHILS 71.6 % [facility] LYMPHOCYTES 16.4 % [facility] MONOCYTES 8.0 % [facility] EOSINOPHILS 3.3 % [facility] BASOPHILS 0.7 % [facility] Blood BLOOD SPECIMEN / Unknown 09/28/2024 3:25 PM CDT 09/28/2024 3:26 PM CDT us Scout Allan MD HEMATOLOGY Final Result Performing Organization Address City[facility]/ZIP Co de Phone Number [facility] [address] [place] [address], [place] [phone] [facility] [address] [place] [address] * FERRITIN (09/28/2024 3:25 PM CDT) FERRITIN 75 16 - 288 ng/mL [facility] Blood BLOOD SPECIMEN / Unknown 09/28/2024 3:25 PM CDT 09/29/2024 10:48 AM CDT us Scout Allan MD CHEMISTRY Final Result Performing Organization Address [facility] Co de Phone Number [facility] [address] [address], [place] [phone] [facility] [address] [place] [address] * VITAMIN D 25 (DEFICIENCY) (09/21/2024 1:31 PM CDT) VITAMIN D,25-OH,TOTAL,IA 40 30 - 100 ng/mL [facility] Comment: Vitamin D Status 25-OH Vitamin D: Deficiency: <20 ng/mL Insufficiency: 20 - 29 ng/mL Optimal: > or = 30 ng/mL For 25-OH Vitamin D testing on patients on D2-supplementation and patients for whom quantitation of D2 and D3 fractions is required, the Quest[facility]ure[facility](TM) 25-OH VIT D, (D2,D3), LC/MS/MS is recommended: order code 30204 (patients >2yrs). See Note 1 Note 1 For additional information, please refer to http://education.True Office/faq/DIB875 (This link is being provided for informational/ educational purposes only.) Blood BLOOD SPECIMEN / Unknown 09/21/2024 1:31 PM CDT 09/21/2024 1:31 PM CDT Scout Allan MD SEND OUTS Final Result [facility] [address] [place] [address], [facility] [address] [place] [address] * VITAMIN B12 (09/21/2024 1:31 PM CDT) [facility] VITAMIN B12 399 200 - 1,100 pg/mL [facility] Comment: Please Note: Although the reference range for vitamin B12 is 200-1100 pg/mL, it has been reported that between 5 and 10% of patients with values between 200 and 400 pg/mL may experience neuropsychiatric and hematologic abnormalities due to occult B12 deficiency; less than 1% of patients with values above 400 pg/mL will have symptoms. Blood BLOOD SPECIMEN / Unknown 09/21/2024 1:31 PM CDT 09/21/2024 1:31 PM CDT Scout Allan MD CHEMISTRY Final Result [facility] [address] [place] [address], [facility] [address] [place] [address] * (ABNORMAL) XR DXA BONE DENSITY 2 [...] to assess therapeutic efficacy. Daisha Payne PA-C [facility] 10/04/2021 Narrative 10/04/2021 5:21 PM CDT For Patients: Results are automatically released to your [facility] ([employer]) account once available, in compliance with federal regulations. This means that you may see your results before your provider has had a chance to review them. Please allow 2-3 business days for your provider to comment on the results. XR DXA Bone Mineral Density (BMD) EXAM LOCATION: [address] [address] PATIENT NAME: Claudia Benitez DATE OF : 1940 EXAM DATE: 09/26/2021 REQUESTING PROVIDER: Scout Allan MD GENDER AT : female HEIGHT: 5' 1.54 (08/23/2021) WEIGHT: 119 lb 9.6 oz (08/23/2021) MENOPAUSAL STATUS: Postmenopausal [...] two scanners are made by the same telephone assembler. PROCEDURE: Dual-energy x-ray absorptiometry performed with routine [...] - 0.3 Change from prior in 2018: Decrease 17.5%. RESULTS FEMUR Left femoral neck BMD: 0.701 g/cm2 T-Score: - 2.4 Z-Score: + 0.0 Change from prior in 2018: Decrease 0.072 Left hip BMD: 0.701 g/cm2 T-Score: - 2.4 Z-Score: - 0.1 Change from prior in 2018: Decrease 8.2%. 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
[2024-12-09 02:37] VITALS: BP 154/89; PULSE 82; RESP 18; TEMP 36.8; O2SAT 98; BMI 19.4
--- NOTE | 2024-12-09 02:52 | CRLHL7_ITS ---
For Patients: As a result of the Century Cures Act, medical imaging exams and procedure reports are released immediately into your electronic medical record. You may view this report before your referring provider. If you have questions, please contact your health care provider. Indication: Recent trauma with sternal pain. Technique: Two views of the chest. Comparison: Chest x-ray 07/26/2022. CTA chest 04/24/2024. Findings/Impression: Age-indeterminate displaced fracture of the sternal body is new compared to previous CT from 04/24/2024. The heart is not abnormally enlarged. Mediastinal contours are grossly within normal limits. Bibasilar atelectasis. No definite confluent airspace opacity. No pleural effusion or pneumothorax. Dictated by Ismael Colin MD @ 12/09/2024 3:16:43 AM (Electronically Signed)
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
[2024-12-09] MEDS: OXYCODONE 5 MG TABLET PO (02:59)
[2024-12-09] MEDS: CYCLOBENZAPRINE HCL 10 MG TABLET 5 MG PO (03:00)
[2024-12-09 03:02] VITALS: O2SAT 98
[2024-12-09 03:42] VITALS: BP 151/89; PULSE 86; RESP 18; TEMP 36.8; O2SAT 98
[2024-12-09 03:57] VITALS: BP 151/89; PULSE 86; RESP 18; TEMP 36.8
== END 2024-12-09 03:57 | disposition home or self-care (01) ==
PROVIDERS: Emergency Provider Family Medicine; PCP Family Medicine
DX: S22.20XA Unspecified fracture of sternum, initial encounter for closed fracture (principal); V43.62XA Car passenger injured in collision with other type car in traffic accident, initial encounter
CPT/HCPCS: 71046; 93005; 94761; 99284; A9270

== ENCOUNTER 2025-06-12 05:38 | Outpatient (CLI) | payer MEDICARE, OTHER, SELFPAY | END 2025-06-12 05:39 | disposition home or self-care (01) | LOC: AMB 06-15 01:42 | PROVIDERS: PCP Family Medicine; Visit Provider Emergency Medicine | DX: R10.9 Unspecified abdominal pain (principal) | CPT/HCPCS: A0425; A0429 ==

== ENCOUNTER 2025-06-12 05:59 | Emergency (ER) | payer MEDICARE, OTHER, SELFPAY ==
[2025-06-12] VITALS (14 sets, daily range): BP systolic 174–227; BP diastolic 76–97; PULSE 68–90; RESP 18; TEMP 36.8; O2SAT 95–99; BMI 19.4
--- OUTSIDE RECORDS SUMMARY | 2025-06-12 06:01 | XMS_ITS | Clinical Summary ---
Author Organization [facility] Address [address] [place] [address] Care Team Providers Care Air Vice Marshal Name Role Phone Petros Triplett MD Unavailable Unavailable Scout Allan MD Primary Care Provider Allergies Active AllergyReactionsCriticalityNoted UjdlGjwfbxwiAxyspfsowzBjibz85/07/2024 Edema on 5mg, ok on 2.5mg CarvedilolOther - Describe In Comment Field3ChlorthalidoneOther - Describe In Comment Field02/01/2014 Hyponatremia HydrochlorothiazideOther - Describe In Comment Field10/07/2014 Low sodium. DcbbthigosTgowv60/21/2047UzekcdxqltgWgpy91/23/2008 [facility] Medications MedicationSigDispense QuantityRefillsLast FilledStart DateEnd DateStatus VITAMIN C 1,000 MG TAB Once daily Active cholecalciferol (VITAMIN D) 1,000 unit tablet Take 1 tablet by mouth once daily.ctive Blood Pressure Monitor For home use. Lifetime. Diagnosis is hypertension. 1 Device ctive eucalyptus-peppermint oil (PONARIS) soln Indications:Recurrent epistaxis,Nonallergic rhinitisUse 2-3 drops in each nostril in the morning and at bedtime. 15 mL 6011/22/2015Active DME Indications:Ileostomy in place (HC)2 Each. pink tape for ostomy supplies, dispense 2 Rolls per month. 2 Each Active Post Mastectomy Bra Indications:Status post mastectomy, bilateralBilateral prosthesis and two bras. For personal use. 2 Packet ctive Kcnpueb-Lertldfhi-Fvzk tab Take 2 Tablets by mouth.Active latanoprost (XALATAN) 0.005 % ophthalmic solution INSTILL 1 DROP INTO LEFT EYE AT FCGENVD0103/12/2022ctive szpbkowwlvezx-rtmowpfg-egrwwl (CENTRUM SILVER) 0.4 mg-300 mcg- 250 mcg tab Take 1 Tablet by mouth once daily.Active medication order composer Indications:Ileostomy in place (HC)1 bedside drain BTL w/wo tube 1 unit 3Active sodium chloride 1,000 mg soluble tablet Take 1 Tablet (1,000 mg) by mouth once daily.5Active triamcinolone 0.1 % cream Indications:Chronic eczemaApply topically to affected area(s) two times daily. Not to exceed 14 days in same location withoutinterruption. 45 g 5Active lisinopriL 40 mg tablet Indications:Essential hypertensionTake 1 Tablet (40 mg) by mouth once daily. 90 Tablet 5Active CPAP Indications:SHERIF (obstructive sleep apnea)RESMED CPAP (E0601) machine for home use at pressure: 6 cmw, Choice of mask (A7030 or A7034) w/fullface cushion (A7031) x1/mo, nasal cushion (A7032) x2/mo, or nasal pillows (A7033) x 2/mo; Length ofNeed: 99 months; Frequency of use: Daily 1 Each 5Active alendronate (FOSAMAX) 70 mg tablet Indications:Osteoporosis, unspecified osteoporosis type, unspecified pathological fracture presenceTake 1 Tablet (70 mg) by mouth once a week in the morning. Take on empty stomach with full glass ofwater. Do not lie down for 1 hr. 12 Tablet 5Active amLODIPine (NORVASC) 2.5 mg tablet Indications:Benign essential HTNTake 1 Tablet (2.5 mg) by mouth once daily. 90 Tablet 5Active mirtazapine (REMERON) 7.5 mg tablet Indications:Insomnia, idiopathic1/2 tab oral at bedtime. 45 Tablet 5Active carvediloL (COREG) 6.25 mg tablet Indications:Essential hypertensionTake 2 Tablets (12.5 mg) by mouth two times daily with meals.5Active carvediloL 6.25 mg tablet Indications:Essential hypertensionTake 1 Tablet (6.25 mg) by mouth two times daily with meals. 180 Tablet /06996008/01/2024Discontinued(Reorder (E-cancel not sent)) Active Problems ProblemNoted DateDiagnosed DateStatus post right knee replacement 04/20/24 04/30/2024History of breast rduaoi1601/06/2024History of bladder cancer: Cystectomy/ileal loop diversion Insomnia, likgbczqaf80/15/2023 Ngpralygffnr57/15/2023eripheral sensory evkzehyhyt54/02/2022steoporosis 10/09/2021Nonsustained ventricular atqwqpifmuq29/24/2022Ileostomy in place 11/02/2019OSA 03/16/2019 AHI-26 Pillows fqkdat5004/04/2019Chronic fvxbse6310/30/2018 Multiple thyroid pnrhomn2908/07/2016 Overview (10/23/2016): Multinodular Goiter (Right 2.1, 0.6, [...] with a focal fna or surgery considered asneeded. A) www.thyroid.org B) next US: 2019 or later as needed. Lumbar disc /17/2016Iron deficiency eqhjdg6804/13/2015CP (advance care planning)05/20/2011 Overview (08/20/2012): Discussed 05/20/2011 Referred 05/20/2011 Her plan submitted 08/19/2012 Osteoarthritis, knee05/20/2011 Overview (05/20/2011): Right knee BRCA1 qkoyvxoz13/24/2010 Overview (08/23/2009): At increased risk Breast and Ovarian Cancer - per Dr Astudillo 2009: Letter on file. Aortic Valve Insufficiency; xbkoiiyg02/09/2008 Overview (04/13/2008): Echo: 11/2007: Recheck Yearly Unspecified essential cvsxfpukwpdo83/25/2007Mitral valve /01/2004 Overview (04/13/2008): no need for antibiotics 06/10/2007 Echo: 11/2007: Recheck Yearly Resolved Problems ProblemNoted DateDiagnosed DateResolved DateBilateral lower extremity edema /5Chronic arthralgias of knees and hips09/24// Ganglion cyst of volar aspect of left wristWeight loss Hyponatremia Overview (03/15/2013): Due to Chlorthalidone; improved off medication for a week 03/15/2013 Mwuxyi08Osteopenia Overview (12/19/2011): Recommend Calcium 2000 mg and Vit D 1000 International Units per day. Bone mineral density stable 04/2011; recheck 2 yrs Routine general medical examination at a health care nqohcbnb97/15/2008 07/06/2020 Overview (04/09/2010): Bar Enema 11/28/2006: Diverticulosis, Redundannt Sig & Trans Colon. PLAN: repeat in 2011. 04/09/2010 Contact dermatitis and other eczema, due to unspecified cause11/11/2007 11/16/2020Mixed skvamqfumbdaac10Diverticulitis of colon (without mention of hemorrhage)Malignant neoplasm of bladder, part vljpxdavwbz71Malignant neoplasm of breast (female), unspecified sitebnormal chest CT07/06/2020 Encounters DateTypeDepartmentCare WccySmnutqlmtqo69/03/2025 12:45 PM CSTOrders Only [place] [address] [place] [address] Lab, [place] Lab05/31/2025 4:15 PM CSTAncillary Procedure [address] [place] [address] 05/31/2025 3:20 PM CSTOffice Visit [address] [place] [address] Scout Allan MD Back Pain (Lower left back pain, radiates into left leg, got worse about 3 weeks ago)05/31/20251360Dtjkix76/24/2025 3:00 PM CSTOrders Only [address] [place] [address] Lab, [place] Lab05/23/20255834Imwwtc28/14/2025Telephone [address] [place] [address] Moises Hargrove MD CALL BACK (leg and buttock pain )05/03/2025 2:15 PM CSTOrders Only [address] [place] [address] Lab, [place] Lab04/05/2025 11:45 AM CDTOrders Only [address] [place] [address] Lab, [place] <No scans attached>04/05/2025Travelfrom Last 3 Months Immunizations ImmunizationAdministration DatesNext DueAMB Influenza, IIV4 PF (=>6 mos Flulaval,Fluzone Fluarix)(Flu Clinic Only)03/29/2019,04/18/2014mb Influenza, Inactivated AIIV4 (Age 65+ Years) Preserv Free03/21/2020COVID-19 VACCINE SPIKEVAX (MODERNA 50MCG/0.5ML) 12YO+ PFS10/20/2024,4COVID-19 vaccine (Elivar 30mcg/0.3mL) 12YO+ BIVALENT PF, MDV2COVID-19 vaccine (DeRev-BioNTCeloNova 30mcg/0.3mL) PF, MDV03,08/08/2020Influenza, High-dose Ecxuwyhkpqh05/21/2025,04/05/2024,03/21/2016,03/10/2015Influenza, High-dose Quadrivalent Goovkrvwqij38/19/2023,04/02/2022Influenza, IIV3 (Age >=3 years) 05/31/2003Influenza, BBD009Influenza, Inactivated AIIV4 (Age 65+ Years) Preserv Free04/11/2021Influenza, Inactivated IIV3 (Age 65+ Years) Preserv Free 04/27/2018,05/01/2017Pneumococcal Conj 20-valent (Prevnar 20)09/06/2022 Pneumococcal Poly,23-Valent (Pneumovax)03/21/2016Pneumococcal conj 13-Valent (Prevnar 13)03/10/2015RSV, Recombinant ADJ Reconstituted (Arexvy 120MCG/0.5mL) 05/19/2023Td (Age >=7 Years)08/30/2004Tdap10/06/2024,05/18/2015Zoster (Shingrix- RZV, recombinant)01/09/2021,10/30/2020Zoster (Zostavax-ZVL, live)06/29/2015 Family History Medical HistoryRelationNameCommentsHypertensionBrother 1MarlaneCHFPsychiatric illnessBrother 1MarlaneDepressionHeart DiseaseFatherGerhardHypertensionFather GerhardPsychiatric illnessFatherGerharddepressionCancerMotherMyrtleovarian HypertensionMotherMyrtlePsychiatric illnessOther 1siblingDiabetesOther 2 grandparentCancerSisterLouiseovarian/breastAnesthesia ProblemNo Family History RelationNameStatusCommentsBrother 1MarlaneAliveBrother 2MarkAliveBrother 3Jack Alivefoster brotherFatherGerhardDeceased (Age 63)MotherMyrtleDeceased (Age 83) Other 1Other 2SisterLouiseDeceased (Age 65) Social History Tobacco UseTypesPacks/DayYears UsedDateSmoking Tobacco: NeverSmokeless Tobacco: Never Tobacco Cessation:Counseling Given: No Alcohol UseStandard Drinks/WeekCommentsNo0 (1 standard drink = 0.6 oz pure alcohol)PHQ-2AnswerDate RecordedPHQ-2 TOTAL CDUVO690Social Connections AnswerDate RecordedDo you often feel lonely or isolated from those around you?0 02/02/2025lcohol UseAnswerDate RecordedHow often do you have a drink containing alcohol?verage Number of DrinksNot on file05/31/2025Frequency of Binge DrinkingNot on file05/31/2025Financial Resource StrainAnswerDate Recorded Difficulty of Paying Living Owsnwibw114/06/2025Difficulty of Paying Living ExpensesNot on file02/02/2025Food InsecurityAnswerDate RecordedDo you worry your food will run out before you are able to buy more?Transportation NeedsAnswerDate RecordedDoes lack of transportation keep you from medical appointments?Does lack of transportation keep you from work, meetings or getting things that you need?Housing StabilityAnswerDate Recorded What is your housing situation today?UtilitiesAnswerDate RecordedDo you have trouble paying for utilities (for example, heat, electricity, water, phone)?CommentsNoSex and Gender InformationValueDate Recorded Sex Assigned at BirthNot on fileLegal JoyYqrmxp96/14/2013 5:54 AM CSTGender IdentityNot on fileSexual OrientationNot on fileOccupationIndustryJob Start Date Job End DateRetiredNot on fileNot on fileNot on file Obstetrics History GravidaParaTermPretermABIABSABEctopicMultipleLivingLive Prcscy780VxftLntahnaUF Total LaborLabor/2nd/7lsGnbdtuUmdYhjcUfjlQOYPjiH3C1SwxlMvwoGypcJnuf Last Filed Vital Signs Vital SignReadingTime TakenCommentsBlood Ucfujeax089/80108/01/2024 3:46 PM SAFETY INVESTIGATOR/CAUSE ANALYST Jijpf064605/31/2025 3:29 PM QSGYgfcyrkeayw91.7 ??C (98 ??F)01/25/2025 2:05 PM CDT Respiratory Goik158007/13/2022 10:50 AM CSTOxygen Obcuhdxtfy79%05/31/2025 3:29 PM CSTInhaled Oxygen Concentration--Hgpacc08 kg (108 lb)05/31/2025 3:29 PM SAFETY INVESTIGATOR/CAUSE ANALYST Phvywl687.5 cm (5' 2)01/04/2025 8:55 AM CDTBody Mass Index19.75001/04/2025 8:55 AM CDT Plan of Treatment DateTypeDepartmentCare Team (Latest Contact Info)Xhbfovzywdl77/17/2025 3:20 PM CSTOffice Visit [facility] [address] [place] [address] Scout Allan MD [address] [facility] [place] [address] 06/20/2025 3:00 PM CSTOrders Only [facility] [address] [place] [address] Lab, [place] 07/05/2025 11:[address] [facility] [address] [place] [address] 07/07/2025 11:15 AM CSTOrders Only [facility] [address] [place] [place] [address] Lab, [place] 07/12/2025 2:[address] [facility] [address] [place] [phone] Case, JESUS MANUEL [place] [address] [facility] [address] [place], [place] [id number] Health MaintenanceDue DateLast DoneCommentsMedicare Wellness for age 65+ /06/2024, 09/25/2023, 09/06/2022, Additional history exists Depression screening for age 12+/08/2024, 09/29/2024, 09/28/2024, Additional history existsCOVID-19 vaccine series ( season)2025 04/19/2025, 10/20/2024, 04/05/2024, Additional history existsBMI (ht and wt on same day) for age 18+/01/2025, 11/29/2024, 11/18/2024, Additional history existsTetanus yqoxjxz03//02/2025, 05/18/2015, 08/30/2004Zoster (shingles) series for age 50+Kjhsbptzk68/13/2021, 10/30/2020, 06/29/2015DEXA/DXA scan for age 65+Wjvpxtzqe03/30/2022, 05/14/2018, 04/04/2016, Additional history existsPneumococcal series for age 50+Aghwinvhu04/10/2023, 03/21/2016, 03/10/2015 RSV vaccine for adults or yboddqpfaVpimppxab46/20/2023Influenza VaccineCompleted 04/19/2025, 04/05/2024, 04/11/2021, Additional history existsHepatitis B series for 19+Aged OutNo longer eligible based on patient's age to complete this topic Procedures Procedure NamePriorityDate/TimeAssociated DiagnosisCommentsHEMOGLOBINRoutine 06/01/2025 11:41 AM SAFETY INVESTIGATOR/CAUSE ANALYST Iron deficiency anemia, unspecified iron deficiency anemia type IRON PLUS IRON BINDING ATKGzxrlcu01/03/2025 11:41 AM SAFETY INVESTIGATOR/CAUSE ANALYST Iron deficiency anemia, unspecified iron deficiency anemia type BASIC METABOLIC CLWXXFyuwyaf64/02/2025 4:24 PM SAFETY INVESTIGATOR/CAUSE ANALYST Hyponatremia XR HIP 1 VIEW W PELVIS BDGOXpfmagz04/02/2025 4:23 PM SAFETY INVESTIGATOR/CAUSE ANALYST Chronic left hip pain IATPQENNXGCljjziu40/24/2025 3:33 PM SAFETY INVESTIGATOR/CAUSE ANALYST Iron deficiency anemia, unspecified iron deficiency anemia type IRON PLUS IRON BINDING OYMRmvjdbe34/24/2025 3:33 PM SAFETY INVESTIGATOR/CAUSE ANALYST Iron deficiency anemia, unspecified iron deficiency anemia type PTSZDANSBVUswcayr65/04/2025 2:08 PM SAFETY INVESTIGATOR/CAUSE ANALYST Iron deficiency anemia, unspecified iron deficiency anemia type IRON PLUS IRON BINDING EVYCjrcdko85/04/2025 2:08 PM SAFETY INVESTIGATOR/CAUSE ANALYST Iron deficiency anemia, unspecified iron deficiency anemia type GUFOHOVATTXjkqbmp97/07/2025 11:54 AM CDT Iron deficiency anemia, unspecified iron deficiency anemia type IRON PLUS IRON BINDING MQNLyahvyq78/07/2025 11:54 AM CDT Iron deficiency anemia, unspecified iron deficiency anemia type XR DXA BONE DENSITY 2 SITES CGTMFYijarhs83/30/2022 11:42 AM CDT Asymptomatic postmenopausal state from Last 3 Months or Most Recently Relevant to Health Maintenance Results * IRON PLUS IRON BINDING CAP (06/01/2025 11:41 AM SAFETY INVESTIGATOR/CAUSE ANALYST) Only the most recent of4 resultswithin the time period is included. ComponentValueRef RangeTest MethodAnalysis TimePerformed AtPathologist Signature IRON, VUCVA08877 - 160 mcg/dL06/02/2025 4:34 AM CSTQUEST DIAGNOSTICSIRON BINDING CALVKKCD876885 - 450 mcg/dL (calc)06/02/2025 4:34 AM CSTQUEST DIAGNOSTICS% SQRDWSHWSJ2199 - 45 % (calc)06/02/2025 4:34 AM CSTQUEST DIAGNOSTICSSpecimen (Source)Anatomical Location / LateralityCollection Method / VolumeCollection TimeReceived TimeBloodBLOOD SPECIMEN / UnknownQuest Collect / Roozlye7106/01/2025 11:41 AM CST06/01/2025 11:41 AM SAFETY INVESTIGATOR/CAUSE ANALYST Narrative Authorizing ProviderResult TypeResult StatusRichjasmin Allan MDCHEMISTRY Final ResultPerforming OrganizationAddressCity/State/[facility] HospitalPhone Number [facility] [address] [phone], * HEMOGLOBIN (06/01/2025 11:41 AM SAFETY INVESTIGATOR/CAUSE ANALYST) Only the most recent of4 resultswithin the time period is included. ComponentValueRef RangeTest MethodAnalysis TimePerformed AtPathologist Signature XIHOYAAAWE60.011.7 - 15.5 g/dL06/02/2025 2:38 AM CSTQUEST LNMTWQETRXFEKR86.381.4 - 101.7 fL06/02/2025 2:38 AM CSTQUEST DIAGNOSTICSSpecimen (Source)Anatomical Location / LateralityCollection Method / VolumeCollection TimeReceived TimeBlood BLOOD SPECIMEN / UnknownQuest Collect / Lknytyz7906/01/2025 11:41 AM CST06/01/2025 11:41 AM SAFETY INVESTIGATOR/CAUSE ANALYST Narrative Authorizing ProviderResult TypeResult StatusRichjasmin Allan MDHEMATOLOGY Final ResultPerforming OrganizationAddressCity/State/ZIP CodePhone Number [facility] [address] [phone], * (ABNORMAL) BASIC METABOLIC PANEL (05/31/2025 4:24 PM SAFETY INVESTIGATOR/CAUSE ANALYST)ComponentValueRef RangeTest MethodAnalysis TimePerformed AtPathologist XgpzphxsaFYKFFZ981(L)135 - 146 mmol/L108/02/2024 4:04 AM CSTQUEST DIAGNOSTICSPOTASSIUM4.03.5 - 5.3 mmol/L108/02/2024 4:04 AM CSTQUEST DIAGNOSTICSCARBON HVQLGLW8557 - 32 mmol/L 06/01/2025 4:04 AM CSTQUEST BIMYJUPFIJZKTLQPXA9157 - 99 mg/dL06/01/2025 4:04 AM CSTQUEST DIAGNOSTICSComment: ? Fasting reference interval CALCIUM9.48.6 - 10.4 mg/dL06/01/2025 4:04 AM CSTQUEST DIAGNOSTICSCREATININE0.81 0.60 - 0.95 mg/dL06/01/2025 4:04 AM CSTQUEST DIAGNOSTICSBUN/CREATININE RATIO33 (H)6 - 22 (calc)06/01/2025 4:04 AM CSTQUEST ZPXCLJRQTESTTFF61> OR = 60 mL/min/1.79c44806/01/2025 4:04 AM CSTQUEST DIAGNOSTICSUREA NITROGEN (BUN)27(H)7 - 25 mg/dL06/01/2025 4:04 AM CSTQUEST DIAGNOSTICSELECTROLYTE LYZWPGF17 - 17 mmol/L (calc)06/01/2025 4:04 AM CSTQUEST VONYVSXXFSAZAPXQTAZ51(L)98 - 110 mmol/L 06/01/2025 4:04 AM CSTQUEST DIAGNOSTICSSpecimen (Source)Anatomical Location / LateralityCollection Method / VolumeCollection TimeReceived TimeBloodBLOOD SPECIMEN / UnknownQuest Collect / Opgoblg9705/31/2025 4:24 PM CST05/31/2025 4:24 PM SAFETY INVESTIGATOR/CAUSE ANALYST Narrative Authorizing ProviderResult TypeResult StatusRichard Brielle Allan MDCHEMISTRY Final ResultPerforming OrganizationAddressCity/State/ZIP CodePhone Number [facility] [id number] [place] [address], * XR HIP 1 VIEW W PELVIS LEFT (05/31/2025 4:23 PM SAFETY INVESTIGATOR/CAUSE ANALYST)Anatomical Region LateralityModalityHIPS, HIPL, PelvisComputed RadiographySpecimen (Source) Anatomical Location / LateralityCollection Method / VolumeCollection Time Received Time06/01/2025 8:17 AM SAFETY INVESTIGATOR/CAUSE ANALYST Impressions 06/01/2025 8:17 AM SAFETY INVESTIGATOR/CAUSE ANALYST 1. No acute osseous injuries are noted. Dictated by Nitish Banks MD @ 06/01/2025 8:17:09 AM Dictated by: Nitish Banks MD @ 06/01/2025 08:17:12 (Electronically Signed) Narrative 06/01/2025 8:17 AM SAFETY INVESTIGATOR/CAUSE ANALYST For Patients: As a result of the Cures Act, medical imaging exams and procedure reports are released immediately into your electronic medical record. You may view this report before your referring provider. If you have questions, please contact your health care provider. INDICATION: Chronic left hip pain TECHNIQUE: Pelvis radiograph, Hip radiograph 2 views left COMPARISON: 04/10/2016 FINDINGS: Bone: No acute fractures or aggressive bone lesions are identified. Severe diffuse osteopenia is present. Severe degenerative disc disease is present at L3-4 and L4-5, progressed since prior exam. Joint: Stable mild joint space narrowing seen in the left hip. Interval right hip arthroplasty is partially visualized. The visualized sacroiliac joints are unremarkable in appearance. The pubic symphysis is normal in appearance. Soft tissue: Unremarkable. No radiopaque foreign bodies are seen. Bilateral pelvic surgical clips are noted. Procedure Note Nitish Banks MD - 06/01/2025 For Patients: As a result of the Cures Act, medical imagingexams and procedure reports are released immediately into your electronicmedical record. You may view this report before your referring provider.If you have questions, please contact your health care provider. INDICATION: Chronic left hip pain TECHNIQUE: Pelvis radiograph, Hip radiograph 2 views left COMPARISON: 04/10/2016 FINDINGS: Bone: No acute fractures or aggressive bone lesions are identified. Severe diffuse osteopenia is present. Severe degenerative disc disease is presentat L3- 4 and L4-5, progressed since prior exam. Joint: Stable mild joint space narrowing seen in the left hip. Intervalright hip arthroplasty is partially visualized. The visualized sacroiliacjoints are unremarkable in appearance. The pubic symphysis is normal inappearance. Soft tissue: Unremarkable. No radiopaque foreign bodies are seen.Bilateral pelvic surgical clips are noted. IMPRESSION: 1. No acute osseous injuries are noted. Dictated by Nitish Banks MD @ 06/01/2025 8:17:09 AM Dictated by: Nitish Banks MD @ 06/01/2025 08:17:12 (Electronically Signed) Authorizing ProviderResult TypeResult StatusRichjasmin Allan MDGENERAL IMAGINGFinal Result * (ABNORMAL) XR DXA BONE DENSITY 2 SITES AXIAL (09/26/2021 11:42 AM CDT) Anatomical RegionLateralityModalitySpine, HIPS, HIPL, HIPROtherSpecimen (Source)Anatomical Location / LateralityCollection Method / VolumeCollection TimeReceived Time Impressions 10/04/2021 5:21 PM CDT Osteoporosis. RECOMMENDATIONS: [...] to assess therapeutic efficacy. Daisha Payne PA-C [facility] 10/04/2021 Narrative 10/04/2021 5:21 PM CDT For Patients: Results are automatically released to your [facility] account once available, in compliance with federal regulations. This means that you may see your results before your provider has had a chance to review them. Please allow 2-3 business days for your provider to comment on the results. XR DXA Bone Mineral Density (BMD) EXAM LOCATION: [address] [address] PATIENT NAME: Claudia Benitez DATE OF : [...] two scanners are made by the same repair armature winder helper. PROCEDURE: Dual-energy x-ray absorptiometry performed with routine [...] Osteoporosis: T-score at or below -2.5 SD Authorizing ProviderResult TypeResult StatusRichard Brielle Allan MDDEXAFinal Result from Last 3 Months or Most Recently Relevant to Health Maintenance Insurance * Guarantor: WandertitiClaudia Delisa TypeRelation to PatientDate of BirthPhone Billing AddressPersonal/Fc[address]bt[phone] [facility] [place] [phone] [place] [phone] Advance Directives TypeDate RecordedPatient RepresentativeExplanationHealthcare Directive08/19/2012 1:53 [facility], 07/22/2012 Care Teams Team MemberRelationshipSpecialtyStart DateEnd Scout Allan MD [address] [place] [address] PCP - GeneralFamily Practice03/15/13 Petros Triplett MD Ophthalmology Surgery08/19/12
--- OUTSIDE RECORDS SUMMARY | 2025-06-12 06:01 | XMS_ITS | Clinical Summary ---
Author Organization [facility] Address [address] [place] [address] Care Team Providers Care Economic Analyst Name Role Phone Doctor, No Primary Care Provider Ruth Michel MD Unavailable [phone] Allergies Active AllergyReactionsCriticalityNoted FtgyXlzkmbzbQisgkblannSeumb32/14/2023 JvamgockamolteTssvs98/05/2014 Hyponatremia NifedipineSwelling, lips/bnsxvv1610/18/2006SimvastatinRash,RrerpGzy82/23/2008 [facility] Medications MedicationSigDispense QuantityRefillsLast FilledStart DateEnd DateStatus alendronate (FOSAMAX) 70 mg oral tablet Take 1 tablet (70 mg) by mouth every 7 (seven) days.5Active amLODIPine (NORVASC) 2.5 mg oral tablet Take 1 tablet (2.5 mg) by mouth Daily.4Active Ascorbic Acid 1,000 mg oral Tab once daily.Active carvedilol (COREG) 12.5 mg oral tablet Take 1 tablet (12.5 mg) by mouth.5Active latanoprost 0.005% (XALATAN) 0.005 % Opht Drop ophthalmic (EYE) solution INSTILL 1 DROP IN LEFT EYE AT BEDTIMEActive lisinopriL (PRINIVIL) 40 mg oral tablet Take 1 tablet (40 mg) by mouth once daily.Active mirtazapine (REMERON) 7.5 mg oral tablet Take 0.5 tablets (3.75 mg) by mouth at bedtime.Active torsemide (DEMADEX) 10 mg oral tablet TAKE 1 TABLET (10 MG TOTAL) BY MOUTH 1 (ONE) TIME EACH DAYActive triamcinolone acetonide (Kenalog) 0.1% cream Apply to skin twice a day.5Active Active Problems No known active problems Encounters DateTypeDepartmentCare ZmjhUdmlciawzwg10/13/2025 1:00 PM CDTOffice Visit [facility] - [address] [place] [address] Ruth Corado MD Polyneuropathy (Primary Dx); Vitamin D deficiencyfrom Last 3 Months Social History Tobacco UseTypesPacks/DayYears UsedDateSmoking Tobacco: NeverSmokeless Tobacco: Never Tobacco Cessation:Counseling Given: Not Answered CommentsUnknownSex and Gender InformationValueDate RecordedSex Assigned at BirthNot on fileLegal FodLzptfn75/07/2025 3:42 PM CDTGender IdentityNot on fileSexual OrientationNot on file Last Filed Vital Signs Vital SignReadingTime TakenCommentsBlood Pressure--Pulse--Temperature-- Respiratory Rate--Oxygen Saturation--Inhaled Oxygen Concentration--Qcummv28.1 kg (106 lb)04/11/2025 1:12 PM XEBTpylpr996.5 cm (5' 2)04/11/2025 1:12 PM CDTBody Mass Index19.391 1:12 PM CDT Plan of Treatment Health MaintenanceDue DateLast TzopHzzvpmemUvldyjkvvvq1940Lipid Screening 1940Medicare Wellness Visit1940Depression Assessment (PHQ-2) 1941Yearly Review of HCD1990Osteoporosis Vzrozcsie11/30/2024 09/26/2021, 05/14/2018, 04/04/2016, Additional history existsCOVID-19 Vaccine (2024- season)61, 10/20/2024, 04/05/2024, Additional history existsAdult Tetanus Mkhwbic37/09/595741/02/2025, 05/18/2015, 08/30/2004 Zoster EbohzueRcwxlxuhz56/13/2021, 10/30/2020, 06/29/2015Pneumococcal 50+ Years Onzzfjuho23/10/2023, 03/21/2016, 03/10/2015RSV LfyenripEmtpdbthv07/20/2023 Influenza PvgwwphSqlvgnwgu69/21/2025, 04/05/2024, 03/18/2023, Additional history existsMeningococcal B VaccineAged OutNo longer eligible based on patient's age to complete this topic Procedures Procedure NamePriorityDate/TimeAssociated DiagnosisCommentsIMMUNOFIX AND PROTEIN ELP, SERUM ([facility])Edujtbt5604/11/2025 1:04 PM CDT Polyneuropathy TSH ([facility])Qbwlisf3804/11/2025 1:04 PM CDT Polyneuropathy VITAMIN D, 25-HYDROXY ([facility])Joawshr7304/11/2025 1:04 PM CDT Polyneuropathy Vitamin D deficiency VITAMIN B12 ([facility])Pkfkafq7404/11/2025 1:04 PM CDT Polyneuropathy from Last 3 Months Results * IMMUNOFIX AND PROTEIN ELP, SERUM ([facility]) (04/11/2025 1:04 PM CDT)Component ValueRef RangeTest MethodAnalysis TimePerformed AtPathologist SignatureIgG ([facility])1,883125 - 1,602 mg/dLLABC[facility]P 1IgA ([facility])44593 - 422 mg/dLL[facility] 1IgM ([facility])25701 - 217 mg/d[facility] 1Protein Total ([facility])6.96.0 - 8.5 g/d[facility] 1Albumin ([facility])3.52.9 - 4.4 g/d[facility] 2Oqzqy-7-Fmlwkpgh ([facility])0.30.0 - 0.4 g/dLL[facility] 3Uwrln-3-Vorgzsbj ([facility])0.80.4 - 1.0 g/dL [facility] 2Beta Globulin ([facility])1.10.7 - 1.3 g/d[facility] 2Gamma Globulin ([facility])1.20.4 - 1.8 g/d[facility] 2M Ranjit ([facility])Not ObservedNot Observed g/dLL[facility] 2Globulin, Total ([facility])3.42.2 - 3.9 g/d[facility] 1A/G Ratio ([facility])1.10.7 - 1.7[facility] 2IFE Result ([facility])Comment[facility] 2Comment: The immunofixation pattern appears unremarkable. Evidence of monoclonal protein is not apparent. Note PE Scan ([facility])CommentL[facility] 2Comment: Protein electrophoresis scan will follow via computer, mail, or agricultural education professor delivery. Specimen (Source)Anatomical Location / LateralityCollection Method / Volume Collection TimeReceived NwqtOssqq25/13/2025 1:04 PM CDT1 11:00 PM CDT Narrative [facility] 2 - 04/13/2025 3:10 PM CDT Performed at: 01 - [facility] [address] ??[id number] Lead Caster: Dave Jackson MD, Phone: ??[phone] Performed at: ??02 - [facility] [address] ??[id number] Lead Caster: Mariaelena Cuenca MD, Phone: ??[phone] Authorizing ProviderResult TypeResult StatusGudominique Corado MDLABCORP ORDERABLES Final ResultPerforming OrganizationAddressCity/State/ZIP CodePhone Number [facility] 2 [facility] 1 * VITAMIN D, 25-HYDROXY ([facility]) (04/11/2025 1:04 PM CDT)ComponentValueRef RangeTest MethodAnalysis TimePerformed AtPathologist SignatureVitamin D,25 Hydroxy ([facility])39.830.0 - 100.0 ng/mLL[facility] 1Comment: Vitamin D deficiency has been defined by the [place] of [employer] and an Endocrine Society practice guideline as a level of serum 25-OH vitamin D less than 20 ng/mL (1,2). The Endocrine Society went on to further define vitamin D insufficiency as a level between 21 and 29 ng/mL (2). 1. IOM ([place] [employer]). 2010. Dietary reference ?? intakes for calcium and D. [place]: The ?? National Academies Press. 2. [place] MF, Marya NC, Andrés JONES, et al. ?? Evaluation, treatment, and prevention of vitamin D ?? deficiency: an Endocrine Society clinical practice ?? guideline. JCEM. 2010; 96(7):1911-30. Specimen (Source)Anatomical Location / LateralityCollection Method / Volume Collection TimeReceived YvtiYqjff23/13/2025 1:04 PM CDT1 11:00 PM CDT Narrative [facility] - 04/13/2025 3:10 PM CDT Performed at: - [facility] ??[id number] Lead Caster: Dave Jackson MD, Phone: ??[phone] Authorizing ProviderResult TypeResult Oj Corado MDL[facility] ORDERABLES Final ResultPerforming OrganizationAddressCity/State/ZIP CodePhone Number [facility] 1 * TSH ([facility]) (04/11/2025 1:04 PM CDT)ComponentValueRef RangeTest Method Analysis TimePerformed AtPathologist SignatureTSH ([facility])1.4200.450 - 4.500 uIU/mLL[facility] 1Specimen (Source)Anatomical Location / LateralityCollection Method / VolumeCollection TimeReceived ZvwuXbrhu58/13/2025 1:04 PM CDT 04/10/2025 11:00 PM CDT Narrative [facility] - 04/13/2025 3:10 PM CDT Performed at: - [facility] ??[id number] Lead Caster: Dave Jackson MD, Phone: ??[phone] Authorizing ProviderResult TypeResult StatusRuth Corado M[facility] ORDERABLES Final ResultPerforming OrganizationAddressCity/State/ZIP CodePhone Number [facility] 1 * VITAMIN B12 ([facility]) (04/11/2025 1:04 PM CDT)ComponentValueRef RangeTest MethodAnalysis TimePerformed AtPathologist SignatureVitamin B12 ([facility])379 232 - 1,245 pg/mLL[facility] 1Specimen (Source)Anatomical Location / Laterality Collection Method / VolumeCollection TimeReceived DdtiGglvq51/13/2025 1:04 PM CDT1 11:00 PM CDT Narrative [facility] 1 - 04/13/2025 3:10 PM CDT Performed at: 01 - [facility] [place] [address] [place], [place] ??[id number] Lead Caster: Dave Jackson MD, Phone: ??[phone] Authorizing ProviderResult TypeResult StatusRuth Corado [facility] ORDERABLES Final ResultPerforming OrganizationAddressCity/State/ZIP CodePhone Number [facility] 1 from Last 3 Months Insurance Care Teams Team MemberRelationshipSpecialtyStart DateEnd Date Doctor, No No ad PCP - GeneralRadiology02/03/25 Ruth Corado MD [address] [place] [address] [address] [place] [address] Neurology02/03/25
--- OUTSIDE RECORDS SUMMARY | 2025-06-12 06:01 | XMS_ITS | Encounter Summary ---
Author Organization [facility] Address [address] [place] [address] Phone Care Team Providers Care Tree Trimming Supervisor Name Role Phone Scout Allan MD Primary Care Provider [phone] Encounter Details DateTypeDepartmentCare Team (Latest Contact Info)Mrvwdhqxjya47/07/2025Orders Only [facility] [address] [place] [address] Ivanna Oliveira, ETHAN [address] [place] [address] Hypo-osmolality and hyponatremia Social History Tobacco UseTypesPacks/DayYears UsedDateSmoking Tobacco: NeverSmokeless Tobacco: NeverAlcohol UseStandard Drinks/WeekCommentsNever0 (1 standard drink = 0.6 oz pure alcohol)CommentsUnknownSex and Gender InformationValueDate Recorded Sex Assigned at BirthNot on fileLegal DxpTzdpts28/09/2024 4:58 PM EDTGender IdentityNot on fileSexual OrientationNot on filedocumented as of this encounter Plan of Treatment Not on file documented as of this encounter Visit Diagnoses Diagnosis Hypo-osmolality and hyponatremia documented in this encounter Care Teams Team MemberRelationshipSpecialtyStart DateEnd Date Scout Allan MD [address] [place] [address] [facility]23documented as of this encounter
--- OUTSIDE RECORDS SUMMARY | 2025-06-12 06:01 | XMS_ITS | Clinical Summary ---
Author Organization [facility] Address [address] [place] [address] Phone Care Team Providers Care Grievance And Appeals Specialist Name Role Phone Scout Allan MD Primary Care Provider [phone] Allergies Active AllergyReactionsCriticalityNoted NpcrXbnsfnrtWpujkuonkcWajuesrz92/07/2024 Edema on 5mg, ok on 2.5mg CarvedilolOther (see comments)12/11/2022hlorthalidoneOther (see comments) 02/01/2014 Hyponatremia HydrochlorothiazideOther (see comments)10/07/2014 Low sodium. QjelncvuzoJdcwxgwh31/21/1402RwmncrglgfuOolwPzj03/23/2008 [facility] Medications MedicationSigDispense QuantityRefillsLast FilledStart DateEnd DateStatus alendronate (FOSAMAX) 70 MG tablet Take 70 mg by mouth 1 (one) time per week09/25/2023ctive amLODIPine (NORVASC) 2.5 MG tablet Take 2.5 mg by mouth in the morning.12/05/2023ctive lisinopril 40 MG tablet Take 40 mg by mouth in the morning.09/25/2023ctive LYCOPENE PO Take 1 tablet by mouth in the morning.Active ascorbic acid (VITAMIN C) 1000 MG tablet Take 1,000 mg by mouth 1 (one) time each dayActive mirtazapine (REMERON) 7.5 MG tablet Take 7.5 mg by mouth if needed (for sleep) Varies, mostly 1 tablet at nightly every few days.Active carvedilol (COREG) 6.25 MG tablet Take 6.25 mg by mouth in the morning and 6.25 mg in the evening. Take with meals.Active cyclobenzaprine (FLEXERIL) 5 MG tablet Take 5 mg by mouth 2 (two) times a day if needed for muscle sdihrz1912/09/2024 Active latanoprost (XALATAN) 0.005 % ophthalmic solution INSTILL 1 DROP IN LEFT EYE AT IPITRQG61/05/2025Active traMADol (ULTRAM) 50 MG tablet Take 50 mg by mouth every 6 (six) hours if udwgak725Active triamcinolone (KENALOG) 0.1 % cream if needed for irritation or rash09/28/2024tive sodium chloride 1 g tablet Take 1 tablet (1 g total) by mouth in the morning and 1 tablet (1 g total) in the evening. Take with meals. 180 tablet 5Active torsemide (DEMADEX) 10 MG tablet Take 1 tablet (10 mg total) by mouth 1 (one) time each day 90 tablet 506Active Active Problems ProblemNoted DateDiagnosed DateHistory of malignant neoplasm of dqjuyw5501/06/2024 Bilateral lower limb edema12/05/2023H/O: malignant /22/2024Hypo- osmolality and kqkpwrbqiylq15/15/2023Peripheral sensory gahiyjydyz43/02/2022 Ileostomy aglgixi0911/02/2019Obstructive sleep apnea /06/2019Chronic wnnnwv2310/30/2018Multinodular vbwbwl3808/07/2016 Overview (01/07/2024): Multinodular Goiter (Right 2.1, 0.6, [...] or later as needed. Prolapsed lumbar intervertebral disc08/16/2015BRCA1 gene mutation detected 08/23/2009 Overview (01/07/2024): At increased risk Breast and Ovarian Cancer - per Dr Astudillo 2009: Letter on file. Aortic valve bzyjhdwvvmtsq47/09/2008 Overview (01/07/2024): Echo: 11/2007: Recheck Yearly Essential hnoejyjcxcrd65/25/2007 Encounters DateTypeDepartmentCare CqfoTujipkvpwcw83/07/2025Orders Only [facility] [address] [place] [phone] Ivanna Oliveira RN Hypo-osmolality and pbtwhyppjynw29/08/2025Results Follow-Up [facility] [address] [place] [phone] Manish Palma MD 03/25/2025Orders Only [facility] [place], [address] [place] [id number] Manish Palma MD Hypo-osmolality and hyponatremia; Essential hypertensionfrom Last 3 Months Immunizations ImmunizationAdministration DatesNext DueInfluenza Split High Dose Preservative Free IM04/05/2024,03/21/2016,03/10/2015Moderna Sars-cov-2 (Covid-19) Vaccine, Mrna, Ranjit Bwighox3510/20/2024,4Pfizer ZNFC-AOB-157/02/2021,08/08/2020 Tdap10/06/2024,05/18/2015 Family History Medical HistoryRelationCommentsHeart failureBrother 1HypertensionBrother 1 DepressionBrother 2DepressionFatherHeart diseaseFatherHypertensionFatherCancer MotherHypertensionMotherDiabetesOtherMental illnessSiblingCancerSisterRelation StatusCommentsBrother 1AliveBrother 2AliveBrother 3AliveBrother 4AliveFather DeceasedMotherDeceasedOtherAliveSiblingAliveSisterDeceased Social History Tobacco UseTypesPacks/DayYears UsedDateSmoking Tobacco: NeverSmokeless Tobacco: NeverAlcohol UseStandard Drinks/WeekCommentsNever0 (1 standard drink = 0.6 oz pure alcohol)CommentsUnknownSex and Gender InformationValueDate Recorded Sex Assigned at BirthNot on fileLegal EysDfekow91/09/2024 4:58 PM EDTGender IdentityNot on fileSexual OrientationNot on file Last Filed Vital Signs Vital SignReadingTime TakenCommentsBlood Bhovumbu907/5207 2:05 PM CDT Eubil162901/03/2025 2:05 PM CDTTemperature--Respiratory Rate--Oxygen Mhgvdqacns29% 01/03/2025 2:05 PM CDTInhaled Oxygen Concentration--Fdqgwh35.1 kg (106 lb) 01/03/2025 2:05 PM WMAZvkzqu724.5 cm (5' 2)01/03/2025 2:05 PM CDTBody Mass Index19.39001/03/2025 2:05 PM CDT Plan of Treatment Health MaintenanceDue DateLast DoneCommentsPneumococcal Vaccine: 50+ Years (1 of 2 - PCV)1959Influenza Vaccine (#1)51, 04/11/2021, 04/27/2018, Additional history existsHepatitis B VaccineAged OutNo longer eligible based on patient's age to complete this topic Procedures Procedure NamePriorityDate/TimeAssociated DiagnosisCommentsBASIC METABOLIC PANEL Mkqtanz4704/05/2025 10:48 AM CDT Hypo-osmolality and hyponatremia Essential hypertension from Last 3 Months Results * Basic metabolic panel (04/05/2025 10:48 AM CDT)ComponentValueRef RangeTest MethodAnalysis TimePerformed AtPathologist ZalyllsgyYkjljpl9660 - 99 mg/dL NewRiver-Wood DaleComment: ? Fasting reference interval LYX357 - 25 mg/dLQuest Nati-Meng MakieCreatinine0.830.60 - 0.95 mg/dLQuest Nati-Meng MakieeGFR CKD-EPI CR [id number]> OR = 60 mL/min/1.05k6Pppdz Nati-Wood DaleBUN/Creatinine RatioSEE NOTE: - (calc)Sabrnia Damian-Meng MakieComment: ?? Not Reported: BUN and Creatinine are within ?? reference range. ? Honwyq497578 - 146 mmol/LQuest Nati-Wood DalePotassium4.63.5 - 5.3 mmol/L [facility]-Meng PofvAzfprlsg9098 - 110 mmol/LQuest Nati-[place] Bicarbonate (CO2)3120 - 32 mmol/LQuest Nati-Meng DaleCalcium9.28.6 - 10.4 mg/dLQuest Nati-Meng DaleSpecimen (Source)Anatomical Location / LateralityCollection Method / VolumeCollection TimeReceived TimeBloodVenous blood / Xvfjqkp8004/05/2025 10:48 AM CDT1 10:48 AM CDT Narrative Resulting Agency Comment Performing Organization Information: ?Site ID: [id number] ?Name: [facility] ?Address: [address] [place] [phone] ?Director: Rohit Franco Authorizing ProviderResult TypeResult StatusManish PULLIAM BLOOD ORDERABLESFinal ResultPerforming OrganizationAddressCity/State/ZIP CodePhone Number [facility] [address] [place] [phone] from Last 3 Months Insurance [place] [id number] Care Teams Team MemberRelationshipSpecialtyStart DateEnd Scout Allan MD [address] [place] [address] [facility]CP - [facility]10/07/23
--- NOTE | 2025-06-12 06:07 | ED.GENADULT ---
HPI - General Adult General Time Seen by Provider: 06:07 Date Seen: 06/12/25 Chief complaint: Constipation Stated complaint: constipation Time Seen by Provider: 06/12/25 06:07 Source: patient and EMS Mode of arrival: EMS History of Present Illness HPI narrative: Claudia is a 84-year-old female with past medical history of hypertension, aortic valve regurgitation/insufficiency who presents the emergency department from home by EMS for evaluation of constipation. Patient presents tonight from home with a 2-3 day history of constipation. Patient reports she has not had a bowel movement for the past few days, and does have history of having blockages in the past so was worried and came in. Patient reports that she has noticed some abdominal discomfort and some hardening of her abdomen but denies any specific abdominal pain. Patient denies any fever, chills, nausea, vomiting. Denies any chest pain, cough, shortness of breath. Patient reports she is passing a small amount of gas. Patient states that she has tried heating pack, increased walking around, increased her water intake with no improvement of symptoms. Patient states she did take 1 medication to help with her stools (states it was a pill her takes to help with his bowel movements so unclear if stool softener or laxative). Patient has history of urostomy, no other urinary complaints. Related Data Home Medications ?Medication ?Instructions ?Recorded ?Confirmed alendronate 70 mg tablet 70 mg PO QWEEK 07/25/22 06/12/25 latanoprost 0.005 % eye drops 1 drp ophthalmic (eye) HS 07/25/22 06/12/25 lisinopril 40 mg tablet 40 mg PO DAILY 07/25/22 06/12/25 acetaminophen 500 mg tablet 1,000 mg PO TID 09/26/23 06/12/25 amlodipine 2.5 mg tablet 2.5 mg PO DAILY 09/26/23 06/12/25 ascorbic acid (vitamin C) 1,000 mg 1 g PO DAILY 09/26/23 06/12/25 tablet (Vitamin C) calcium carbonate (Oyster Shell 500 mg PO BID 09/26/23 06/12/25 Calcium) cholecalciferol (vitamin D3) 25 25 mcg PO DAILY 09/26/23 06/12/25 mcg (1,000 unit) capsule mirtazapine 7.5 mg tablet 7.5 mg PO HS 09/26/23 06/12/25 triamcinolone acetonide 0.1 % 1 applic topical BID PRN 09/26/23 06/12/25 topical cream sodium chloride 1,000 mg soluble 1,000 mg PO BIDWM 04/26/24 06/12/25 tablet torsemide 10 mg tablet 10 mg PO ONCE 08/04/24 06/12/25 carvedilol 6.25 mg tablet 6.25 mg PO BID 10/18/24 04/27/25 carvedilol 12.5 mg tablet 12.5 mg PO BID 12/09/24 06/12/25 erythromycin 5 mg/gram (0.5 %) eye 1 applic ophthalmic (eye) 12/09/24 06/12/25 ointment DIRECTED Previous Rx's ?Medication ?Instructions ?Recorded cyclobenzaprine 5 mg tablet 5 mg PO QHS PRN muscle spasm #10 12/09/24 tabs Allergies Allergy/AdvReac Type Severity Reaction Status Date / Time nifedipine Allergy Verified 06/12/25 06:11 simvastatin Allergy Target Verified 06/12/25 06:11 lesions arms/trunk amlodipine AdvReac Severe edema Verified 06/12/25 06:11 chlorthalidone AdvReac hyponatremi Verified 06/12/25 06:11 a hydrochlorothiazide AdvReac hyponatremi Verified 06/12/25 06:11 a Review of Systems Narrative: Past medical history, past surgical history, medications, allergies, family history, and social history were reviewed with the patient. No additional pertinent items. A medically appropriate review of systems was performed with pertinent positives and negatives noted in HPI, all other systems negative. [facility] Medical History Aortic valve regurgitation (03/08/08) ?I35.1 - Nonrheumatic aortic (valve) insufficiency (ICD-10) Osteoarthritis, knee (05/20/11) ?M17.9 - Osteoarthritis of knee, unspecified (ICD-10) Multiple thyroid nodules (08/07/16) ?E04.2 - Nontoxic multinodular goiter (ICD-10) Multinodular goiter (08/07/16) ?E04.2 - Nontoxic multinodular goiter (ICD-10) Mitral valve disorder (06/30/03) ?I05.9 - Rheumatic mitral valve disease, unspecified (ICD-10) Lumbar disc herniation (08/16/15) ?M51.26 - Other intervertebral disc displacement, lumbar region (ICD-10) Ileostomy in place (11/02/19) ?Z93.2 - Ileostomy status (ICD-10) Hypo-osmolality and hyponatremia (11/11/22) ?E87.1 - Hypo-osmolality and hyponatremia (ICD-10) History of bladder cancer (09/19/23) ?Z85.51 - Personal history of malignant neoplasm of bladder (ICD-10) Chronic eczema (10/30/18) ?L30.9 - Dermatitis, unspecified (ICD-10) Bilateral lower extremity edema (12/05/23) ?R60.0 - Localized edema (ICD-10) ACP (advance care planning) (05/20/11) ?Z71.89 - Other specified counseling (ICD-10) Fracture of rib ?S22.39XA - Fracture of one rib, unspecified side, initial encounter for closed fracture (ICD-10) Unspecified arthropathy, shoulder region ?M19.019 - Primary osteoarthritis, unspecified shoulder (ICD-10) Chronic hyponatremia ?E87.1 - Hypo-osmolality and hyponatremia (ICD-10) Hx of breast cancer ?Z85.3 - Personal history of malignant neoplasm of breast (ICD-10) Hyponatremia ?E87.1 - Hypo-osmolality and hyponatremia (ICD-10) Osteoarthritis of left shoulder ?M19.012 - Primary osteoarthritis, left shoulder (ICD-10) Rotator cuff tear, right ?M75.101 - Unspecified rotator cuff tear or rupture of right shoulder, not specified as traumatic (ICD-10) Osteoarthritis of right shoulder ?M19.011 - Primary osteoarthritis, right shoulder (ICD-10) Rupture of right biceps tendon ?S46.211A - Strain of muscle, fascia and tendon of other parts of biceps, right arm, initial encounter (ICD-10) Bladder cancer ?C67.9 - Malignant neoplasm of bladder, unspecified (ICD-10) Rotator cuff tear, left ?M75.102 - Unspecified rotator cuff tear or rupture of left shoulder, not specified as traumatic (ICD-10) Edema ?R60.9 - Edema, unspecified (ICD-10) Polydipsia ?R63.1 - Polydipsia (ICD-10) Dizziness ?R42 - Dizziness and giddiness (ICD-10) Anxiety ?F41.9 - Anxiety disorder, unspecified (ICD-10) Breast cancer, BRCA1 positive ?C50.919 - Malignant neoplasm of unspecified site of unspecified female breast (ICD-10) ?Z15.01 - Genetic susceptibility to malignant neoplasm of breast (ICD-10) Daytime sleepiness ?R40.0 - Somnolence (ICD-10) Insomnia ?G47.00 - Insomnia, unspecified (ICD-10) Fatigue ?R53.83 - Other fatigue (ICD-10) Myalgia ?M79.10 - Myalgia, unspecified site (ICD-10) Weakness generalized ?R53.1 - Weakness (ICD-10) Hypertension ?I10 - Essential (primary) hypertension (ICD-10) Aortic insufficiency ?I35.1 - Nonrheumatic aortic (valve) insufficiency (ICD-10) Osteoarthritis ?M19.90 - Unspecified osteoarthritis, unspecified site (ICD-10) Anemia ?D64.9 - Anemia, unspecified (ICD-10) Back pain ?M54.9 - Dorsalgia, unspecified (ICD-10) Eczema ?L30.9 - Dermatitis, unspecified (ICD-10) SHERIF (obstructive sleep apnea) ?G47.33 - Obstructive sleep apnea (adult) (pediatric) (ICD-10) Ventricular tachycardia ?I47.20 - Ventricular tachycardia, unspecified (ICD-10) Osteoporosis ?M81.0 - Age-related osteoporosis without current pathological fracture (ICD-10) Peripheral neuropathy ?G62.9 - Polyneuropathy, unspecified (ICD-10) Surgical History 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) ?Z96.651 - Presence of right artificial knee joint (ICD-10) Status post knee surgery (06/18/24) ?Z98.890 - Other specified postprocedural states (ICD-10) 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/19) ?Z96.641 - Presence of right artificial hip joint (ICD-10) History of bilateral mastectomy ?Z90.13 - Acquired absence of bilateral breasts and nipples (ICD-10) History of cataract surgery ?Z98.49 - Cataract extraction status, unspecified eye (ICD-10) History of hysterectomy ?Z90.710 - Acquired absence of both cervix and uterus (ICD-10) H/O ileostomy ?Z98.890 - Other specified postprocedural states (ICD-10) Family History Mother Ovarian cancer High blood pressure Sister Ovarian cancer High blood pressure Father Heart disease High blood pressure Social History Narrative: She is , lives with Rina in [facility]. They both see Dr. Allan for primary care. Nonsmoker, no ETOH. She has had her COVID vaccines. Code status is full. 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 What is your current living situation?: I presently have a place to live Problems where you live: no known problems Problems where you live details: N/A In the past 12 months, utilities in danger of being shut off: no In past 12 months, lack of transportation kept you from medical appts, meetings, work, or getting things needed for daily living: no In the past 12 mos, have been you worried that your food would run out before you had money to buy more?: never true In the past 12 mos, the food you bought just didn't last and you didn't have money to buy more?: never true Highest level of school completed/degree received: Bachelor's degree Smoking Status: Never smoker Do you use any of these nicotine containing products: None Second hand tobacco smoke exposure: No How often do you have a drink containing alcohol: never How often do you have six or more drinks on one occasion: Never AUDIT-C Alcohol total score: 0 Non-prescribed substance use: denies use Caffeine: Yes How often does anyone, including family, friends and others, physically hurt you: never How often does anyone, including family, friends and others, insult or talk down to you: never How often does anyone, including family, friends and others, threaten you with harm: never How often does anyone, including family, friends and others, scream or curse at you: never service: No Exam Narrative: Exam Narrative: General: Afebrile, in distress HEENT: Normocephalic, atraumatic, conjunctiva normal. MMM Neck: non-tender, supple Cardio: regular rate. regular rhythm Resp: Normal work of breathing, no respiratory distress, lungs clear bilaterally, no wheezing, rhonchi, rales Chest/Back: no visual signs of trauma, no midline tenderness, no CVA tenderness Abdomen: soft, minimal distension, no tenderness, no peritoneal signs Neuro: alert and fully oriented. CN II-XII grossly intact. Grossly normal strength and sensation in all extremities. MSK: no deformities. Normal range of motion Integumentary/Skin: no rash visualized, normal color Psych: normal affect, normal behavior Const: Vital Signs, click to edit/add: Vital Signs - 24 hr 06/12/25 06:01 06/12/25 08:08 06/12/25 08:09 Temperature 98.3 F Pulse Rate 74 69 Pulse Rate [Right Pulse Oximeter] 84 Respiratory Rate 18 Blood Pressure 194/91 H Blood Pressure [Le ft Upper Arm] 227/97 H Pulse Oximetry 98 96 96 Oxygen Delivery Me thod Room Air 06/12/25 08:15 06/12/25 08:30 06/12/25 08:31 Temperature Pulse Rate 75 80 73 Pulse Rate [Right Pulse Oximeter] Respiratory Rate Blood Pressure 186/83 H Blood Pressure [Le ft Upper Arm] Pulse Oximetry 96 99 99 Oxygen Delivery Me thod 06/12/25 08:46 06/12/25 09:00 06/12/25 09:01 Temperature Pulse Rate 74 68 71 Pulse Rate [Right Pulse Oximeter] Respiratory Rate Blood Pressure 174/76 H Blood Pressure [Le ft Upper Arm] Pulse Oximetry 99 98 98 Oxygen Delivery Me thod 06/12/25 09:15 06/12/25 09:32 06/12/25 09:33 Temperature Pulse Rate 81 90 80 Pulse Rate [Right Pulse Oximeter] Respiratory Rate Blood Pressure 208/86 H Blood Pressure [Le ft Upper Arm] Pulse Oximetry 97 95 97 Oxygen Delivery Me thod Course Vital Signs Vital signs: Initial Vital Signs Temperature 98.3 F 06/12/25 06:01 Temperature Source Temporal Artery Scan 06/12/25 06:01 Pulse Rate 84 06/12/25 06:01 Pulse Rhythm Regular 06/12/25 06:01 Respiratory Rate 18 06/12/25 06:01 Blood Pressure 227/97 H 06/12/25 06:01 Blood Pressure Mean 140 H 06/12/25 06:01 Blood Pressure Position Sitting 06/12/25 06:01 Pulse Oximetry 98 06/12/25 06:01 Oxygen Delivery Method Room Air 06/12/25 06:01 Vital Signs Temperature 98.3 F 06/12/25 06:01 Pulse Rate 84 06/12/25 06:01 Respiratory Rate 18 06/12/25 06:01 Blood Pressure 227/97 H 06/12/25 06:01 Pulse Oximetry 98 06/12/25 06:01 Oxygen Delivery Method Room Air 06/12/25 06:01 Temperature 98.3 F 06/12/25 06:01 Pulse Rate 80 06/12/25 09:33 Respiratory Rate 18 06/12/25 06:01 Blood Pressure 208/86 H 06/12/25 09:33 Pulse Oximetry 97 06/12/25 09:33 Oxygen Delivery Method Room Air 06/12/25 06:01 Medications Administered Medications: Generic Name Dose Route Start Last Admin Trade Name Freq PRN Reason Stop Dose Admin Sodium Chloride 1,000 mls @ 1,000 mls/hr 06/12/25 09:00 06/12/25 09:01 0.9 % Sodium Chloride 1000 Ml IV 06/12/25 09:59 1,000 mls/hr .Q1H LOLIS Administration Medical Decision Making [facility] Narrative Medical decision making narrative: Claudia is a 84-year-old female with past medical history of hypertension, aortic valve regurgitation/insufficiency who presents the emergency department from home by EMS for evaluation of constipation. Upon arrival patient is nontoxic appearing, afebrile, in distress. Patient hypertensive upon arrival with blood pressure 227/97, heart rate 84, oxygen 98% on room air. Patient with minimal distension, abdomen otherwise soft, nontender to palpation with no rebound, no guarding, no peritoneal signs differential diagnosis includes but is not limited to constipation versus obstruction versus ileus versus infectious versus dehydration among others. Upon arrival patient treated with Tylenol for her pain, will plan for comprehensive labs, CT imaging and re-evaluation. I reviewed comprehensive labs which are unremarkable 5 at the count 7.26, hemoglobin 12.9, sodium low 128, chloride 94, BUN 27/creatinine 0.8, normal lactic acid, normal lipase, no transaminitis. I personally reviewed interpreted CT scan abdomen pelvis which demonstrates no acute pathology in the abdomen or pelvis. No evidence of acute infection, obstruction, diverticulitis, abscess. No clear etiology patient's symptoms. Patient does report constipation for the past 3 days with this time recommend continue supportive care, [id number] stool softeners and/or laxatives, close outpatient follow-up. Strict return precautions discussed high fever, worsening pain, persistent vomiting, worsening symptoms. Patient understands and agrees the plan. Medical Records Medical records reviewed: Yes I reviewed the patient's medical records Lab Data Lab results reviewed: Yes I reviewed the patient's lab results Labs: Lab Results 06/12/25 06/12/25 Range/Units 07:03 07:15 WBC 7.26 (4.50-11.00) K/uL RBC 3.88 L (4.00-5.20) m/uL Hgb 12.9 (12.0-16.0) gm/dL Hct 37.0 (33.0-51.0) % MCV 95 (80-100) fL MCH 33 (26-34) pg MCHC 35 (32-36) gm/dL RDW Coeff of Helio 11.7 (11.5-15.5) % Plt Count 236 (140-440) K/uL Neut % (Auto) 74.9 H (42.0-72.0) % Lymph % (Auto) 11.6 L (20-44) % Jackson % (Auto) 9.4 (0.0-11.0) % Eos % (Auto) 2.9 (0.0-7.0) % Baso % (Auto) 0.4 (0.0-3.0) % Neut # (Auto) 5.40 (1.7-7.0) K/uL Lymph # (Auto) 0.80 L (0.90-2.90) K/uL Jackson # (Auto) 0.70 (0.00-0.90) K/UL Eos # (Auto) 0.21 (0.00-0.50) K/uL Baso # (Auto) 0.03 (0.00-0.30) K/uL Abs Immat Gran (auto) 0.06 (0.00-0.30) K/uL Imm/Tot Granulo (auto) 0.8 % Sodium 128 L (135-149) mmol/L Potassium 4.5 (3.6-5.1) mmol/L Chloride 94 L (96-114) mmol/L Carbon Dioxide 30 (20-32) mmol/L Anion Gap 4 L (7-15) mEq/L BUN 27 (7-30) mg/dL Creatinine 0.8 (0.5-1.5) mg/dL Estimated Creat Clear 31.79 Estimated GFR 73 ml/min Glucose 101 (60-115) mg/dL Lactate < 0.4 L (0.5-1.9) mmol/L Calcium 8.9 (8.4-10.6) mg/dL Total Bilirubin 0.6 (0.1-1.5) mg/dL AST 34 (12-35) U/L ALT 20 (4-35) U/L Alkaline Phosphatase 76 (40-150) U/L Total Protein 7.5 (6.0-8.3) g/dL Albumin 4.4 (3.3-5.0) g/dL Lipase 201 (23-300) U/L POC Creatinine 0.9 (0.6-1.3) mg/dl Imaging Data CT scan - abdomen: Attestation: I have reviewed the pertinent imaging results. Radiologist's impression: Ordering Physician: Bonita Birch M.D. Date of Service: 06/12/25 Procedure(s): CT abdomen pelvis w con Accession Number(s): [id number] cc: Bonita Birch M.D.; Scout Allan M.D.~ For Patients: As a result of the 21st Century Cures Act, medical imaging exams and procedure reports are released immediately into your electronic medical record. You may view this report before your referring provider. If you have questions, please contact your health care provider. INDICATION: Abdominal pain; abdominal distention. COMPARISON: CT chest with intravenous contrast December 22, 2009 and April 24, 2024. TECHNIQUE: CT abdomen and pelvis with intravenous contrast; coronal and sagittal reformats; 54 cc of Isovue-370 contrast was injected IV. FINDINGS: No nodules through the lung bases. No evidence of pleural effusion. Enlarged cardiac silhouette. No evidence of pericardial effusion. No focal hepatic or splenic pathology. No pancreatic pathology. Gallbladder is unremarkable. No adrenal pathology. Small cysts identified in the upper pole left kidney. No kidney stones or obstructive uropathy. No retroperitoneal lymphadenopathy. No evidence of abdominal or pelvic ascites. Total hip arthroplasty on the right. Urinary bladder is not visualized and there is appearance of ileal loop urinary diversion in the right lower quadrant of the abdomen. Diverticulosis sigmoid colon without any CT evidence of diverticulitis or abscess. Impression: No acute pathology either in the abdomen or pelvis. Please note that all CT scans at this facility use dose modulation, iterative reconstruction, and/or weight-based dosing when appropriate to reduce radiation dose to as low as reasonably achievable. Dictated by Reyes Marshall MD @ 06/12/2025 8:32:07 AM (Electronically Signed) Discharge Plan Discharge Clinical Impression: Acute generalized abdominal pain, Constipation Patient Disposition: Home, Self-Care Condition: Stable Additional Instructions: Please follow-up with your primary care provider in the next 2-3 days for further evaluation and follow-up. Please call to schedule appointment. Please take an elfr-[id number] stool softener twice daily (example Colace, senna) as well as a laxative once daily (ex: senna S). Please take Tylenol as needed for pain. Please return to the emergency department if you develop high fever, severe pain, persistent vomiting, worsening symptoms. It was a pleasure taking care of you today. We hope you feel better soon. Prescriptions: No Action carvedilol 6.25 mg tablet 6.25 mg PO BID torsemide 10 mg tablet 10 mg PO ONCE latanoprost 0.005 % drops 1 drp ophthalmic (eye) HS Patient Comments: left eye alendronate 70 mg tablet 70 mg PO QWEEK Patient Comments: friday lisinopril 40 mg tablet 40 mg PO DAILY amlodipine 2.5 mg tablet 2.5 mg PO DAILY mirtazapine 7.5 mg tablet 7.5 mg PO HS calcium carbonate [Oyster Shell Calcium] 500 mg calcium (1,250 mg) tablet 500 mg PO BID ascorbic acid (vitamin C) [Vitamin C] 1,000 mg tablet 1 g PO DAILY triamcinolone acetonide 0.1 % cream 1 applic topical BID PRN acetaminophen 500 mg tablet 1,000 mg PO TID cholecalciferol (vitamin D3) 25 mcg (1,000 unit) capsule 25 mcg PO DAILY sodium chloride 1,000 mg Tablet,Soluble 1,000 mg PO BIDWM erythromycin 5 mg/gram (0.5 %) ointment 1 applic ophthalmic (eye) DIRECTED carvedilol 12.5 mg tablet 12.5 mg PO BID cyclobenzaprine 5 mg tablet 5 mg PO QHS PRN (Reason: muscle spasm) Qty: 10 1RF Follow Up/Referrals: Scout Allan MD [Primary Care Provider, Family Practice] Stand Alone Forms: MyHealth Info Instructions
--- NOTE | 2025-06-12 06:59 | CRLHL7_ITS ---
For Patients: As a result of the Century Cures Act, medical imaging exams and procedure reports are released immediately into your electronic medical record. You may view this report before your referring provider. If you have questions, please contact your health care provider. INDICATION: Abdominal pain; abdominal distention. COMPARISON: CT chest with intravenous contrast December 22, 2009 and April 24, 2024. TECHNIQUE: CT abdomen and pelvis with intravenous contrast; coronal and sagittal reformats; 54 cc of Isovue-370 contrast was injected IV. FINDINGS: No nodules through the lung bases. No evidence of pleural effusion. Enlarged cardiac silhouette. No evidence of pericardial effusion. No focal hepatic or splenic pathology. No pancreatic pathology. Gallbladder is unremarkable. No adrenal pathology. Small cysts identified in the upper pole left kidney. No kidney stones or obstructive uropathy. No retroperitoneal lymphadenopathy. No evidence of abdominal or pelvic ascites. Total hip arthroplasty on the right. Urinary bladder is not visualized and there is appearance of ileal loop urinary diversion in the right lower quadrant of the abdomen. Diverticulosis sigmoid colon without any CT evidence of diverticulitis or abscess. Impression: No acute pathology either in the abdomen or pelvis. Please note that all CT scans at this facility use dose modulation, iterative reconstruction, and/or weight-based dosing when appropriate to reduce radiation dose to as low as reasonably achievable. Dictated by Reyes Marshall MD @ 06/12/2025 8:32:07 AM (Electronically Signed)
[2025-06-12 07:22] LABS: Lactate* < 0.4 mmol/L (0.5-1.9)
[2025-06-12 07:28] LABS: Hematocrit* 37.0 % (33.0-51.0); Hemoglobin* 12.9 gm/dL (12.0-16.0); Immature Granulocytes Abs Auto 0.06 K/uL (0.00-0.30); Immature Granulocytes Pct Auto 0.8 %; Mean Corpuscular HGB Conc 35 gm/dL (32-36); Mean Corpuscular Hemoglobin 33 pg (26-34); Mean Corpuscular Volume 95 fL (80-100); RDW Coefficient of Variation % 11.7 % (11.5-15.5); Red Blood Count* 3.88 m/uL (4.00-5.20); White Blood Count* 7.26 K/uL (4.50-11.00)
[2025-06-12 07:35] LABS: Creatinine, Point-of-Care* 0.9 mg/dl (0.6-1.3)
[2025-06-12 07:40] LABS: Lymphocytes Absolute Auto 0.80 K/uL (0.90-2.90)
[2025-06-12 07:41] LABS: Slide Review Reflex No
[2025-06-12 07:45] LABS: Albumin* 4.4 g/dL (3.3-5.0); Chloride* 94 mmol/L (96-114); Potassium* 4.5 mmol/L (3.6-5.1); Sodium* 128 mmol/L (135-149)
[2025-06-12 07:48] LABS: Alanine Aminotransferase* 20 U/L (4-35); Alkaline Phosphatase* 76 U/L (40-150); Anion Gap 4 mEq/L (7-15); Aspartate Amino Transferase* 34 U/L (12-35); Bilirubin Total* 0.6 mg/dL (0.1-1.5); Blood Urea Nitrogen* 27 mg/dL (7-30); Carbon Dioxide* 30 mmol/L (20-32); Creatinine* 0.8 mg/dL (0.5-1.5); Est. Creatinine Clearance* 31.79; Estimated Glomerular Filt Rate 73 ml/min; Total Protein* 7.5 g/dL (6.0-8.3)
[2025-06-12 07:49] LABS: Calcium* 8.9 mg/dL (8.4-10.6); Glucose* 101 mg/dL (60-115)
[2025-06-12] MEDS: SENNOSIDES/DOCUSATE TABLET 1 TAB PO (10:07)
[2025-06-12] MEDS: ACETAMINOPHEN 500 MG TABLET 1000 MG PO (10:07)
== END 2025-06-12 10:21 | disposition home or self-care (01) ==
PROVIDERS: Emergency Provider Emergency Medicine; PCP Family Medicine
DX: K59.00 Constipation, unspecified (principal); I10 Essential (primary) hypertension
CPT/HCPCS: 36415; 74177; 80053; 82565; 83605; 83690; 85025; 96360; 99284; 99285; A9270; J7030; Q9967

== ENCOUNTER 2025-06-20 13:11 | Outpatient (CLI) | payer MEDICARE, OTHER, SELFPAY | END 2025-06-20 13:12 | disposition home or self-care (01) | LOC: AMB 06-22 18:04 | PROVIDERS: PCP Family Medicine; Visit Provider Family Medicine | DX: R19.7 Diarrhea, unspecified (principal) | CPT/HCPCS: A0425; A0427 ==

== ENCOUNTER 2025-06-24 12:20 | Outpatient (CLI) | payer MEDICARE, OTHER, SELFPAY | END 2025-06-24 12:21 | disposition home or self-care (01) | LOC: AMB 07-06 08:46 | PROVIDERS: PCP Family Medicine; Visit Provider Emergency Medicine Emergency Medical Services | DX: R53.1 Weakness (principal) | CPT/HCPCS: A0425; A0427 ==

== ENCOUNTER 2025-06-24 13:04 | Inpatient (IN) | payer MEDICARE, OTHER, SELFPAY ==
[2025-06-24] VITALS (17 sets, daily range): BP systolic 155–184; BP diastolic 68–80; PULSE 64–77; RESP 16–18; TEMP 36.3–36.8; O2SAT 92–99; BMI 19.4; BMI 18.4; BMI 18.5
--- OUTSIDE RECORDS SUMMARY | 2025-06-24 13:06 | XMS_ITS | Encounter Summary ---
Author Organization [facility] Address [address] [facility] [address] [place] [address] Phone Care Team Providers Care Distance Education Faculty Liaison Name Role Phone Scout Allan MD Primary Care Provider [phone] Encounter Details DateTypeDepartmentCare Team (Latest Contact Info)Qoiiwmrocbb06/19/2025Orders Only [facility] [address] [place] [address] Manish Palma MD [address] [place] [address] Hypo-osmolality and hyponatremia; Essential hypertension Social History Tobacco UseTypesPacks/DayYears UsedDateSmoking Tobacco: NeverSmokeless Tobacco: NeverAlcohol UseStandard Drinks/WeekCommentsNever0 (1 standard drink = 0.6 oz pure alcohol)CommentsUnknownSex and Gender InformationValueDate Recorded Sex Assigned at BirthNot on fileLegal JwoBtkras28/09/2024 4:58 PM EDTGender IdentityNot on fileSexual OrientationNot on filedocumented as of this encounter Plan of Treatment Not on file documented as of this encounter Visit Diagnoses Diagnosis Hypo-osmolality and hyponatremia Essential hypertension documented in this encounter Care Teams Team MemberRelationshipSpecialtyStart DateEnd Date Scout Allan MD [address] [place] [address] [facility]CP - [facility] Medicine10/07/23documented as of this encounter
--- OUTSIDE RECORDS SUMMARY | 2025-06-24 13:06 | XMS_ITS | Clinical Summary ---
Author Organization [employer] [facility] [employer] Address [address] [place] [id number] Care Team Providers Care News Photographer Name Role Phone Petros Triplett MD Unavailable Unavailable Scout Allan MD Primary Care Provider Allergies Active AllergyReactionsCriticalityNoted TrheFioorqfrUhuxryupbtXkjig88/07/2024 Edema on 5mg, ok on 2.5mg CarvedilolOther - Describe In Comment Field3ChlorthalidoneOther - Describe In Comment Field02/01/2014 Hyponatremia HydrochlorothiazideOther - Describe In Comment Field10/07/2014 Low sodium. DtnaanqmnsBehoj21/21/4536FqhnbkccwvbYnlr68/23/2008 [facility] Medications MedicationSigDispense [...] bras. For personal use. 2 Packet ctive Eqzypiw-Qzdgdgkgj-Qrmf tab Take 2 Tablets by mouth.Active latanoprost (XALATAN) 0.005 % ophthalmic solution INSTILL 1 DROP INTO LEFT EYE AT OMZNTRD4703/12/2022ctive digztulmbhfkw-svvjnlje-ncryxc (CENTRUM SILVER) 0.4 mg-300 mcg- 250 mcg [...] by mouth two times daily with meals.5Active sertraline (ZOLOFT) 25 mg tablet Indications:AnxietyTake 1 Tablet (25 mg) by mouth once daily in the morning. 30 Tablet 5Active lidocaine 5 % topical patch Indications:Mechanical back painApply on dry, clean, hairless skin. Apply 1 patch to painful area of skin for up to to 12 hours within 24 hour period. 30 Patch 5Active calcitonin salmon (200 units per actuation) nasal (MIACALCIN, FORTICAL) 200 unit/actuation nasal spray Indications:Compression fracture of L1 vertebra, initial encounter (HC)1 spray daily in alternating nostrils for 4 weeks. 3.7 mL 5Active carvediloL 6.25 mg tablet Indications:Essential hypertensionTake 1 Tablet (6.25 mg) by mouth two times daily with meals. 180 Tablet Discontinued(Reorder (E-cancel not sent)) Active Problems ProblemNoted DateDiagnosed DateStress due to illness of family gdylgq3106/15/2025 Unsteady gait06/15/2025Status post right knee replacement 04/20/2411 History of breast dqlsht6801/06/2024History of bladder cancer: Cystectomy/ileal loop diversion Insomnia, gyasitatki28/15/2023Hyponatremia 11/11/2022eripheral sensory gzwexnwiww48/02/2912Kajiynbxvoln85/12/2022 Nonsustained ventricular /24/2022Ileostomy in place11/02/2019OSA 03/16/2019 AHI-26 Pillows hzzgkw1904/04/2019Chronic xiyotl5610/30/2018Multiple thyroid zgddrit7008/07/2016 Overview (10/23/2016): Multinodular Goiter (Right 2.1, 0.6, [...] 2019 or later as needed. Lumbar disc daonhaqeok02/17/2016Iron deficiency sfxyni2004/13/2015CP (advance care planning)05/20/2011 Overview (08/20/2012): Discussed 05/20/2011 Referred 05/20/2011 Her plan submitted 08/19/2012 Osteoarthritis, knee05/20/2011 Overview (05/20/2011): Right knee BRCA1 eytyduxa61/24/2010 Overview (08/23/2009): At increased risk Breast and Ovarian Cancer - per Dr Astudillo 2009: Letter on file. Aortic Valve Insufficiency; ocdhgoaj96/09/2008 Overview (04/13/2008): Echo: 11/2007: Recheck Yearly Unspecified essential tpujfjyexril16/25/2007Mitral valve jcnylflba15/01/2004 Overview (04/13/2008): no need for antibiotics 06/10/2007 Echo: 11/2007: Recheck Yearly Resolved Problems ProblemNoted DateDiagnosed DateResolved DateBilateral lower extremity edema /hronic arthralgias of knees and hips/ Ganglion cyst of volar aspect of left wristWeight loss Hyponatremia Overview (03/15/2013): Due to Chlorthalidone; improved off medication for a week 03/15/2013 Kzyuvq91Osteopenia Overview (12/19/2011): Recommend Calcium 2000 mg and Vit D 1000 International Units per day. Bone mineral density stable 04/2011; recheck 2 yrs Routine general medical examination at a health care iwhidslc70/15/2008 07/06/2020 Overview (04/09/2010): Bar Enema 11/28/2006: Diverticulosis, Redundannt Sig & Trans Colon. PLAN: repeat in 2011. 04/09/2010 Contact dermatitis and other eczema, due to unspecified cause11/11/2007 11/16/2020Mixed kzjsdyoclcopne21Diverticulitis of colon (without mention of hemorrhage)Malignant neoplasm of bladder, part rlylcaalhdl63Malignant neoplasm of breast (female), unspecified sitebnormal chest CT07/06/2020 Encounters DateTypeDepartmentCare KevtAzrzfitwrwb17/22/2025Telephone [address] [address] Scout Allan MD fyi (trying to contact nurse )06/20/2025Nurse Triage [address] [address] Scout Allan MD Weak06/17/2025 1:00 PM CSTAncillary Procedure [facility] [address] [place] [address] 06/17/2025 12:00 PM CSTOffice Visit [facility] [address] [place] [address] Scout Allan MD Back Pain (Across lower back, getting worse)06/17/2025Results Follow-Up [address] [place] [address] Scout Allan MD Nwtjfph0706/17/2025Telephone [facility] [address] [place] [address] Scout Allan MD Results (X-RAY )06/17/20255936Jhaura64/18/2025Nurse Triage [facility] [address] [place] [address] Scout Allan MD Chest Pain06/16/2025Telephone [facility] [address] [place] [address] Scout Allan MD Pain (BACK PAIN REFLARRING UP )06/15/2025 3:20 PM CSTOffice Visit [address] [address] Scout Allan MD Follow Up (Blood pressure); ER Follow up ([facility], 06/12/2025, constipation )06/15/20258461Mketyf75/16/2025Telephone [facility] [address] [place] [address] Scout Allan MD Results (Lab results)06/12/2025Orders Only [facility] Scanner 1 scan: (1-Ord) [place], CT ABDOMEN PELVIS W CON, Travel 06/01/2025 12:45 PM CSTOrders Only [address] [address] [place]05/31/2025 4:15 PM CSTAncillary Procedure [facility] [address] [place] [address] 05/31/2025 3:20 PM CSTOffice Visit [facility] [address] [place] [address] Scout Allan MD Back Pain (Lower left back pain, radiates into left leg, got worse about 3 weeks ago)05/31/20251091Xtfrlu41/24/2025 3:00 PM CSTOrders Only [facility] [address] [place] [address] [place]05/23/20256498Jfkhcy11/14/2025Telephone [facility] [address] [place] [address] Moises Hargrove MD CALL BACK (leg and buttock pain )05/03/2025 2:15 PM CSTOrders Only [facility] [address] [facility] [address] [place]04/05/2025 11:45 AM CDTOrders Only [facility] [address] [facility] [address] [place] <No scans attached>04/05/2025Travelfrom Last 3 Months Immunizations ImmunizationAdministration DatesNext DueAMB Influenza, IIV4 PF (=>6 mos Flulaval,Fluzone Fluarix)(Flu Clinic Only)03/29/2019,04/18/2014mb Influenza, Inactivated AIIV4 (Age 65+ Years) Preserv Free03/21/2020COVID-19 VACCINE SPIKEVAX (MODERNA 50MCG/0.5ML) 12YO+ PFS10/20/2024,4COVID-19 vaccine (eSKY.pl-BioNTech 30mcg/0.3mL) 12YO+ BIVALENT PF, MDV2COVID-19 vaccine (eSKY.pl-BioNTech 30mcg/0.3mL) PF, MDV03/07/2020,08/08/2020Influenza, High-dose Cbhtpfaiyop40/21/2025,04/05/2024,03/21/2016,03/10/2015Influenza, High-dose Quadrivalent Zdnqyepzpun15/19/2023,04/02/2022Influenza, IIV3 (Age >=3 years) 05/31/2003Influenza, LAJ505Influenza, Inactivated AIIV4 (Age 65+ Years) Preserv Free10/13/2021Influenza, Inactivated IIV3 (Age 65+ Years) Preserv Free [...] = 0.6 oz pure alcohol)PHQ-2AnswerDate RecordedPHQ-2 TOTAL BDNSU288Social Connections AnswerDate RecordedDo you often feel lonely or isolated from those around you?0 02/02/2025lcohol UseAnswerDate RecordedHow often do you have a drink containing alcohol?verage Number of DrinksNot on file06/17/2025Frequency of Binge DrinkingNot on file06/17/2025Financial Resource StrainAnswerDate Recorded Difficulty of Paying Living Bqhblkth795/06/2025Difficulty of Paying Living ExpensesNot on file02/02/2025Food InsecurityAnswerDate [...] Recorded Sex Assigned at BirthNot on fileLegal RvyFooghj70/14/2013 5:54 AM CSTGender IdentityNot on fileSexual OrientationNot on fileOccupationIndustryJob Start Date Job End DateRetiredNot on fileNot on fileNot on file Obstetrics History GravidaParaTermPretermABIABSABEctopicMultipleLivingLive Zgwmww556RncuKeumjsbUD Total LaborLabor/2nd/2xwHibyasHswFfqaNbowLASCjxB1G5ObslAureQofgKddd Last Filed Vital Signs Vital SignReadingTime TakenCommentsBlood Muzvrudb688/5806/17/2025 12:25 PM PRE[employer]INARY SCHOOL PSYCHOLOGIST Qawtn089506/17/2025 12:07 PM ALOHbudiyiculb07.7 ??C (98 ??F)01/25/2025 2:05 PM CDT Respiratory Bvub008807/13/2022 10:50 AM CSTOxygen Azlkoddrmd16%06/17/2025 12:07 PM CSTInhaled Oxygen Concentration--Fvpjuf66.3 kg (108 lb 9.6 oz)06/15/2025 3:23 PM ZRTObelll187.5 cm (5' 2)01/04/2025 8:55 AM CDTBody Mass Index19.8601/04/2025 8:55 AM CDT Plan of Treatment DateTypeDepartmentCare Team (Latest Contact Info)Gjcaagovzyq32/29/2025 10:45 AM CSTOrders Only [facility] [address] [place] [address] [place] 07/05/2025 11:00 AM CSTAncillary Procedure [facility] [address] [place] [address] 07/06/2025 10:30 AM CSTOffice Visit [facility] [address] [place] [address] Scout Allan MD [address] [place] [address] 07/07/2025 2:30 PM CSTOrders Only [facility] [address] [place] [address] [place] 07/07/2025 3:20 PM CSTOffice Visit [facility] [address] [place] [address] Scout Allan MD [address] [place] [address] 07/12/2025 2:00 PM CSTOffice Visit [facility] [address] [place] [address] [place] [address] [facility] [address] [place] [address] 08/12/2025 8:20 AM CSTOffice Visit [facility] [address] [place] [address] Moises Hargrove MD [address] [place] [address] Health MaintenanceDue DateLast DoneCommentsMedicare Wellness for age 65+ 6009/28/2024, 09/25/2023, 09/06/2022, Additional history exists Depression screening for age 12+04/03/547987/08/2024, 09/29/2024, 09/28/2024, Additional history existsCOVID-19 vaccine series (2024- season)2025 04/19/2025, 10/20/2024, 04/05/2024, Additional history existsBMI (ht and wt on same day) for age 18+/01/2025, 11/29/2024, 11/18/2024, Additional history existsTetanus buigwww09/09/822240/02/2025, 05/18/2015, 08/30/2004Zoster (shingles) series for age 50+Clkeqfhlv30/13/2021, 10/30/2020, 06/29/2015DEXA/DXA scan for age 65+Vgwyepmyl06/30/2022, 05/14/2018, 04/04/2016, Additional history existsPneumococcal series for age 50+Fuuoygzzl23/10/2023, 03/21/2016, 03/10/2015 RSV vaccine for adults or ensttsbejJmbtggayk89/20/2023Influenza VaccineCompleted 04/19/2025, 04/05/2024, 04/11/2021, Additional history existsHepatitis B series for 19+Aged OutNo longer eligible based on patient's age to complete this topic Procedures Procedure NamePriorityDate/TimeAssociated DiagnosisCommentsXR SPINE LUMBAR 2 YSKLTVpmcwdk12/19/2025 1:04 PM PRELIMINARY SCHOOL PSYCHOLOGIST Mechanical back pain SCAN-CT XGWYOZCGRFIDIG95/14/2025 12:00 AM WJXDRPWJOBWVIOliotez49/03/2025 11:41 AM PRELIMINARY SCHOOL PSYCHOLOGIST Iron deficiency anemia, unspecified iron deficiency anemia type IRON PLUS IRON BINDING VRIJmhxvab26/03/2025 11:41 AM PRELIMINARY SCHOOL PSYCHOLOGIST Iron deficiency anemia, unspecified iron deficiency anemia type BASIC METABOLIC IVBABCkwiucz11/02/2025 4:24 PM PRELIMINARY SCHOOL PSYCHOLOGIST Hyponatremia XR HIP 1 VIEW W PELVIS XHEPYrlwblp20/02/2025 4:23 PM PRELIMINARY SCHOOL PSYCHOLOGIST Chronic left hip pain VNPIJDRTTAXayuzkk05/24/2025 3:33 PM PRELIMINARY SCHOOL PSYCHOLOGIST Iron deficiency anemia, unspecified iron deficiency anemia type IRON PLUS IRON BINDING LXKUlamnuc82/24/2025 3:33 PM PRELIMINARY SCHOOL PSYCHOLOGIST Iron deficiency anemia, unspecified iron deficiency anemia type FBSVCYFAMVNmhzeuw33/04/2025 2:08 PM PRELIMINARY SCHOOL PSYCHOLOGIST Iron deficiency anemia, unspecified iron deficiency anemia type IRON PLUS IRON BINDING SLIFtoybpl90/04/2025 2:08 PM PRELIMINARY SCHOOL PSYCHOLOGIST Iron deficiency anemia, unspecified iron deficiency anemia type ABJSLJMHLXAcojqax54/07/2025 11:54 AM CDT Iron deficiency anemia, unspecified iron deficiency anemia type IRON PLUS IRON BINDING JIAUnqnjaj17/07/2025 11:54 AM CDT Iron deficiency anemia, unspecified iron deficiency anemia type XR DXA BONE DENSITY 2 SITES VKSSWIztdvin30/30/2022 11:42 AM CDT Asymptomatic postmenopausal state from Last 3 Months or Most Recently Relevant to Health Maintenance Results * XR SPINE LUMBAR 2 VIEWS (06/17/2025 1:04 PM PRELIMINARY SCHOOL PSYCHOLOGIST)Anatomical RegionLaterality ModalityLUMBAR SPINEComputed RadiographySpecimen (Source)Anatomical Location / LateralityCollection Method / VolumeCollection TimeReceived Time06/17/2025 3:48 PM PRELIMINARY SCHOOL PSYCHOLOGIST Impressions 06/17/2025 3:48 PM PRELIMINARY SCHOOL PSYCHOLOGIST Mild compression of L1 has developed since the prior study. L4 appears similar. Multilevel degenerative disc disease. No spondylolisthesis. Right bipolar hip arthroplasty. Constipation. Dictated by Isaac Bello MD @ 06/17/2025 3:48:34 PM (Electronically Signed) Narrative 06/17/2025 3:48 PM PRELIMINARY SCHOOL PSYCHOLOGIST For Patients: As a result of the Cures Act, medical imaging exams and procedure reports are released immediately into your electronic medical record. You may view this report before your referring provider. If you have questions, please contact your health care provider. Indication: Mechanical back pain Technique: Lumbar spine 2 view Comparison: CT 01/12/2024 Procedure Note Isaac Bello MD - 06/17/2025 For Patients: As a result of the Cures Act, medical imagingexams and procedure reports are released immediately into your electronicmedical record. You may view this report before your referring provider.If you have questions, please contact your health care provider. Indication: Mechanical back pain Technique: Lumbar spine 2 view Comparison: CT 01/12/2024 IMPRESSION: Mild compression of L1 has developed since the prior study. L4 appearssimilar. Multilevel degenerative disc disease. No spondylolisthesis. Rightbipolar hip arthroplasty. Constipation. Dictated by Isaac Bello MD @ 06/17/2025 3:48:34 PM (Electronically Signed) Authorizing ProviderResult TypeResult StatusRichjasmin Allan MDGENERAL IMAGINGFinal Result * SCAN-CT INTERPRETATION (06/12/2025 12:00 AM PRELIMINARY SCHOOL PSYCHOLOGIST)Anatomical RegionLaterality ModalityOther Narrative Authorizing ProviderResult TypeResult StatusScannerOTHERFinal Result * IRON PLUS IRON BINDING CAP (06/01/2025 11:41 AM PRELIMINARY SCHOOL PSYCHOLOGIST) Only the most recent of4 resultswithin the time period is included. ComponentValueRef RangeTest MethodAnalysis TimePerformed AtPathologist Signature IRON, AKAEE52555 - 160 mcg/dL06/02/2025 4:34 AM CSTQUEST DIAGNOSTICSIRON BINDING BYOEZRHE726169 - 450 mcg/dL (calc)06/02/2025 4:34 AM CSTQUEST DIAGNOSTICS% DBIJMVFHKN7978 - 45 % (calc)06/02/2025 4:34 AM CSTQUEST DIAGNOSTICSSpecimen (Source)Anatomical Location / LateralityCollection Method / VolumeCollection TimeReceived TimeBloodBLOOD SPECIMEN / UnknownQuest Collect / Isqrzhv2606/01/2025 11:41 AM CST06/01/2025 11:41 AM PRELIMINARY SCHOOL PSYCHOLOGIST Narrative Authorizing ProviderResult TypeResult StatusScout Allan MDCHEMISTRY Final ResultPerforming OrganizationAddressCity/State/ZIP CodePhone Number [facility] [address] [address], * HEMOGLOBIN (06/01/2025 11:41 AM PRELIMINARY SCHOOL PSYCHOLOGIST) Only the most recent of4 resultswithin the time period is included. ComponentValueRef RangeTest MethodAnalysis TimePerformed AtPathologist Signature EAEKTPYHVA67.011.7 - 15.5 g/dL06/02/2025 2:38 AM CSTQUEST KZSUWXYJHZEPPO18.381.4 - 101.7 fL06/02/2025 2:38 AM CSTQUEST DIAGNOSTICSSpecimen (Source)Anatomical Location / LateralityCollection Method / VolumeCollection TimeReceived TimeBlood BLOOD SPECIMEN / UnknownQuest Collect / Abnlrci9606/01/2025 11:41 AM CST06/01/2025 11:41 AM PRELIMINARY SCHOOL PSYCHOLOGIST Narrative Authorizing ProviderResult TypeResult StatusRichard Brielle Allan MDHEMATOLOGY Final ResultPerforming OrganizationAddressCity/State/ZIP CodePhone Number [facility] [address] [address], * (ABNORMAL) BASIC METABOLIC PANEL (05/31/2025 4:24 PM PRELIMINARY SCHOOL PSYCHOLOGIST)ComponentValueRef RangeTest MethodAnalysis TimePerformed AtPathologist AsdnofjgdYKQCKW506(L)135 - 146 mmol/L108/02/2024 4:04 AM CSTQUEST DIAGNOSTICSPOTASSIUM4.03.5 - 5.3 mmol/L108/02/2024 4:04 AM CSTQUEST DIAGNOSTICSCARBON AYJWFFO0504 - 32 mmol/L 06/01/2025 4:04 AM CSTQUEST GTZUNQMGEPSKPNDACD5966 - 99 mg/dL06/01/2025 4:04 AM CSTQUEST DIAGNOSTICSComment: ? Fasting reference interval CALCIUM9.48.6 - 10.4 mg/dL06/01/2025 4:04 AM CSTQUEST DIAGNOSTICSCREATININE0.81 0.60 - 0.95 mg/dL06/01/2025 4:04 AM CSTQUEST DIAGNOSTICSBUN/CREATININE RATIO33 (H)6 - 22 (calc)06/01/2025 4:04 AM CSTQUEST FNEEVIQKFVZSLGC98> OR = 60 mL/min/1.52a49306/01/2025 4:04 AM CSTQUEST DIAGNOSTICSUREA NITROGEN (BUN)27(H)7 - 25 mg/dL06/01/2025 4:04 AM CSTQUEST DIAGNOSTICSELECTROLYTE RVJMNBL23 - 17 mmol/L (calc)06/01/2025 4:04 AM CSTQUEST JLBFQRRNTYYJRAWNBBV53(L)98 - 110 mmol/L 06/01/2025 4:04 AM CSTQUEST DIAGNOSTICSSpecimen (Source)Anatomical Location / LateralityCollection Method / VolumeCollection TimeReceived TimeBloodBLOOD SPECIMEN / UnknownQuest Collect / Evcdkrq5605/31/2025 4:24 PM CST05/31/2025 4:24 PM PRELIMINARY SCHOOL PSYCHOLOGIST Narrative Authorizing ProviderResult TypeResult StatusRichard Brielle Allan MDCHEMISTRY Final ResultPerforming OrganizationAddressCity/State/ZIP CodePhone Number [facility] [address] [place] [address], * XR HIP 1 VIEW W PELVIS LEFT (05/31/2025 4:23 PM PRELIMINARY SCHOOL PSYCHOLOGIST)Anatomical Region LateralityModalityHIPS, HIPL, PelvisComputed RadiographySpecimen (Source) Anatomical Location / LateralityCollection Method / VolumeCollection Time Received Time06/01/2025 8:17 AM PRELIMINARY SCHOOL PSYCHOLOGIST Impressions 06/01/2025 8:17 AM PRELIMINARY SCHOOL PSYCHOLOGIST 1. No acute osseous injuries are noted. Dictated by Nitish Banks MD @ 06/01/2025 8:17:09 AM Dictated by: Nitish Banks MD @ 06/01/2025 08:17:12 (Electronically Signed) Narrative 06/01/2025 8:17 AM PRELIMINARY SCHOOL PSYCHOLOGIST For Patients: As a result of the Century Cures Act, medical imaging exams and procedure [...] 06/01/2025 08:17:12 (Electronically Signed) Authorizing ProviderResult TypeResult StatusRichard Brielle Allan MDGENERAL IMAGINGFinal Result * (ABNORMAL) XR [...] to assess therapeutic efficacy. Daisha Payne PA-C [facility] 10/04/2021 Narrative 10/04/2021 5:21 PM CDT For Patients: Results are automatically released to your [facility] account once available, in compliance with federal regulations. This means that you may see your results before your provider has had a chance to review them. Please allow 2-3 business days for your provider to comment on the results. XR DXA Bone Mineral Density (BMD) EXAM LOCATION: [facility] [address] [facility] [address] PATIENT NAME: Claudia Benitez DATE OF : 1940 EXAM DATE: 09/26/2021 REQUESTING PROVIDER: Scout Allan MD GENDER AT : female HEIGHT: 5' 1.54 (08/23/2021) WEIGHT: ??119 lb 9.6 oz (08/23/2021) MENOPAUSAL STATUS: Postmenopausal RACE/ETHNICITY: White RISK FACTORS: Height Loss (2 inches or more), Weight < 127 lbs. and White Race CURRENT MEDICATION FOR BONE LOSS: NONE INDICATION: Post-Menopause COMPARISON DATE(S): 2018 DXA scans are compared to prior studies for a patient only when the two (or more) studies were performed on the same scanner. It is not possible to compare data generated on one scanner to data from another because there are not standards in DXA equipment. This applies even if the two scanners are made by the same chemist instrumentation. PROCEDURE: Dual-energy x-ray absorptiometry performed with routine [...] Relevant to Health Maintenance Insurance * Guarantor: Claudia Benitez Kayacostevie TypeRelation to PatientDate of BirthPhone Billing AddressPersonal/CqoyzkTehb1940 [facility] [phone] [facility] [place] [phone] [place] [id number] Advance Directives TypeDate RecordedPatient RepresentativeExplanationHealthcare Directive08/19/2012 1:53 [facility], 07/22/2012 Care Teams Team MemberRelationshipSpecialtyStart DateEnd Date Scout Allan MD [address] [place] [address] PCP - GeneralFamily Practice03/15/13 Petros Triplett MD Ophthalmology Surgery08/19/12
--- OUTSIDE RECORDS SUMMARY | 2025-06-24 13:06 | XMS_ITS | Clinical Summary ---
Author Organization [facility] [place] [place] Address [address] [place] [address] Phone Care Team Providers Care Radiologic Technology Instructor Name Role Phone Scout Allan MD Primary Care Provider [phone] Allergies Active AllergyReactionsCriticalityNoted EwinRsnwtfxkMfmumpivtbDbfxdsap43/07/2024 Edema on 5mg, ok on 2.5mg CarvedilolOther (see comments)12/11/2022hlorthalidoneOther (see comments) 02/01/2014 Hyponatremia HydrochlorothiazideOther (see comments)10/07/2014 Low sodium. RhyudeamugLwblzrov13/21/7490RbszyrhsbewLwceSgm40/23/2008 [facility] Medications MedicationSigDispense [...] times a day if needed for muscle wznpjb3912/09/2024 Active latanoprost (XALATAN) 0.005 % ophthalmic solution INSTILL 1 DROP IN LEFT EYE AT NLEABHU02/05/2025Active traMADol (ULTRAM) 50 MG tablet Take 50 mg by mouth every 6 (six) hours if kouyqw725Active triamcinolone (KENALOG) 0.1 % cream if needed [...] ProblemNoted DateDiagnosed DateHistory of malignant neoplasm of dpxjxq6201/06/2024 Bilateral lower limb edema12/05/2023H/O: malignant xcgszwax78/22/2024Hypo- osmolality and pgvrdtuaozvf58/15/2023Peripheral sensory tqykjvxnui37/02/2022 Ileostomy cmmzioq2311/02/2019Obstructive sleep apnea tqlfyivz60/06/2019Chronic hexcrj3210/30/2018Multinodular pygxie7208/07/2016 Overview (01/07/2024): Multinodular Goiter (Right 2.1, 0.6, [...] Astudillo 2009: Letter on file. Aortic valve cijspzlhwphlz04/09/2008 Overview (01/07/2024): Echo: 11/2007: Recheck Yearly Essential aoyzrsbsfhrr51/25/2007 Encounters DateTypeDepartmentCare MwoyOroydkxtnme60/19/2025Orders Only [facility] [place] [address] [address] [address] Manish Palma MD Hypo-osmolality and hyponatremia; Essential fyztvzfegadj58/07/2025[facility] [address] [place] [address] Ivanna Oliveira RN Hypo-osmolality and ksijtxlmtlah45/08/2025Results Follow-Up [facility] [address] [address] [place] [address] Manish Palma MD 03/25/2025Orders Only [facility] [place] [address] [address] Manish Palma MD Hypo-osmolality and hyponatremia; Essential hypertensionfrom Last 3 Months Immunizations ImmunizationAdministration DatesNext DueInfluenza Split High Dose Preservative Free IM04/05/2024,03/21/2016,03/10/2015Moderna Sars-cov-2 (Covid-19) Vaccine, Mrna, Ranjit Gklxhow0510/20/2024,4Pfizer RVMU-RSJ-585/02/2021,08/08/2020 Tdap10/06/2024,05/18/2015 Family History Medical HistoryRelationCommentsHeart failureBrother 1HypertensionBrother 1 DepressionBrother 2DepressionFatherHeart diseaseFatherHypertensionFatherCancer MotherHypertensionMotherDiabetesOtherMental illnessSiblingCancerSisterRelation StatusCommentsBrother 1AliveBrother 2AliveBrother 3AliveBrother 4AliveFather DeceasedMotherDeceasedOtherAliveSiblingAliveSisterDeceased Social History Tobacco UseTypesPacks/DayYears UsedDateSmoking Tobacco: NeverSmokeless Tobacco: NeverAlcohol UseStandard Drinks/WeekCommentsNever0 (1 standard drink = 0.6 oz pure alcohol)CommentsUnknownSex and Gender InformationValueDate Recorded Sex Assigned at BirthNot on fileLegal OluEkregy94/09/2024 4:58 PM EDTGender IdentityNot on fileSexual OrientationNot on file Last Filed Vital Signs Vital SignReadingTime TakenCommentsBlood Hlwkmfjc019/5207 2:05 PM CDT Oysju299301/03/2025 2:05 PM CDTTemperature--Respiratory Rate--Oxygen Wuaqdetpzl19% 01/03/2025 2:05 PM CDTInhaled Oxygen Concentration--Tkswvu10.1 kg (106 lb) 01/03/2025 2:05 PM KLPIzkkjj371.5 cm (5' 2)01/03/2025 2:05 PM CDTBody Mass Index19.3907 2:05 PM CDT Plan of Treatment Health MaintenanceDue DateLast DoneCommentsPneumococcal Vaccine: 50+ Years (1 of 2 - PCV)1959Influenza VfqwdplZstvalowq26/21/2025, 04/05/2024, 04/11/2021, Additional history existsHepatitis B VaccineAged OutNo longer eligible based on patient's age to complete this topic Procedures Procedure NamePriorityDate/TimeAssociated DiagnosisCommentsBASIC METABOLIC PANEL Kncegci7804/05/2025 10:48 AM CDT Hypo-osmolality and hyponatremia Essential hypertension from Last 3 Months Results * Basic metabolic panel (04/05/2025 10:48 AM CDT)ComponentValueRef RangeTest MethodAnalysis TimePerformed AtPathologist NviowwvgjAxcebsj6150 - 99 mg/dL Sabrina Damian-Meng MakieComment: ? Fasting reference interval HQU869 - 25 mg/dLQuest Nati-Meng MakieCreatinine0.830.60 - 0.95 mg/dLQuest Diagnostics-Meng DaleeGFR CKD-EPI CR [id number]> OR = 60 mL/min/1.67d9Fzooy Diagnostics-Wood DaleBUN/Creatinine RatioSEE NOTE: (calc)Quest Nati-Meng DaleComment: ?? Not Reported: BUN and Creatinine are within ?? reference range. ? Kxyoln883609 - 146 mmol/LQuest Nati-Meng MakiePotassium4.63.5 - 5.3 mmol/L [facility]-Meng MakiVgfiAafrhrfd0032 - 110 mmol/LQuest Nati-[place] Bicarbonate (CO2)3120 - 32 mmol/LQuest Nati-Meng DaleCalcium9.28.6 - 10.4 mg/dLQuest Nati-Meng MakieSpecimen (Source)Anatomical Location / LateralityCollection Method / VolumeCollection TimeReceived TimeBloodVenous blood / Omsdgzk3804/05/2025 10:48 AM CDT1 10:48 AM CDT Narrative Resulting Agency Comment Performing Organization Information: ?Site ID: [id number] ?Name: Sabrina Greenfield ?Address: [address] [place] [address] ?Director: Rohit Franco Authorizing ProviderResult TypeResult StatusManish PULLIAM BLOOD ORDERABLESFinal ResultPerforming OrganizationAddressCity/State/ZIP CodePhone Number [facility] Sabrina Greenfield [address] [facility] [place] [address] from Last 3 Months Insurance * Guarantor: Claudia Benitezcostevie TypeRelation to PatientDate of BirthPhone Billing AddressPersonal/TkysgvNqoi1940 [facility] Only-apartments [address] [place] [address] [address] Care Teams Team MemberRelationshipSpecialtyStart Date Scout Allan MD [address] [place] [address] PCP - GeneralFamily Medicine10/07/23
--- OUTSIDE RECORDS SUMMARY | 2025-06-24 13:06 | XMS_ITS | Clinical Summary ---
Author Organization [facility] Address [address] [place] [address] Care Team Providers Care Skewer Up Name Role Phone Doctor, No Primary Care Provider Ruth Michel MD Unavailable [phone] Allergies Active AllergyReactionsCriticalityNoted WyghRjzfjayxTazqpjmpvlVjasm74/14/2023 SzjloaaqiwvgnwKpkwm52/05/2014 Hyponatremia NifedipineSwelling, lips/owhpgv0110/18/2006SimvastatinRash,PyqjcVat01/23/2008 [facility] Medications MedicationSigDispense [...] Problems No known active problems Encounters DateTypeDepartmentCare OxdrAhpkhilxafj12/13/2025 1:00 PM CDTOffice Visit [facility] - [address] [place] [address] Ruth Corado MD Polyneuropathy (Primary Dx); Vitamin D deficiencyfrom Last 3 Months Social History Tobacco UseTypesPacks/DayYears UsedDateSmoking Tobacco: NeverSmokeless Tobacco: Never Tobacco Cessation:Counseling Given: Not Answered CommentsUnknownSex and Gender InformationValueDate RecordedSex Assigned at BirthNot on fileLegal TlnEknqnx88/07/2025 3:42 PM CDTGender IdentityNot on fileSexual OrientationNot on file Last Filed Vital Signs Vital SignReadingTime TakenCommentsBlood Pressure--Pulse--Temperature-- Respiratory Rate--Oxygen Saturation--Inhaled Oxygen Concentration--Imhiri90.1 kg (106 lb)04/11/2025 1:12 PM ODGMenfcx184.5 cm (5' 2)04/11/2025 1:12 PM CDTBody Mass Index19.391 1:12 PM CDT Plan of Treatment Health MaintenanceDue DateLast VzqoHyioihyiEunrnkkwrxe1940Lipid Screening 1940Medicare Wellness Visit1940Depression Assessment (PHQ-2) 1941Yearly Review of HCD1990Osteoporosis Xdtofouyd05/30/2024 09/26/2021, 05/14/2018, 04/04/2016, Additional history existsCOVID-19 Vaccine (2024- season)61, 10/20/2024, 04/05/2024, Additional history existsAdult Tetanus Eovsfve74/09/893313/02/2025, 05/18/2015, 08/30/2004 Zoster EktttcvKmjzqsnec09/13/2021, 10/30/2020, 06/29/2015Pneumococcal 50+ Years Qxcriplfp94/10/2023, 03/21/2016, 03/10/2015RSV FsjeqjlhSndekvnsd29/20/2023 Influenza GteyelnOpzgrmaic49/21/2025, 04/05/2024, 03/18/2023, Additional history existsMeningococcal B VaccineAged OutNo longer eligible based on patient's age to complete this topic Procedures Procedure NamePriorityDate/TimeAssociated DiagnosisCommentsIMMUNOFIX AND PROTEIN ELP, SERUM ([facility])Upwpmvy8804/11/2025 1:04 PM CDT Polyneuropathy TSH ([facility])Mufhmrf8404/11/2025 1:04 PM CDT Polyneuropathy VITAMIN D, 25-HYDROXY ([facility])Qcqawux5704/11/2025 1:04 PM CDT Polyneuropathy Vitamin D deficiency VITAMIN B12 ([facility])Sutarzr1704/11/2025 1:04 PM CDT Polyneuropathy from Last 3 Months Results * IMMUNOFIX AND PROTEIN ELP, SERUM ([facility]) (04/11/2025 1:04 PM CDT)Component ValueRef RangeTest MethodAnalysis TimePerformed AtPathologist SignatureIgG ([facility])1,551494 - 1,602 mg/dLLABC[facility]P 1IgA ([facility])00942 - 422 mg/dLL[facility]P 1IgM ([facility])26774 - 217 mg/dLL[facility] 1Protein Total ([facility])6.96.0 - 8.5 g/d[facility] 1Albumin ([facility])3.52.9 - 4.4 g/dLL[facility] 4Dkqls-1-Gmitkwnv ([facility])0.30.0 - 0.4 g/dLL[facility] 7Guwzc-7-Gpwlcyaf ([facility])0.80.4 - 1.0 g/dL [facility] 2Beta Globulin [...] scan will follow via computer, mail, or dolly driver delivery. Specimen (Source)Anatomical Location / LateralityCollection Method / Volume Collection TimeReceived SpwoUecyk48/13/2025 1:04 PM CDT1 11:00 PM CDT Narrative [facility] 2 - 04/13/2025 3:10 PM CDT Performed at: 01 - [facility] [address] ??[id number] Audio Visual Production Specialist: Dave Jackson MD, Phone: ??[phone] Performed at: ??02 - [facility] [address] ??[id number] Audio Visual Production Specialist: Mariaelena Cuenca MD, Phone: ??[phone] Authorizing ProviderResult TypeResult StatusGudominique Corado MDLABCORP ORDERABLES Final ResultPerforming OrganizationAddressCity/State/ZIP CodePhone Number [facility] 2 [facility] 1 * VITAMIN D, 25-HYDROXY ([facility]) (04/11/2025 1:04 PM CDT)ComponentValueRef RangeTest MethodAnalysis TimePerformed AtPathologist SignatureVitamin D,25 Hydroxy ([facility])39.830.0 - 100.0 ng/mLL[facility] 1Comment: Vitamin D deficiency has been defined by the [place] of [employer] and an Endocrine Society practice guideline as a level of serum 25-OH vitamin D less than 20 ng/mL (1,2). The Endocrine Society went on to further define vitamin D insufficiency as a level between 21 and 29 ng/mL (2). 1. IOM ([place] of [employer]). 2010. Dietary reference ?? intakes for calcium and D. [place]: The ?? National Academies Press. 2. [place] MF, Marya NC, Andrés JONES, et al. ?? Evaluation, treatment, and prevention of vitamin D ?? deficiency: an Endocrine Society clinical practice ?? guideline. JCEM. 2010; 96(7):1911-30. Specimen (Source)Anatomical Location / LateralityCollection Method / Volume Collection TimeReceived FcbwRbzrd08/13/2025 1:04 PM CDT1 11:00 PM CDT Narrative [facility] - 04/13/2025 3:10 PM CDT Performed at: - [facility] ??[id number] Audio Visual Production Specialist: Dave Jackson MD, Phone: ??[phone] Authorizing ProviderResult TypeResult Oj Corado MDL[facility] ORDERABLES Final ResultPerforming OrganizationAddressCity/State/ZIP CodePhone Number [facility] 1 * TSH ([facility]) (04/11/2025 1:04 PM CDT)ComponentValueRef RangeTest Method Analysis TimePerformed AtPathologist SignatureTSH ([facility])1.4200.450 - 4.500 uIU/mLL[facility] 1Specimen (Source)Anatomical Location / LateralityCollection Method / VolumeCollection TimeReceived CfihVvfwa47/13/2025 1:04 PM CDT 04/10/2025 11:00 PM CDT Narrative [facility] - 04/13/2025 3:10 PM CDT Performed at: - [facility] ??[id number] Audio Visual Production Specialist: Dave Jackson MD, Phone: ??[phone] Authorizing ProviderResult TypeResult StatusRuth Corado MDL[facility] ORDERABLES Final ResultPerforming OrganizationAddressCity/State/ZIP CodePhone Number [facility] 1 * VITAMIN B12 ([facility]) (04/11/2025 1:04 PM CDT)ComponentValueRef RangeTest MethodAnalysis TimePerformed AtPathologist SignatureVitamin B12 ([facility])379 232 - 1,245 pg/m[facility] 1Specimen (Source)Anatomical Location / Laterality Collection Method / VolumeCollection TimeReceived UrhcDpqow99/13/2025 1:04 PM CDT1 11:00 PM CDT Narrative [facility] 1 - 04/13/2025 3:10 PM CDT Performed at: 01 - [facility] [place] [address] [place], [place] ??[id number] Audio Visual Production Specialist: Dave Jackson MD, Phone: ??[phone] Authorizing ProviderResult TypeResult StatusRuth Corado [facility] ORDERABLES Final ResultPerforming OrganizationAddressCity/State/ZIP CodePhone Number [facility] 1 from Last 3 Months Insurance Care Teams Team MemberRelationshipSpecialtyStart DateEnd Date Doctor, No No ad PCP - GeneralRadiology02/03/25 Ruth Corado MD [address] [place] [address] [address] [place] [address] Neurology02/03/25
--- OUTSIDE RECORDS SUMMARY | 2025-06-24 13:06 | XMS_ITS | Encounter Summary ---
Author Organization [facility] [place] [place] Address [address] [place] [address] Phone Care Team Providers Care Automotive Design Layout Drafter Name Role Phone Scout Allan MD Primary Care Provider [phone] Encounter Details DateTypeDepartmentCare Team (Latest Contact Info)Nkyvcfmxzsc08/07/2025Orders Only [facility] [place] [address] [place] [address] Ivanna Oliveira, ETHAN [address] [place] [address] Hypo-osmolality and hyponatremia Social History Tobacco UseTypesPacks/DayYears UsedDateSmoking Tobacco: NeverSmokeless Tobacco: NeverAlcohol UseStandard Drinks/WeekCommentsNever0 (1 standard drink = 0.6 oz pure alcohol)CommentsUnknownSex and Gender InformationValueDate Recorded Sex Assigned at BirthNot on fileLegal UtwVqwglp15/09/2024 4:58 PM EDTGender IdentityNot on fileSexual OrientationNot on filedocumented as of this encounter Plan of Treatment Not on file documented as of this encounter Visit Diagnoses Diagnosis Hypo-osmolality and hyponatremia documented in this encounter Care Teams Team MemberRelationshipSpecialtyStart DateEnd Date Scout Allan MD [address] [place] [address] [facility] - [facility]/07/23documented as of this encounter
--- NOTE | 2025-06-24 13:20 | ED.GENADULT ---
HPI - General Adult General Time Seen by Provider: 13:20 Date Seen: 06/24/25 Chief complaint: Weakness Stated complaint: weakness Time Seen by Provider: 06/24/25 13:20 Source: patient, EMS and RN notes reviewed Mode of arrival: EMS Limitations: no limitations History of Present Illness HPI narrative: This 84-year-old female is coming in by EMS with complaint of increasing generalized weakness and fatigue. She wonders if her sodium is low again. She has not noted Ashley been sick with anything, no fevers, no pain. She notes that overall her appetite maybe diminished, cannot eat as much now as she used to, gets full easier. There is no abdominal pain, no nausea vomiting or diarrhea. She has no cough or cold symptoms. No urinary symptoms noted. She does have some chronic low back pain which is been more problematic recently. She had some recent diarrhea which is resolved, stool was a little softer this morning but not diarrheal like it had been. Patient was just hospitalized with hyponatremia, did just discharged June 21. She is wondering if her sodium needs to be rechecked. She does have chronic hyponatremia with I believe a baseline sodium of around 130. Her hospital discharge value was 129. Related Data Home Medications ?Medication ?Instructions ?Recorded ?Confirmed alendronate 70 mg tablet 70 mg PO QWEEK 07/25/22 06/24/25 latanoprost 0.005 % eye drops 1 drp ophthalmic (eye) HS 07/25/22 06/24/25 lisinopril 40 mg tablet 40 mg PO DAILY 07/25/22 06/24/25 acetaminophen 500 mg tablet 1,000 mg PO TID 09/26/23 06/24/25 amlodipine 2.5 mg tablet 2.5 mg PO DAILY 09/26/23 06/24/25 ascorbic acid (vitamin C) 1,000 mg 1 g PO DAILY 09/26/23 06/24/25 tablet (Vitamin C) calcium carbonate (Oyster Shell 500 mg PO BID 09/26/23 06/24/25 Calcium) cholecalciferol (vitamin D3) 25 25 mcg PO DAILY 09/26/23 06/24/25 mcg (1,000 unit) capsule mirtazapine 7.5 mg tablet 3.75 mg PO HS 09/26/23 06/24/25 triamcinolone acetonide 0.1 % 1 applic topical BID PRN 09/26/23 06/24/25 topical cream sodium chloride 1,000 mg soluble 1,000 mg PO DAILY 04/26/24 06/24/25 tablet torsemide 10 mg tablet 10 mg PO DAILY 08/04/24 06/24/25 carvedilol 6.25 mg tablet 12.5 mg PO BID 10/18/24 06/24/25 Allergies Allergy/AdvReac Type Severity Reaction Status Date / Time nifedipine Allergy Verified 06/24/25 13:12 simvastatin Allergy Target Verified 06/24/25 13:12 lesions arms/trunk amlodipine AdvReac Severe edema Verified 06/24/25 13:12 chlorthalidone AdvReac hyponatremi Verified 06/24/25 13:12 a hydrochlorothiazide AdvReac hyponatremi Verified 06/24/25 13:12 a Review of Systems Status of ROS: Reports: 6 or more systems reviewed and unremarkable except as noted in History and below [facility] Medical History Rotator cuff tear arthropathy of both shoulders ?M75.101 - Unspecified rotator cuff tear or rupture of right shoulder, not specified as traumatic (ICD-10) ?M12.811 - Other specific arthropathies, not elsewhere classified, right shoulder (ICD-10) ?M12.812 - Other specific arthropathies, not elsewhere classified, left shoulder (ICD-10) ?M75.102 - Unspecified rotator cuff tear or rupture of left shoulder, not specified as traumatic (ICD-10) Aortic valve regurgitation (03/08/08) ?I35.1 - Nonrheumatic aortic (valve) insufficiency (ICD-10) Osteoarthritis, knee (05/20/11) ?M17.9 - Osteoarthritis of knee, unspecified (ICD-10) Multiple thyroid nodules (08/07/16) ?E04.2 - Nontoxic multinodular goiter (ICD-10) Multinodular goiter (08/07/16) ?E04.2 - Nontoxic multinodular goiter (ICD-10) Mitral valve disorder (06/30/03) ?I05.9 - Rheumatic mitral valve disease, unspecified (ICD-10) Lumbar disc herniation (08/16/15) ?M51.26 - Other intervertebral disc displacement, lumbar region (ICD-10) Ileostomy in place (11/02/19) ?Z93.2 - Ileostomy status (ICD-10) Hypo-osmolality and hyponatremia (11/11/22) ?E87.1 - Hypo-osmolality and hyponatremia (ICD-10) History of bladder cancer (09/19/23) ?Z85.51 - Personal history of malignant neoplasm of bladder (ICD-10) Chronic eczema (10/30/18) ?L30.9 - Dermatitis, unspecified (ICD-10) Bilateral lower extremity edema (12/05/23) ?R60.0 - Localized edema (ICD-10) ACP (advance care planning) (05/20/11) ?Z71.89 - Other specified counseling (ICD-10) Fracture of rib ?S22.39XA - Fracture of one rib, unspecified side, initial encounter for closed fracture (ICD-10) Unspecified arthropathy, shoulder region ?M19.019 - Primary osteoarthritis, unspecified shoulder (ICD-10) Chronic hyponatremia ?E87.1 - Hypo-osmolality and hyponatremia (ICD-10) Hx of breast cancer ?Z85.3 - Personal history of malignant neoplasm of breast (ICD-10) Hyponatremia ?E87.1 - Hypo-osmolality and hyponatremia (ICD-10) Osteoarthritis of left shoulder ?M19.012 - Primary osteoarthritis, left shoulder (ICD-10) Rotator cuff tear, right ?M75.101 - Unspecified rotator cuff tear or rupture of right shoulder, not specified as traumatic (ICD-10) Osteoarthritis of right shoulder ?M19.011 - Primary osteoarthritis, right shoulder (ICD-10) Rupture of right biceps tendon ?S46.211A - Strain of muscle, fascia and tendon of other parts of biceps, right arm, initial encounter (ICD-10) Bladder cancer ?C67.9 - Malignant neoplasm of bladder, unspecified (ICD-10) Rotator cuff tear, left ?M75.102 - Unspecified rotator cuff tear or rupture of left shoulder, not specified as traumatic (ICD-10) Edema ?R60.9 - Edema, unspecified (ICD-10) Polydipsia ?R63.1 - Polydipsia (ICD-10) Dizziness ?R42 - Dizziness and giddiness (ICD-10) Anxiety ?F41.9 - Anxiety disorder, unspecified (ICD-10) Breast cancer, BRCA1 positive ?C50.919 - Malignant neoplasm of unspecified site of unspecified female breast (ICD-10) ?Z15.01 - Genetic susceptibility to malignant neoplasm of breast (ICD-10) Daytime sleepiness ?R40.0 - Somnolence (ICD-10) Insomnia ?G47.00 - Insomnia, unspecified (ICD-10) Fatigue ?R53.83 - Other fatigue (ICD-10) Myalgia ?M79.10 - Myalgia, unspecified site (ICD-10) Weakness generalized ?R53.1 - Weakness (ICD-10) Hypertension ?I10 - Essential (primary) hypertension (ICD-10) Aortic insufficiency ?I35.1 - Nonrheumatic aortic (valve) insufficiency (ICD-10) Osteoarthritis ?M19.90 - Unspecified osteoarthritis, unspecified site (ICD-10) Anemia ?D64.9 - Anemia, unspecified (ICD-10) Back pain ?M54.9 - Dorsalgia, unspecified (ICD-10) Eczema ?L30.9 - Dermatitis, unspecified (ICD-10) SHERIF (obstructive sleep apnea) ?G47.33 - Obstructive sleep apnea (adult) (pediatric) (ICD-10) Ventricular tachycardia ?I47.20 - Ventricular tachycardia, unspecified (ICD-10) Osteoporosis ?M81.0 - Age-related osteoporosis without current pathological fracture (ICD-10) Peripheral neuropathy ?G62.9 - Polyneuropathy, unspecified (ICD-10) Surgical History 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) ?Z96.651 - Presence of right artificial knee joint (ICD-10) Status post knee surgery (06/18/24) ?Z98.890 - Other specified postprocedural states (ICD-10) 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/19) ?Z96.641 - Presence of right artificial hip joint (ICD-10) History of bilateral mastectomy ?Z90.13 - Acquired absence of bilateral breasts and nipples (ICD-10) History of cataract surgery ?Z98.49 - Cataract extraction status, unspecified eye (ICD-10) History of hysterectomy ?Z90.710 - Acquired absence of both cervix and uterus (ICD-10) H/O ileostomy ?Z98.890 - Other specified postprocedural states (ICD-10) Family History Mother Ovarian cancer High blood pressure Sister Ovarian cancer High blood pressure Father Heart disease High blood pressure Social History Narrative: She is , lives with Rina in [facility]. They both see Dr. Allan for primary care. Nonsmoker, no ETOH. She has had her COVID vaccines. Code status is full. is healthcare power of [place] attorney. What is your current living situation?: I presently have a place to live Problems where you live: no known problems Problems where you live details: NA In the past 12 months, utilities in danger of being shut off: no In past 12 months, lack of transportation kept you from medical appts, meetings, work, or getting things needed for daily living: no In the past 12 mos, have been you worried that your food would run out before you had money to buy more?: never true In the past 12 mos, the food you bought just didn't last and you didn't have money to buy more?: never true Highest level of school completed/degree received: Bachelor's degree Smoking Status: Never smoker Do you use any of these nicotine containing products: None Second hand tobacco smoke exposure: No How often do you have a drink containing alcohol: never How often do you have six or more drinks on one occasion: Never AUDIT-C Alcohol total score: 0 Non-prescribed substance use: denies use Caffeine: Yes (coffee, 2 cups daily) How often does anyone, including family, friends and others, physically hurt you: never How often does anyone, including family, friends and others, insult or talk down to you: never How often does anyone, including family, friends and others, threaten you with harm: never How often does anyone, including family, friends and others, scream or curse at you: never service: No Exam Const: Vital Signs, click to edit/add: Vital Signs - 24 hr 06/24/25 13:08 06/24/25 13:25 06/24/25 13:26 Temperature 98.2 F Pulse Rate 69 Pulse Rate [Pulse Oximeter] 64 Respiratory Rate 18 Blood Pressure Blood Pressure [Ri ght Arm] Blood Pressure [Ri ght Upper Arm] 177/70 H Pulse Oximetry 96 99 96 Oxygen Delivery Me thod Room Air 06/24/25 13:30 06/24/25 13:42 06/24/25 13:45 Temperature Pulse Rate 65 70 70 Pulse Rate [Pulse Oximeter] Respiratory Rate 16 Blood Pressure 184/79 H Blood Pressure [Ri ght Arm] Blood Pressure [Ri ght Upper Arm] Pulse Oximetry 96 97 94 Oxygen Delivery Me thod Room Air 06/24/25 14:00 06/24/25 14:03 06/24/25 14:15 Temperature Pulse Rate 73 71 75 Pulse Rate [Pulse Oximeter] Respiratory Rate 16 Blood Pressure 169/74 H Blood Pressure [Ri ght Arm] Blood Pressure [Ri ght Upper Arm] Pulse Oximetry 96 96 92 Oxygen Delivery Me thod Room Air 06/24/25 14:30 06/24/25 14:50 06/24/25 15:00 Temperature Pulse Rate 74 77 73 Pulse Rate [Pulse Oximeter] Respiratory Rate Blood Pressure Blood Pressure [Ri ght Arm] Blood Pressure [Ri ght Upper Arm] Pulse Oximetry 96 97 96 Oxygen Delivery Me thod 06/24/25 16:25 Temperature Pulse Rate Pulse Rate [Pulse Oximeter] 75 Respiratory Rate 18 Blood Pressure Blood Pressure [Ri ght Arm] 174/80 H Blood Pressure [Ri ght Upper Arm] Pulse Oximetry Oxygen Delivery Me thod Room Air This 84-year-old female seen exam room 3, she is lying in the bed, alert, interactive, no apparent distress. She is of slender frame, appears frail. Sclera clear, conjugate gaze, symmetrical facial function. Speech is normal, able speak in complete sentences. She is able to sit up, has some kyphosis, lungs are clear, no wheezing or crackles, no tachypnea, no accessory muscle use. CV regular rate and rhythm, no murmur. Abdomen is soft, nontender, nondistended, no organomegaly, rebound or guarding. Moving arms and legs, no significant lower extremity edema. Documenting provider has reviewed patient's vital signs: yes Course Course ED Course: Patient seems stable at this time. Will certainly consider recurrent hyponatremia as the source of her weakness. Will also look at general labs, will look at troponin, urinalysis, make sure we do not have other metabolic or infectious etiologies as the source of her symptoms. Will make sure her hemoglobin is stable. She has nothing focal on discussion with her but will look at labs as a starting point here. Do not feel she needs any imaging at this time. 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 Reevaluation(s) Time of Reevaluation #1: 14:51 Reevaluation #1: Have reviewed her labs, urinalysis is nitrite positive. Difficult to say if this is active UTI but she is stating generalize weakness and sodium has worsened again down to 125 despite following outpatient management regimen. Did subsequently order 250 mL normal saline. Review of prior urine cultures shows 1 prior positive in August of 2023 with Pseudomonas aeruginosa that was pansensitive. It is possible that she is developing an occult UTI that could be potentiating the weakness and the hyponatremia. Time of Reevaluation #2: 15:06 Reevaluation #2: Did update patient on being placed in the hospital in observation. Patient has a urinary pouch, it is possible that she is colonized. Will start treatment and that the hospitalist decide if they want to continue or not. Consultations Consultation #1: Have spoken with hospitalist Lissett Mays. She accepts this patient. It is unclear at this time whether this patient should be observation or may qualify for inpatient given her recent hospitalization and her acute on chronic hyponatremia. I will place her observation while the hospitalist works with attempting to sort out appropriate status. Will update the patient. We will treat with Cipro orally. Time: 14:57 Vital Signs Vital signs: Initial Vital Signs Temperature 98.2 F 06/24/25 13:08 Temperature Source Temporal Artery Scan 06/24/25 13:08 Pulse Rate 64 06/24/25 13:08 Pulse Rhythm Regular 06/24/25 13:08 Respiratory Rate 18 06/24/25 13:08 Blood Pressure 177/70 H 06/24/25 13:08 Blood Pressure Mean 105 06/24/25 13:08 Blood Pressure Position Semi-Fowlers 06/24/25 13:08 Pulse Oximetry 96 06/24/25 13:08 Oxygen Delivery Method Room Air 06/24/25 13:08 Vital Signs Temperature 98.2 F 06/24/25 13:08 Pulse Rate 64 06/24/25 13:08 Respiratory Rate 18 06/24/25 13:08 Blood Pressure 177/70 H 06/24/25 13:08 Pulse Oximetry 96 06/24/25 13:08 Oxygen Delivery Method Room Air 06/24/25 13:08 Temperature 98.2 F 06/24/25 13:08 Pulse Rate 75 06/24/25 16:25 Respiratory Rate 18 06/24/25 16:25 Blood Pressure 174/80 H 06/24/25 16:25 Pulse Oximetry 96 06/24/25 15:00 Oxygen Delivery Method Room Air 06/24/25 16:25 Medications Administered Medications: Discontinued Medications Generic Name Dose Route Start Last Admin Trade Name Freq PRN Reason Stop Dose Admin Ciprofloxacin 250 mg 06/24/25 14:58 06/24/25 16:49 Ciprofloxacin 500 Mg Tablet PO 06/24/25 14:59 Not Given ONCE ONE Sodium Chloride 250 mls @ 250 mls/hr 06/24/25 14:42 06/24/25 16:00 0.9 % Sodium Chloride 250 Ml IV 06/24/25 15:41 Infused .Q1H ONE Infusion Medical Decision Making Lab Data Lab results reviewed: Yes I reviewed the patient's lab results Labs: Lab Results 06/24/25 06/24/25 Range/Units 13:40 13:50 WBC 8.87 (4.50-11.00) K/uL RBC 3.58 L (4.00-5.20) m/uL Hgb 11.6 L (12.0-16.0) gm/dL Hct 35.3 (33.0-51.0) % MCV 99 (80-100) fL MCH 32 (26-34) pg MCHC 33 (32-36) gm/dL RDW Coeff of Helio 11.7 (11.5-15.5) % Plt Count 292 (140-440) K/uL Neut % (Auto) 84.0 H (42.0-72.0) % Lymph % (Auto) 8.5 L (20-44) % Isabela % (Auto) 5.4 (0.0-11.0) % Eos % (Auto) 1.5 (0.0-7.0) % Baso % (Auto) 0.3 (0.0-3.0) % Neut # (Auto) 7.50 H (1.7-7.0) K/uL Lymph # (Auto) 0.80 L (0.90-2.90) K/uL Isabela # (Auto) 0.50 (0.00-0.90) K/UL Eos # (Auto) 0.13 (0.00-0.50) K/uL Baso # (Auto) 0.03 (0.00-0.30) K/uL Abs Immat Gran (auto) 0.03 (0.00-0.30) K/uL Imm/Tot Granulo (auto) 0.3 % Sodium 125 L (135-149) mmol/L Potassium 3.9 (3.6-5.1) mmol/L Chloride 90 L (96-114) mmol/L Carbon Dioxide 27 (20-32) mmol/L Anion Gap 8 (7-15) mEq/L BUN 25 (7-30) mg/dL Creatinine 0.7 (0.5-1.5) mg/dL Estimated Creat Clear 31.79 Estimated GFR 85 ml/min Glucose 96 (60-115) mg/dL Lactate 0.7 (0.5-1.9) mmol/L Calcium 8.8 (8.4-10.6) mg/dL Total Bilirubin 0.3 (0.1-1.5) mg/dL Direct Bilirubin 0.2 (0.0-0.5) mg/dL AST 49 H (12-35) U/L ALT 32 (4-35) U/L Alkaline Phosphatase 82 (40-150) U/L Troponin I < 0.01 (0.01-0.04) ng/mL C-Reactive Protein < 0.5 L (0.5-1.0) mg/dL Total Protein 7.0 (6.0-8.3) g/dL Albumin 4.1 (3.3-5.0) g/dL Lipase 182 (23-300) U/L Urine Color Yellow (Yellow) Urine Appearance Clear (Clear) Urine pH 7.0 (5.0-8.5) Ur Specific [place] 1.015 (1.000-1.030) Urine Protein Negative (Negative) Urine Glucose (UA) Negative (Negative) Urine Ketones Negative (Negative) Urine Blood Negative (Negative) Urine Nitrite Positive A (Negative) Urine Bilirubin Negative (Negative) Urine Urobilinogen 0.2 (0.2-1.0) Ur Leukocyte Esterase Negative (Negative) Urine RBC 0-2 (0-2) Urine WBC 0-2 (0-5) Ur Squamous Epith Cells Few (None-Few) Other Sediment (None) Urine Bacteria Moderate A (None) Discharge Plan Discharge Clinical Impression: Hyponatremia, Acute UTI Patient Disposition: Admitted As Observation
[2025-06-24 13:48] LABS: Lactate* 0.7 mmol/L (0.5-1.9)
[2025-06-24 13:51] LABS: Hematocrit* 35.3 % (33.0-51.0); Hemoglobin* 11.6 gm/dL (12.0-16.0); Immature Granulocytes Abs Auto 0.03 K/uL (0.00-0.30); Immature Granulocytes Pct Auto 0.3 %; Mean Corpuscular HGB Conc 33 gm/dL (32-36); Mean Corpuscular Hemoglobin 32 pg (26-34); Mean Corpuscular Volume 99 fL (80-100); RDW Coefficient of Variation % 11.7 % (11.5-15.5); Red Blood Count* 3.58 m/uL (4.00-5.20); White Blood Count* 8.87 K/uL (4.50-11.00)
[2025-06-24 13:55] LABS: Appearance Urine Clear (Clear)
[2025-06-24 13:57] LABS: Lymphocytes Absolute Auto 0.80 K/uL (0.90-2.90); Slide Review Reflex No
[2025-06-24 14:03] LABS: Albumin* 4.1 g/dL (3.3-5.0); Chloride* 90 mmol/L (96-114); Potassium* 3.9 mmol/L (3.6-5.1); Sodium* 125 mmol/L (135-149)
[2025-06-24 14:05] LABS: Blood Urea Nitrogen* 25 mg/dL (7-30); Creatinine* 0.7 mg/dL (0.5-1.5); Est. Creatinine Clearance* 31.79; Estimated Glomerular Filt Rate 85 ml/min
[2025-06-24 14:06] LABS: Alanine Aminotransferase* 32 U/L (4-35); Alkaline Phosphatase* 82 U/L (40-150); Anion Gap 8 mEq/L (7-15); Aspartate Amino Transferase* 49 U/L (12-35); Bilirubin Direct* 0.2 mg/dL (0.0-0.5); Bilirubin Total* 0.3 mg/dL (0.1-1.5); Calcium* 8.8 mg/dL (8.4-10.6); Carbon Dioxide* 27 mmol/L (20-32); Glucose* 96 mg/dL (60-115); Total Protein* 7.0 g/dL (6.0-8.3)
[2025-06-24] MEDS: 0.9 % SODIUM CHLORIDE 250 ml 250 ML IV ×2 (15:02→21:45)
--- NOTE | 2025-06-24 15:59 | PM.IMHP1 ---
Assessment and Plan Assessment and plan (1) Hyponatremia: Problem comment: - Acute on chronic. She has been followed for this as an outpatient as below. Most recent hospitalization for same 06/20-06/22/25 iso acute diarrheal illness - fluid restriction (h/o polydipsia), hold lisinopril and torsemide, d/c sertraline, received 250 mL NS in ED - continue sodium tabs, current dose 1g once daily - Recheck sodium at 7:00 p.m. 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 as initiated in ED - UC pending Status: Acute (5) Anemia: Problem comment: - Chronic known iron deficiency anemia, stable Status: Chronic (6) Hypertension: Problem comment: - continue Amlodipine, Carvedilol - hold lisinopril and torsemide iso hyponatremia Status: Chronic (7) SHERIF (obstructive sleep apnea): Problem comment: - continue home CPAP Status: Chronic (8) Cognitive impairment: Problem comment: -Mini cog score on 09/28/24 was 2 -recommend further outpatient neurocognitive assessment Status: Acute Total Time Spent Total Time Spent: Today I spent 75 minutes seeing the patient, reviewing Expanse and EPIC notes/diagnostics, discussing the care plan with our care time that includes social work, PT/OT, pharmacy, RT, group home and documenting my impressions and plan in the medical record. Hospitalist- H&P: HPI History of Present Illness Date Seen: 06/24/25 Chief complaint: weakness Narrative: Claudia G Baumbach is a 84 year old female past medical history significant for hypertension, aortic valve insufficiency, hyponatremia, SIADH, chronic anemia, history of breast and bladder cancer, SHERIF on CPAP, insomnia is readmitted to the hospital from the ED with hyponatremia. Patient is seen with at bedside. Hospitalized at this facility from 06/20-06/22/2025 for acute hyponatremia in setting of acute diarrheal illness with an initial sodium of 117. On day of discharge her sodium was 129. Patient returns to ED today complaining of generalized weakness again increasing since discharge. Concerned that her sodium had dropped again. No recurrence of diarrhea. Did have a soft bowel movement this morning. No vomiting. No recent fevers. Denies headache or dizziness. Denies chest pain or shortness of breath. Denies abdominal pain. No UTI symptoms. Has a urostomy. EMR notes h/o polydipsia, drinking water when isn't feeling well. Takes 1g sodium daily. Pharmacy found that she was recently started on sertraline for her anxiety on 06/15/25. Has a Nephrology appt on the calendar. PCP is Dr. Allan. Nonsmoker. Denies alcohol use. Wishes to be full code. Review of Systems Narrative: REVIEW OF SYSTEMS: Complete review of systems performed and negative unless otherwise stated in HPI or below. Medical Decision Making Medical Decision Making Code Status: Full code Has patient completed a Health Care Directive: Yes [facility] Medical History (Updated 06/24/25 @ 17:44 by Lissett Wooten PA-C) Cognitive impairment ?R41.89 - Other symptoms and signs involving cognitive functions and awareness (ICD-10) Rotator cuff tear arthropathy of both shoulders ?M75.101 - Unspecified rotator cuff tear or rupture of right shoulder, not specified as traumatic (ICD-10) ?M12.811 - Other specific arthropathies, not elsewhere classified, right shoulder (ICD-10) ?M12.812 - Other specific arthropathies, not elsewhere classified, left shoulder (ICD-10) ?M75.102 - Unspecified rotator cuff tear or rupture of left shoulder, not specified as traumatic (ICD-10) Aortic valve regurgitation (03/08/08) ?I35.1 - Nonrheumatic aortic (valve) insufficiency (ICD-10) Osteoarthritis, knee (05/20/11) ?M17.9 - Osteoarthritis of knee, unspecified (ICD-10) Multiple thyroid nodules (08/07/16) ?E04.2 - Nontoxic multinodular goiter (ICD-10) Multinodular goiter (08/07/16) ?E04.2 - Nontoxic multinodular goiter (ICD-10) Mitral valve disorder (06/30/03) ?I05.9 - Rheumatic mitral valve disease, unspecified (ICD-10) Lumbar disc herniation (08/16/15) ?M51.26 - Other intervertebral disc displacement, lumbar region (ICD-10) Ileostomy in place (11/02/19) ?Z93.2 - Ileostomy status (ICD-10) Hypo-osmolality and hyponatremia (11/11/22) ?E87.1 - Hypo-osmolality and hyponatremia (ICD-10) History of bladder cancer (09/19/23) ?Z85.51 - Personal history of malignant neoplasm of bladder (ICD-10) Chronic eczema (10/30/18) ?L30.9 - Dermatitis, unspecified (ICD-10) Bilateral lower extremity edema (12/05/23) ?R60.0 - Localized edema (ICD-10) ACP (advance care planning) (05/20/11) ?Z71.89 - Other specified counseling (ICD-10) Fracture of rib ?S22.39XA - Fracture of one rib, unspecified side, initial encounter for closed fracture (ICD-10) Unspecified arthropathy, shoulder region ?M19.019 - Primary osteoarthritis, unspecified shoulder (ICD-10) Chronic hyponatremia ?E87.1 - Hypo-osmolality and hyponatremia (ICD-10) Hx of breast cancer ?Z85.3 - Personal history of malignant neoplasm of breast (ICD-10) Hyponatremia ?E87.1 - Hypo-osmolality and hyponatremia (ICD-10) Osteoarthritis of left shoulder ?M19.012 - Primary osteoarthritis, left shoulder (ICD-10) Rotator cuff tear, right ?M75.101 - Unspecified rotator cuff tear or rupture of right shoulder, not specified as traumatic (ICD-10) Osteoarthritis of right shoulder ?M19.011 - Primary osteoarthritis, right shoulder (ICD-10) Rupture of right biceps tendon ?S46.211A - Strain of muscle, fascia and tendon of other parts of biceps, right arm, initial encounter (ICD-10) Bladder cancer ?C67.9 - Malignant neoplasm of bladder, unspecified (ICD-10) Rotator cuff tear, left ?M75.102 - Unspecified rotator cuff tear or rupture of left shoulder, not specified as traumatic (ICD-10) Edema ?R60.9 - Edema, unspecified (ICD-10) Polydipsia ?R63.1 - Polydipsia (ICD-10) Dizziness ?R42 - Dizziness and giddiness (ICD-10) Anxiety ?F41.9 - Anxiety disorder, unspecified (ICD-10) Breast cancer, BRCA1 positive ?C50.919 - Malignant neoplasm of unspecified site of unspecified female breast (ICD-10) ?Z15.01 - Genetic susceptibility to malignant neoplasm of breast (ICD-10) Daytime sleepiness ?R40.0 - Somnolence (ICD-10) Insomnia ?G47.00 - Insomnia, unspecified (ICD-10) Fatigue ?R53.83 - Other fatigue (ICD-10) Myalgia ?M79.10 - Myalgia, unspecified site (ICD-10) Weakness generalized ?R53.1 - Weakness (ICD-10) Hypertension ?I10 - Essential (primary) hypertension (ICD-10) Aortic insufficiency ?I35.1 - Nonrheumatic aortic (valve) insufficiency (ICD-10) Osteoarthritis ?M19.90 - Unspecified osteoarthritis, unspecified site (ICD-10) Anemia ?D64.9 - Anemia, unspecified (ICD-10) Back pain ?M54.9 - Dorsalgia, unspecified (ICD-10) Eczema ?L30.9 - Dermatitis, unspecified (ICD-10) SHERIF (obstructive sleep apnea) ?G47.33 - Obstructive sleep apnea (adult) (pediatric) (ICD-10) Ventricular tachycardia ?I47.20 - Ventricular tachycardia, unspecified (ICD-10) Osteoporosis ?M81.0 - Age-related osteoporosis without current pathological fracture (ICD-10) Peripheral neuropathy ?G62.9 - Polyneuropathy, unspecified (ICD-10) Surgical History 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) ?Z96.651 - Presence of right artificial knee joint (ICD-10) Status post knee surgery (06/18/24) ?Z98.890 - Other specified postprocedural states (ICD-10) 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/19) ?Z96.641 - Presence of right artificial hip joint (ICD-10) History of bilateral mastectomy ?Z90.13 - Acquired absence of bilateral breasts and nipples (ICD-10) History of cataract surgery ?Z98.49 - Cataract extraction status, unspecified eye (ICD-10) History of hysterectomy ?Z90.710 - Acquired absence of both cervix and uterus (ICD-10) H/O ileostomy ?Z98.890 - Other specified postprocedural states (ICD-10) Family History Mother Ovarian cancer High blood pressure Sister Ovarian cancer High blood pressure Father Heart disease High blood pressure Social History Narrative: She is , lives with Rina in [facility]. They both see Dr. Allan for primary care. Nonsmoker, no ETOH. She has had her COVID vaccines. Code status is full. 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 What is your current living situation?: I presently have a place to live Problems where you live: no known problems Problems where you live details: NA In the past 12 months, utilities in danger of being shut off: no In past 12 months, lack of transportation kept you from medical appts, meetings, work, or getting things needed for daily living: no In the past 12 mos, have been you worried that your food would run out before you had money to buy more?: never true In the past 12 mos, the food you bought just didn't last and you didn't have money to buy more?: never true Highest level of school completed/degree received: Bachelor's degree Smoking Status: Never smoker Do you use any of these nicotine containing products: None Second hand tobacco smoke exposure: No How often do you have a drink containing alcohol: never How often do you have six or more drinks on one occasion: Never AUDIT-C Alcohol total score: 0 Non-prescribed substance use: denies use Caffeine: Yes (coffee, 2 cups daily) How often does anyone, including family, friends and others, physically hurt you: never How often does anyone, including family, friends and others, insult or talk down to you: never How often does anyone, including family, friends and others, threaten you with harm: never How often does anyone, including family, friends and others, scream or curse at you: never service: No Meds Home Medications and Allergies Home Medications ?Medication ?Instructions ?Recorded ?Confirmed ?Type alendronate 70 mg tablet 70 mg PO QWEEK 07/25/22 06/24/25 History latanoprost 0.005 % eye drops 1 drp ophthalmic (eye) HS 07/25/22 06/24/25 History lisinopril 40 mg tablet 40 mg PO DAILY 07/25/22 06/24/25 History acetaminophen 500 mg tablet 1,000 mg PO TID 09/26/23 06/24/25 History amlodipine 2.5 mg tablet 2.5 mg PO DAILY 09/26/23 06/24/25 History ascorbic acid (vitamin C) 1,000 mg 1 g PO DAILY 09/26/23 06/24/25 History tablet (Vitamin C) calcium carbonate (Oyster Shell 500 mg PO BID 09/26/23 06/24/25 History Calcium) cholecalciferol (vitamin D3) 25 25 mcg PO DAILY 09/26/23 06/24/25 History mcg (1,000 unit) capsule mirtazapine 7.5 mg tablet 3.75 mg PO HS 09/26/23 06/24/25 History triamcinolone acetonide 0.1 % 1 applic topical BID PRN 09/26/23 06/24/25 History topical cream sodium chloride 1,000 mg soluble 1,000 mg PO DAILY 04/26/24 06/24/25 History tablet torsemide 10 mg tablet 10 mg PO DAILY 08/04/24 06/24/25 History carvedilol 6.25 mg tablet 12.5 mg PO BID 10/18/24 06/24/25 History calcitonin (salmon) 200 1 spray intranasal (ALT) DAILY 06/24/25 06/24/25 History unit/actuation nasal spray lidocaine 5 % topical patch 1 patch topical DAILY PRN 06/24/25 06/24/25 History sertraline 25 mg tablet 25 mg PO QAM 06/24/25 06/24/25 History Allergies Allergy/AdvReac Type Severity Reaction Status Date / Time nifedipine Allergy Verified 06/24/25 13:12 simvastatin Allergy Target Verified 06/24/25 13:12 lesions arms/trunk amlodipine AdvReac Severe edema Verified 06/24/25 13:12 chlorthalidone AdvReac hyponatremi Verified 06/24/25 13:12 a hydrochlorothiazide AdvReac hyponatremi Verified 06/24/25 13:12 a Exam Narrative: Exam Narrative: PHYSICAL EXAM General: Pleasant, mildly anxious, NAD HEENT: Normocephalic, atraumatic, sclera white, EOMI, oral mucosa moist Cardiovascular: RRR, S1S2. No pitting edema Pulmonary: CTA bilaterally without rhonchi, rales, expiratory wheezes. No dyspnea Abdominal: Soft, nondistended, NTTP Neurological: Alert, somewhat tangential, repeats questions, otherwise cranial nerves intact, no focal findings Extremities: No gross joint deformity or swelling. AROMI. Neurovascularly intact Skin: Warm, dry. Const: Vital Signs, click to edit/add: Vital Signs - 24 hr 06/24/25 13:08 06/24/25 13:25 06/24/25 13:26 Temperature 98.2 F Pulse Rate 69 Pulse Rate [Pulse Oximeter] 64 Respiratory Rate 18 Blood Pressure Blood Pressure [Ri ght Upper Arm] 177/70 H Pulse Oximetry 96 99 96 Oxygen Delivery Me thod Room Air 06/24/25 13:30 06/24/25 13:42 06/24/25 13:45 Temperature Pulse Rate 65 70 70 Pulse Rate [Pulse Oximeter] Respiratory Rate 16 Blood Pressure 184/79 H Blood Pressure [Ri ght Upper Arm] Pulse Oximetry 96 97 94 Oxygen Delivery Me thod Room Air 06/24/25 14:00 06/24/25 14:03 06/24/25 14:15 Temperature Pulse Rate 73 71 75 Pulse Rate [Pulse Oximeter] Respiratory Rate 16 Blood Pressure 169/74 H Blood Pressure [Ri ght Upper Arm] Pulse Oximetry 96 96 92 Oxygen Delivery Me thod Room Air 06/24/25 14:30 06/24/25 14:50 06/24/25 15:00 Temperature Pulse Rate 74 77 73 Pulse Rate [Pulse Oximeter] Respiratory Rate Blood Pressure Blood Pressure [Ri ght Upper Arm] Pulse Oximetry 96 97 96 Oxygen Delivery Me thod Hospitalist - H&P: Result Labs Labs: Short CBC 06/24/25 Range/Units 13:40 WBC 8.87 (4.50-11.00) K/uL Hgb 11.6 L (12.0-16.0) gm/dL Hct 35.3 (33.0-51.0) % Plt Count 292 (140-440) K/uL BMP 06/24/25 13:40 Sodium 125 L Potassium 3.9 Chloride 90 L Carbon Dioxide 27 BUN 25 Creatinine 0.7 Glucose 96 Calcium 8.8 Cardiac Enzymes 06/24/25 Range/Units 13:40 Troponin I < 0.01 (0.01-0.04) ng/mL Liver Function 06/24/25 Range/Units 13:40 Total Bilirubin 0.3 (0.1-1.5) mg/dL Direct Bilirubin 0.2 (0.0-0.5) mg/dL AST 49 H (12-35) U/L ALT 32 (4-35) U/L Alkaline Phosphatase 82 (40-150) U/L Albumin 4.1 (3.3-5.0) g/dL Urine 06/24/25 Range/Units 13:50 Urine Color Yellow (Yellow) Urine Appearance Clear (Clear) Urine pH 7.0 (5.0-8.5) Ur Specific [place] 1.015 (1.000-1.030) Urine Protein Negative (Negative) Urine Glucose (UA) Negative (Negative)
--- NOTE | 2025-06-24 16:01 | ED.NURSE ---
Report given to [facility] Cristal RN. initially asked to hold antibiotic; does clarify to admin now. ER doesn't have 250mg; will admin at [facility] per care RN.
[2025-06-24] MEDS: CIPROFLOXACIN 500 MG TABLET 250 MG PO (18:03)
--- NOTE | 2025-06-24 19:35 | PC.NURSE ---
Admission-- Pleasant and cooperative, alert and oriented patient was admitted to Med-Surg from ED. Hypertensive, but VSS and pt is afebrile. SPO2 maintained >90% on RA. She denied any pain currently, but stated that lately she does struggle with back pain. LS CTA. Telemetry shows NSR with 1st degree AV block. Urostomy patent and drained approximately 200ml of clear, yellow urine. Pt was up to chair with SBA and tolerated it well. Report to ETHAN Mason.
[2025-06-24 19:44] LABS: Sodium* 125 mmol/L (135-149)
[2025-06-24] MEDS: ACETAMINOPHEN 500 MG TABLET 1000 MG PO (21:00)
[2025-06-24] MEDS: ENOXAPARIN 40 MG/0.4 ML INJ SUBCUT (21:01)
[2025-06-24] MEDS: LATANOPROST 0.005% OPHTH 1 DROP EYE-LEFT (21:02)
[2025-06-24] MEDS: SODIUM CHLORIDE 0.9 % (FLUSH) 10 ML SYRINGE 5 ML IVF (21:02)
[2025-06-24] MEDS: MIRTAZAPINE 15 MG TABLET 3.75 MG PO (21:03)
[2025-06-24] MEDS: SODIUM CHLORIDE 1 GM TABLET PO (21:42)
[2025-06-24] MEDS: MELATONIN 3 MG TABLET PO (22:58)
[2025-06-25] VITALS (10 sets, daily range): BP systolic 122–176; BP diastolic 57–86; PULSE 71–83; RESP 16–18; TEMP 36.5–36.7; O2SAT 93–96
[2025-06-25 02:55] LABS: Sodium* 127 mmol/L (135-149)
--- NOTE | 2025-06-25 05:30 | PC.NURSE ---
Pt a/o x4 w occasional forgetfulness. Pt assist of 1 w/gait belt. R urostomy patent, bag emptied throughout shift. Pt reported pain 5/10, prn pain med given, pt reports pain resolved. Pt slept throughout shift, pt sleeping at this time, chest rise and fall noted
[2025-06-25 07:18] LABS: Hematocrit* 33.1 % (33.0-51.0); Hemoglobin* 10.8 gm/dL (12.0-16.0); Mean Corpuscular HGB Conc 33 gm/dL (32-36); Mean Corpuscular Hemoglobin 32 pg (26-34); Mean Corpuscular Volume 99 fL (80-100); Red Blood Count* 3.35 m/uL (4.00-5.20); White Blood Count* 6.03 K/uL (4.50-11.00)
[2025-06-25 07:28] LABS: Slide Review Reflex No
[2025-06-25 07:30] LABS: Chloride* 93 mmol/L (96-114)
[2025-06-25 07:31] LABS: Potassium* 3.6 mmol/L (3.6-5.1)
[2025-06-25 07:33] LABS: Blood Urea Nitrogen* 22 mg/dL (7-30); Creatinine* 0.7 mg/dL (0.5-1.5); Est. Creatinine Clearance* 30.41; Estimated Glomerular Filt Rate 85 ml/min
[2025-06-25 07:34] LABS: Calcium* 8.8 mg/dL (8.4-10.6); Carbon Dioxide* 29 mmol/L (20-32); Glucose* 88 mg/dL (60-115)
[2025-06-25 08:17] LABS: Anion Gap 4 mEq/L (7-15); Sodium* 126 mmol/L (135-149)
[2025-06-25] MEDS: AMLODIPINE 5 MG TABLET 2.5 MG PO ×2 (09:29→10:18)
[2025-06-25] MEDS: ACETAMINOPHEN 500 MG TABLET 1000 MG PO ×3 (09:29→21:27)
[2025-06-25] MEDS: CIPROFLOXACIN 250 MG TABLET PO ×2 (09:30→21:27)
[2025-06-25] MEDS: SODIUM CHLORIDE 1 GM TABLET PO ×3 (09:30→17:53)
[2025-06-25] MEDS: SODIUM CHLORIDE 0.9 % (FLUSH) 10 ML SYRINGE 5 ML IVF ×2 (09:30→21:29)
[2025-06-25] MEDS: TORSEMIDE 5 MG TABLET 10 MG PO (10:15)
--- NOTE | 2025-06-25 15:18 | PM.IMPN1 ---
Assessment and Plan Assessment and plan (1) Hyponatremia: Problem comment: - Acute on chronic. She has been followed for this as an outpatient as below. Most recent hospitalization for same 06/20-06/22/25 iso acute diarrheal illness - fluid restriction (h/o polydipsia), hold lisinopril and torsemide, d/c sertraline, received 250 mL NS in ED - continue sodium tabs, current dose 1g once daily - monitor sodiums - Close outpatient follow-up with PCP and nephrology, medication management Status: Acute (2) Hypo-osmolality and hyponatremia: Problem comment: - chronic, treated with salt tabs chronically, baseline in past year has been 134-138 (134 max outpatient setting in past 7 months) - h/o polydipsia, currently on medications that can affect sodium levels - Urine and serum osmolality and sodium were checked last year and 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 as initiated in ED - UC pending, with preliminary Gram stain demonstrating Gram-negative rods Status: Acute (5) Anemia: Problem comment: - Chronic known iron deficiency anemia, stable Status: Chronic (6) Hypertension: Problem comment: - continue Amlodipine, Carvedilol - hold lisinopril and torsemide iso hyponatremia Status: Chronic (7) SHERIF (obstructive sleep apnea): Problem comment: - continue home CPAP Status: Chronic (8) Cognitive impairment: Problem comment: -Mini cog score on 09/28/24 was 2 -recommend further outpatient neurocognitive assessment Status: Acute Plan 1. Reviewed impression, plans, recommendations with patient 2. Answered her questions are satisfaction 3. Patient agree with above stated plans and recommendations Total Time Spent Total Time Spent: 30 minutes Subjective Date Seen: 06/25/25 Interval history: Admission history of present illness: ?84 year old female past medical history significant for hypertension, aortic valve insufficiency, hyponatremia, SIADH, chronic anemia, history of breast and bladder cancer, SHERIF on CPAP, insomnia is readmitted to the hospital from the ED with hyponatremia. ?Patient is seen with at bedside. Hospitalized at this facility from 06/20-06/22/2025 for acute hyponatremia in setting of acute diarrheal illness with an initial sodium of 117. On day of discharge her sodium was 129. Patient returns to ED today complaining of generalized weakness again increasing since discharge. Concerned that her sodium had dropped again. No recurrence of diarrhea. Did have a soft bowel movement this morning. No vomiting. No recent fevers. Denies headache or dizziness. Denies chest pain or shortness of breath. Denies abdominal pain. No UTI symptoms. Has a urostomy. ?EMR notes h/o polydipsia, drinking water when isn't feeling well. Takes 1g sodium daily. Pharmacy found that she was recently started on sertraline for her anxiety on 06/15/25. Has a Nephrology appt on the calendar. Off? PCP is Dr. Allan. Nonsmoker. Denies alcohol use. Wishes to be full code.? 06/25/2025, hospital day 2. Patient feels like her weakness is unchanged. Acknowledges she has been drinking a lot of water recently. Tolerating fluid restriction. Tolerating physical and occupational therapy assessment and nursing support. Exam Narrative: Exam Narrative: Appears comfortable at this time. No acute distress. Lungs are clear to auscultation. Heart tones with regular rhythm. Abdomen with active bowel sounds, soft, nontender. Extremities without edema. Moves all 4 extremities. No focal motor neurologic deficits. No edema in lower extremities. Const: Vital Signs, click to edit/add: Vital Signs - 24 hr 06/24/25 16:25 06/24/25 16:25 06/24/25 17:25 Temperature Pulse Rate 75 Pulse Rate [Pulse Oximeter] 75 Respiratory Rate 18 18 Blood Pressure [Ri ght Arm] 174/80 H Pulse Oximetry 96 Oxygen Delivery Me thod Room Air Room Air 06/24/25 19:00 06/24/25 22:20 06/24/25 23:00 Temperature 36.4 C Pulse Rate 69 Pulse Rate [Pulse Oximeter] 77 77 Respiratory Rate 16 16 Blood Pressure [Ri ght Arm] 155/71 H Pulse Oximetry 96 Oxygen Delivery Me thod Room Air 06/24/25 23:00 06/25/25 03:00 06/25/25 07:25 Temperature 36.3 C L 36.5 C Pulse Rate 73 Pulse Rate [Pulse Oximeter] 67 71 Respiratory Rate 18 16 Blood Pressure [Ri ght Arm] 163/68 H 176/75 H Pulse Oximetry 94 94 Oxygen Delivery Me thod Room Air Room Air 06/25/25 07:40 06/25/25 07:45 06/25/25 11:30 Temperature 36.7 C 36.7 C Pulse Rate Pulse Rate [Pulse Oximeter] 83 83 74 Respiratory Rate 16 16 16 Blood Pressure [Fl ght Arm] 176/86 H 136/68 Pulse Oximetry 93 94 Oxygen Delivery Me thod Room Air Room Air Labs Labs: Laboratory Results - last 24 hr 06/24/25 06/25/25 06/25/25 19:04 01:55 05:40 WBC 6.03 RBC 3.35 L Hgb 10.8 L Hct 33.1 MCV 99 MCH 32 MCHC 33 Plt Count 284 Sodium 125 L 127 L 126 L Potassium 3.6 Chloride 93 L Carbon Dioxide 29 Anion Gap 4 L BUN 22 Creatinine 0.7 Estimated Creat Clear 30.41 Estimated GFR 85 Glucose 88 Calcium 8.8
--- NOTE | 2025-06-25 18:52 | PC.NURSE ---
End of shift. pt has been pleasant she is forgetful at times. she is alert x3 off on date. Pt assist of 1 w/gait belt. R urostomy bag that is patent, bag emptied throughout shift. Pt reported no pain 5/10. Hypertensive, but VSS and pt is afebrile. SPO2 maintained >90% on RA. S. LS CTA. Telemetry shows NSR with 1st degree AV block. Urostomy patent and drained, clear, yellow urine. Pt was up to chair with SBA and tolerated it well. family was here. SL is patent. she is eating, drinking and voiding.
[2025-06-25] MEDS: MIRTAZAPINE 15 MG TABLET 3.75 MG PO (21:29)
[2025-06-25] MEDS: ENOXAPARIN 40 MG/0.4 ML INJ SUBCUT (21:29)
[2025-06-25] MEDS: LATANOPROST 0.005% OPHTH 1 DROP EYE-LEFT (21:40)
[2025-06-26 03:00] VITALS: BP 177/73; PULSE 72; RESP 16; TEMP 36.4; O2SAT 94
--- NOTE | 2025-06-26 05:14 | PC.NURSE ---
pt a/o x4 with occasional forgetfulness. Pt is assist of 1 w/walker and gait belt. pt reported pain 3/10, pain treated with prn Tylenol. pt slept throughout shift. Urostomy bag patent, with pale yellow output. VSS throughout shift. Pt sleeping comfortably in bed at this time
[2025-06-26 06:56] VITALS: PULSE 69
[2025-06-26 07:20] VITALS: BP 176/82; PULSE 75; RESP 18; TEMP 36.6; O2SAT 95
[2025-06-26 07:34] LABS: Hematocrit* 33.8 % (33.0-51.0); Hemoglobin* 11.0 gm/dL (12.0-16.0); Mean Corpuscular HGB Conc 33 gm/dL (32-36); Mean Corpuscular Hemoglobin 33 pg (26-34); Mean Corpuscular Volume 101 fL (80-100); Red Blood Count* 3.35 m/uL (4.00-5.20); White Blood Count* 6.10 K/uL (4.50-11.00)
[2025-06-26 07:36] LABS: Slide Review Reflex No
[2025-06-26 07:38] LABS: Chloride* 97 mmol/L (96-114)
[2025-06-26 07:39] LABS: Potassium* 3.5 mmol/L (3.6-5.1); Sodium* 132 mmol/L (135-149)
[2025-06-26 07:42] LABS: Anion Gap 6 mEq/L (7-15); Blood Urea Nitrogen* 23 mg/dL (7-30); Calcium* 8.7 mg/dL (8.4-10.6); Carbon Dioxide* 29 mmol/L (20-32); Creatinine* 0.7 mg/dL (0.5-1.5); Est. Creatinine Clearance* 30.41; Estimated Glomerular Filt Rate 85 ml/min; Glucose* 91 mg/dL (60-115)
[2025-06-26 08:05] VITALS: PULSE 75; RESP 18
[2025-06-26] MEDS: POTASSIUM CHLORIDE 10 MEQ CAPSULE ER 20 MEQ PO (09:54)
[2025-06-26] MEDS: TORSEMIDE 5 MG TABLET 10 MG PO (09:54)
[2025-06-26] MEDS: ACETAMINOPHEN 500 MG TABLET 1000 MG PO (09:55)
[2025-06-26] MEDS: CIPROFLOXACIN 250 MG TABLET PO (09:55)
[2025-06-26] MEDS: SODIUM CHLORIDE 1 GM TABLET PO (09:55)
[2025-06-26] MEDS: AMLODIPINE 5 MG TABLET PO (09:56)
[2025-06-26] MEDS: SODIUM CHLORIDE 0.9 % (FLUSH) 10 ML SYRINGE 5 ML IVF (09:56)
--- NOTE | 2025-06-26 12:01 | PC.NURSE ---
discharge. pt has been pleasant she is forgetful at times. she is alert x4 today.. Pt is up with SBA . R urostomy bag that is patent, bag emptied throughout shift. Pt reported no pain. SPO2 maintained >90% on RA. S. LS CTA. Telemetry shows NSR with 1st degree AV block. Urostomy patent and drained, clear, yellow urine. Pt was up to chair with SBA and tolerated it well. family was here. SL is patent. she is eating, drinking and voiding. went over discharge packet. went over medications appointments, education and instruction, SL was d/c intact. she left with all paper work and belongings. son was here for discharge she got a w/c ride out
--- NOTE | 2025-06-26 16:03 | P.DS_ITS ---
DS: Providers Provider Date Seen: 06/26/25 Date of admission: 06/24/25 17:07 Primary care physician: Scout Allan MD Admitting Clinician: Kimberly Birch MD Consults: 06/24/25 16:21 Consult to Occupational Therapy [CONS] Routine Comment: Reason(s) for OT Consult:: Evaluate and Treat Any Restrictions?:: No Restrictions Consult to Physical Therapy [CONS] Routine Comment: Reason(s) for PT Consult:: Evaluate and Treat Any Restrictions?:: No Restrictions Attending Physician on discharge: Adrian Riley MD Date of Discharge: 06/26/25 DS: Diagnosis Discharge Diagnosis (1) Weakness generalized: Status: Acute Problem details: Chronic. (2) Acute UTI: Status: Acute Problem details: 06/18/2025: Urine culture grew out Serratia marcescens sensitive to ciprofloxacin. Continue for 5 more days. (3) Bacteriuria: Status: Acute Problem details: - urinalysis shows nitrites and moderate bacteria; history of Pseudomonas UTI about 18 months ago - continue Cipro 250 mg orally b.i.d. as initiated in ED - UC pending, with preliminary Gram stain demonstrating Gram-negative rods (4) Presence of urostomy: Status: Acute (5) Anxiety: Status: Acute Problem details: - recently started on sertraline, 06/15/25, per PCP - d/c sertraline as can cause/worsen hyponatremia and f/u for further medication management (6) Cognitive impairment: Status: Acute Problem details: -Mini cog score on 09/28/24 was 2 -recommend further outpatient neurocognitive assessment (7) Protein-calorie malnutrition, moderate: Status: Acute (8) Hyponatremia: Status: Acute Problem details: - Acute on chronic. She has been followed for this as an outpatient as below. Most recent hospitalization for same 06/20-06/22/25 iso acute diarrheal illness - fluid restriction (h/o polydipsia), hold lisinopril and torsemide, d/c sertraline, received 250 mL NS in ED - continue sodium tabs, current dose 1g once daily - monitor sodiums - Close outpatient follow-up with PCP and nephrology, medication management (9) Anemia: Status: Chronic Problem details: - Chronic known iron deficiency anemia, stable (10) Hypo-osmolality and hyponatremia: Status: Chronic Problem details: - chronic, treated with salt tabs chronically, baseline in past year has been 134-138 (134 max outpatient setting in past 7 months) - h/o polydipsia, currently on medications that can affect sodium levels - Urine and serum osmolality and sodium were checked last year and 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 - on supplemental sodium, sees Nephrology for management (11) Hypertension: Status: Chronic Problem details: - continue Amlodipine, Carvedilol - hold lisinopril and torsemide iso hyponatremia (12) SHERIF (obstructive sleep apnea): Status: Chronic Problem details: - continue home CPAP DS: Summary Hospital Course Hospital Course: Admission history of present illness: ?84 year old female past medical history significant for hypertension, aortic valve insufficiency, hyponatremia, SIADH, chronic anemia, history of breast and bladder cancer, SHERIF on CPAP, insomnia is readmitted to the hospital from the ED with hyponatremia. ?Patient is seen with at bedside. Hospitalized at this facility from 06/20-06/22/2025 for acute hyponatremia in setting of acute diarrheal illness with an initial sodium of 117. On day of discharge her sodium was 129. Patient returns to ED today complaining of generalized weakness again increasing since discharge. Concerned that her sodium had dropped again. No recurrence of diarrhea. Did have a soft bowel movement this morning. No vomiting. No recent fevers. Denies headache or dizziness. Denies chest pain or shortness of breath. Denies abdominal pain. No UTI symptoms. Has a urostomy. ?EMR notes h/o polydipsia, drinking water when isn't feeling well. Takes 1g sodium daily. Pharmacy found that she was recently started on sertraline for her anxiety on 06/15/25. Has a Nephrology appt on the calendar. Off? PCP is Dr. Allan. Nonsmoker. Denies alcohol use. Wishes to be full code.? 06/25/2025, hospital day 2. Patient feels like her weakness is unchanged. Acknowledges she has been drinking a lot of water recently. Tolerating fluid restriction. Tolerating physical and occupational therapy assessment and nursing support. 06/26/2025, hospital day 3. Patient ready for discharge home. Tolerating increased activities. Eating more. Tolerating oral antibiotics which the organism Serratia marcescens is sensitive to. Will need follow up as specified. Continue to express our concern about her ability to care for herself independently. Patient continues to decline additional resources or other living settings. Time Spent with Patient Time attestation: Total time spent providing and/or coordinating discharge services: Exam Narrative: Exam Narrative: Appears comfortable at this time. No acute distress. Lungs are clear to auscultation. Heart tones with regular rhythm. Abdomen with active bowel sounds, soft, nontender. Extremities without edema. Moves all 4 extremities. No focal motor neurologic deficits. No edema in lower extremities. Const: Vital Signs, click to edit/add: Vital Signs - 24 hr 06/25/25 16:29 06/25/25 19:00 06/25/25 21:52 Temperature 36.7 C Pulse Rate Pulse Rate [Pulse Oximeter] 74 81 81 Respiratory Rate 18 16 16 Blood Pressure [Ri ght Arm] 175/77 H Pulse Oximetry 96 Oxygen Delivery Me thod Room Air 06/25/25 23:00 06/25/25 23:00 06/25/25 23:00 Temperature 36.5 C Pulse Rate 71 Pulse Rate [Pulse Oximeter] 74 74 Respiratory Rate 18 18 Blood Pressure [Ri ght Arm] 140/57 H Pulse Oximetry 93 Oxygen Delivery Me thod Room Air 06/26/25 03:00 06/26/25 06:56 06/26/25 07:20 Temperature 36.4 C L 36.6 C Pulse Rate 69 Pulse Rate [Pulse Oximeter] 72 75 Respiratory Rate 16 18 Blood Pressure [Ri ght Arm] 177/73 H 176/82 H Pulse Oximetry 94 95 Oxygen Delivery Me thod Room Air Room Air 06/26/25 08:05 Temperature Pulse Rate Pulse Rate [Pulse Oximeter] 75 Respiratory Rate 18 Blood Pressure [Ri ght Arm] Pulse Oximetry Oxygen Delivery Me thod DS: Data Data Completed and Pending Labs on day of discharge: Labs from last 24 hours 06/26/25 05:50 WBC 6.10 RBC 3.35 L Hgb 11.0 L Hct 33.8 MCV 101 H MCH 33 MCHC 33 Plt Count 293 Sodium 132 L Potassium 3.5 L Chloride 97 Carbon Dioxide 29 Anion Gap 6 L BUN 23 Creatinine 0.7 Estimated Creat Clear 30.41 Estimated GFR 85 Glucose 91 Calcium 8.7 Discharge Plan Discharge Disposition: Home, Self-Care Date of Admission: 06/24/25 17:07 Attending Provider on Discharge: Adrian Riley Primary Care Provider: Scout Allan Condition: Improved Anticipated Discharge Date/Time: 06/26/25 10:00 Discharge Medications: New ciprofloxacin HCl 250 mg tablet 250 mg PO BID 5 Days Qty: 10 0RF amlodipine 5 mg tablet 5 mg PO DAILY 30 Days Qty: 30 2RF sodium chloride 1,000 mg tablet,soluble 1,000 mg PO TID 30 Days Qty: 90 1RF Continued carvedilol 6.25 mg tablet 12.5 mg PO BID torsemide 10 mg tablet 10 mg PO DAILY latanoprost 0.005 % drops 1 drp ophthalmic (eye) HS Patient Comments: left eye alendronate 70 mg tablet 70 mg PO QWEEK Patient Comments: friday lisinopril 40 mg tablet 40 mg PO DAILY mirtazapine 7.5 mg tablet 3.75 mg PO HS calcium carbonate [Oyster Shell Calcium] 500 mg calcium (1,250 mg) tablet 500 mg PO BID ascorbic acid (vitamin C) [Vitamin C] 1,000 mg tablet 1 g PO DAILY triamcinolone acetonide 0.1 % cream 1 applic topical BID PRN acetaminophen 500 mg tablet 1,000 mg PO TID cholecalciferol (vitamin D3) 25 mcg (1,000 unit) capsule 25 mcg PO DAILY calcitonin (salmon) 200 unit/actuation spray,non-aerosol 1 spray intranasal (ALT) DAILY Patient Comments: INHALE 1 SPRAY DAILY IN ALTERNATING NOSTRILS FOR 4 WEEKS. lidocaine 5 % adhesive patch,medicated 1 patch topical DAILY PRN Rx Instructions: Apply on dry, clean, hairless skin. Apply 1 patch to painful area of skin for up to to 12 hours within 24 hour period. sertraline 25 mg tablet 25 mg PO QAM Discontinued amlodipine 2.5 mg tablet 2.5 mg PO DAILY sodium chloride 1,000 mg Tablet,Soluble 1,000 mg PO DAILY Discharge Orders: Discharge Order (Routine); Ordered 06/26/25 Ordered By: Adrian Riley Patient Education: Ciprofloxacin (By mouth), Amlodipine (By mouth), Sodium Chloride (By mouth), Malnutrition (DC), Fluid Restriction (DC), Anorexia in Older Adults (GEN) Additional Instructions: 1. Follow-up with primary pre clinician in 5-15 days with previsit sodium level 2. Continue with urostomy cares 3. Adequate nutrition, consider nutrition referral from primary skin care specialist Activity Level: No Restrictions and Activity as Tolerated Discharge Diet: Regular and 2000 ml Fluid Restriction Follow Up Appointments: Scout Allan MD [Primary Care Provider, Family Practice] - 07/06/25 2:05 pm Referral Note: [facility] for hospital follow-up. Forms: vogogo Info Instructions
== END 2025-06-26 11:30 | disposition home or self-care (01) | DRG 641 ==
LOC: ED 15:49 → MEDSURG 15:57
PROVIDERS: Admitting Provider Physician Assistant; Emergency Provider Family Medicine; PCP Family Medicine; Visit Provider Family Medicine
DX: E87.1 Hypo-osmolality and hyponatremia (principal); N39.0 Urinary tract infection, site not specified; E44.0 Moderate protein-calorie malnutrition; Z68.1 Body mass index [BMI] 19.9 or less, adult; B96.89 Other specified bacterial agents as the cause of diseases classified elsewhere; F41.9 Anxiety disorder, unspecified; D50.9 Iron deficiency anemia, unspecified; G47.33 Obstructive sleep apnea (adult) (pediatric); G31.84 Mild cognitive impairment of uncertain or unknown etiology; I35.1 Nonrheumatic aortic (valve) insufficiency; I10 Essential (primary) hypertension; Z99.89 Dependence on other enabling machines and devices; Z93.6 Other artificial openings of urinary tract status; Z93.2 Ileostomy status; Z85.51 Personal history of malignant neoplasm of bladder; Z85.3 Personal history of malignant neoplasm of breast
CPT/HCPCS: 36415; 80048; 80053; 81001; 82248; 83605; 83690; 84295; 84484; 85025; 85027; 86140; 87086; 94761; 97161; 97165; 99284; 99285; A9270; J1650; J7050

== ENCOUNTER 2025-06-29 12:21 | Emergency (ER) | payer MEDICARE, OTHER, SELFPAY ==
--- OUTSIDE RECORDS SUMMARY | 2025-06-29 12:24 | XMS_ITS | Clinical Summary ---
Author Organization [facility] Address [address] [place] [address] Care Team Providers Care Cnc Maintenance Mechanic Name Role Phone Doctor, No Primary Care Provider Ruth Michel MD Unavailable [phone] Allergies Active AllergyReactionsCriticalityNoted IrgnPdrmicubGeqrlzmkttUxdhw34/14/2023 XweeayczfjykbmGvcvn07/05/2014 Hyponatremia NifedipineSwelling, lips/mefbio1710/18/2006SimvastatinRash,BcrsbUxx64/23/2008 [employer] Medications MedicationSigDispense [...] Problems No known active problems Encounters DateTypeDepartmentCare ZfcmOchbaibulpw67/13/2025 1:00 PM CDTOffice Visit [facility] - [address] [place] [address] Ruth Corado MD Polyneuropathy (Primary Dx); Vitamin D deficiencyfrom Last 3 Months Social History Tobacco UseTypesPacks/DayYears UsedDateSmoking Tobacco: NeverSmokeless Tobacco: Never Tobacco Cessation:Counseling Given: Not Answered CommentsUnknownSex and Gender InformationValueDate RecordedSex Assigned at BirthNot on fileLegal WusCkdpeb95/07/2025 3:42 PM CDTGender IdentityNot on fileSexual OrientationNot on file Last Filed Vital Signs Vital SignReadingTime TakenCommentsBlood Pressure--Pulse--Temperature-- Respiratory Rate--Oxygen Saturation--Inhaled Oxygen Concentration--Vjujwv05.1 kg (106 lb)04/11/2025 1:12 PM UYXSwbqcv209.5 cm (5' 2)04/11/2025 1:12 PM CDTBody Mass Index19.391 1:12 PM CDT Plan of Treatment Health MaintenanceDue DateLast DeiyUztrdnevJbdhsxvawck1940Lipid Screening 1940Medicare Wellness Visit1940Depression Assessment (PHQ-2) 1941Yearly Review of HCD1990Osteoporosis Azxtthmol58/30/2024 09/26/2021, 05/14/2018, 04/04/2016, Additional history existsCOVID-19 Vaccine (2024- season)61, 10/20/2024, 04/05/2024, Additional history existsAdult Tetanus Xzwacui45/09/782806/02/2025, 05/18/2015, 08/30/2004 Zoster EomyvdoXcymtrroz01/13/2021, 10/30/2020, 06/29/2015Pneumococcal 50+ Years Xnqkogtjx38/10/2023, 03/21/2016, 03/10/2015RSV HdyjbdvnJrtzqbicp46/20/2023 Influenza RgsgdpdVmzipdkot13/21/2025, 04/05/2024, 03/18/2023, Additional history existsMeningococcal B VaccineAged OutNo longer eligible based on patient's age to complete this topic Procedures Procedure NamePriorityDate/TimeAssociated DiagnosisCommentsIMMUNOFIX AND PROTEIN ELP, SERUM ([facility])Cesoyoc1404/11/2025 1:04 PM CDT Polyneuropathy TSH ([facility])Ttjmlst7204/11/2025 1:04 PM CDT Polyneuropathy VITAMIN D, 25-HYDROXY ([facility])Xiiieud5304/11/2025 1:04 PM CDT Polyneuropathy Vitamin D deficiency VITAMIN B12 ([facility])Belauyy9004/11/2025 1:04 PM CDT Polyneuropathy from Last 3 Months Results * IMMUNOFIX AND PROTEIN ELP, SERUM ([facility]) (04/11/2025 1:04 PM CDT)Component ValueRef RangeTest MethodAnalysis TimePerformed AtPathologist SignatureIgG ([facility])1,281532 - 1,602 mg/dLL[facility]P 1IgA ([facility])30486 - 422 mg/dLL[facility] 1IgM ([facility])51690 - 217 mg/d[facility] 1Protein Total ([facility])6.96.0 - 8.5 g/d[facility] 1Albumin ([facility])3.52.9 - 4.4 g/d[facility] 2Ffjsu-0-Icoubfjt ([facility])0.30.0 - 0.4 g/d[facility] 8Ammqc-7-Kdsoirba ([facility])0.80.4 - 1.0 g/dL [facility] 2Beta Globulin [...] scan will follow via computer, mail, or applications engineer manufacturing delivery. Specimen (Source)Anatomical Location / LateralityCollection Method / Volume Collection TimeReceived CusnJumvr38/13/2025 1:04 PM CDT1 11:00 PM CDT Narrative [facility] 2 - 04/13/2025 3:10 PM CDT Performed at: 01 - [facility] [address] ??[id number] Inner Diameter Grinder Tool: Dave Jackson MD, Phone: ??[phone] Performed at: ??02 - [facility] [address] ??[id number] Inner Diameter Grinder Tool: Mariaelena Cuenca MD, Phone: ??[phone] Authorizing ProviderResult TypeResult StatusGudominique Corado MDLABCORP ORDERABLES Final ResultPerforming OrganizationAddressCity/State/ZIP CodePhone Number [facility] 2 [facility] 1 * VITAMIN D, 25-HYDROXY ([facility]) (04/11/2025 1:04 PM CDT)ComponentValueRef RangeTest MethodAnalysis TimePerformed AtPathologist SignatureVitamin D,25 Hydroxy ([facility])39.830.0 - 100.0 ng/mLL[facility] 1Comment: Vitamin D deficiency has been defined by the [place] of [employer] and an Endocrine Society practice guideline as a level of serum 25-OH vitamin D less than 20 ng/mL (1,2). The Endocrine Society went on to further define vitamin D insufficiency as a level between 21 and 29 ng/mL (2). 1. IOM ([place] of [employer]). 2010. Dietary reference ?? intakes for calcium and D. [place]: The ?? National Academies Press. 2. [place] MF, Marya NC, Andrés JONES, et al. ?? Evaluation, treatment, and prevention of vitamin D ?? deficiency: an Endocrine Society clinical practice ?? guideline. JCEM. 2010; 96(7):1911-30. Specimen (Source)Anatomical Location / LateralityCollection Method / Volume Collection TimeReceived JqzfBgcsh81/13/2025 1:04 PM CDT1 11:00 PM CDT Narrative [facility] - 04/13/2025 3:10 PM CDT Performed at: - [facility] ??[id number] Inner Diameter Grinder Tool: Dave Jackson MD, Phone: ??[phone] Authorizing ProviderResult TypeResult Oj Corado M[facility] ORDERABLES Final ResultPerforming OrganizationAddressCity/State/ZIP CodePhone Number [facility] 1 * TSH ([facility]) (04/11/2025 1:04 PM CDT)ComponentValueRef RangeTest Method Analysis TimePerformed AtPathologist SignatureTSH ([facility])1.4200.450 - 4.500 uIU/m[facility] 1Specimen (Source)Anatomical Location / LateralityCollection Method / VolumeCollection TimeReceived ErbeGhnjq13/13/2025 1:04 PM CDT 04/10/2025 11:00 PM CDT Narrative [facility] - 04/13/2025 3:10 PM CDT Performed at: - [facility] ??[id number] Inner Diameter Grinder Tool: Dave Jackson MD, Phone: ??[phone] Authorizing ProviderResult TypeResult StatusRuth Corado MDL[facility] ORDERABLES Final ResultPerforming OrganizationAddressCity/State/ZIP CodePhone Number [facility] 1 * VITAMIN B12 ([facility]) (04/11/2025 1:04 PM CDT)ComponentValueRef RangeTest MethodAnalysis TimePerformed AtPathologist SignatureVitamin B12 ([facility])379 232 - 1,245 pg/m[facility] 1Specimen (Source)Anatomical Location / Laterality Collection Method / VolumeCollection TimeReceived ZwqfPqnyh73/13/2025 1:04 PM CDT1 11:00 PM CDT Narrative [facility] 1 - 04/13/2025 3:10 PM CDT Performed at: 01 - [facility] [address] [place], [place] ??[id number] Inner Diameter Grinder Tool: Dave Jackson MD, Phone: ??[phone] Authorizing ProviderResult TypeResult StatusuRth Corado [facility] ORDERABLES Final ResultPerforming OrganizationAddressCity/State/ZIP CodePhone Number [facility] 1 from Last 3 Months Insurance Care Teams Team MemberRelationshipSpecialtyStart DateEnd Date Doctor, No No ad PCP - GeneralRadiology02/03/25 Ruth Corado MD [address] [place] [address] [address] [place] [address] Neurology02/03/25
--- OUTSIDE RECORDS SUMMARY | 2025-06-29 12:24 | XMS_ITS | Clinical Summary ---
Author Organization [facility] Address [address] [place] [address] Care Team Providers Care Civil Project Engineer Name Role Phone Petros Triplett MD Unavailable Unavailable Scout Allan MD Primary Care Provider Allergies Active AllergyReactionsCriticalityNoted MsugJsrfgpprFssdltdjvcUyywr39/07/2024 Edema on 5mg, ok on 2.5mg CarvedilolOther - Describe In Comment Field3ChlorthalidoneOther - Describe In Comment Field02/01/2014 Hyponatremia HydrochlorothiazideOther - Describe In Comment Field10/07/2014 Low sodium. NwprjwfrxsVqwuk21/21/5738TehqzhjxngfAqqx71/23/2008 [facility] Les[facility] Arms & Trunk Medications MedicationSigDispense [...] bras. For personal use. 2 Packet ctive Xcfzyhv-Hwkstxyvl-Oarl tab Take 2 Tablets by mouth.Active latanoprost (XALATAN) 0.005 % ophthalmic solution INSTILL 1 DROP INTO LEFT EYE AT DQERKMB5203/12/2022ctive onazewhzomwfm-qudxxklw-lpmteu (CENTRUM SILVER) 0.4 mg-300 mcg- 250 mcg [...] DateDiagnosed DateStress due to illness of family qgfkei6706/15/2025 Unsteady gait06/15/2025Status post right knee replacement 04/20/2411 History of breast xeexmp4601/06/2024History of bladder cancer: Cystectomy/ileal loop diversion Insomnia, nqyqyyiqyn95/15/2023Hyponatremia 11/11/2022eripheral sensory pterljpzlz80/02/8275Icopamltlzxu38/12/2022 Nonsustained ventricular xksfpfodqjm08/24/2022Ileostomy in place11/02/2019OSA 03/16/2019 AHI-26 Pillows hniqmn4004/04/2019Chronic vkifki2010/30/2018Multiple thyroid fkforug5708/07/2016 Overview (10/23/2016): Multinodular Goiter (Right 2.1, 0.6, [...] 2019 or later as needed. Lumbar disc xgjcveshbj43/17/2016Iron deficiency fgxmjt3204/13/2015CP (advance care planning)05/20/2011 Overview (08/20/2012): Discussed 05/20/2011 Referred 05/20/2011 Her plan submitted 08/19/2012 Osteoarthritis, knee05/20/2011 Overview (05/20/2011): Right knee BRCA1 wdaxapzm72/24/2010 Overview (08/23/2009): At increased risk Breast and Ovarian Cancer - per Dr Astudillo 2009: Letter on file. Aortic Valve Insufficiency; /09/2008 Overview (04/13/2008): Echo: 11/2007: Recheck Yearly Unspecified essential syysszrruebb26/25/2007Mitral valve kkqujudfh40/01/2004 Overview (04/13/2008): no need for antibiotics 06/10/2007 Echo: 11/2007: Recheck Yearly Resolved Problems ProblemNoted DateDiagnosed DateResolved DateBilateral lower extremity edema /hronic arthralgias of knees and hips/ Ganglion cyst of volar aspect of left wristWeight loss Hyponatremia Overview (03/15/2013): Due to Chlorthalidone; improved off medication for a week 03/15/2013 Beenwo30Osteopenia Overview (12/19/2011): Recommend Calcium 2000 mg and Vit D 1000 International Units per day. Bone mineral density stable 04/2011; recheck 2 yrs Routine general medical examination at a health care uopjrtqs66/15/2008 07/06/2020 Overview (04/09/2010): Bar Enema 11/28/2006: Diverticulosis, Redundannt Sig & Trans Colon. PLAN: repeat in 2011. 04/09/2010 Contact dermatitis and other eczema, due to unspecified cause11/11/2007 11/16/2020Mixed dvupilnjdtpflj76Diverticulitis of colon (without mention of hemorrhage)Malignant neoplasm of bladder, part ytddlewmnvn52Malignant neoplasm of breast (female), unspecified sitebnormal chest CT07/06/2020 Encounters DateTypeDepartmentCare WzuvJipvhkeidrz46/31/2025Telephone [address] [address] Scout Allan MD Tuizuuqtgfw82/31/2025Telephone [address] [address] Scout Allan MD Error-please dlpozlsgg37/22/2025Telephone [address] [address] Scout Allan MD fyi (trying to contact nurse )06/20/2025Nurse Triage [address] [address] Scout Allan MD Weak06/17/2025 1:00 PM CSTAncillary Procedure [address] [address] 06/17/2025 12:00 PM CSTOffice Visit [facility] [address] [place] [address] Scout Allan MD Back Pain (Across lower back, getting worse)06/17/2025Results Follow-Up [facility] [address] [place] [address] Scout Allan MD Uifnsoh5106/17/2025Telephone [facility] [address] [place] [address] Scout Allan MD Results (X-RAY )06/17/20258184Hirsqj97/18/2025Nurse Triage [facility] [address] [place] [address] Scout Allan MD Chest Pain06/16/2025Telephone [facility] [address] [place] [address] Scout Allan MD Pain (BACK PAIN REFLARRING UP )06/15/2025 3:20 PM CSTOffice Visit [facility] [address] [place] [address] Scout Allan MD Follow Up (Blood pressure); ER Follow up ([facility], 06/12/2025, constipation )06/15/20254269Xksimv35/16/2025Telephone [facility] [address] [place] [address] Scout Allan MD Results (Lab results)06/12/2025Orders Only [facility] Scanner 1 scan: (1-Ord) [place], CT ABDOMEN PELVIS W CON, Travel 06/01/2025 12:45 PM CSTOrders Only [address] [address] [place] Lab05/31/2025 4:15 PM CSTAncillary Procedure [facility] [address] [place] [address] 05/31/2025 3:20 PM CSTOffice Visit [facility] [address] [facility] [address] Scout Allan MD Back Pain (Lower left back pain, radiates into left leg, got worse about 3 weeks ago)05/31/20255094Mfzvgu31/24/2025 3:00 PM CSTOrders Only [facility] [address] [place] [address] [place] Lab05/23/20254222Mykczo75/14/2025Telephone [facility] [address] [facility] [address] Moises Hargrove MD CALL BACK (leg and buttock pain )05/03/2025 2:15 PM CSTOrders Only [facility] [address] [place] [address] [place], [place]04/05/2025 11:45 AM CDTOrders Only [facility] [address] [place] [address] [place] <No scans attached>04/05/2025Travelfrom Last 3 Months Immunizations ImmunizationAdministration DatesNext DueAMB Influenza, IIV4 PF (=>6 mos Flulaval,Fluzone Fluarix)(Flu Clinic Only)03/29/2019,04/18/2014mb Influenza, Inactivated AIIV4 (Age 65+ Years) Preserv Free03/21/2020COVID-19 VACCINE SPIKEVAX (MODERNA 50MCG/0.5ML) 12YO+ PFS10/20/2024,4COVID-19 vaccine ([employer]-BioNTech 30mcg/0.3mL) 12YO+ BIVALENT PF, MDV2COVID-19 vaccine ([employer] 30mcg/0.3mL) PF, MDV03/07/2020,08/08/2020Influenza, High-dose Ypgrtolzrmy92/21/2025,04/05/2024,03/21/2016,03/10/2015Influenza, High-dose Quadrivalent Ijyyazybrfo54/19/2023,04/02/2022Influenza, IIV3 (Age >=3 years) 05/31/2003Influenza, WJI571Influenza, Inactivated AIIV4 (Age 65+ Years) Preserv Free04/11/2021Influenza, [...] = 0.6 oz pure alcohol)PHQ-2AnswerDate RecordedPHQ-2 TOTAL NULOI879Social Connections AnswerDate RecordedDo you often feel lonely or isolated from those around you?0 02/02/2025lcohol UseAnswerDate RecordedHow often do you have a drink containing alcohol?verage Number of DrinksNot on file06/17/2025Frequency of Binge DrinkingNot on file06/17/2025Financial Resource StrainAnswerDate Recorded Difficulty of Paying Living Duqugdla590/06/2025Difficulty of Paying Living ExpensesNot on file02/02/2025Food InsecurityAnswerDate [...] Recorded Sex Assigned at BirthNot on fileLegal WazPfrgbj20/14/2013 5:54 AM CSTGender IdentityNot on fileSexual OrientationNot on fileOccupationIndustryJob Start Date Job End DateRetiredNot on fileNot on fileNot on file Obstetrics History GravidaParaTermPretermABIABSABEctopicMultipleLivingLive Lueszi873BhuiNtcropqFN Total LaborLabor/2nd/8amVesazpMuwMweuOavkHGPEuaE0Q2YhohAuunTcatIfuo Last Filed Vital Signs Vital SignReadingTime TakenCommentsBlood Uqoflfqu674/5806/17/2025 12:25 PM MEDICAL RESEARCH SCIENTIST Cyjnk774306/17/2025 12:07 PM TYQUfcyprenrwt60.7 ??C (98 ??F)01/25/2025 2:05 PM CDT Respiratory Xslw163207/13/2022 10:50 AM CSTOxygen Llpjnosycw23%06/17/2025 12:07 PM CSTInhaled Oxygen Concentration--Grcazi04.3 kg (108 lb 9.6 oz)06/15/2025 3:23 PM TGYGrnqvx404.5 cm (5' 2)01/04/2025 8:55 AM CDTBody Mass Index19.8601/04/2025 8:55 AM CDT Plan of Treatment DateTypeDepartmentCare Team (Latest Contact Info)Agbnbtfsxqj54/06/2026 11:00 AM CSTAncillary Procedure [facility] [address] [place] [phone] 07/06/2025 10:30 AM CSTOffice Visit [facility] [address] [place] [address] Scout Allan MD [address] [place] [address] 07/07/2025 2:30 PM CSTOrders Only [facility] [address] [place] [address] [place] 07/07/2025 3:20 PM CSTOffice Visit [facility] [address] [place] [address] Scout Allan MD [address] [place] [address] 07/12/2025 2:00 PM CSTOffice Visit [facility] [address] [place] [phone] [place] [address] [facility] [address] [place] [address] 08/12/2025 8:20 AM CSTOffice Visit [facility] [address] [place] [address] Moises Hargrove MD [address] [place] [address] Health MaintenanceDue DateLast DoneCommentsMedicare Wellness for age 65+ /06/2024, 09/25/2023, 09/06/2022, Additional history exists Depression screening for age 12+/08/2024, 09/29/2024, 09/28/2024, Additional history existsCOVID-19 vaccine series ( season)2025 04/19/2025, 10/20/2024, 04/05/2024, Additional history existsBMI (ht and wt on same day) for age 18+/01/2025, 11/29/2024, 11/18/2024, Additional history existsTetanus qxfefwn41/02/2025, 05/18/2015, 08/30/2004Zoster (shingles) series for age 50+Onicuqveu62/13/2021, 10/30/2020, 06/29/2015DEXA/DXA scan for age 65+Nsxjizuqh12/30/2022, 05/14/2018, 04/04/2016, Additional history existsPneumococcal series for age 50+Zreefsiou23/10/2023, 03/21/2016, 03/10/2015 RSV vaccine for adults or ybjgyqrvtMvekrzond00/20/2023Influenza VaccineCompleted 04/19/2025, 04/05/2024, 04/11/2021, Additional history existsHepatitis B series for 19+Aged OutNo longer eligible based on patient's age to complete this topic Procedures Procedure NamePriorityDate/TimeAssociated DiagnosisCommentsXR SPINE LUMBAR 2 PSOAEUgcpdpr30/19/2025 1:04 PM MEDICAL RESEARCH SCIENTIST Mechanical back pain SCAN-CT UCYOQJOMUPLAYQ25/14/2025 12:00 AM WMTKCCUBHNJHMPdjlmeb91/03/2025 11:41 AM MEDICAL RESEARCH SCIENTIST Iron deficiency anemia, unspecified iron deficiency anemia type IRON PLUS IRON BINDING AAUTkghgwh98/03/2025 11:41 AM MEDICAL RESEARCH SCIENTIST Iron deficiency anemia, unspecified iron deficiency anemia type BASIC METABOLIC RSVMEPxgwjza62/02/2025 4:24 PM MEDICAL RESEARCH SCIENTIST Hyponatremia XR HIP 1 VIEW W PELVIS VFZYBtdwjif80/02/2025 4:23 PM MEDICAL RESEARCH SCIENTIST Chronic left hip pain KMODHVHIZVQvpdbck06/24/2025 3:33 PM MEDICAL RESEARCH SCIENTIST Iron deficiency anemia, unspecified iron deficiency anemia type IRON PLUS IRON BINDING JALPdgrsdx68/24/2025 3:33 PM MEDICAL RESEARCH SCIENTIST Iron deficiency anemia, unspecified iron deficiency anemia type PWTURPTIASAtcgvre19/04/2025 2:08 PM MEDICAL RESEARCH SCIENTIST Iron deficiency anemia, unspecified iron deficiency anemia type IRON PLUS IRON BINDING NZZXvtiuxc53/04/2025 2:08 PM MEDICAL RESEARCH SCIENTIST Iron deficiency anemia, unspecified iron deficiency anemia type EWYFGGGVTSXpwuxjo93/07/2025 11:54 AM CDT Iron deficiency anemia, unspecified iron deficiency anemia type IRON PLUS IRON BINDING LEITxkjdum14/07/2025 11:54 AM CDT Iron deficiency anemia, unspecified iron deficiency anemia type XR DXA BONE DENSITY 2 SITES AHDPAMeiopmy36/30/2022 11:42 AM CDT Asymptomatic postmenopausal state from Last 3 Months or Most Recently Relevant to Health Maintenance Results * XR SPINE LUMBAR 2 VIEWS (06/17/2025 1:04 PM MEDICAL RESEARCH SCIENTIST)Anatomical RegionLaterality ModalityLUMBAR SPINEComputed RadiographySpecimen (Source)Anatomical Location / LateralityCollection Method / VolumeCollection TimeReceived Time06/17/2025 3:48 PM MEDICAL RESEARCH SCIENTIST Impressions 06/17/2025 3:48 PM MEDICAL RESEARCH SCIENTIST Mild compression of L1 has developed since the prior study. L4 appears similar. Multilevel degenerative disc disease. No spondylolisthesis. Right bipolar hip arthroplasty. Constipation. Dictated by Isaac Bello MD @ 06/17/2025 3:48:34 PM (Electronically Signed) Narrative 06/17/2025 3:48 PM MEDICAL RESEARCH SCIENTIST For Patients: As a result of the [...] 3:48:34 PM (Electronically Signed) Authorizing ProviderResult TypeResult StatusRichard Brielle Allan MDGENERAL IMAGINGFinal Result * SCAN-CT INTERPRETATION (06/12/2025 12:00 AM MEDICAL RESEARCH SCIENTIST)Anatomical RegionLaterality ModalityOther Narrative Authorizing ProviderResult TypeResult StatusScannerOTHERFinal Result * IRON PLUS IRON BINDING CAP (06/01/2025 11:41 AM MEDICAL RESEARCH SCIENTIST) Only the most recent of4 resultswithin the time period is included. ComponentValueRef RangeTest MethodAnalysis TimePerformed AtPathologist Signature IRON, OZQDK94347 - 160 mcg/dL06/02/2025 4:34 AM CSTQUEST DIAGNOSTICSIRON BINDING SNSHSKOT828658 - 450 mcg/dL (calc)06/02/2025 4:34 AM CSTQUEST DIAGNOSTICS% BNGETXWAOW4284 - 45 % (calc)06/02/2025 4:34 AM CSTQUEST DIAGNOSTICSSpecimen (Source)Anatomical Location / LateralityCollection Method / VolumeCollection TimeReceived TimeBloodBLOOD SPECIMEN / UnknownQuest Collect / Rksszlq8006/01/2025 11:41 AM CST06/01/2025 11:41 AM MEDICAL RESEARCH SCIENTIST Narrative Authorizing ProviderResult TypeResult StatusRichjasmin Allan MDCHEMISTRY Final ResultPerforming OrganizationAddressty/State/ZIP CodePhone Number Lot[address] [address], [place] [phone] * HEMOGLOBIN (06/01/2025 11:41 AM MEDICAL RESEARCH SCIENTIST) Only the most recent of4 resultswithin the time period is included. ComponentValueRef RangeTest MethodAnalysis TimePerformed AtPathologist Signature HILSKAZIXY31.011.7 - 15.5 g/dL06/02/2025 2:38 AM CSTQUEST ZULSETENHRLNTC77.381.4 - 101.7 fL06/02/2025 2:38 AM CSTQUEST DIAGNOSTICSSpecimen (Source)Anatomical Location / LateralityCollection Method / VolumeCollection TimeReceived TimeBlood BLOOD SPECIMEN / UnknownQuest Collect / Jomhgzg9906/01/2025 11:41 AM CST06/01/2025 11:41 AM MEDICAL RESEARCH SCIENTIST Narrative Authorizing ProviderResult TypeResult StatusRichjasmin Allan MDHEMATOLOGY Final ResultPerforming OrganizationAddressCity/State/ZIP CodePhone Number Lot[address] [address], * (ABNORMAL) BASIC METABOLIC PANEL (05/31/2025 4:24 PM MEDICAL RESEARCH SCIENTIST)ComponentValueRef RangeTest MethodAnalysis TimePerformed AtPathologist GjbwkwdqaCKPEPI748(L)135 - 146 mmol/L108/02/2024 4:04 AM CSTQUEST DIAGNOSTICSPOTASSIUM4.03.5 - 5.3 mmol/L108/02/2024 4:04 AM CSTQUEST DIAGNOSTICSCARBON QZAXXGU6691 - 32 mmol/L 06/01/2025 4:04 AM CSTQUEST JEELQOEWSUVKCFQGEK5804 - 99 mg/dL06/01/2025 4:04 AM CSTQUEST DIAGNOSTICSComment: ? Fasting reference interval CALCIUM9.48.6 - 10.4 mg/dL06/01/2025 4:04 AM CSTQUEST DIAGNOSTICSCREATININE0.81 0.60 - 0.95 mg/dL06/01/2025 4:04 AM CSTQUEST DIAGNOSTICSBUN/CREATININE RATIO33 (H)6 - 22 (calc)06/01/2025 4:04 AM CSTQUEST OQCQGQUFKDEATGF20> OR = 60 mL/min/1.20t56306/01/2025 4:04 AM CSTQUEST DIAGNOSTICSUREA NITROGEN (BUN)27(H)7 - 25 mg/dL06/01/2025 4:04 AM CSTQUEST DIAGNOSTICSELECTROLYTE BREFZKR39 - 17 mmol/L (calc)06/01/2025 4:04 AM CSTQUEST NUNVRYNOYNFLQUFFQLE97(L)98 - 110 mmol/L 06/01/2025 4:04 AM CSTQUEST DIAGNOSTICSSpecimen (Source)Anatomical Location / LateralityCollection Method / VolumeCollection TimeReceived TimeBloodBLOOD SPECIMEN / UnknownQuest Collect / Axlthai4805/31/2025 4:24 PM CST05/31/2025 4:24 PM MEDICAL RESEARCH SCIENTIST Narrative Authorizing ProviderResult TypeResult StatusRichard Brielle Allan MDCHEMISTRY Final ResultPerforming OrganizationAddressCity/State/ZIP CodePhone Number [facility] [address] [place] [address], * XR HIP 1 VIEW W PELVIS LEFT (05/31/2025 4:23 PM MEDICAL RESEARCH SCIENTIST)Anatomical Region LateralityModalityHIPS, HIPL, PelvisComputed RadiographySpecimen (Source) Anatomical Location / LateralityCollection Method / VolumeCollection Time Received Time06/01/2025 8:17 AM MEDICAL RESEARCH SCIENTIST Impressions 06/01/2025 8:17 AM MEDICAL RESEARCH SCIENTIST 1. No acute osseous injuries are noted. Dictated by Nitish Banks MD @ 06/01/2025 8:17:09 AM Dictated by: Nitish Banks MD @ 06/01/2025 08:17:12 (Electronically Signed) Narrative 06/01/2025 8:17 AM MEDICAL RESEARCH SCIENTIST For Patients: As a result of the [...] to assess therapeutic efficacy. Daisha Payne PA-C [facility] 10/04/2021 Narrative 10/04/2021 5:21 PM CDT For Patients: Results are automatically released to your [facility] ([employer]) account once available, in compliance with federal regulations. This means that you may see your results before your provider has had a chance to review them. Please allow 2-3 business days for your provider to comment on the results. XR DXA Bone Mineral Density (BMD) EXAM LOCATION: [address] [address] PATIENT NAME: Claudia Benitez DATE OF : [...] two scanners are made by the same tax adjuster. PROCEDURE: Dual-energy x-ray absorptiometry performed with routine [...] Relevant to Health Maintenance Insurance * Guarantor: WandernaomiClaudia bragg Kayacostevie TypeRelation to PatientDate of BirthPhone Billing AddressPersonal/ItedlrIjew[phone] [facility] [place] [phone] [place] [id number] Advance Directives TypeDate RecordedPatient RepresentativeExplanationHealthcare Directive08/19/2012 1:53 [facility], 07/22/2012 Care Teams Team MemberRelationshipSpecialtyStart DateEnd Scout Allan MD [address] [place] [address] PCP - GeneralFamily Practice03/15/13 Petros Triplett MD Ophthalmology Surgery08/19/12
--- OUTSIDE RECORDS SUMMARY | 2025-06-29 12:24 | XMS_ITS | Clinical Summary ---
Author Organization [facility] Address [address] [place] [address] Phone Care Team Providers Care Oracle Webcenter Consultant Name Role Phone Scout Allan MD Primary Care Provider [phone] Allergies Active AllergyReactionsCriticalityNoted GrctEhazgkhbIkrbonjhypDyzybpqo35/07/2024 Edema on 5mg, ok on 2.5mg CarvedilolOther (see comments)12/11/2022hlorthalidoneOther (see comments) 02/01/2014 Hyponatremia HydrochlorothiazideOther (see comments)10/07/2014 Low sodium. WryqtylsnlJkolhzxm49/21/5603ExqoitzmjxiPhkrChn58/23/2008 [employer] Lesions Arms & Trunk Medications MedicationSigDispense [...] times a day if needed for muscle hvwcmb4712/09/2024 Active latanoprost (XALATAN) 0.005 % ophthalmic solution INSTILL 1 DROP IN LEFT EYE AT VLNZHGP29/05/2025Active traMADol (ULTRAM) 50 MG tablet Take 50 mg by mouth every 6 (six) hours if eoaxuq165Active triamcinolone (KENALOG) 0.1 % cream if needed [...] ProblemNoted DateDiagnosed DateHistory of malignant neoplasm of rrdbyr4201/06/2024 Bilateral lower limb edema12/05/2023H/O: malignant vqcfvtgo10/22/2024Hypo- osmolality and qjhfiroyqvav32/15/2023Peripheral sensory ksoulqkayf45/02/2022 Ileostomy jeqhxxe6911/02/2019Obstructive sleep apnea dqkuakur98/06/2019Chronic wmtugj5510/30/2018Multinodular rkkxxe9808/07/2016 Overview (01/07/2024): Multinodular Goiter (Right 2.1, 0.6, [...] Astudillo 2009: Letter on file. Aortic valve xzsnakvnfilus05/09/2008 Overview (01/07/2024): Echo: 11/2007: Recheck Yearly Essential bzncgihynjsh65/25/2007 Encounters DateTypeDepartmentCare VjgdEewcktsppdp71/19/2025Orders Only [facility] [place] [address] [address] [phone] Manish Palma MD Hypo-osmolality and hyponatremia; Essential kztugcbzexdd73/07/2025Orders Only [facility] [place] [address] [facility] [address] [place] [phone] Ivanna Oliveira RN Hypo-osmolality and svoavbnpceqs14/08/2025Results Follow-Up [facility] [address] [facility] [address] [place] [phone] Manish Palma MD from Last 3 Months Immunizations ImmunizationAdministration DatesNext DueInfluenza Split High Dose Preservative Free IM04/05/2024,03/21/2016,03/10/2015Moderna Sars-cov-2 (Covid-19) Vaccine, Mrna, Ranjit Kpybjso5910/20/2024,4Pfizer RFPR-SRN-489/02/2021,08/08/2020 Tdap10/06/2024,05/18/2015 Family History Medical HistoryRelationCommentsHeart failureBrother 1HypertensionBrother 1 DepressionBrother 2DepressionFatherHeart diseaseFatherHypertensionFatherCancer MotherHypertensionMotherDiabetesOtherMental illnessSiblingCancerSisterRelation StatusCommentsBrother 1AliveBrother 2AliveBrother 3AliveBrother 4AliveFather DeceasedMotherDeceasedOtherAliveSiblingAliveSisterDeceased Social History Tobacco UseTypesPacks/DayYears UsedDateSmoking Tobacco: NeverSmokeless Tobacco: NeverAlcohol UseStandard Drinks/WeekCommentsNever0 (1 standard drink = 0.6 oz pure alcohol)CommentsUnknownSex and Gender InformationValueDate Recorded Sex Assigned at BirthNot on fileLegal LggHzwlie02/09/2024 4:58 PM EDTGender IdentityNot on fileSexual OrientationNot on file Last Filed Vital Signs Vital SignReadingTime TakenCommentsBlood Xoqhpsim459/5207 2:05 PM CDT Qaobv209901/03/2025 2:05 PM CDTTemperature--Respiratory Rate--Oxygen Oahlogxdyq19% 01/03/2025 2:05 PM CDTInhaled Oxygen Concentration--Pgpirk91.1 kg (106 lb) 01/03/2025 2:05 PM JWDAfmmkw454.5 cm (5' 2)01/03/2025 2:05 PM CDTBody Mass Index19.39001/03/2025 2:05 PM CDT Plan of Treatment Health MaintenanceDue DateLast DoneCommentsPneumococcal Vaccine: 50+ Years (1 of 2 - PCV)1959Influenza AuavfccIaevbujtn89/21/2025, 04/05/2024, 04/11/2021, Additional history existsHepatitis B VaccineAged OutNo longer eligible based on patient's age to complete this topic Procedures Procedure NamePriorityDate/TimeAssociated DiagnosisCommentsBASIC METABOLIC PANEL Rpftxac4404/05/2025 10:48 AM CDT Hypo-osmolality and hyponatremia Essential hypertension from Last 3 Months Results * Basic metabolic panel (04/05/2025 10:48 AM CDT)ComponentValueRef RangeTest MethodAnalysis TimePerformed AtPathologist FdvlyswxhFjhcaws0056 - 99 mg/dL [employer]-Wood DaleComment: ? Fasting reference interval PHM738 - 25 mg/dLQuest Nati-Meng DaleCreatinine0.830.60 - 0.95 mg/dLQuest Nati-Meng DaleeGFR CKD-EPI CR [id number]> OR = 60 mL/min/1.22g4Cmgpi Nati-[place] DaleBUN/Creatinine RatioSEE NOTE:6 - (calc)Sabrina Damian-Meng MakieComment: ?? Not Reported: BUN and Creatinine are within ?? reference range. ? Pbaiyf368130 - 146 mmol/LQuest Nati-Meng DalePotassium4.63.5 - 5.3 mmol/L [facility]-Meng HdkjWpbaruau1201 - 110 mmol/LQuest Nati-[place] Bicarbonate (CO2)3120 - 32 mmol/LQuest Nati-Meng DaleCalcium9.28.6 - 10.4 mg/dLQuest Nati-Meng DaleSpecimen (Source)Anatomical Location / LateralityCollection Method / VolumeCollection TimeReceived TimeBloodVenous blood / Nrnhycn1004/05/2025 10:48 AM CDT1 10:48 AM CDT Narrative Resulting Agency Comment Performing Organization Information: ?Site ID: [id number] ?Name: Sabrina Greenfield ?Address: [address] [place] [phone] ?Director: Rohit Franco Authorizing ProviderResult TypeResult StatusManish PULLIAM BLOOD ORDERABLESFinal ResultPerforming OrganizationAddressCity/State/ZIP CodePhone Number [facility] Sabrina Greenfield [address] [place] [phone] from Last 3 Months Insurance [place] [id number] Care Teams Team MemberRelationshipSpecialtyStart DateEnd Scout Allan MD [address] [place] [address] PCP - GeneralFamily Medicine10/07/23
--- OUTSIDE RECORDS SUMMARY | 2025-06-29 12:24 | XMS_ITS | Encounter Summary ---
Author Organization [facility] Address [address] [facility] [address] [place] [address] Phone Care Team Providers Care Journeyman Meat Cutter Name Role Phone Scout Allan MD Primary Care Provider [phone] Encounter Details DateTypeDepartmentCare Team (Latest Contact Info)Rfkgeitsbou94/19/2025Orders Only [facility] [address] [place] [address] Manish Palma MD [address] [place] [address] Hypo-osmolality and hyponatremia; Essential hypertension Social History Tobacco UseTypesPacks/DayYears UsedDateSmoking Tobacco: NeverSmokeless Tobacco: NeverAlcohol UseStandard Drinks/WeekCommentsNever0 (1 standard drink = 0.6 oz pure alcohol)CommentsUnknownSex and Gender InformationValueDate Recorded Sex Assigned at BirthNot on fileLegal SksMrdjiy66/09/2024 4:58 PM EDTGender IdentityNot on fileSexual OrientationNot on filedocumented as of this encounter Plan of Treatment Not on file documented as of this encounter Visit Diagnoses Diagnosis Hypo-osmolality and hyponatremia Essential hypertension documented in this encounter Care Teams Team MemberRelationshipSpecialtyStart DateEnd Date Scout Allan MD [address] [place] [address] [facility]10/07/23documented as of this encounter
[2025-06-29 12:31] VITALS: BP 168/76; PULSE 77; RESP 18; TEMP 36.9; O2SAT 98
--- NOTE | 2025-06-29 12:42 | ED.GENADULT ---
HPI - General Adult General Chief complaint: Weakness Stated complaint: weakness Time Seen by Provider: 06/29/25 12:42 History of Present Illness HPI narrative: Patient presents to the emergency department complaining of increased weakness. Patient states she was recently admitted for hyponatremia. Patient notes body aches. Denies any fevers at home 85-year-old woman presenting to the emergency department With concern of increased weakness. Specifically concern of hyponatremia which she has experienced before with similar symptoms. She does restrict herself somewhat with her fluid intake to 8 cups day of water. She is unclear whether not medications were related although I do see that has been at some point discontinued on hydrochlorothiazide and chlorthalidone. She has not had any fever. No chills. No cough or cold symptoms. No new pains although has had some increased back pain which he says is chronic. X-rays recently she apparently showed a new compression fracture in her spine. Weakness is not focal. She is not complaining of headaches. Has not been vomiting. No diarrhea. Does have urostomy but nothing unusual here either. No melena or hematochezia. Related Data Home Medications ?Medication ?Instructions ?Recorded ?Confirmed alendronate 70 mg tablet 70 mg PO QWEEK 07/25/22 07/07/25 latanoprost 0.005 % eye drops 1 drp ophthalmic (eye) 07/25/22 07/07/25 lisinopril 40 mg tablet 40 mg PO DAILY 07/25/22 07/07/25 acetaminophen 500 mg tablet 1,000 mg PO TID 09/26/23 07/07/25 ascorbic acid (vitamin C) 1,000 mg 1 g PO DAILY 09/26/23 07/07/25 tablet (Vitamin C) calcium carbonate (Oyster Shell 500 mg PO BID 09/26/23 07/07/25 Calcium) cholecalciferol (vitamin D3) 25 25 mcg PO DAILY 09/26/23 07/07/25 mcg (1,000 unit) capsule mirtazapine 7.5 mg tablet 3.75 mg PO HS 09/26/23 07/07/25 triamcinolone acetonide 0.1 % 1 applic topical BID PRN 09/26/23 07/07/25 topical cream torsemide 10 mg tablet 10 mg PO DAILY 08/04/24 07/07/25 carvedilol 6.25 mg tablet 12.5 mg PO BID 10/18/24 07/07/25 calcitonin (salmon) 200 1 spray intranasal (ALT) DAILY 06/24/25 07/07/25 unit/actuation nasal spray lidocaine 5 % topical patch 1 patch topical DAILY PRN 06/24/25 07/07/25 sertraline 25 mg tablet 25 mg PO QAM 06/24/25 07/07/25 Previous Rx's ?Medication ?Instructions ?Recorded amlodipine 5 mg tablet 5 mg PO DAILY 30 days #30 tabs 06/26/25 ciprofloxacin HCl 250 mg tablet 250 mg PO BID 5 days #10 tabs 06/26/25 sodium chloride 1,000 mg soluble 1,000 mg PO TID electrolyte 06/26/25 tablet replenishment 30 days #90 tabs Allergies Allergy/AdvReac Type Severity Reaction Status Date / Time nifedipine Allergy Verified 07/07/25 12:37 simvastatin Allergy Target Verified 07/07/25 12:37 lesions arms/trunk amlodipine AdvReac Severe edema Verified 07/07/25 12:37 chlorthalidone AdvReac hyponatremi Verified 07/07/25 12:37 a hydrochlorothiazide AdvReac hyponatremi Verified 07/07/25 12:37 a Review of Systems Status of ROS: Reports: 6 or more systems reviewed and unremarkable except as noted in History and below [facility] Medical History Cognitive impairment ?R41.89 - Other symptoms and signs involving cognitive functions and awareness (ICD-10) Rotator cuff tear arthropathy of both shoulders ?M75.101 - Unspecified rotator cuff tear or rupture of right shoulder, not specified as traumatic (ICD-10) ?M12.811 - Other specific arthropathies, not elsewhere classified, right shoulder (ICD-10) ?M12.812 - Other specific arthropathies, not elsewhere classified, left shoulder (ICD-10) ?M75.102 - Unspecified rotator cuff tear or rupture of left shoulder, not specified as traumatic (ICD-10) Aortic valve regurgitation (03/08/08) ?I35.1 - Nonrheumatic aortic (valve) insufficiency (ICD-10) Osteoarthritis, knee (05/20/11) ?M17.9 - Osteoarthritis of knee, unspecified (ICD-10) Multiple thyroid nodules (08/07/16) ?E04.2 - Nontoxic multinodular goiter (ICD-10) Multinodular goiter (08/07/16) ?E04.2 - Nontoxic multinodular goiter (ICD-10) Mitral valve disorder (06/30/03) ?I05.9 - Rheumatic mitral valve disease, unspecified (ICD-10) Lumbar disc herniation (08/16/15) ?M51.26 - Other intervertebral disc displacement, lumbar region (ICD-10) Ileostomy in place (11/02/19) ?Z93.2 - Ileostomy status (ICD-10) Hypo-osmolality and hyponatremia (11/11/22) ?E87.1 - Hypo-osmolality and hyponatremia (ICD-10) History of bladder cancer (09/19/23) ?Z85.51 - Personal history of malignant neoplasm of bladder (ICD-10) Chronic eczema (10/30/18) ?L30.9 - Dermatitis, unspecified (ICD-10) Bilateral lower extremity edema (12/05/23) ?R60.0 - Localized edema (ICD-10) ACP (advance care planning) (05/20/11) ?Z71.89 - Other specified counseling (ICD-10) Fracture of rib ?S22.39XA - Fracture of one rib, unspecified side, initial encounter for closed fracture (ICD-10) Unspecified arthropathy, shoulder region ?M19.019 - Primary osteoarthritis, unspecified shoulder (ICD-10) Chronic hyponatremia ?E87.1 - Hypo-osmolality and hyponatremia (ICD-10) Hx of breast cancer ?Z85.3 - Personal history of malignant neoplasm of breast (ICD-10) Hyponatremia ?E87.1 - Hypo-osmolality and hyponatremia (ICD-10) Osteoarthritis of left shoulder ?M19.012 - Primary osteoarthritis, left shoulder (ICD-10) Rotator cuff tear, right ?M75.101 - Unspecified rotator cuff tear or rupture of right shoulder, not specified as traumatic (ICD-10) Osteoarthritis of right shoulder ?M19.011 - Primary osteoarthritis, right shoulder (ICD-10) Rupture of right biceps tendon ?S46.211A - Strain of muscle, fascia and tendon of other parts of biceps, right arm, initial encounter (ICD-10) Bladder cancer ?C67.9 - Malignant neoplasm of bladder, unspecified (ICD-10) Rotator cuff tear, left ?M75.102 - Unspecified rotator cuff tear or rupture of left shoulder, not specified as traumatic (ICD-10) Edema ?R60.9 - Edema, unspecified (ICD-10) Polydipsia ?R63.1 - Polydipsia (ICD-10) Dizziness ?R42 - Dizziness and giddiness (ICD-10) Anxiety ?F41.9 - Anxiety disorder, unspecified (ICD-10) Breast cancer, BRCA1 positive ?C50.919 - Malignant neoplasm of unspecified site of unspecified female breast (ICD-10) ?Z15.01 - Genetic susceptibility to malignant neoplasm of breast (ICD-10) Daytime sleepiness ?R40.0 - Somnolence (ICD-10) Insomnia ?G47.00 - Insomnia, unspecified (ICD-10) Fatigue ?R53.83 - Other fatigue (ICD-10) Myalgia ?M79.10 - Myalgia, unspecified site (ICD-10) Weakness generalized ?R53.1 - Weakness (ICD-10) Hypertension ?I10 - Essential (primary) hypertension (ICD-10) Aortic insufficiency ?I35.1 - Nonrheumatic aortic (valve) insufficiency (ICD-10) Osteoarthritis ?M19.90 - Unspecified osteoarthritis, unspecified site (ICD-10) Anemia ?D64.9 - Anemia, unspecified (ICD-10) Back pain ?M54.9 - Dorsalgia, unspecified (ICD-10) Eczema ?L30.9 - Dermatitis, unspecified (ICD-10) SHERIF (obstructive sleep apnea) ?G47.33 - Obstructive sleep apnea (adult) (pediatric) (ICD-10) Ventricular tachycardia ?I47.20 - Ventricular tachycardia, unspecified (ICD-10) Osteoporosis ?M81.0 - Age-related osteoporosis without current pathological fracture (ICD-10) Peripheral neuropathy ?G62.9 - Polyneuropathy, unspecified (ICD-10) Surgical History 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) ?Z96.651 - Presence of right artificial knee joint (ICD-10) Status post knee surgery (06/18/24) ?Z98.890 - Other specified postprocedural states (ICD-10) 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/19) ?Z96.641 - Presence of right artificial hip joint (ICD-10) History of bilateral mastectomy ?Z90.13 - Acquired absence of bilateral breasts and nipples (ICD-10) History of cataract surgery ?Z98.49 - Cataract extraction status, unspecified eye (ICD-10) History of hysterectomy ?Z90.710 - Acquired absence of both cervix and uterus (ICD-10) H/O ileostomy ?Z98.890 - Other specified postprocedural states (ICD-10) Family History Mother Ovarian cancer High blood pressure Sister Ovarian cancer High blood pressure Father Heart disease High blood pressure Social History Narrative: She is , lives with Rina in [facility]. They both see Dr. Allan for primary care. Nonsmoker, no ETOH. She has had her COVID vaccines. Code status is full. 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 What is your current living situation?: I presently have a place to live Problems where you live: no known problems Problems where you live details: NA In the past 12 months, utilities in danger of being shut off: no In past 12 months, lack of transportation kept you from medical appts, meetings, work, or getting things needed for daily living: no In the past 12 mos, have been you worried that your food would run out before you had money to buy more?: never true In the past 12 mos, the food you bought just didn't last and you didn't have money to buy more?: never true Highest level of school completed/degree received: Bachelor's degree Smoking Status: Never smoker Do you use any of these nicotine containing products: None Second hand tobacco smoke exposure: No How often do you have a drink containing alcohol: never How often do you have six or more drinks on one occasion: Never AUDIT-C Alcohol total score: 0 Non-prescribed substance use: denies use Caffeine: Yes (coffee, 2 cups daily) How often does anyone, including family, friends and others, physically hurt you: never How often does anyone, including family, friends and others, insult or talk down to you: never How often does anyone, including family, friends and others, threaten you with harm: never How often does anyone, including family, friends and others, scream or curse at you: never service: No Exam Narrative: Exam Narrative: Pleasant. NAD. Slightly hard of hearing. Kyphosis in her back of the thoracic spine. Lungs are clear. Heart in regular rate and rhythm with 1/6 systolic murmur. Abdomen is soft protuberant and nontender. Urostomy bag is noted without inflammatory changes. Extremities well perfused without edema. Const: Vital Signs, click to edit/add: Vital Signs - 24 hr 06/29/25 12:31 Temperature 98.4 F Pulse Rate [Right Pulse Oximeter] 77 Respiratory Rate 18 Blood Pressure [Ri ght Upper Arm] 168/76 H Pulse Oximetry 98 Oxygen Delivery Me thod Room Air Documenting provider has reviewed patient's vital signs: yes Course Vital Signs Vital signs: Initial Vital Signs Temperature 98.4 F 06/29/25 12:31 Temperature Source Temporal Artery Scan 06/29/25 12:31 Pulse Rate 77 06/29/25 12:31 Pulse Rhythm Regular 06/29/25 12:31 Pulse Strength 3+ Normal 06/29/25 12:31 Respiratory Rate 18 06/29/25 12:31 Blood Pressure 168/76 H 06/29/25 12:31 Blood Pressure Mean 106 H 06/29/25 12:31 Blood Pressure Position Sitting 06/29/25 12:31 Pulse Oximetry 98 06/29/25 12:31 Oxygen Delivery Method Room Air 06/29/25 12:31 Vital Signs Temperature 98.4 F 06/29/25 12:31 Pulse Rate 77 06/29/25 12:31 Respiratory Rate 18 06/29/25 12:31 Blood Pressure 168/76 H 06/29/25 12:31 Pulse Oximetry 98 06/29/25 12:31 Oxygen Delivery Method Room Air 06/29/25 12:31 Temperature 98.4 F 06/29/25 12:31 Pulse Rate 79 06/29/25 14:30 Respiratory Rate 16 06/29/25 14:05 Blood Pressure 163/73 H 06/29/25 14:05 Pulse Oximetry 98 06/29/25 14:30 Oxygen Delivery Method Room Air 06/29/25 14:05 Medical Decision Making MDM Narrative Medical decision making narrative: Considering community prevalence would screen for influenza and COVID and RSV. Does not at this time appear to need a chest x-ray; no notable respiratory symptoms consistent with pneumonia. Would try to collect a good urine sample. Certainly might be colonized with urostomy. She acknowledges this. Check standard labs including looking for anemia or hyponatremia as per her history. Monitored here in the emergency department. Labs overall reassuring and urinalysis actually looks unremarkable. Is able to get about the emergency department without notable difficulty. Would recommend close monitoring. See patient discharge plan for further discussion have not found any reason for your weakness at this point. At least your sodium is Also normal. I hope nothing more comes of this. if you continue to be fatigued, I would encourage you to follow-up in clinic for a workup/ evaluation for weakness/fatigue. If symptoms are escalating intensely or you might be feeling unsafe, please return to the emergency department. Medical Records Medical records reviewed: Yes I reviewed the patient's medical records Lab Data Lab results reviewed: Yes I reviewed the patient's lab results Labs: Lab Results 06/29/25 06/29/25 06/29/25 Range/Units 12:50 13:30 13:45 WBC 8.51 (4.50-11.00) K/uL RBC 3.51 L (4.00-5.20) m/uL Hgb 11.3 L (12.0-16.0) gm/dL Hct 34.9 (33.0-51.0) % MCV 99 (80-100) fL MCH 32 (26-34) pg MCHC 32 (32-36) gm/dL RDW Coeff of Helio 12.4 (11.5-15.5) % Plt Count 273 (140-440) K/uL Neut % (Auto) 81.8 H (42.0-72.0) % Lymph % (Auto) 9.4 L (20-44) % [place] % (Auto) 6.2 (0.0-11.0) % Eos % (Auto) 2.0 (0.0-7.0) % Baso % (Auto) 0.4 (0.0-3.0) % Neut # (Auto) 7.00 (1.7-7.0) K/uL Lymph # (Auto) 0.80 L (0.90-2.90) K/uL [place] # (Auto) 0.50 (0.00-0.90) K/UL Eos # (Auto) 0.17 (0.00-0.50) K/uL Baso # (Auto) 0.03 (0.00-0.30) K/uL Abs Immat Gran (auto) 0.02 (0.00-0.30) K/uL Imm/Tot Granulo (auto) 0.2 % Sodium 135 (135-149) mmol/L Potassium 4.0 (3.6-5.1) mmol/L Chloride 100 (96-114) mmol/L Carbon Dioxide 29 (20-32) mmol/L Anion Gap 6 L (7-15) mEq/L BUN 31 H (7-30) mg/dL Creatinine 0.8 (0.5-1.5) mg/dL Estimated GFR 72 ml/min Glucose 100 (60-115) mg/dL Calcium 8.9 (8.4-10.6) mg/dL C-Reactive Protein < 0.5 L (0.5-1.0) mg/dL Urine Color Yellow (Yellow) Urine Appearance Clear (Clear) Urine pH 6.0 (5.0-8.5) Ur Specific [place] 1.015 (1.000-1.030) Urine Protein Negative (Negative) Urine Glucose (UA) Negative (Negative) Urine Ketones Negative (Negative) Urine Blood Negative (Negative) Urine Nitrite Negative (Negative) Urine Bilirubin Negative (Negative) Urine Urobilinogen 0.2 (0.2-1.0) Ur Leukocyte Esterase Negative (Negative) Urine RBC 0-2 (0-2) Urine WBC 2-5 (0-5) Ur Squamous Epith Cells None (None-Few) Urine Bacteria Few A (None) SARS-CoV-2 (PCR) Negative SARS-CoV-2 (Negative) Influenza Type A (PCR) Negative PCR FLU A (Negative) Influenza Type B (PCR) Negative PCR FLU B (Negative) RSV (PCR) Negative PCR RSV (Negative) Discharge Plan Discharge Clinical Impression: Weakness generalized Patient Disposition: Home w/ Parent or Adult Condition: Improved Additional Instructions: have not found any reason for your weakness at this point. At least your sodium is Also normal. I hope nothing more comes of this. if you continue to be fatigued, I would encourage you to follow-up in clinic for a workup/ evaluation for weakness/fatigue. If symptoms are escalating intensely or you might be feeling unsafe, please return to the emergency department. Prescriptions: No Action carvedilol 6.25 mg tablet 12.5 mg PO BID torsemide 10 mg tablet 10 mg PO DAILY latanoprost 0.005 % drops 1 drp ophthalmic (eye) HS Patient Comments: left eye alendronate 70 mg tablet 70 mg PO QWEEK Patient Comments: friday lisinopril 40 mg tablet 40 mg PO DAILY mirtazapine 7.5 mg tablet 3.75 mg PO HS calcium carbonate [Oyster Shell Calcium] 500 mg calcium (1,250 mg) tablet 500 mg PO BID ascorbic acid (vitamin C) [Vitamin C] 1,000 mg tablet 1 g PO DAILY triamcinolone acetonide 0.1 % cream 1 applic topical BID PRN acetaminophen 500 mg tablet 1,000 mg PO TID cholecalciferol (vitamin D3) 25 mcg (1,000 unit) capsule 25 mcg PO DAILY calcitonin (salmon) 200 unit/actuation spray,non-aerosol 1 spray intranasal (ALT) DAILY Patient Comments: INHALE 1 SPRAY DAILY IN ALTERNATING NOSTRILS FOR 4 WEEKS. lidocaine 5 % adhesive patch,medicated 1 patch topical DAILY PRN Rx Instructions: Apply on dry, clean, hairless skin. Apply 1 patch to painful area of skin for up to to 12 hours within 24 hour period. sertraline 25 mg tablet 25 mg PO QAM ciprofloxacin HCl 250 mg tablet 250 mg PO BID 5 Days Qty: 10 0RF amlodipine 5 mg tablet 5 mg PO DAILY 30 Days Qty: 30 2RF sodium chloride 1,000 mg tablet,soluble 1,000 mg PO TID 30 Days Qty: 90 1RF Follow Up/Referrals: Scout Allan MD [Primary Care Provider, Family Practice] Stand Alone Forms: [employer] (dba [employer]) Info Instructions
[2025-06-29 13:36] LABS: PCR FLU A Negative PCR FLU A (Negative); PCR FLU B Negative PCR FLU B (Negative); PCR RSV Negative PCR RSV (Negative); SARS PCR* Negative SARS-CoV-2 (Negative)
[2025-06-29 13:42] LABS: Hematocrit* 34.9 % (33.0-51.0); Hemoglobin* 11.3 gm/dL (12.0-16.0); Mean Corpuscular HGB Conc 32 gm/dL (32-36); Mean Corpuscular Hemoglobin 32 pg (26-34); Mean Corpuscular Volume 99 fL (80-100); RDW Coefficient of Variation % 12.4 % (11.5-15.5); Red Blood Count* 3.51 m/uL (4.00-5.20); White Blood Count* 8.51 K/uL (4.50-11.00)
[2025-06-29 13:43] LABS: Immature Granulocytes Abs Auto 0.02 K/uL (0.00-0.30); Immature Granulocytes Pct Auto 0.2 %; Lymphocytes Absolute Auto 0.80 K/uL (0.90-2.90)
[2025-06-29 13:45] LABS: Slide Review Reflex No
[2025-06-29 13:52] LABS: Appearance Urine Clear (Clear)
[2025-06-29 13:53] VITALS: PULSE 73; O2SAT 94
[2025-06-29 14:00] VITALS: PULSE 72; O2SAT 95
[2025-06-29 14:05] VITALS: BP 163/73; PULSE 72; RESP 16; O2SAT 94
[2025-06-29 14:05] LABS: Chloride* 100 mmol/L (96-114)
[2025-06-29 14:06] LABS: Potassium* 4.0 mmol/L (3.6-5.1); Sodium* 135 mmol/L (135-149)
[2025-06-29 14:09] LABS: Anion Gap 6 mEq/L (7-15); Blood Urea Nitrogen* 31 mg/dL (7-30); Calcium* 8.9 mg/dL (8.4-10.6); Carbon Dioxide* 29 mmol/L (20-32); Creatinine* 0.8 mg/dL (0.5-1.5); Estimated Glomerular Filt Rate 72 ml/min; Glucose* 100 mg/dL (60-115)
[2025-06-29 14:15] VITALS: PULSE 73; O2SAT 96
[2025-06-29 14:30] VITALS: PULSE 79; O2SAT 98
== END 2025-06-29 15:15 | disposition home or self-care (01) ==
PROVIDERS: Emergency Provider Family Medicine; PCP Family Medicine
DX: R53.1 Weakness (principal)
CPT/HCPCS: 36415; 80048; 81001; 85025; 86140; 87086; 87631; 99284